=== PATIENT | female | born 1950 | race Caucasian/White ===

== ENCOUNTER 2019-06-15 09:00 | Outpatient (RCR) | payer MEDICARE, SELFPAY ==
--- NOTE | 2019-04-24 11:54 | HP.PTEVAL_ITS ---
Patient's Visit Information SHANE ZAMUDIO is a 69 year old F referred to Physical Therapy by Ricardo Smith MD with a diagnosis of LOW BACK PAIN WITH SCIATICA RIGHT SIDE. Date of Evaluation: 04/21/19 Physical Therapist: Indigo Zepeda PT, Cert MDT - Visit Plan Frequency: 2-3x /Week Duration: 4-6 Weeks Plan: POSTURE CORRECTION/STRENGTHENING, INSTRUCTION IN APPROPRIATE BODY MECHANICS AND ACTIVITY MODIFICATIONS. DLS STARTING WITH A NEUTRAL SPINE PROGRESSING ROM TOLERATED. DELTA LE ROM, STRETCHING AND STRENGTHENING. HEP INSTRUCTION. - Subjective Findings: Work/Leisure: RETIRED. Disability: NO. Present symptoms: RIGHT LOW BACK, HIP, THIGH AND LEG PAIN. RIGHT LE NUMBNESS TOO. Present since: ABOUT A MONTH AGO. Pain Scale: WORST 8/10, LEAST 5/10. Currently: /10. Commenced as a result of: NO APPARENT REASON. Symptoms at onset: RIGHT HIP. Worse: WALKING, PROLONGED WEIGHT BEARING, EVENING. Better: SITTING. Disturbed sleep: NO. Previous history/TREATMENT: UNREMARKABLE. OTHER: THIS EPISODE HAS GONE TO THE [facility] ABOUT 4 TIMES WITH TEMPORARY RELIEF ONLY. Coughing/sneezing/straining: POSITIVE. Gait: LIMPING ON RIGHT LE. Difficulty initiating urinatin: NO. Accidents: NO. Unexplained weight loss: NO. Imaging: JUST AT [facility] - HE SAID IT WAS INFLAMMATION IN MY MUSCLE. PMH: PARKINSON'S - STATES SHE DID HAVE SOME FALLS BUT NOT FOR A YEAR OR MORE. Recent major surgery: NO. PLOF (Prior Level of Function): WALKING, DANCING AND EVERYDAY WORK WAS MUCH EASIER AND WITHOUT PAIN. - Objective Sitting/Standing Posture: WHOLE BODY TREMOR TYPE MVMTS. Lordosis: REDUCED. Lateral shift: NO. Relevant shift: N/A. Active Correction of posture: NE. Other Observations: INDEP GAIT INTO PT X > 300 FEET WITHOUT ANY ASSISTIVE DEVICES OR LOSS OF BALANCE. INCREASED TRUNK FLEXION. SHORT DELTA STRIDE LENGTH WITH QUICK STEPS. MILD LIMP ON RIGHT LE. Motor deficit: DELTA LE'S GROSSLY 5/5 WITH MMT'ING EXCEPT HIPS 4/5 AND RIGHT KNEE 4/5. Sensory deficit: DELTA LE LIGHT TOUCH SENSATION INTACT AND SYMMETRICAL. ROM deficit: DELTA LE'S WFL. Reflexes: Dural Signs: POSITIVE RIGHT LE. Lumbar mvmt loss: flex - MIN TO MOD - INCREASES RIGHT THIGH PAIN. ext - REBECCA - INCREASES RIGHT HIP PAIN. R SG - REBECCA - INCREASES RIGHT HIP PAIN. L SG - REBECCA - INCREASES RIGHT HIP PAIN. Core strength: POOR. Palpation: TENDERNESS WITH PALPATION OF RIGHT LUMBAR PARASPINALS AND RIGHT GREATER TROC REGION INTO IT BAND REGION. - Goals Goal 1:: DECREASE C/O RIGHT LOW BACK AND LE SX'S. Goal Time Frame: 4-6 Weeks Goal 2:: IMPROVE LIFTING, WALKING, STANDING AND SOCIAL LIFE FUNCTION Goal Time Frame: 4-6 Weeks Goal 3:: INSTRUCT IN PROPHYLAXIS Goal Time Frame: 4-6 Weeks - Rehabilitation Potential Rehabilitation Potential: Fair - Anticipated Interventions Patient/Client Instruction: Educate patient on: Condition, Plan of Care, Risk Factors, Benefits of Fitness Program For the Purpose of:: To improve self management Therapeutic Exercise to Include: Strength training, Body mechanics, Postural training, In an aquatic setting, Active ROM, Dynamic Lumbar Stabilization Comment: START ON LAND. PATIENT IS RELUCTANT TO DO AQUATIC THERAPY. For the Purpose of:: To decrease pain, To improve muscle performance and motor function, To increase tolerance to activity/condition/position, To improve ability of physical actions for home/community/work/leisure Thank you for the opportunity to evaluate your patient. For Medicare and Medicare HMO plans, please review the plan of care and approve it. It will need to be FAXED BACK to us at [phone] for Medicare purposes. For Medicare only, by signing this I certify the plan of care. Please let me know if there are questions or concerns regarding this plan of care. Physician Signature: Date:
--- NOTE | 2019-05-15 11:18 | HP.PTREVAL ---
Ricardo Smith MD, It has been my pleasure to treat SHANE ZAUMDIO over the last 6 visits for LOW BACK PAIN WITH SCIATICA RIGHT SIDE. Please see the progress note below for an update on the physical therapy plan of care! Subjective: PATIENT REPORTS HER HIP ISN'T GETTING ANY BETTER BUT SHE ISN'T WORSE EITHER. PATEINT REPORTS SHE SAW THE NURSE PRACTIONER AND SHE TOLD HER SHE HASN'T HAD ENOUGH PHYSICAL THERAPY YET. ALSO HAD X-RAYS. STATES THE NURSE PRACTIONER TOLD HER THAT IF THE X-RAY DOESN'T SHOW ANYTHING SHE WILL NEED AN MRI. Objective/Function: UPON EXAM, THERE ARE NO SIGNIFICANT CHANGES SINCE INITIAL EVALUATION. HER LUMBAR OSWESTRY SCORE IS WORSE TODAY BUT SHE REFERS MORE TO HER HIP THAN BACK PAIN WHEN ANSWERING THIS TIME. Plan Plan: TRIAL OF CHANGE TO AQUATIC THERAPY FOR THER EX PER ORIGINAL POC IN A REDUCED WEIGHT BEARING ENVIRONMENT. PATIENT IS AGREEABLE TO THIS POC AND WILL LET US KNOW HER X-RAY RESULTS WHEN SHE GETS THEM. Goals Goal 1:: DECREASE C/O RIGHT LOW BACK AND LE SX'S. Goal Time Frame: 4-6 Weeks Goal Progress: Not Progressing Goal 2:: IMPROVE LIFTING, WALKING, STANDING AND SOCIAL LIFE FUNCTION Goal Time Frame: 4-6 Weeks Goal Progress: Not Progressing Goal 3:: INSTRUCT IN PROPHYLAXIS Goal Time Frame: 4-6 Weeks Goal Progress: Not Progressing Anticipated Interventions Patient/Client Instruction: Educate patient on: Condition, Plan of Care, Risk Factors, Benefits of Fitness Program For the Purpose of:: To improve self management Therapeutic Exercise to Include: Strength training, Body mechanics, Postural training, In an aquatic setting, Active ROM, Dynamic Lumbar Stabilization Comment: START ON LAND. PATIENT IS RELUCTANT TO DO AQUATIC THERAPY. For the Purpose of:: To decrease pain, To improve muscle performance and motor function, To increase tolerance to activity/condition/position, To improve ability of physical actions for home/community/work/leisure Please do not hesitate to contact me at [phone] by phone or if you have questions or concerns regarding this new plan of care! Sincerely, Indigo Zepeda, PT, Cert MDT
--- NOTE | 2019-06-15 09:28 | HP.PTDCSUM ---
HP - PT D/C Summary It has been my pleasure to treat SHANE ZAMUDIO under orders from Ricardo Kaur MD, for the diagnosis of LOW BACK PAIN WITH SCIATICA RIGHT SIDE for a total of 12 visit(s). Discharge Date: 06/15/19 Please see the following information for a summary of their discharge status. - Subjective Subjective: PATIENT REPORTS THEY STILL HAVEN'T FIGURED OUT WHAT IS WRONG. SHE REPORTS THEY HAVE DONE X-RAYS BUT SHE CAN'T HAVE THE MRI'S BECAUSE OF THE HARD TABLE. REPORTS SHE TRIED IT TWICE BUT IT MADE IT HURT SO BAD HER LEGS SHOOK. PATIENT REPORTS HER BACK HASN'T BEEN BOTHERING HER - JUST HER HIP AND LEG DOWN TO HER ANKLE. SHE REPORTS THERE IS A SORE SPOT IN HER HIP AND THEN IT GOES DOWN HER LEG AND IT GETS NUMB. THE SIDE OF HER LEG IS SORE AND NUMB. PATIENT REPORTS THE WATER THERAPY FEELS GOOD WHILE SHE IS DOING IT AND FOR AN HOUR OR SO AFTER. PATIENT REPORTS SHE IS NOT BETTER BUT SHE IS NOT WORSE EITHER. GOING TO SEE DR. RODRIGUEZ IN ABOUT A WEEK TO SEE WHAT HE CAN DO BECAUSE DR. KAUR TOLD HER HER BACK AND HIP X-RAYS LOOK GOOD. - Pain Lumbar Spine Pain Intensity (Out of 10): 0 R hip Pain Intensity (Out of 10): 7 - Objective Objective/Function: PATIENT REPORTS HER BACK IS REALLY NOT THE PROBLEM IT IS HER HIP/LEG RIGHT. SHE IS NOT GETTING BETTER. UPON EXAM TODAY THERE IS NOT MUCH CHANGE COMPARED TO INITIAL EVAL 2 MONTHS AGO. ANSWERED OSWESTRY QUESTIONS FOR BACK TODAY. Dural Signs: POSITIVE RIGHT LE. Lumbar mvmt loss: flex - MIN - INCREASES RIGHT THIGH PAIN AND RIGHT LBP. ext - REBECCA - INCREASES RIGHT HIP PAIN. R SG - REBECCA - INCREASES RIGHT HIP PAIN. L SG - MOD - NE. Core strength: POOR. Palpation: TENDERNESS WITH PALPATION OF RIGHT LUMBAR PARASPINALS AND RIGHT GREATER TROC REGION INTO IT BAND REGION. - Goals Goal 1:: DECREASE C/O RIGHT LOW BACK AND LE SX'S. Goal Progress: Not Progressing Goal 2:: IMPROVE LIFTING, WALKING, STANDING AND SOCIAL LIFE FUNCTION Goal Progress: Not Progressing Goal 3:: INSTRUCT IN PROPHYLAXIS Goal Progress: Not Progressing - Plan Plan: D/C. PHYSICIAN FOLLOW UP RECOMMENDED. PATIENT AGREEABLE. - D/C Information If there are questions or concerns regarding this patient's physical therapy, please feel free to call me at [phone]. Thank you for the referral of this patient. Sincerely, Indigo Zepeda PT, Cert MDT
== END 2019-06-15 19:00 | disposition home or self-care (01) ==
LOC: PT 09:00
PROVIDERS: Family Provider Family Medicine; PCP Family Medicine; Referring Provider Orthopaedic Surgery; Visit Provider Orthopaedic Surgery
DX: M54.41 Lumbago with sciatica, right side (principal)
CPT/HCPCS: 97110; 97113; 97140; 97162; 97530

== ENCOUNTER → 2019-06-26 | Outpatient (CLI) | payer MEDICARE, SELFPAY ==
[2019-06-26 09:23] VITALS: BMI 24.2
--- NOTE | 2019-06-26 09:39 | RAD_ITS ---
STUDY: X-RAY - LUMBAR SPINE REASON FOR EXAM: Female, 69 years old. Back pain TECHNIQUE: 5 view(s) of the lumbar spine were obtained. COMPARISON: None FINDINGS: Normal lumbar lordosis. There is no substantial scoliosis. There is a normal alignment of the vertebrae. Expected age-related degenerative changes are present. Normal vertebral bodies and endplates. Normal disc space heights. The soft tissue structures are unremarkable. RAD/L/S Spine Min 4 Views IMPRESSION: Unremarkable age appropriate degenerative x-ray examination of the lumbar spine. Electronically Signed: Jett Otero, at 19:42 EDT Tel , Service support ,
--- NOTE | 2019-06-26 09:39 | RAD_ITS ---
STUDY: X-RAY - PELVIS AND RIGHT HIP REASON FOR EXAM: Female, 69 years old. Hip pain for 3 months TECHNIQUE: 3 views of the pelvis and hip. COMPARISON: None. FINDINGS: There is a non-specific bowel gas pattern. Normal visualized soft tissue structures. Normal bilateral iliac wings, sacroiliac joints and visualized sacrum. Normal bilateral superior and inferior pubic rami. Normal pubic symphysis. Normal bilateral ischial tuberosities. Normal visualized femoral head. Normal acetabulum. Normal hip joint. RAD/HIP, UNI W/ Pelvis 2-3 Views IMPRESSION: Normal x-ray examination of the pelvis and hip. Electronically Signed: Jett Otero, at 20:04 EDT Tel , Service support ,
== END | disposition home or self-care (01) ==
PROVIDERS: Family Provider Family Medicine; PCP Family Medicine; Referring Provider Orthopaedic Surgery; Visit Provider Orthopaedic Surgery
DX: M25.551 Pain in right hip (principal)
CPT/HCPCS: 72110; 73502

== ENCOUNTER 2024-12-19 11:00 | Outpatient (RCR) | payer MEDICARE, SELFPAY ==
--- NOTE | 2024-08-29 12:56 | HP.PTEVAL_ITS ---
Patient's Visit Information Visit Information Visit Information: SHANE ZAMUDIO is a 74 year old F referred to Physical Therapy by JUANA Michaels with a diagnosis of Parkinsons disease, gait disturbance. Date of Evaluation: 08/29/24 Physical Therapist: John Veronica DPT Visit Plan Frequency: 2x /Week Duration: 6 Weeks Plan: 1) BLE strengthening, focus on hip/core strengthening, quad strength 2) BIG like movements working precision and stability, 3) progress to HEP both at home and in gym Subjective Subjective: Pt. is here today for her initial evaluation with diagnosis of Parkinson's Disease, and gait instability. Pt. reports having some LLE weakness. She has also fallen a few times. Pt. reports having some issues with directional changes. Pt. has stopped coming to the gym, no define reason but does plan on coming back. Pt. feels like her balance and LEs have become weaker. She has also started on an increased dosage of her medication Objective Objective: POSTURE: Pt. has lateral lean to L side in stance, slightly wide JACKSON in stance. Writhing motions noted at rest. PALPATION: normal throughout. NEURO: normal sensation and normal DTR in BLEs. ROM: Pt. has good ROM throughout. SLight tightness in B HS. MMT: RLE: ankle: DF31.2#, DF 43.5#knee ext 31.1#, flex 26.9#; hip flexion 36.8#, abd 39.0# LLE: ankle: DF 30.0#, PF 40.2#; knee ext 35.5#, flex 23.4#; hip flexion 42.5#, abd 32.3# TU.2sec without AD FGA: 15/30 SL balance: RLE 30sec, LLE 8sec Balance/Special Test Scores Functional Gait Assessment Score: 15 % Disability: 50.0000 CATSIB Score (Max score 120 seconds): 74 Lower Extremity Functional Score: 33 TUG Test Time Seconds: 13.2 Goals Goal 1:: LTG: Pt. to be I with HEP for balance and LE strengthening. Goal Time Frame: 4-6 Weeks Goal 2:: LTG: Pt. to have symmetrical BLE strength. Goal Time Frame: 4-6 Weeks Goal 3:: LTG: Pt. to have improved FGA to 23/30 indicating improved overall stability. Goal Time Frame: 4-6 Weeks Goal 4:: LTG: Pt. to complete TUG without AD with time less than 10sec indicating good stability with all functional mobility. Goal Time Frame: 4-6 Weeks Goal 5:: LTG: Pt. to be able to stand on her RLE for 30second without LOB. Goal Time Frame: 4-6 Weeks Rehabilitation Potential Physical Therapy Diagnosis: Pt. has signs and symptoms consistent with PD with subsequent gait disturbance. Pt. has some leg weakness, but more so gait disturbance due to her writhing like motions due to her PD. Pt. would benefit from PT to address the above limitions progressing back to all previous levels of function. Anticipated Interventions Patient/Client Instruction: Educate patient on: Condition, Plan of Care, Risk Factors and Benefits of Fitness Program For the Purpose of:: To foster healthy habits, To improve decision making, To facilitate caregiver knowledge, To improve self management, To prevent re-injury and To improve ability to perform tasks related to life management Therapeutic Exercise to Include: Strength training, Power training, Balance training, Coordination, Agility training, Postural training, Gait and locomotor training and Neuromotor development For the Purpose of:: To improve nutrient delivery to tissue, To increase oxygenation perfusion, To improve muscle performance and motor function, To improve gait and locomotor functions, To improve health of tissue, To increase flexibility/ROM, To improve endurance and To improve balance Text: Thank you for the opportunity to evaluate your patient. For Medicare and Medicare HMO plans, please review the plan of care and approve it. It will need to be FAXED BACK to us at [phone] for Medicare purposes. For Medicare only, by signing this I certify the plan of care. Please let me know if there are questions or concerns regarding this plan of care. Physician Signature: Date:
--- NOTE | 2024-10-17 13:21 | HP.PTREVAL ---
Re-Evaluation Intro: JUANA Michaels, It has been my pleasure to treat SHANE ZAMUDIO over the last 12 visits for Parkinsons disease, gait disturbance. Please see the progress note below for an update on the physical therapy plan of care! Subjective Subjective: Pt. is here today for her recheck. Pt. reports overall doing a little bit better. She reports being frustrated with her constant writhing movements she has been experiencing. Pt. reports no recent falls. Objective Objective/Function: Pt. is able to ambulate without AD. She does have a L lateral lean in stance. He biggest issues seems to be she has almost constant writhing movement both in static and with walking. This causes her to have to frequently correct her balance MMT: Pt. has good 5/5 and symmetrical strength throughout BLEs. STAIRS: Pt. is able to complete with use of BHR, but has marked difficulty completing without use HR. Completed with reciprocal pattern. 30 sec sit to stand- 10 attempts without use of UEs. TUG 12.5sec without AD. FGA: SLS: RLE 17sec, LLE 7sec without use of UEs. Pt. did do much better with use of weighted vest with walking. She also have much reduced writhing movements with the weighted vest with sitting. I suggested a possible weighted blanket for use at home while resting. She has been c/o increased overall fatigue, possibly due to her constant writhing movements. Pt. to look into this as well. Plan Plan Plan: I am asking for more visits to work on dynamic motor control and stability. She continues to struggle with writhing like movements that causes her balance to be effected. I would like to work on large dynamic/cory movements in order to increase her motor control. I also suggested she talk to her physician about her medications to see if this might be causing some of her symptoms. Pt. consents. Balance/Gait/Functional tests Balance/Special Test Scores Functional Gait Assessment Score: 20 % Disability: 33.3400 CATSIB Score (Max score 120 seconds): 74 Lower Extremity Functional Score: 37 TUG Test Time Seconds: 12.5 Tug Test: <20 sec.=mostly independent 30 Second Chair Rise Test Seconds: 10 6 Minute Walk Test: 910feet without AD Goals Goals Goal 1:: LTG: Pt. to be I with HEP for balance and LE strengthening. Goal Time Frame: 4-6 Weeks Goal Progress: Progressing Goal 2:: LTG: Pt. to have symmetrical BLE strength. Goal Time Frame: 4-6 Weeks Goal Progress: Goal Met Goal 3:: LTG: Pt. to have improved FGA to 23/30 indicating improved overall stability. Goal Time Frame: 4-6 Weeks Goal Progress: Progressing Goal 4:: LTG: Pt. to complete TUG without AD with time less than 10sec indicating good stability with all functional mobility. Goal Time Frame: 4-6 Weeks Goal Progress: Progressing Goal 5:: LTG: Pt. to be able to stand on her RLE for 30second without LOB. Goal Time Frame: 4-6 Weeks Goal Progress: Progressing Anticipated Interventions Anticipated Interventions Patient/Client Instruction: Educate patient on: Condition, Plan of Care, Risk Factors and Benefits of Fitness Program For the Purpose of:: To foster healthy habits, To improve decision making, To facilitate caregiver knowledge, To improve self management, To prevent re-injury and To improve ability to perform tasks related to life management Therapeutic Exercise to Include: Strength training, Power training, Balance training, Coordination, Agility training, Postural training, Gait and locomotor training and Neuromotor development For the Purpose of:: To improve nutrient delivery to tissue, To increase oxygenation perfusion, To improve muscle performance and motor function, To improve gait and locomotor functions, To improve health of tissue, To increase flexibility/ROM, To improve endurance and To improve balance Re-Evaluation Ending Re-evaluation ending: Please do not hesitate to contact me at [phone] by phone or if you have questions or concerns regarding this new plan of care! Sincerely, John Veronica DPT
--- NOTE | 2024-12-19 11:53 | HP.PTDCSUM ---
Discharge Summary D/C summary: It has been my pleasure to treat SHANE ZAMUDIO referred by JUANA Michaels, with the diagnosis of Parkinsons disease, gait disturbance for a total of 22 visit(s). Discharge Date: 12/19/24 Please see the following information for a summary of their discharge status. Subjective Subjective: Pt. reports having days that are better than others. She did fallen last week. She reports falling after standing up from the floor. Pt. reports having no falls otherwise. She reports no pain with falling. Pt. to see PD physician in ~1 month. Overall Improvement % Improvement: 15 Objective Objective/Function: Pt. reports no soreness since her fall. She described getting up from the floor and falling backwards. No previous falls that she can remember. FGA was again good slightly less than 2 weeks previous, but not bad. TUG was decent again strength is good in BLEs It appears her fall was more of a fluke type thing. Overall her balance is decent. Pt. reports feeling the same way. She was able to go dancing this past weekend as well. I am again recommending her to DC today to work on strengthening in gym and start the PD class to work on coordination and movements. Pt. will be DC from PT at this point in time Goals Goal 1:: LTG: Pt. to be I with HEP for balance and LE strengthening. Goal Progress: Progressing Goal 2:: LTG: Pt. to have symmetrical BLE strength. Goal Progress: Goal Met Goal 3:: LTG: Pt. to have improved FGA to 23/30 indicating improved overall stability. Goal Progress: Progressing Goal 4:: LTG: Pt. to complete TUG without AD with time less than 10sec indicating good stability with all functional mobility. Goal Progress: Progressing Goal 5:: LTG: Pt. to be able to stand on her RLE for 30second without LOB. Goal Progress: Progressing Plan Plan: Pt. is to trial her exercises on her own doig both gym exercises and looking to get into PD class. Pt. to follow back up with PT in 2 weeks if needed. D/C Information d/c sentence: If there are questions or concerns regarding this patient's physical therapy, please feel free to call me at [phone]. Thank you for the referral of this patient. Sincerely, John L Sipos, DPT Balance/Gait/Functional tests Balance/Special Test Scores Functional Gait Assessment Score: 23 % Disability: 23.3400 CATSIB Score (Max score 120 seconds): 74 Lower Extremity Functional Score: 37 TUG Test Time Seconds: 11.9 Tug Test: <20 sec.=mostly independent 30 Second Chair Rise Test Seconds: 15 6 Minute Walk Test: 910feet without AD Improvement % Improvement: 15
== END 2024-12-19 14:03 | disposition home or self-care (01) ==
LOC: PT 11:00
PROVIDERS: PCP Family Medicine; Referring Provider Physician Assistant; Visit Provider Physician Assistant
DX: G20.A1 Parkinson's disease without dyskinesia, without mention of fluctuations (principal); R26.89 Other abnormalities of gait and mobility
CPT/HCPCS: 97110; 97161; 97530

== ENCOUNTER 2025-07-07 11:44 | Emergency (ER) | payer MEDICARE, SELFPAY ==
[2025-07-07 11:45] VITALS: BP 153/80; PULSE 91; RESP 16; TEMP 36.9; O2SAT 100
[2025-07-07 11:46] VITALS: BMI 24.0
--- NOTE | 2025-07-07 11:56 | CT_ITS ---
PROCEDURE: BRAIN/HEAD WITHOUT CONTRAST 07/07/2025 REASON FOR EXAM: TRAUMA TECHNIQUE: BRAIN/HEAD WITHOUT CONTRAST Coronal and Sagittal reconstruction series were provided. One or more dose reduction techniques were used (e.g., Automated exposure control, adjustment of the mA and/or kV according to patient size, use of iterative reconstruction technique. RADIATION DOSE SUMMARY: CTDlvol: 12.39 mGy DLP: 1001.55 mGycm COMPARISON: None. FINDINGS: Brain: Extensive low density in the deep cerebral white matter most likely represents advanced chronic small vessel ischemic disease. No acute territorial infarction. No intracranial hemorrhage. No mass-effect or midline shift. No ventriculomegaly. Atherosclerotic calcifications of the carotid bulbs. CSF Spaces: Advanced generalized cerebral atrophy Sinuses/Mastoids: Clear. Bones: No acute bony abnormalities. CT/Brain/Head without Contrast IMPRESSION: No acute intracranial abnormalities. Reading Location: [id number]
--- NOTE | 2025-07-07 11:56 | CT_ITS ---
PROCEDURE: SPINE CERVICAL WITHOUT CONTRAS 07/07/2025 REASON FOR EXAM: TRAUMA TECHNIQUE: SPINE CERVICAL WITHOUT CONTRAS Coronal and Sagittal reconstruction series were provided. One or more dose reduction techniques were used (e.g., Automated exposure control, adjustment of the mA and/or kV according to patient size, use of iterative reconstruction technique. RADIATION DOSE SUMMARY: CTDlvol: 12.39 mGy DLP: 256.06 mGycm COMPARISON: None. FINDINGS: Alignment: Retrolisthesis C4 on C5 by 2 mm. Vertebrae: No acute bony abnormalities. Soft Tissues: No soft tissue abnormalities. The lung apices are clear. Disc levels: Multilevel degenerate changes of the cervical spine predominantly at C5-C6 where there is disc space narrowing, uncovertebral hypertrophy, facet joint arthropathy with severe bilateral foramina stenosis and moderate canal stenosis. CT/Spine Cervical without Contras IMPRESSION: No acute cervical spine abnormalities. Reading Location: [id number]
--- NOTE | 2025-07-07 11:57 | EDS_ITS ---
HPI History of Present Illness Chief Complaint: Head Injury Narrative Narrative: 75-year-old female past medical history of Parkinson disease presents status post fall. She states that she was at home, and lost her balance. She hit the left side of her posterior skull against a heavy metal and table. She now has left-sided neck pain and mild headache. She denies loss of consciousness or other injury. She does not take any blood thinners. She does state that she has had had frequent falls secondary to her Parkinson's but does not use a walker or cane. She and her and her cousin state that she has a goose egg on the backside of her skull on the left. No nausea or vomiting, no other injuries. [facility] Medical History HTN (hypertension) Parkinson disease Home Medications ?Medication ?Instructions ?Recorded ?Last Taken ?Type carbidopa 25 mg-levodopa 100 mg PO #270 tabs 06/26/19 Unknown History tablet duloxetine 60 mg capsule,delayed PO #30 caps 06/26/19 Unknown History release lisinopril 5 mg tablet 5 mg PO DAILY 06/26/19 Unkno wn History simvastatin 40 mg tablet 40 mg PO QHS 06/26/19 Unknow n History amantadine HCl 100 mg capsule 100 mg PO BID 07/07/25 U nknown History carbidopa ER 50 mg-levodopa 200 mg 1 tab PO QHS Unknown History tablet,extended release escitalopram oxalate 20 mg tablet 20 mg PO DAILY 07/07 Unknown History pramipexole 1.5 mg tablet PO 07/07/25 Unknown History vitamins A,C,C-gymq-mqdfmm 4,296 1 cap PO BID 07/07/25 Unknown History mcg-226 mg-90 mg capsule (PreserVision AREDS) Allergy/AdvReac Type Severity Reaction Status Date / Time amlodipine (From Norvasc) AdvReac rash Verified 07/07/25 11:46 diltiazem AdvReac rash Verified 07/07/25 11:46 Penicillins AdvReac rash Verified 07/07/25 11:46 sulfamethoxazole (From AdvReac rash Verified 07/07/25 11:46 Bactrim) trimethoprim (From Bactrim) AdvReac rash Verified 07/07/25 11:46 verapamil AdvReac rash Verified 07/07/25 11:46 Social History Smoking Status: Never smoker ROS ROS ED ROS Narrative Review of systems positive for hematoma on left occiput and left-sided neck pain. No loss of consciousness. No nausea or vomiting. Denies other injuries. EXAM Physical Exam Narrative Exam Narrative: GCS 15. ABCs intact. Head is normocephalic. Positive hematoma without crepitance on left occiput. Neck soft and supple without meningismus. No vertebral point tenderness or bony step-off. Mild tenderness palpation left cervical paraspinal musculature. Cardiovascular examination regular rate and rhythm. Lungs clear to auscultation bilaterally. Abdomen is soft nontender with normoactive bowel sounds. Patient is neurologically intact to the bilateral upper and lower extremities. Able to raise arms above head without difficulty. Awake, alert, oriented to person, place, and current events. Const Vital Signs: 07/07/25 11:45 07/07/25 11:53 Temperature 98.4 F Temperature Source Oral Pulse Rate 91 Respiratory Rate 16 Respiratory Effort Normal Non-Labored Respiratory Depth Normal Respiratory Pattern Normal Blood Pressure 153/80 H Blood Pressure Mean 104 Pulse Ox 100 Oxygen Delivery Method Room Air Room Air MDM MDM MDM Narrative Medical decision making narrative: The differential diagnosis includes but not limited to occipital scalp hematoma with closed head injury versus skull fracture versus intracranial hemorrhage versus cervical strain of the paraspinal neck muscles versus cervical neck fracture. CT imaging obtained of the brain and cervical spine without contrast. They do not feel she requires laboratory work currently for other imaging as she denies other injuries. I reviewed the radiology reports of the CT of the brain and the CT of the cervical spine. There is no acute intracranial abnormality, no intracranial hemorrhage or skull fracture noted. CT of the cervical spine radiology report shows no evidence of an acute fracture. At this point in time, I feel she can be discharged to follow-up with her primary care provider. Return instructions to the emergency department were reviewed. Disposition is discharged home in stable condition. History & Record Review Discussion w/independent historian: Patient and Family ( and cousin) Radiography Diagnostic Testing: Clinical Impression(s) from Imaging Studies Brain CT 07/07/25 11:56 IMPRESSION: No acute intracranial abnormalities. Reading Location: [facility] Cervical Spine CT 07/07/25 11:56 IMPRESSION: No acute cervical spine abnormalities. Reading Location: [facility] Discharge Plan Triage Chief Complaint: Head Injury ED Provider: Isrrael Hampton Dx/Rx/DC Orders Clinical Impression: Fall, Closed head injury, Scalp hematoma, Cervical strain Instructions: ED Head Injury (Adult), ED Hematoma, ED Neck Sprain or Strain Prescriptions: No Action duloxetine 60 mg capsule,delayed release(DR/EC) PO Qty: 30 Patient Comments: TAKE ONE CAPSULE BY MOUTH EVERY MORNING carbidopa-levodopa 25-100 mg tablet PO Qty: 270 Patient Comments: TAKE 1 TABLET BY MOUTH THREE TIMES A DAY lisinopril 5 mg tablet 5 mg PO DAILY simvastatin 40 mg tablet 40 mg PO QHS carbidopa-levodopa 50-200 mg tablet extended release 1 tab PO QHS amantadine HCl 100 mg capsule 100 mg PO BID pramipexole 1.5 mg tablet PO escitalopram oxalate 20 mg tablet 20 mg PO DAILY PreserVision AREDS 4,296 mcg-226 mg-90 mg capsule 1 cap PO BID Primary Care Provider: Deangelo Salinas Referrals: Deangelo Salinas MD [Primary Care Provider] - 3-5 Days if not improving Activity Restrictions/Additional Instructions: Tylenol or ibuprofen as needed for pain. Ice on affected area. Return with new or worsening symptoms. Print Language: Mongolian Disposition Disposition: Home, Self Care
--- OUTSIDE RECORDS SUMMARY | 2025-07-07 12:18 | XMS RPT_ITS | CCD ---
Author Organization [facility] Care Team Providers Care Fabric Lay Out Worker Name Role Phone Deangelo Hawkins MD Primary Care Provider [phone] Deangelo Hawkins MD Primary Care Provider Jeffrey VARGHESE.Rodriguez MARMOLEJO Unavailable Shey Quiroz PA-C Unavailable Deangelo Hawkins Primary Care Unavailable Shey Solorzano Referring Unavailable Shey Solorzano Attending Unavailable Jeffrey VARGHESE.Rodriguez MARMOLEJO Unavailable Shey Quiroz PA-C Unavailable [phone] DEANGELO HAWKINS A Primary Care Unavailable SHRUTHIDEANGELO REDD Attending Unavailable CAROLINA MENDOZA Attending Unavailable SHRUTHI, DEANGELO A Primary Care Unavailable SHEY QUIROZ Attending Unavailable FELIBERTO HAWKINSREY A Primary Care Unavailable MONSE CLAROS Referring Unavailable MONSE CLAROS Attending Unavailable DEANGELO HAWKINS Primary Care Unavailable SHEY QUIROZ Referring Unavailable DEANGELO HAWKINS Primary Care Unavailable SHEY QUIROZ Referring Unavailable SHRUTHI, DEANGELO A Primary Care Unavailable SELF Referring Unavailable SHEY QUIROZ Attending Unavailable SHRUTHI, DEANGELO A Primary Care Unavailable RODRIGUEZ GRIJALVA Attending Unavailable SHRUTHI, DEANGELO A Primary Care Unavailable SHRUTHI, DEANGELO A Primary Care Unavailable SAMUEL ARIAS Referring Unavailable SAMUEL ARIAS Attending Unavailable SHRUTHI, DEANGELO A Primary Care Unavailable SHRUTHI, DEANGELO A Primary Care Unavailable SAMUEL ARIAS Referring Unavailable SAMUEL ARIAS Attending Unavailable SHEY QUIROZ Referring Unavailable SHRUTHI, DEANGELO A Primary Care Unavailable SHEY QUIROZ Attending Unavailable SHRUTHI, DEANGELO A Primary Care Unavailable MONSE CLAROS Attending Unavailable DEAGNELO HAWKINS Primary Care Unavailable DEANGELO HAWKINS Primary Care Unavailable SAMUEL ARIAS Referring Unavailable SAMUEL ARIAS Attending Unavailable SHEY QUIROZ Referring Unavailable DEANGELO HAWKINS Primary Care Unavailable SHEY QUIROZ Attending Unavailable DEANGELO HAWKINS Primary Care Unavailable Allergies Allergy Classification Reported Allergen(s) Allergy Type Date of Onset Reaction(s) Facility (20 sources) amLODIPine; Translations: [AMLODIPINE BESYLATE] Drug Allergy 12-29-19 11 Rash, Itching [facility] Work Phone: (20 sources) dilTIAZem; Translations: [DILTIAZEM] Drug Allergy 12-29-19 11 Rash, Itching [facility] Work Phone: (6 sources) Penicillins; Translations: [PENICILLINS] Drug Allergy 03-08-20 08 [facility] Work Phone: (20 sources) Sulfamethoxazole / Trimethoprim; Translations: [SULFAMETHOXAZOLE-T RIMETHOPRIM] Drug Allergy 02-13-20 12 [facility] Work Phone: (16 sources) Thiazides; Translations: [THIAZIDES] Drug Intolerance 08-22-20 Other: See Comments [facility] Work Phone: (20 sources) Verapamil; Translations: [VERAPAMIL] Drug Allergy 01-17-20 11 [facility] Work Phone: (20 sources) Penicillins Drug Allergy 03-08-20 08 [facility] Work Phone: (20 sources) Thiazides Drug Intolerance 08-22-20 Other: See Comments [facility] Work Phone: (20 sources) Sulfamethoxazole; Translations: [SULFAMETHOXAZOLE] Drug Allergy 06-26-20 19 [facility] (20 sources) Trimethoprim; Translations: [TRIMETHOPRIM] Drug Allergy 06-26-20 19 [facility] (1 source) amLODIPine Drug Allergy 06-26-20 [facility] (1 source) dilTIAZem Drug Allergy 06-26-20 [facility] (1 source) Penicillins Drug allergy (disorder) 06-26-20 [facility] (1 source) Sulfamethoxazole Drug Allergy 06-26-20 19 [facility] (1 source) Trimethoprim Drug Allergy 06-26-20 [facility] (1 source) Verapamil Drug Allergy 06-26-20 19 [facility] (18 sources) Penicillins Drug Allergy 03-08-20 08 Hives [facility] (8 sources) Thiazides Drug Intolerance 08-22-20 21 Other: See Comments [facility] Medications Current Medications Medication Drug Class(es) Dates Sig (Normalized) Sig (Original) amantadine hydrochloride 100 mg oral capsule (20 sources) Influenza A M2 Protein Inhibitor Start: 01-15-2025 End: 01-15-2026 take 1 capsule by mouth twice daily amantadine HCl (SYMMETREL) 100 mg capsule Take 1 capsule by mouth two times a day. 14 capsule 04/26/2025 Active carbidopa 50 mg / levodopa 200 mg extended release oral tablet (20 sources) Aromatic Amino Acid Decarboxylation Inhibitor, Aromatic Amino Acid Start: 04-26-2025 End: 04-26-2026 take 1 tablet by mouth once daily carbidopa-levodo pa CR (SINEMET CR) 50-200 mg per tablet Take 1 tablet by mouth once daily. Take at 10p. 30 tablet 11 04/26/2025 04/26/2026 Active Start: 03-09-2023 carbidopa-levo dopa (SINEMET) 25-100 mg per tablet Take 1 tablet by mouth three times daily. Per neuro 03/09/2023 Active Start: 03-10-2021 End: 03-09-2023 carbidopa-levodopa CR (GABY ET CR) 50-200 mg per tablet Take 1 tablet by mouth three times daily. Per NeuroDr. Curry 0 03/10/2021 03/09/2023 Discontinued (Changing Therapy/Dosage Form) Comment on above: Take 1 tablet by salty th three times daily. Per NeuroDr. Curry Take 1 tablet by salty th three times daily. Per neuro clindamycin 150 mg oral capsule (1 source) Lincosamide Antibacterial Start: 08-16-20 End: 08-23-20 take 3 capsules by mouth three times daily clindamycin (CLEOCIN) 150 mg capsule Take 3 capsules by mouth three times daily for 7 days. 63 capsule 0 08/16/2022 08/23/2022 Active Comment on above: Take 3 capsules by m out three times daily for 7 days. doxycycline hyclate 100 mg oral tablet (1 source) Tetracycline-class Drug Start: 09-11-20 End: 09-21-20 take 1 tablet by mouth twice daily doxycycline (VIBRA-TABS) 100 mg tablet Indications: Bacterial sinusitis Take 1 tablet by mouth twice daily for 10 days. 20 tablet 0 09/11/2022 09/21/2022 Active Comment on above: Take 1 tablet by salty twice daily for 10 days. escitalopram 20 mg oral tablet (20 sources) Serotonin Reuptake Inhibitor Start: 03-19-20 End: 08-27-20 take 1 tablet by mouth once daily at bedtime escitalopram oxalate (LEXAPRO) 20 mg tablet Take 1 tablet by mouth daily at bedtime. 180 tablet 05/29/2025 08/27/2025 Active Start: 05-02-2024 End: 04-16-2025 take 2 tablets by mouth once daily at bedtime escitalopram oxalate (LEXAPRO) 20 mg tablet Take 2 tablets by mouth daily at bedtime. 180 tablet 01/16/2025 03/19/2025 Discontinued (Adjust Sig - Block E-Cancel) Start: 11-26-2023 End: 05-08-2024 take 1.5 tablets by mouth once daily at bedtime escitalopram oxalate (LEXAPRO) 20 mg tablet Take 1.5 tablets by mouth daily at bedtime. 135 tablet 0 02/08/2024 05/02/2024 Discontinued Start: 10-19-2023 End: 11-24-2023 take 0.5 tablet by mouth once daily at bedtime, then take 1 tablet by mouth once daily at bedtime escitalopram oxalate (LEXAPRO) 20 mg tablet Take 0.5 tablets by mouth daily at bedtime for 6 days, THEN 1 tablet daily at bedtime. 33 tablet 0 10/19/2023 11/24/2023 Active Comment on above: Take 0.5 tablets by mouth daily at bedtime for 6 days, THEN 1 tablet daily at bedtime. Take 1.5 tablets by mouth daily at bedtime. Take 1.5 tablets by mouth daily at bedtime for 7 days. metoprolol tartrate 100 mg oral tablet (20 sources) beta-Adrenergic Eric Start: 06-04-2023 End: 09-19-2024 take 1 tablet by mouth twice daily metoprolol tartrate, short acting, (LOPRESSOR) 100 mg tablet Indications: Essential hypertension Take 1 tablet by mouth two times a day. 180 tablet 1 09/19/2024 Active Start: 02-20-2022 take 1 tablet by salty twice daily metoprolol tartrate, short acting, (LOPRESSOR) 100 mg tablet Indications: Essential hypertension Take 1 tablet by mouth twice daily. 180 tablet 1 02/20/2022 Active Comment on above: Take 1 tablet by salty twice daily. nitrofurantoin, macrocrystals 25 mg / nitrofurantoin, monohydrate 75 mg oral capsule (3 sources) Nitrofuran Antibacterial Start: 05-27-20 End: 06-01-20 take 1 capsule by mouth twice daily nitrofurantoin monohydrate and macrocrystal (MACROBID) 100 mg capsule Indications: Recurrent UTI (urinary tract infection) Take 1 capsule by mouth twice daily for 5 days. 10 capsule 0 05/27/2023 06/01/2023 Active Start: 02-18-2023 End: 02-25-2023 take 1 capsule by mouth twice daily at mealtime nitrofurantoin monohydrate and macrocrystal (MACROBID) 100 mg capsule Indications: Urinary frequency Take 1 capsule by mouth twice daily with meals for 7 days. 14 capsule 0 02/18/2023 02/25/2023 Active Comment on above: Take 1 capsule by [facility] twice daily with meals for 7 days. Take 1 capsule by [facility] twice daily for 5 days. pramipexole dihydrochloride 1.5 mg oral tablet (20 sources) Nonergot Dopamine Agonist Start: End: take 1 tablet by mouth three times daily pramipexole (MIRAPEX) 1.5 mg tablet Take 1 tablet by mouth three times a day. 03/19/2025 Active Start: 10-26-2023 End: 03-19-2025 take 1 tablet by mouth every three hours pramipexole (MIRAPEX) 1.5 mg tablet Take 1 tablet by mouth every 3 hours. Per Neuro: Dr. Curry 10/26/2023 03/19/2025 Discontinued (Adjust Sig - Block E-Cancel) Start: 02-23-2023 End: 10-26-2023 take 1 tablet by mouth every three hours pramipexole (MIRAPEX) 1 mg tablet Take 1 mg by mouth every 3 hours. 0 02/23/2023 10/26/2023 Discontinued (Adjust Sig - Block E-Cancel) Comment on above: Take 1 mg by mouth e very 3 hours. Take 1 tablet by salty th every 3 hours. Per Neuro: Dr. Curry Take 1 tablet by salty th every 3 hours. Per Neuro: simvastatin 10 mg oral tablet (20 sources) HMG-CoA Reductase Inhibitor Start: End: take 1 tablet by mouth once daily at bedtime simvastatin (ZOCOR) 10 mg tablet Take 1 tablet by mouth daily at bedtime. 90 tablet 1 03/22/2025 Active Comment on above: Take 1 tablet by salty th daily at bedtime. sodium fluoride 0.011 mg/mg toothpaste (20 sources) sodium fluoride 1.1 % dental cream sodium fluoride 1.1 % dental paste USE TO BRUSH TEETH ONCE A DAY IN THE EVENING Active Comment on above: sodium fluoride 1.1 % dental paste USE TO BRUSH TEETH ONCE A DAY IN THE EVENING spironolactone 25 mg oral tablet (20 sources) Aldosterone Antagonist Start: End: take 1 tablet by mouth once daily spironolactone (ALDACTONE) 25 mg tablet Take 1 tablet by mouth once daily. 90 tablet 1 09/19/2024 Active Comment on above: Take 1 tablet by salty th once daily. triamcinolone acetonide 1 mg/ml topical cream (11 sources) Corticosteroid Start: triamcinolone acetonide (KENALOG) 0.1 % cream Indications: Stasis dermatitis Apply 1 application to affected area three times a day. Apply sparingly to area for rash/itching. 454 g 04/17/2025 Active vit A/vit C/vit E/zinc/copper (PRESERVISION AREDS ORAL) (20 sources) vit A/vit C/vit E/zinc/copper (PRESERVISION AREDS ORAL) Take by mouth. Active vit A/vit C/vit E/zinc/copper (PRESERVISION AREDS ORAL) Take by mouth. 0 Active Comment on above: Take by mouth. Completed/Discontinued Medications Medication Drug Class(es) Dates Sig (Normalized) Sig (Original) DULoxetine 30 mg delayed release oral capsule (20 sources) Serotonin and Norepinephrine Reuptake Inhibitor Start: 09-21-2023 End: 10-19-2023 take 1 capsule by mouth once daily DULoxetine (CYMBALTA) 30 mg capsule Take 1 capsule by mouth once daily for 14 days. 14 capsule 0 09/21/2023 10/19/2023 Discontinued (Side Effects) Start: 08-22-2021 take 1 capsule by mouth once D ULoxetine 40 mg cpDR Take 1 capsule by mouth once daily. Per NeuroDr. Curry 90 capsule 1 08/22/2021 Active Comment on above: Take 1 capsule by [facility] once daily. Per NeuroDr. Curry Take 1 capsule by [facility] once daily for 14 days. FLUoxetine 20 mg oral capsule (1 source) Serotonin Reuptake Inhibitor Start: 023 End: take 1 capsule by mouth once daily FLUoxetine (PROZAC) 20 mg capsule Take 1 capsule by mouth once daily. 30 capsule 0 09/21/2023 10/19/2023 Discontinued (Lack of Efficacy) Comment on above: Take 1 capsule by [facility] once daily. fluticasone propionate 0.05 mg/actuat metered dose nasal spray (17 sources) Corticosteroid Start: 023 End: 024 take 2 spray(s) by mouth once daily fluticasone (FLONASE) 50 mcg/actuation nasal spray Use 2 Sprays in each nostril once daily. Rinse mouth after use. 9.9 mL 0 12/15/2022 12/14/2023 Discontinued (Course of therapy completed) Comment on above: Use 2 Sprays in each nostril once daily. Rinse mouth after use. iv contrast (will be provided with radiology test) (1 source) Start: 025 End: 025 inject 1 dose intravenously once iv contrast (will be provided with radiology test) Indications: Peripheral vascular disease , Cold feet CTA ABD/PEL LE - No IV access, insert saline lock prior to the sedation, infusion, injection for imaging exam. Discontinue saline lock post exam. If Pt. has a central line or IVAD, may access for administration according to line specific nursing protocol. Once exam is complete flush line and de-access according to line specific nursing protocol in the CT contrast administration guidelines link. 1 each 05/08/2025 05/09/2025 loratadine 10 mg oral tablet (17 sources) Start: End: take 1 tablet by mouth once daily loratadine (CLARITIN) 10 mg tablet Take 1 tablet by mouth once daily. 30 tablet 11 12/15/2022 12/14/2023 Discontinued (Course of therapy completed) Comment on above: Take 1 tablet by salty th once daily. meloxicam 15 mg oral tablet (20 sources) Nonsteroidal Anti-inflammatory Drug Start: End: take 1 tablet by mouth once daily at mealtime meloxicam (MOBIC) 15 mg tablet Take 1 tablet by mouth once daily. With food. 0 06/26/2019 09/09/2023 Discontinued Comment on above: Take 1 tablet by salty th once daily. With food. montelukast 10 mg oral tablet (20 sources) Leukotriene Receptor Antagonist Start: End: take 1 tablet by mouth once daily at bedtime montelukast (SINGULAIR) 10 mg tablet Take 1 tablet by mouth daily at bedtime. 90 tablet 1 03/16/2024 09/19/2024 Discontinued Comment on above: Take 1 tablet by salty th daily at bedtime. 24 hr rotigotine 0.0833 mg/hr transdermal system (13 sources) Start: End: NEUPRO 2 mg/24 hour patch Apply 2 Patches as directed once daily. 60 Patch 0 09/21/2023 10/26/2023 Discontinued (Discontinued by another Health Care Provider) Start: 03-01-2023 apply 1 dose transde rmal route once daily NEUPRO 2 mg/24 hour patch APPLY 1 PATCH DAILY TO SKIN 0 03/01/2023 Active Comment on above: APPLY 1 PATCH DAILY TO SKIN Apply 2 Patches as d irected once daily. selegiline hydrochloride 5 m g oral tablet (18 sources) Monoamine Oxidase Inhibitor, Monoamine Oxidase Type B Inhibitor selegiline (ELD EPRYL) 5 mg tablet selegiline 5 mg tablet TAKE 1 TABLET TWICE A DAY WITH BREAKFAST AND LUNCH. 0 Active Comment on above: selegiline 5 mg tabl et TAKE 1 TABLET TWICE A DAY WITH BREAKFAST AND LUNCH. Problems Active Problems Problem Classification Problem Date Documented Da te Episodic/Chronic Anxiety disorders (20 sources) Anxiety; Translations: [Anxiety disorder, unspecified] Onset: 09-23-2010 08-06-2015 Chronic Disorders of lipid metabolism (20 sources) Mixed hyperlipidemia; Translations: [Mixed hyperlipidemia] Onset: 08-16-2015 08-16-2015 Chronic Disorders of teeth and jaw (1 source) Infection of tooth; Translations: [Periapical abscess without sinus] Episodic E Codes: Fall (1 source) Fall; Translations: [Unspecified fall, initial encounter] 07-02-2024 Episodic Essential hypertension (20 sources) Essential hypertension; Translations: [Essential (primary) hypertension] Onset: 03-19-2011 Resolved: 05-16-2012 08-16-2015 Chronic Fluid and electrolyte disorders (1 source) Hyperkalemia; Translations: [Hyperkalemia] Episodic Immunizations and screening for infectious disease (2 sources) Vaccination needed; Translations: [Encounter for immunization] Episodic Mood disorders (20 sources) Recurrent major depressive episodes, moderate ; Translations: [Major depressive disorder, recurrent, moderate] Onset: 09-24-2023 10-23-2023 Chronic Osteoporosis (20 sources) Senile osteoporosis; Translations: [Age-related osteoporosis without current pathological fracture] Onset: 03-20-2024 08-14-2020 Chronic Other aftercare (2 sources) Long-term current use of drug therapy; Translations: [Other termite helper (current) drug therapy] 01-29-2025 Episodic Other aftercare (1 source) Other termite helper (current) drug therapy; Translations: [Encounter for long-term (current) use of medications] Onset: 05-29-2025 Episodic Other diseases of veins and lymphatics (1 source) Disorder of vein of lower extremity; Translations: [Venous insufficiency (chronic) (peripheral)] 04-23-2025 Episodic Other diseases of veins and lymphatics (1 source) Stasis dermatitis; Translations: [Venous insufficiency (chronic) (peripheral)] 04-17-2025 Episodic Other diseases of veins and lymphatics (2 sources) Venous insufficiency (chronic) (peripheral); Translations: [Stasis dermatitis of both legs] Onset: 04-17-2025 Episodic Other injuries and conditions due to external causes (1 source) History of fall; Translations: [History of falling] 03-20-2025 Episodic Other nervous system disorders (1 source) Impairment of balance; Translations: [Other abnormalities of gait and mobility] 07-14-2024 Episodic Other nervous system disorders (5 sources) Cold feet; Translations: [Unspecified disturbances of skin sensation] 04-23-2025 Episodic Other nervous system disorders (1 source) Abnormal gait; Translations: [Unspecified abnormalities of gait and mobility] 05-29-2025 Episodic Other nervous system disorders (1 source) Unspecified abnormalities of gait and mobility; Translations: [Unspecified abnormalities of gait and mobility] Onset: 05-29-2025 Episodic Other nervous system disorders (1 source) Unspecified disturbances of skin sensation; Translations: [Cold feet] Onset: 04-23-2025 Episodic Other nutritional; endocrine; and metabolic disorders (1 source) Weight loss; Translations: [Abnormal weight loss] Episodic Other upper respiratory disease (20 sources) Chronic rhinitis; Translations: [Chronic rhinitis] Onset: 03-09-2023 Chronic Other upper respiratory infections (20 sources) Chronic sinusitis; Translations: [Chronic sinusitis, unspecified] Onset: 10-12-2008 08-06-2015 Chronic Other upper respiratory infections (2 sources) Acute upper respiratory infection; Translations: [Acute upper respiratory infection, unspecified] Episodic Parkinson`s disease (20 sources) Parkinson's disease; Translations: [Parkinson's disease] 02-11-2021 Chronic Parkinson`s disease (3 sources) Parkinson`s disease; Translations: [Parkinson's disease without dyskinesia, without mention of fluctuations] Onset: 12-19-2024 Peripheral and visceral atherosclerosis (7 sources) Intermittent claudication; Translations: [Peripheral vascular disease, unspecified] Onset: 04-23-2025 04-23-2025 Chronic Retinal detachments; defects; vascular occlusion; and retinopathy (19 sources) Age related macular degeneration; Translations: [Unspecified macular degeneration] Onset: 03-19-2025 03-19-2025 Chronic Spondylosis; intervertebral disc disorders; other back problems (1 source) Acute low back pain; Translations: [Acute midline low back pain without sciatica] 07-06-2023 Episodic Unclassified (2 sources) Long-term current use of drug therapy 01-29-2025 Viral infection (1 source) Viral disease; Translations: [Viral infection, unspecified] 10-11-2024 Episodic Past or Other Problems Problem Classification Problem Date Documented Date Episodic/Chronic Administrative/social admission (20 sources) Advance directive discussed with patient; Translations: [Other specified counseling] Onset: 02-20-2022 02-20-2022 Episodic Deficiency and other anemia (20 sources) Anemia; Translations: [Anemia, unspecified] Onset: 08-06-2015 08-06-2015 Episodic Genitourinary symptoms and ill-defined conditions (20 sources) Increased frequency of urination; Translations: [Frequency of micturition] Onset: 07-17-2009 08-06-2015 Episodic Heart valve disorders (20 sources) Rheumatic mitral valve disease, unspecified; Translations: [Mitral valve disorders] Onset: 06-06-2009 Resolved: 02-17-2010 02-17-2010 Chronic Hypertension with complications and secondary hypertension (20 sources) Hypertensive heart disease; Translations: [Hypertensive heart disease without heart failure] Onset: 04-13-2008 Resolved: 06-06-2009 06-06-2009 Chronic Mycoses (20 sources) Onychomycosis; Translations: [Tinea unguium] Onset: 12-29-2010 11-04-2018 Episodic Other connective tissue disease (20 sources) Neuropathic pain; Translations: [Neuralgia and neuritis, unspecified] Onset: 08-27-2021 08-27-2021 Episodic Other diseases of kidney and ureters (20 sources) Renal impairment; Translations: [Disorder of kidney and ureter, unspecified] Onset: 10-27-2017 11-04-2018 Episodic Other diseases of kidney and ureters (1 source) Disorder of kidney and ureter, unspecified; Translations: [Renal insufficiency] Onset: 11-04-2018 Episodic Other injuries and conditions due to external causes (1 source) History of falling; Translations: [History of recent fall] Onset: 03-20-2025 Episodic Other nervous system disorders (2 sources) Other abnormalities of gait and mobility; Translations: [Other abnormalities of gait and mobility] Onset: 07-14-2024 Episodic Other screening for suspected conditions (not mental disorders or infectious disease) (20 sources) Patient encounter status; Translations: [Encounter for screening for malignant neoplasm of colon] Onset: 09-25-2016 09-25-2016 Episodic Residual codes; unclassified (20 sources) Edema of foot; Translations: [Localized edema] Onset: 11-17-2010 08-06-2015 Episodic Residual codes; unclassified (20 sources) Active living will ; Translations: [Other specified health status] Onset: 02-20-2022 02-20-2022 Episodic Urinary tract infections (3 sources) Recurrent urinary tract infection; Translations: [Urinary tract infection, site not specified] Onset: 03-20-2025 05-27-2023 Episodic Results Test Name Value Interpretation Reference Range Facil ity Harshal 07-03-2025 CNPN Telephone (NREUS2) LEONILA ZAMUDIO ([id number]) 1950 F Date Time Provider Department 07/03/25 MONSE CLAROS NREUS2 During your visit today, we recorded the following information about you: Johnathan Gonzalez 07/03/2025 3:13 PM Signed Patient and called stating they were speaking with [employer] and thought perhaps Amantadine might be causing her to fall asleep more, losing balance backwards, bruises easily. At night it's like she's having nightmares and he can hardly wake her up. At first he thought it was Lexapro but she went from 40 mg to 20 mg and now 10 mg for the last 4 days and still having the issues. So they were told to check about Amantadine. / [phone] Libia Jones RN 07/04/2025 1:21 PM Signed Call to patient, no answer. Message left for return call. Gosia Virk 07/04/2025 4:09 PM Signed Pt's returned the call. [phone] Libia Jones RN 07/05/2025 11:32 AM Signed Arms and legs jerks during daytime naps. Swings arms, yells, and screams. Spouse wakes her up, she is unaware that she is having nightmare He caught her last week to prevent a fall, her arm was bruised the following day. No new medications Lexapro dose was reduced to 10mg at bedtime recently Patient and spouse would like to know if these symptoms could be side effect of amantadine Monse Clraos MD 07/05/2025 1:18 PM Signed Acting out dreams is a common Parkinson's symptom. Less likely an amantadine symptom since she has taken this for awhile. Recommend trial of melatonin to reduce the dreams. Try melatonin for sleep and to help suppress the dreams. Start with 3 mg at bedtime and increase as needed and tolerated every few days. No more than 9-12 mg per day. Libia Jones RN 07/06/2025 2:04 PM Signed Message from provider given Allergies As of Date: 07/03/2025 Noted Allergy Reaction BACTRIM (SULFAMETHOXAZOLE-TRIM ETH*02/13/2012 2 - Rash DILTIAZEM 12/29/2010 2 - Rash 9 - Itching NORVASC (AMLODIPINE BESYLATE) 12/29/2010 2 - Rash 9 - Itching PENICILLINS 03/08/2008 4 - Hives SULFAMETHOXAZOLE 06/26/2019 2 - Rash TRIMETHOPRIM 06/26/2019 2 - Rash VERAPAMIL 01/16/2011 2 - Rash Comments: rash HCTZ (THIAZIDES) 08/22/2021 14 - Other: See Comments Comments: Low potassium Date Reviewed: 05/29/2025 Reviewed by: Maranda Stinson LPN - Fully Assessed Reason for Visit: Medication Problem [65] Prescriptions as of 07/06/2025 - escitalopram oxalate (LEXAPRO) 20 mg tablet Take 1 tablet by mouth daily at bedtime. - carbidopa-levodopa CR (SINEMET CR) 50-200 mg per tablet Take 1 tablet by mouth once daily. Take at 10p. - amantadine HCl (SYMMETREL) 100 mg capsule Take 1 capsule by mouth two times a day. - triamcinolone acetonide (KENALOG) 0.1 % cream Apply 1 application to affected area three times a day. Apply sparingly to area for rash/itching. - simvastatin (ZOCOR) 10 mg tablet Take 1 tablet by mouth daily at bedtime. - pramipexole (MIRAPEX) 1.5 mg tablet Take 1 tablet by mouth three times a day. - amantadine HCl (SYMMETREL) 100 mg capsule Take 1 capsule by mouth two times a day. - metoprolol tartrate, short acting, (LOPRESSOR) 100 mg tablet Take 1 tablet by mouth two times a day. - spironolactone (ALDACTONE) 25 mg tablet Take 1 tablet by mouth once daily. - carbidopa-levodopa (SINEMET) 25-100 mg per tablet Take 1 tablet by mouth three times daily. Per neuro - sodium fluoride 1.1 % dental cream sodium fluoride 1.1 % dental paste USE TO BRUSH TEETH ONCE A DAY IN THE EVENING - vit A/vit C/vit E/zinc/copper (PRESERVISION AREDS ORAL) Take by mouth. Problem List As Of Date 07/03/2025 Noted Resolved HYPERTEN HEART DIS W/O HRT FAIL [I11.9] 04/13/2008 06/06/2009 CHRONIC SINUSITIS NOS [J32.9] 10/12/2008 Mitral Valve Disorders [I05.9] 06/06/2009 02/17/2010 Urinary frequency [R35.0] 07/17/2009 Pedal edema [R60.0] 11/17/2010 Onychomycosis [B35.1] 12/29/2010 Hypertension, poor control [I10] 03/19/2011 05/16/2012 Osteoporosis, senile [M81.0] Parkinson's disease [G20.A1] Absolute anemia [D64.9] 08/06/2015 Essential hypertension [I10] 08/16/2015 Hyperlipidemia, mixed [E78.2] 08/16/2015 Hematuria [R31.9] 08/16/2015 Colon cancer screening [Z12.11] 09/25/2016 Medicare annual wellness visit, subsequent [Z00*10/27/2017 Renal insufficiency [N28.9] 10/27/2017 Neuropathic pain [M79.2] 08/27/[address] [Z78.9] 02/20/2022 Advance directive discussed with patient [Z71.8*02/20/2022 Medication management [Z79.899] 03/09/2023 Chronic rhinitis [J31.0] 03/09/2023 Major depressive disorder, recurrent episode, m*09/24/2023 RANDY (generalized anxiety disorder) [F41.1] 09/24/2023 Age-related macular degeneration [H35.30] 03/19/2025 Encounter Status:Closed by LIBIA JONES on 07/04/25 [facility] 06-29-2025 [facility] Telephone ([facility]) LEONILA ZAMUDIO ([id number]) 1950 Date Time Provider Department 06/29/25 [facility] During your visit today, we recorded the following information about you: Carrington Carrillo, REYNA 06/29/2025 1:50 PM Signed Pt reports for the past couple of months or longer she's been having side effects from Lexapro: mostly restless at night, tells her she slashes around in her sleep, kicks her legs, talks in her sleep, she is having muscle weakness, trouble sleeping, french. Reports she didn't use to have this trouble and she thinks it's from Lexapro. Pt is still taking it - didn't want to stop it until Samuel tells her to. Please advise and phone patient with reply: [phone] Pt's next appt with Samuel is 08/28/25 Samuel Arias, [employer].[facility] 06/29/2025 4:57 PM Signed Please notify the patient that she has been on this dose of Lexapro for a while and no adjustments were made recently that could explain the side effects she is reporting. If she still thinks that it is from Lexapro and not her Parkinson's disease, then she can reduce the Lexapro to 1/2 tablet (10 mg) for 2 weeks and see if the symptoms improve. Maranda Stinson LPN 07/03/2025 3:03 PM Signed Patient notified Providers recommendations. Also started a new drug by another provider 2 month ago, this nurse advised patient to call their office to report side effects to them as well. Maranda Stinson LPN Allergies As of Date: 06/29/2025 Noted Allergy Reaction BACTRIM (SULFAMETHOXAZOLE-TRIM ETH*02/13/2012 2 - Rash DILTIAZEM 12/29/2010 2 - Rash 9 - Itching NORVASC (AMLODIPINE BESYLATE) 12/29/2010 2 - Rash 9 - Itching PENICILLINS 03/08/2008 4 - Hives SULFAMETHOXAZOLE 06/26/2019 2 - Rash TRIMETHOPRIM 06/26/2019 2 - Rash VERAPAMIL 01/16/2011 2 - Rash Comments: rash HCTZ (THIAZIDES) 08/22/2021 14 - Other: See Comments Comments: Low potassium Date Reviewed: 05/29/2025 Reviewed by: Maranda Stinson LPN - Fully Assessed Reason for Visit: Medication Problem [65] Prescriptions as of 07/03/2025 - escitalopram oxalate (LEXAPRO) 20 mg tablet Take 1 tablet by mouth daily at bedtime. - carbidopa-levodopa CR (SINEMET CR) 50-200 mg per tablet Take 1 tablet by mouth once daily. Take at 10p. - amantadine HCl (SYMMETREL) 100 mg capsule Take 1 capsule by mouth two times a day. - triamcinolone acetonide (KENALOG) 0.1 % cream Apply 1 application to affected area three times a day. Apply sparingly to area for rash/itching. - simvastatin (ZOCOR) 10 mg tablet Take 1 tablet by mouth daily at bedtime. - pramipexole (MIRAPEX) 1.5 mg tablet Take 1 tablet by mouth three times a day. - amantadine HCl (SYMMETREL) 100 mg capsule Take 1 capsule by mouth two times a day. - metoprolol tartrate, short acting, (LOPRESSOR) 100 mg tablet Take 1 tablet by mouth two times a day. - spironolactone (ALDACTONE) 25 mg tablet Take 1 tablet by mouth once daily. - carbidopa-levodopa (SINEMET) 25-100 mg per tablet Take 1 tablet by mouth three times daily. Per neuro - sodium fluoride 1.1 % dental cream sodium fluoride 1.1 % dental paste USE TO BRUSH TEETH ONCE A DAY IN THE EVENING - vit A/vit C/vit E/zinc/copper (PRESERVISION AREDS ORAL) Take by mouth. Problem List As Of Date 06/29/2025 Noted Resolved HYPERTEN HEART DIS W/O HRT FAIL [I11.9] 04/13/2008 06/06/2009 CHRONIC SINUSITIS NOS [J32.9] 10/12/2008 Mitral Valve Disorders [I05.9] 06/06/2009 02/17/2010 Urinary frequency [R35.0] 07/17/2009 Pedal edema [R60.0] 11/17/2010 Onychomycosis [B35.1] 12/29/2010 Hypertension, poor control [I10] 03/19/2011 05/16/2012 Osteoporosis, senile [M81.0] Parkinson's disease [G20.A1] Absolute anemia [D64.9] 08/06/2015 Essential hypertension [I10] 08/16/2015 Hyperlipidemia, mixed [E78.2] 08/16/2015 Hematuria [R31.9] 08/16/2015 Colon cancer screening [Z12.11] 09/25/2016 Medicare annual wellness visit, subsequent [Z00*10/27/2017 Renal insufficiency [N28.9] 10/27/2017 Neuropathic pain [M79.2] 08/27/[address] [Z78.9] 02/20/2022 Advance directive discussed with patient [Z71.8*02/20/2022 Medication management [Z79.899] 03/09/2023 Chronic rhinitis [J31.0] 03/09/2023 Major depressive disorder, recurrent episode, m*09/24/2023 RANDY (generalized anxiety disorder) [F41.1] 09/24/2023 Age-related macular degeneration [H35.30] 03/19/2025 Encounter Status:Closed by MARANDA STINSON on 07/03/25 [facility] CNOVon 05-29-2025 CNOV Office Visit (PSWSTR ) LEONILA ZAMUDIO ([id number]) 1950 F Date Time Provider Department 05/29/25 11:00 AM SAMUEL ARIAS PSWSTR During your visit today, we recorded the following information about you: Pulse Blood pressure Weight 91/minute 174/78 59.4 kg Samuel Arias, [employer] 05/29/2025 12:50 PM Signed FOLLOW UP - PSYCHIATRIC PROGRESS NOTE Visit Type:In person Recording using [employer] software for draft documentation of the visit was discussed with the patient/authorized merchandiser retail representative; all questions welcomed and answered. Patient/authorized merchandiser retail representative agreed to proceed CC: Outpatient follow-up and safety monitoring of previously prescribed psychiatric medication, psychotherapy or other treatment HPI: Patient is a 75-year-old female with a history of Parkinson's disease and anxiety, presenting for follow-up. The patient reports worsening symptoms related to Parkinson's disease, including increased leg weakness and tremors. She notes that her legs feel weak and don't want to move, which has significantly impacted her ability to dance--a previously enjoyed activity. She last danced about 2-3 months ago but now feels unable to continue due to the fear of falling. She describes episodes of whole-body shaking and expresses concern about falling, stating, I have to grab a hold of something to get started. She has been taking her prescribed medications, including Sinemet (carbidopa-levodopa) and amantadine, but reports no improvement in symptoms. She continues to experience freezing episodes in the morning and evening, despite following her neurologist's recommendation to add an extended-release Sinemet tablet at bedtime. She has been attending an exercise class at [email or web address] on Wednesdays but has not found it helpful in addressing her current symptoms. The patient also reports increased anxiety and depression, stating, I get depressed about every day anymore because I can't do nothing. She attributes her worsening anxiety to her inability to dance and perform daily activities, such as preparing supper, due to her leg issues. She questions whether her shaking could be contributing to her increased anxiety. She is currently taking Lexapro for anxiety. She expresses frustration with her current physical limitations, stating, I can't do what I did before, like dancing and stuff, and that bothers me. She also reports irritability, which she sometimes directs toward herself, her , and her children. She notes that her helps her if she asks, but she often feels reluctant to do so. In the bathroom, she uses a bar to hold onto when getting out of the tub but still feels unsafe and fears falling. She has a seat in the tub, which helps, but she describes the bathtub as so high that she has to step over to get out, increasing her risk of falling. Risks and benefits of the medication, including any black box warnings, were discussed with the patient. Interval Progress: Worse PATIENT DATA: Generalized Anxiety Disorder Scale (RANDY-7) 08/22/2024 01/15/2025 04/26/2025 RANDY - 7 SCORES Score 15 12 5 (0-4) minimal anxiety, (5-9) mild anxiety, (10-14) moderate anxiety, (15-21) severe anxiety Patient Health Questionnaire (PHQ-9) 08/22/2024 01/15/2025 04/26/2025 PHQ-9 Score 14 9 3 (0-4) minimal depression, (5-9) mild depression, (10-14) moderate depression, (15-19) moderately severe depression, (20-27) severe depression PROMIS Global Health 01/15/2025 04/26/2025 PROMIS Global Health - (T-Scores - the mean of general population = 50. Five points is a clinically meaningful difference.) Physical T-Score 47.7 47.7 50.8 Mental T-Score 41.1 41.1 45.8 PAST MEDICAL HISTORY Diagnosis Date Absolute anemia 08/06/2015 Advance directive discussed with patient 02/20/2022 Discussed 02/20/2022 Anxiety Chronic rhinitis 03/09/2023 CHRONIC SINUSITIS NOS Essential hypertension 08/16/2015 RANDY (generalized anxiety disorder) 09/24/2023 Hyperlipidemia, mixed 08/16/[address] 02/20/2022 DPA: Braden () Major depressive disorder, recurrent episode, moderate (HCC) 09/24/2023 Neuropathic pain 08/27/2021 On cymbalta Onychomycosis 12/29/2010 Osteoporosis, senile alendronate 09/2011-09/2014 Parkinson's disease (HCC) 2012 Bavis Pedal edema 11/17/2010 Renal insufficiency 10/27/2017 Urinary frequency 07/17/2009 White coat hypertension Office hypertension PAST SURGICAL HISTORY Procedure Laterality Date COLONOSCOPY does not want. IMMUNOCHEMICAL FECAL OCCULT BLOOD TEST 11/16/2017 neg NONE Current Outpatient Medications Medication Sig Dispense Refill carbidopa-levodopa CR (SINEMET CR) 50-200 mg per tablet Take 1 tablet by mouth once daily. Take at 10p. 30 tablet 11 amantadine HCl (SYMMETREL) 100 mg capsule Take 1 capsule by mouth two times a d (more content not included)... Normal [facility] LEONILA ZAMUDIO ([id number]) 1950 F Date Time Provider Department 05/22/25 [facility] During your visit today, we recorded the following information about you: Hernandez Souza LPN 05/22/2025 9:24 AM Signed Received fax from [employer] requesting a Peer to Peer call at [phone] Angiography (CTA) Abdomen and Pelvis. Form on Shey's desk for review. MARCEL Preciado Rayanne, PA-C 05/22/2025 9:45 AM Signed Let patient know that her insurance is questioning the CT scan order. I have placed a consult to vascular to determine if they think CTA needs done based on your US results. Recommend cancelling the CT scan for now. Thanks. JONNIE Michaels Sherill A, LPN 05/22/2025 11:40 AM Signed Pt notified of Shey's message and instructions. Pt verbalizes understanding. Pt was assisted in transfer to set up vascular appointment and cancel CT scan. Hernandez Souza LPN Allergies As of Date: 05/22/2025 Noted Allergy Reaction BACTRIM (SULFAMETHOXAZOLE-TRIM ETH*02/13/2012 2 - Rash DILTIAZEM 12/29/2010 2 - Rash 9 - Itching NORVASC (AMLODIPINE BESYLATE) 12/29/2010 2 - Rash 9 - Itching PENICILLINS 03/08/2008 4 - Hives SULFAMETHOXAZOLE 06/26/2019 2 - Rash TRIMETHOPRIM 06/26/2019 2 - Rash VERAPAMIL 01/16/2011 2 - Rash Comments: rash HCTZ (THIAZIDES) 08/22/2021 14 - Other: See Comments Comments: Low potassium Date Reviewed: 05/21/2025 Reviewed by: Cristin Zamora MA - Fully Assessed Reason for Visit: Peer To Peer Consultation [1349] Primary Visit Diagnosis:Cold feet [R20.9] Other Visit Diagnosis:Peripheral vascular disease [I73.9] Order(s):CONSULT TO VASCULAR MEDICINE [[id number]] Order #: [id number]: 1 FUTURE Prescriptions as of 05/22/2025 - carbidopa-levodopa CR (SINEMET CR) 50-200 mg per tablet Take 1 tablet by mouth once daily. Take at 10p. - amantadine HCl (SYMMETREL) 100 mg capsule Take 1 capsule by mouth two times a day. - triamcinolone acetonide (KENALOG) 0.1 % cream Apply 1 application to affected area three times a day. Apply sparingly to area for rash/itching. - simvastatin (ZOCOR) 10 mg tablet Take 1 tablet by mouth daily at bedtime. - pramipexole (MIRAPEX) 1.5 mg tablet Take 1 tablet by mouth three times a day. - escitalopram oxalate (LEXAPRO) 20 mg tablet Take 1 tablet by mouth daily at bedtime. - amantadine HCl (SYMMETREL) 100 mg capsule Take 1 capsule by mouth two times a day. - metoprolol tartrate, short acting, (LOPRESSOR) 100 mg tablet Take 1 tablet by mouth two times a day. - spironolactone (ALDACTONE) 25 mg tablet Take 1 tablet by mouth once daily. - carbidopa-levodopa (SINEMET) 25-100 mg per tablet Take 1 tablet by mouth three times daily. Per neuro - sodium fluoride 1.1 % dental cream sodium fluoride 1.1 % dental paste USE TO BRUSH TEETH ONCE A DAY IN THE EVENING - vit A/vit C/vit E/zinc/copper (PRESERVISION AREDS ORAL) Take by mouth. Problem List As Of Date 05/22/2025 Noted Resolved HYPERTEN HEART DIS W/O HRT FAIL [I11.9] 04/13/2008 06/06/2009 CHRONIC SINUSITIS NOS [J32.9] 10/12/2008 Mitral Valve Disorders [I05.9] 06/06/2009 02/17/2010 Urinary frequency [R35.0] 07/17/2009 Pedal edema [R60.0] 11/17/2010 Onychomycosis [B35.1] 12/29/2010 Hypertension, poor control [I10] 03/19/2011 05/16/2012 Osteoporosis, senile [M81.0] Parkinson's disease [G20.A1] Absolute anemia [D64.9] 08/06/2015 Essential hypertension [I10] 08/16/2015 Hyperlipidemia, mixed [E78.2] 08/16/2015 Hematuria [R31.9] 08/16/2015 Colon cancer screening [Z12.11] 09/25/2016 Medicare annual wellness visit, subsequent [Z00*10/27/2017 Renal insufficiency [N28.9] 10/27/2017 Neuropathic pain [M79.2] 08/27/[address] [Z78.9] 02/20/2022 Advance directive discussed with patient [Z71.8*02/20/2022 Medication management [Z79.899] 03/09/2023 Chronic rhinitis [J31.0] 03/09/2023 Major depressive disorder, recurrent episode, m*09/24/2023 RANDY (generalized anxiety disorder) [F41.1] 09/24/2023 Age-related macular degeneration [H35.30] 03/19/2025 Encounter Status:Closed by HERNANDEZ SOUZA on 05/22/25 [facility] CNOVon 05-21-2025 CNOV Office Visit (FAMPWS ) LEONILA ZAMUDIO ([id number]) 1950 F Date Time Provider Department 05/21/25 9:20 AM RODRIGUEZ GRIJALVA During your visit today, we recorded the following information about you: Pulse Blood pressure Weight 87/minute 120/70 58 kg Rodriguez Grijalva APRN.[facility] 05/21/2025 9:47 AM Signed Chief Complaint Patient presents with: Follow Up: Blood pressure HPI Leonila Zamudio is a 75 year old female who presents here today for Above Complaints.. Patient presents for BP follow up. She is taking metoprolol and spironolactone as prescribed and her BP is well controlled. She checks her BP at home and it has been running 120s/70s. She denies episodes of lightheadedness, blurry vision, headaches, swelling. BP is well-controlled in office today. Past medical history, appointments, medications, allergies reviewed. Previous Medical History PAST MEDICAL HISTORY Diagnosis Date Absolute anemia 08/06/2015 Advance directive discussed with patient 02/20/2022 Discussed 02/20/2022 Anxiety Chronic rhinitis 03/09/2023 CHRONIC SINUSITIS NOS Essential hypertension 08/16/2015 RANDY (generalized anxiety disorder) 09/24/2023 Hyperlipidemia, mixed 08/16/[address] 02/20/2022 DPA: Braden () Major depressive disorder, recurrent episode, moderate (HCC) 09/24/2023 Neuropathic pain 08/27/2021 On cymbalta Onychomycosis 12/29/2010 Osteoporosis, senile alendronate 09/2011-09/2014 Parkinson's disease (HCC) 2013 Bavis Pedal edema 11/17/2010 Renal insufficiency 10/27/2017 Urinary frequency 07/17/2009 White coat hypertension Office hypertension Previous Surgical History PAST SURGICAL HISTORY Procedure Laterality Date COLONOSCOPY does not want. IMMUNOCHEMICAL FECAL OCCULT BLOOD TEST 11/16/2017 neg NONE Family History FAMILY HISTORY Problem Relation Age of Onset Heart Mother [place] Hypertension Mother Osteoporosis Mother Asthma Father Hypertension Father Lipids Father Diabetes Father Alzheimer's Disease Father Prostate Cancer Father Stroke Maternal Grandmother Stroke Maternal Grandfather Patient Allergies ALLERGIES Allergen Reactions Bactrim [Sulfametho* Rash Diltiazem Rash, Itching Norvasc [Amlodipine* Rash, Itching Penicillins Hives Sulfamethoxazole Rash Trimethoprim Rash Verapamil Rash rash Hctz [Thiazides] Other: See Comments Low potassium Current Medications Current Outpatient Medications on File Prior to Visit Medication Sig carbidopa-levodopa CR (SINEMET CR) 50-200 mg per tablet Take 1 tablet by mouth once daily. Take at 10p. amantadine HCl (SYMMETREL) 100 mg capsule Take 1 capsule by mouth two times a day. triamcinolone acetonide (KENALOG) 0.1 % cream Apply 1 application to affected area three times a day. Apply sparingly to area for rash/itching. simvastatin (ZOCOR) 10 mg tablet Take 1 tablet by mouth daily at bedtime. pramipexole (MIRAPEX) 1.5 mg tablet Take 1 tablet by mouth three times a day. (Patient taking differently: Take 1.5 mg by mouth four times daily.) escitalopram oxalate (LEXAPRO) 20 mg tablet Take 1 tablet by mouth daily at bedtime. amantadine HCl (SYMMETREL) 100 mg capsule Take 1 capsule by mouth two times a day. metoprolol tartrate, short acting, (LOPRESSOR) 100 mg tablet Take 1 tablet by mouth two times a day. spironolactone (ALDACTONE) 25 mg tablet Take 1 tablet by mouth once daily. carbidopa-levodopa (SINEMET) 25-100 mg per tablet Take 1 tablet by mouth three times daily. Per neuro sodium fluoride 1.1 % dental cream sodium fluoride 1.1 % dental paste USE TO BRUSH TEETH ONCE A DAY IN THE EVENING vit A/vit C/vit E/zinc/copper (PRESERVISION AREDS ORAL) Take by mouth. No current facility-administered medications on file prior to visit. Social History Social History Tobacco Use Smoking status: Never Smokeless tobacco: Never Vaping Use Vaping status: Never Used Substance Use Topics Alcohol use: No Drug use: No Review of Symptoms REVIEW OF SYSTEMS SEE HPI EXAM: BP 120/70 Pulse 87 Wt 58 kg (127 lb 13.9 oz) BMI 25.10 kg/m? General Appearance: Well appearing, alert, in no acute distress, well-hydrated, well nourished. Lungs: Lungs clear to auscultation. No wheezing, rhonchi, rales.. Heart: RRR without murmur, gallop, or rubs. No ectopy. Health Maintenance List Shingrix Vaccine(1 of 2) Never done DTaP,Tdap,Td Vaccine(2 - Td or Tdap) due on 06/12/2021 RSV Vaccine(1 - 1-dose 75+ series) Never done Covid-19 Vaccine(3 - season) due on 09/19/2025 Influenza Vaccine(1) due on 07/16/2025 Bone Density Screening due on 03/16/2026 Annual PCP Team Chronic Disease Visit due on 04/23/2026 Diabetes Screening due on 05/16/2028 Lipid Screening due on 05/16/2030 Advance Directive Discussion Completed Medicare Advantage Annual Wellness Visit Completed Hepatitis C Screening (more content not included)... Normal [facility] Comprehensive metabolic 2000 panelon 05-16-2025 Albumin [Mass/Vol] 4.1 g/dL Normal 3.9-4.9 [facility] Comment on above: Order Comment: Speci men Type: BLOOD SPECIMENOrdering Facility: [facility] Address: [address] [place] [address] Performed By: #### 2 4323-8, LIPNF ####[facility] LABCLIA [id number] [place] [address] [place] ALP [Catalytic activity/Vol] 114 U/L Normal 34-123 [facility] Comment on above: Order Comment: Speci men Type: BLOOD SPECIMENOrdering Facility: [facility] Address: [address] [place] [address] Performed By: #### 2 4323-8, LIPNF ####[facility] LABCLIA [id number] [place] [address] [place] ALT [Catalytic activity/Vol] 7 U/L Normal 7-38 [facility] Comment on above: Order Comment: Speci men Type: BLOOD SPECIMENOrdering Facility: [facility] Address: [address] [id number] Performed By: #### 2 4323-8, LIPNF ####[facility] LABCLIA [id number] [place] [address] [place] Anion gap [Moles/Vol] 10 mmol/L Normal 8-15 [facility] Comment on above: Order Comment: Speci men Type: BLOOD SPECIMENOrdering Facility: [facility] Address: [address] [place] [address] Performed By: #### 2 4323-8, LIPNF ####[facility] LABCLIA [id number] [place] [address] [place] AST [Catalytic activity/Vol] 19 U/L Normal 13-35 [facility] Comment on above: Order Comment: Speci men Type: BLOOD SPECIMENOrdering Facility: [facility] Address: [address] [place] [address] Performed By: #### 2 4323-8, LIPNF ####[facility] LABCLIA [id number] [place] [address] [place] Bilirubin [Mass/Vol] 0.4 mg/dL Normal 0.2-1.3 [facility] Comment on above: Order Comment: Speci men Type: BLOOD SPECIMENOrdering Facility: [facility] Address: [address] [place], [place] [id number] Performed By: #### 2 4323-8, LIPNF ####[facility] LABCLIA [id number] [place] [id number] [place] Calcium [Mass/Vol] 9.5 mg/dL Normal 8.5-10.2 [facility] Comment on above: Order Comment: Speci men Type: BLOOD SPECIMENOrdering Facility: [facility] Address: [address] [place], [place] [id number] Performed By: #### 2 4323-8, LIPNF ####[facility] LABCLIA [id number] [place] [address] [place] Chloride [Moles/Vol] 102 mmol/L Normal 98-107 [facility] Comment on above: Order Comment: Speci men Type: BLOOD SPECIMENOrdering Facility: [facility] Address: [address] [place] [address] Performed By: #### 2 4323-8, LIPNF ####[facility] LABCLIA [id number] [place] [address] [place] CO2 [Moles/Vol] 28 mmol/L Normal 22-30 [facility] Comment on above: Order Comment: Speci men Type: BLOOD SPECIMENOrdering Facility: [facility] Address: [address] [place] [address] Performed By: #### 2 4323-8, LIPNF ####[facility] LABCLIA [id number] [address] [place] Creatinine [Mass/Vol] 0.82 mg/dL Normal 0.58-0.96 [facility] Comment on above: Order Comment: Speci men Type: BLOOD SPECIMENOrdering Facility: [facility] Address: [address] [place] [address] Performed By: #### 2 4323-8, LIPNF ####[facility] LABCLIA [id number] [address] OF [facility] Creatinine and Glomerular filtration rate.predicted panel (S/P/Bld) 75 mL/min/1.73m??? Normal >=60 [facility] Comment on above: Order Comment: Speci men Type: BLOOD SPECIMENOrdering Facility: [facility] Address: [address] [place] [address] Result Comment: Louisa mated Glomerular Filtration Rate (eGFR) is calculated using the 2020 CKD-EPI creatinine equation. This equation utilizes serum creatinine, sex, and age as parameters. The creatinine assay has traceable calibration to isotope dilution-mass spectrometry. Refer to KDIGO guidelines for clinical interpretation. In patients with unstable renal function, e.g. those with acute kidney injury, the eGFR may not accurately reflect actual GFR. Performed By: #### 2 4323-8, LIPNF ####[facility] LABIA [id number] [address] [address] [place] Glucose [Mass/Vol] 78 mg/dL Normal 74-99 [facility] Comment on above: Order Comment: Speci men Type: BLOOD SPECIMENOrdering Facility: [facility] Address: [address] [place] [address] Result Comment: The [place] Diabetes Association (ADA) provides guidance for cutoff values for fasting glucose and random glucose. The ADA defines fasting as no caloric intake for at least 8 hours. Fasting plasma glucose results between 100 to 125 mg/dL indicate increased risk for diabetes (prediabetes). Fasting plasma glucose results greater than or equal to 126 mg/dL meet the criteria for diagnosis of diabetes. In the absence of unequivocal hyperglycemia, results should be confirmed by repeat testing. In a patient with classic symptoms of hyperglycemia or hyperglycemic crisis, random plasma glucose results greater than or equal to 200 mg/dL meet the criteria for diagnosis of diabetes. Reference: Standards of Medical Care in Diabetes 2016, [place] Diabetes Association. Diabetes Care. 2016.39(Suppl 1). Performed By: #### 2 4323-8, LIPNF ####[facility] LABIA [id number] [address] [address] [place] Potassium [Moles/Vol] 4.2 mmol/L Normal 3.7-5.1 [facility] Comment on above: Order Comment: Speci men Type: BLOOD SPECIMENOrdering Facility: [facility] Address: [address] [id number] Performed By: #### 2 4323-8, LIPNF ####[facility] LABIA [id number] [address] [address] [place] Protein [Mass/Vol] 7.2 g/dL Normal 6.3-8.0 [facility] Comment on above: Order Comment: Speci men Type: BLOOD SPECIMENOrdering Facility: [facility] Address: [address] [place] [address] Performed By: #### 2 4323-8, LIPNF ####[facility] LABCLIA [id number] [address] [address] [place] Sodium [Moles/Vol] 140 mmol/L Normal 136-144 [facility] Comment on above: Order Comment: Speci men Type: BLOOD SPECIMENOrdering Facility: [facility] Address: [address] [place] [address] Performed By: #### 2 4323-8, LIPNF ####[facility] LABCLIA [id number] [place] [address] [place] Urea nitrogen [Mass/Vol] 30 mg/dL High 7- [facility] Comment on above: Order Comment: Speci men Type: BLOOD SPECIMENOrdering Facility: [facility] Address: [address] [place] [address] Performed By: #### 2 4323-8, LIPNF ####[facility] LABCLIA [id number] [place] [id number] [place] LIPID PANEL, NONFASTINGon Cholesterol [Mass/Vol] 147 mg/dL Normal <200 [facility] Comment on above: Order Comment: Speci men Type: BLOOD SPECIMENOrdering Facility: [facility] Address: [address] [place] [address] Result Comment: <200 mg/dL, Desirable 200-239 mg/dL, Borderline high >239 mg/dL, High Performed By: #### 2 4323-8, LIPNF ####[facility] LABCLIA [id number] [place] [id number] [place] HDL CHOLESTEROL, NF 53 mg/dL Normal >39 [facility] Comment on above: Order Comment: Speci men Type: BLOOD SPECIMENOrdering Facility: [facility] Address: [address] [place], [place] [id number] Result Comment: 40-5 9 mg/dL, Acceptable >59 mg/dL, High: Negative risk factor for coronary heart disease <40 mg/dL, Low: Positive risk factor for coronary heart disease Performed By: #### 2 4323-8, LIPNF ####[facility] LABCLIA [id number] [address] [place] LDL CHOLESTEROL CALCULATED, NF 74 mg/dL Normal <100 [facility] Comment on above: Order Comment: Estefanii men Type: BLOOD SPECIMENOrdering Facility: [facility] Address: [address] [place] [address] Result Comment: <100 mg/dL, Optimal 100-129 mg/dL, Near optimal/above optimal 130-159 mg/dL, Borderline high 160-189 mg/dL, High >189 mg/dL, Very high Secondary prevention optimal LDL Cholesterol levels are recommended to be <70 mg/dL LDL cholesterol is calculated using the Portillo-NIH equation. Performed By: #### 2 4323-8, LIPNF ####[facility] LABIA [id number] [address] [place] LDL/HDL RATIO, NF 1.40 mg/dL Normal <2.54 [facility] Comment on above: Order Comment: Liliam de la torre Type: BLOOD SPECIMENOrdering Facility: [facility] Address: [address] [place] [address] Result Comment: Refe rence: 1. National Cholesterol Education Program ATP III Guideline At-A-Glance Quick Desk Reference: National Heart, Lung, and Blood [place]. National Institutes of Health. 2001: NIH Publication No. 01-3305. 2. An International Atherosclerosis Society position paper: global recommendations for the management of dyslipidemia: executive summary, Atherosclerosis. 2014: 232(2):410-413. Performed By: #### 2 4323-8, LIPNF ####[facility] LABCLIA [id number] [place] [address] [place] NON HDL CHOL, NF 94 mg/dL Normal <130 [facility] Comment on above: Order Comment: Liliam men Type: BLOOD SPECIMENOrdering Facility: [facility] Address: [address] [place] [address] Result Comment: <130 mg/dL, Optimal 130-159 mg/dL, Near optimal/above optimal 160-189 mg/dL, Borderline high 190-219 mg/dL, High >219 mg/dL, Very high Secondary prevention optimal non HDL Cholesterol levels are recommended to be <100 mg/dL Performed By: #### 2 4323-8, LIPNF ####[facility] LABCLIA [id number] [address] OF [facility] T CHOL/HDL RATIO NF 2.77 mg/dL Normal <5.10 [facility] Comment on above: Order Comment: Speci men Type: BLOOD SPECIMENOrdering Facility: [facility] Address: [address] [place] [address] Performed By: #### 2 4323-8, LIPNF ####[facility] LABCLIA [id number] [place] [address] [place] TRIGLYCERIDES, NF 109 mg/dL Normal <150 [facility] Comment on above: Order Comment: Speci men Type: BLOOD SPECIMENOrdering Facility: [facility] Address: [address] [place] [address] Result Comment: <150 mg/dL, Normal 150-199 mg/dL, Borderline high 200-499 mg/dL, High >499 mg/dL, Very high Performed By: #### 2 4323-8, LIPNF ####[facility] LABCLIA [id number] [address] [place] VLDL CHOLESTEROL, NF 17 mg/dL Normal <30 [facility] Comment on above: Order Comment: Speci men Type: BLOOD SPECIMENOrdering Facility: [facility] Address: [address] [place] [address] Performed By: #### 2 4323-8, LIPNF ####[facility] LABCLIA [id number] [place] [address] [place] [facility] LABon 2024 [facility] Non-Invasive Vascula r Laboratory [facility] Lower Extremity Arterial Physiology Study Bilateral/Complete Date of service/time: 05/07/2025 2:32:24 PM Name: MRS. LEONILA ZAMUDIO Date of : 1950 Age: 75 years Gender: F Clinical Indication Claudication. TECHNIQUE -------- An arterial physiological examination was performed, including measurement of blood pressures using continuous wave Doppler and recording of plethysmographic with or without Doppler waveforms at the below-mentioned limb segments. FINDINGS -------- RIGHT SIDE AT REST Right Doppler Waveforms Dorsalis pedis: Multiphasic. Post tibial: Multiphasic. Right Pressures Brachial: 119 mmHg Ankle dorsalis pedis: 138 mmHg JUAN: 1.16 Ankle posterior tibial: 133 mmHg JUAN: 1.12 Digit: 139 mmHg Right PVR Waveforms High thigh: Normal. Low thigh: Mildly dampened. Calf: Mildly dampened. Ankle: Mildly dampened. Transmetatarsal: Mildly dampened. Digit: Mildly dampened. LEFT SIDE AT REST Left Doppler Waveforms Dorsalis pedis: Multiphasic. Post tibial: Multiphasic. Left Pressures Brachial: 115 mmHg Ankle dorsalis pedis: 112 mmHg JUAN: 0.94 Ankle posterior tibial: 128 mmHg JUAN: 1.08 Digit: 112 mmHg Left PVR Waveforms High thigh: Mildly dampened. Low thigh: Mildly dampened. Calf: Mildly dampened. Ankle: Mildly dampened. Transmetatarsal: Mildly dampened. Digit: Mildly dampened. IMPRESSION RIGHT SIDE Resting right ankle brachial index: 1.16 Right toe brachial index: 1.17 Normal ankle brachial index at rest in the right leg. Normal toe brachial index at rest in the right leg. Aortic or bilateral iliofemoral disease. LEFT SIDE Resting left ankle brachial index: 1.08 Left toe brachial index: 0.94 Normal ankle brachial index at rest in the left leg. Normal toe brachial index at rest in the left leg. Aortic or bilateral iliofemoral disease. Technologist: Julita Kay [facility] Ordering physician: SHEY QUIROZ Interpreting physician: Darrick Pierce MD, RPVI Final CC [facility] Image : [id number] See Link below for Image Normal [facility] CNOVon 04-26-2025 CNOV Office Visit (NRMDN) LEONILA ZAMUDIO ([id number]) 1950 F Date Time Provider Department 04/26/25 12:30 PM MONSE CLAROS NRPRAVIN During your visit today, we recorded the following information about you: Weight 59.7 kg Monse Claros MD 04/26/2025 6:54 PM Signed [facility] - FOLLOW UP EVALUATION Recording using [employer] software for draft documentation of the visit was discussed with the patient/authorized merchandiser retail representative; all questions welcomed and answered. Patient/authorized merchandiser retail representative agreed to proceed Deangelo Hawkins MD [address] [facility] [address] Dear Deangelo Hawkins MD: I had the pleasure of seeing Ms. Zamudio for follow-up today. As you know she is a 75 year old right-handed female with a history of PD since 2012. Subjective Previous Plan- 01/15/2025 Visit: For Parkinson's - - week 1: add amantadine 100 mg daily, in the morning at 8A. The rest of your Parkinson's medications will stay the same - week 2-3: increase amantadine to to 100 mg twice daily at 8A and 2P - week 4: reduce the 8AM pramipexole dose to 1/2 tab. Everything else stays the same - Week 5: reduce the 2PM pramipexole dose to 1/2 tab. Everything else stays the same - Week 6: stop the 8AM pramipexole dose. Everything else stays the same. - week 7 and on: stop the 2PM pramipexole dose. Everything else stays the same Interval History: Leonila Zamudio is a 75-year-old female with a history of Parkinson's disease, presenting for follow-up. She is accompanied by her daughter and , who provide additional history. Leonila reports ongoing issues with freezing episodes and occasional tremors. She notes that amantadine has helped reduce dyskinesia but has not significantly improved freezing episodes, which occur sporadically without a discernible pattern. She experiences these episodes more frequently in the mornings and evenings and describes a particularly bad day yesterday with frequent freezing. She has not identified any specific triggers for these episodes. Leonila reports multiple falls, including a recent incident where she tripped over a curb and fell on cement, resulting in a knee scrape. Her daughter notes that sudden movements, such as turning quickly or bending over, often lead to loss of balance. Leonila is working on balance through exercises at [email or web address] and participates in Parkinson's classes. She completed formal PT and is now in the exercise classes. She unfortunately had a fall at the center, apparently not during a class and was moved to the session with more symptomatic people. She doesn't feel this class is challenging enough. It seems she was recently re-evaluated but doesn't know that outcome. She is currently taking pramipexole four times daily, with doses at 5 AM, 8 AM, 11 AM, and 5 PM. She previously took it five times daily but reduced the frequency at last visit to TID which brought out more symptoms. She also takes carbidopa-levodopa, with doses of 1.25 tablets at 8 AM and 2 PM, and 1.5 tablets at other times. She does not report significant fluctuations in symptom control related to medication timing. Leonila has a purplish blotchy rash on her legs, which appeared after starting amantadine. She recently visited urgent care for this issue, where they considered circulation problems and planned an ankle-brachial index test. The rash is not present on her arms. She reports better control of anxiety since her Lexapro dosage was reduced from 40 mg to 20 mg daily by psychiatry. She does not endorse hallucinations but has been experiencing more frequent episodes of yelling and jumping in her sleep over the past year. These episodes do not involve thrashing or safety concerns, and her notes that she is difficult to wake during these episodes. Leonila does not report ICD. She maintains a good appetite and is not overweight. She does not get up in the middle of the night to use the bathroom and sleeps from 10 PM to 5 AM. She takes her first dose of carbidopa-levodopa upon waking and reports that it takes about 30 minutes to take effect. She finds it very difficult to move prior to her fist Sinemet dose. Her family has suggested taking her first AM dose in bed and waiting for it to take effect but she cannot wait that long to urinate. Once she is up she will not go back to bed. Movement Disorders Medications Schedule - as of the start of the visit: Medications 5 8 11 2 5 Sinemet 25/100 1.5 1.25 1.5 1.25 1.5 pramipexole 1.5 mg 1 1 1 1 amantadine 100 mg 1 1 Parkinson's Motor Complications Medication duration: 3 hours Wearing off: no Dyskinesia: yes Prior Anti-Parkinson Therapies Carbidopa/Levodopa Carbidopa/Levodopa ER (Rytary) Carbidopa/Levodopa/Ent acapone Pramipexole Ropinirole Rotigitine Selegiline Questionnaires: In addition, the fo (more content not included)... Normal [facility] CNOVon 04-23-2025 CNOV Office Visit (FAMPWS ) LEONILA ZAMUDIO Eve ([id number]) 1950 F Date Time Provider Department 04/23/25 11:40 AM SHEY QUIROZ FAMPWS During your visit today, we recorded the following information about you: Temperature Pulse Respiration Blood pressure 98.2 degrees 94/minute 16/minute 150/83 Weight 59.9 kg Shey Quiroz PA-C 04/23/2025 11:54 AM Signed Chief Complaint Patient presents with: Follow Up: Rash bilateral lower legs HPI Leonila Zamudio is a 75 year old female who presents here today for Above Complaints.. Stasis Dermatitis: - Rash on lower extremities, started approximately one week ago. - Applying cream with noted improvement. - Denies pruritus or pain. - Presence of varicose veins. Intermittent Leg Cramps: - Occasional cramping in the posterior legs during ambulation and exercise. - No specific distance or duration triggers the cramps; described as random. - Denies cramping when walking around the house. - Feet occasionally feel cold; hands also get real cold. - Denies hyperlipidemia. Past medical history, appointments, medications, allergies reviewed. Previous Medical History PAST MEDICAL HISTORY Diagnosis Date Absolute anemia 08/06/2015 Advance directive discussed with patient 02/20/2022 Discussed 02/20/2022 Anxiety Chronic rhinitis 03/09/2023 CHRONIC SINUSITIS NOS Essential hypertension 08/16/2015 RANDY (generalized anxiety disorder) 09/24/2023 Hyperlipidemia, mixed 08/16/[address] 02/20/2022 DPA: Braden () Major depressive disorder, recurrent episode, moderate (HCC) 09/24/2023 Neuropathic pain 08/27/2021 On cymbalta Onychomycosis 12/29/2010 Osteoporosis, senile alendronate 09/2011-09/2014 Parkinson's disease (HCC) 2012 Bavis Pedal edema 11/17/2010 Renal insufficiency 10/27/2017 Urinary frequency 07/17/2009 White coat hypertension Office hypertension Previous Surgical History PAST SURGICAL HISTORY Procedure Laterality Date COLONOSCOPY does not want. IMMUNOCHEMICAL FECAL OCCULT BLOOD TEST 11/16/2017 neg NONE Family History FAMILY HISTORY Problem Relation Age of Onset Heart Mother [place] Hypertension Mother Osteoporosis Mother Asthma Father Hypertension Father Lipids Father Diabetes Father Alzheimer's Disease Father Prostate Cancer Father Stroke Maternal Grandmother Stroke Maternal Grandfather Patient Allergies ALLERGIES Allergen Reactions Bactrim [Sulfametho* Rash Diltiazem Rash, Itching Norvasc [Amlodipine* Rash, Itching Penicillins Hives Sulfamethoxazole Rash Trimethoprim Rash Verapamil Rash rash Hctz [Thiazides] Other: See Comments Low potassium Current Medications Current Outpatient Medications on File Prior to Visit Medication Sig triamcinolone acetonide (KENALOG) 0.1 % cream Apply 1 application to affected area three times a day. Apply sparingly to area for rash/itching. simvastatin (ZOCOR) 10 mg tablet Take 1 tablet by mouth daily at bedtime. pramipexole (MIRAPEX) 1.5 mg tablet Take 1 tablet by mouth three times a day. escitalopram oxalate (LEXAPRO) 20 mg tablet Take 1 tablet by mouth daily at bedtime. amantadine HCl (SYMMETREL) 100 mg capsule Take 1 capsule by mouth two times a day. metoprolol tartrate, short acting, (LOPRESSOR) 100 mg tablet Take 1 tablet by mouth two times a day. spironolactone (ALDACTONE) 25 mg tablet Take 1 tablet by mouth once daily. carbidopa-levodopa (SINEMET) 25-100 mg per tablet Take 1 tablet by mouth three times daily. Per neuro sodium fluoride 1.1 % dental cream sodium fluoride 1.1 % dental paste USE TO BRUSH TEETH ONCE A DAY IN THE EVENING vit A/vit C/vit E/zinc/copper (PRESERVISION AREDS ORAL) Take by mouth. No current facility-administered medications on file prior to visit. Social History Social History Tobacco Use Smoking status: Never Smokeless tobacco: Never Vaping Use Vaping status: Never Used Substance Use Topics Alcohol use: No Drug use: No Review of Symptoms REVIEW OF SYSTEMS SEE HPI EXAM: BP 150/83 (BP Site: Left Arm, BP Position: Sitting, BP Cuff Size: Regular Adult) Pulse 94 Temp 36.8 ?C (98.2 ?F) Resp 16 Wt 59.9 kg (132 lb) SpO2 98% BMI 25.91 kg/m? General Appearance: Well appearing, alert, in no acute distress, well-hydrated, well nourished.. SKIN: Stasis dermatitis noted on lower extremities. Varicose veins present. Extremities: stasis dermatitis noted. Neg homans. Posterior tibial and dorsalis pedis pulses palpable bilaterally. No edema. . Health Maintenance List Shingrix Vaccine(1 of 2) Never done DTaP,Tdap,Td Vaccine(2 - Td or Tdap) due on 06/12/2021 BP Controlled (<130/80) due on 03/09/2024 RSV Vaccine(1 - 1-dose 75+ series) Never done Covid-19 Vaccine( - 2023- season) due on 09/19/2025 Bone Density Screening due on 03/16/2026 Annual PCP Team Chronic Disease Visit d (more content not included)... [facility] CNOVon 04-17-2025 CNOV Office Visit (UCWSTR ) LEONILA ZAMUDIO ([id number]) 1950 F Date Time Provider Department 04/17/25 11:30 AM CAROLINA MENDOZA [facility] During your visit today, we recorded the following information about you: Temperature Pulse Respiration Blood pressure 97 degrees 85/minute 22/minute 130/86 Weight 60 kg Carolina Mendoza APRN.STRIPPER COLOR 04/17/2025 12:04 PM Signed [facility] Subjective Leonila Zamudio is a 75 year old female. Patient presents with: Rash: BLE's redness, warmth x 2 weeks Rash Pertinent negatives include no fatigue, fever or shortness of breath. Rash: - Rash on lower legs x2 weeks. - Denies pruritus or pain. - Applying skin cream/m; denies using other treatments. - Reports occasional chills; denies fever. - Denies history of diabetes. - Primary care physician is Dr. Andersen. Review of Systems Constitutional: Positive for chills. Negative for fatigue and fever. Respiratory: Negative for shortness of breath. Cardiovascular: Negative for leg swelling. Musculoskeletal: Negative for arthralgias, joint swelling and myalgias. Skin: Positive for color change and rash. Negative for wound. Constitutional: (+) chills Skin: (+) rash on legs, (-) pruritus, (-) pain Objective BP 130/86 Pulse 85 Temp 36.1 ?C (97 ?F) Resp 22 Wt 60 kg (132 lb 4.4 oz) SpO2 98% BMI 25.97 kg/m? PAST MEDICAL HISTORY Diagnosis Date - Absolute anemia 08/06/2015 - Advance directive discussed with patient 02/20/2022 Discussed 02/20/2022 - Anxiety - Chronic rhinitis 03/09/2023 - CHRONIC SINUSITIS NOS - Essential hypertension 08/16/2015 - RANDY (generalized anxiety disorder) 09/24/2023 - Hyperlipidemia, mixed 08/16/2015 - Living will in place 02/20/2022 DPA: Braden () - Major depressive disorder, recurrent episode, moderate (HCC) 09/24/2023 - Neuropathic pain 08/27/2021 On cymbalta - Onychomycosis 12/29/2010 - Osteoporosis, senile alendronate 09/2011-09/2014 - Parkinson's disease (HCC) 2012 Bavis - Pedal edema 11/17/2010 - Renal insufficiency 10/27/2017 - Urinary frequency 07/17/2009 - White coat hypertension Office hypertension PAST SURGICAL HISTORY Procedure Laterality Date - COLONOSCOPY does not want. - IMMUNOCHEMICAL FECAL OCCULT BLOOD TEST 11/16/2017 neg - NONE ALLERGIES Bactrim [Sulfamethoxazole-Trim ethoprim], Diltiazem, Norvasc [Amlodipine Besylate], Penicillins, Sulfamethoxazole, Trimethoprim, Verapamil, and Hctz [Thiazides] MEDICATIONS - simvastatin (ZOCOR) 10 mg tablet Take 1 tablet by mouth daily at bedtime. - pramipexole (MIRAPEX) 1.5 mg tablet Take 1 tablet by mouth three times a day. - escitalopram oxalate (LEXAPRO) 20 mg tablet Take 1 tablet by mouth daily at bedtime. - amantadine HCl (SYMMETREL) 100 mg capsule Take 1 capsule by mouth two times a day. - metoprolol tartrate, short acting, (LOPRESSOR) 100 mg tablet Take 1 tablet by mouth two times a day. - spironolactone (ALDACTONE) 25 mg tablet Take 1 tablet by mouth once daily. - carbidopa-levodopa (SINEMET) 25-100 mg per tablet Take 1 tablet by mouth three times daily. Per neuro - sodium fluoride 1.1 % dental cream sodium fluoride 1.1 % dental paste USE TO BRUSH TEETH ONCE A DAY IN THE EVENING - vit A/vit C/vit E/zinc/copper (PRESERVISION AREDS ORAL) Take by mouth. - triamcinolone acetonide (KENALOG) 0.1 % cream Apply 1 application to affected area three times a day. Apply sparingly to area for rash/itching. FAMILY HISTORY Problem Relation Age of Onset - Heart Mother [place] - Hypertension Mother - Osteoporosis Mother - Asthma Father - Hypertension Father - Lipids Father - Diabetes Father - Alzheimer's Disease Father - Prostate Cancer Father - Stroke Maternal Grandmother - Stroke Maternal Grandfather Social History Tobacco Use - Smoking status: Never - Smokeless tobacco: Never Vaping Use - Vaping status: Never Used Substance Use Topics - Alcohol use: No - Drug use: No Physical Exam Vitals and nursing note reviewed. Constitutional: Appearance: Normal appearance. Cardiovascular: Rate and Rhythm: Normal rate. Pulmonary: Effort: Pulmonary effort is normal. Musculoskeletal: General: No swelling, tenderness or signs of injury. Right lower leg: No swelling or tenderness. No edema. Left lower leg: No swelling or tenderness. No edema. Legs: Skin: General: Skin is warm and dry. Capillary Refill: Capillary refill takes less than 2 seconds. Findings: Erythema and rash present. No bruising or lesion. Neurological: Mental Status: She is alert. General: No acute distress. Skin: Rash on lower legs, non-pruritic, non-tender, no warmth, slight erythema and areas of hyperpigmentation; some scal scaling, and eczematous patches {1. Stasis dermatitis (I87.2) - Erythematous rash on lower extremities, non-pruritic and non-tender, consistent with stasis (more content not included)... Normal [facility] 04-02-2025 CNPN Telephone (NREUS2) LEONILA ZAMUDIO ([id number]) 1950 F Date Time Provider Department 04/02/25 MOSNE CLAROS NREUS2 During your visit today, we recorded the following information about you: Mark ValentinemartinGosia 04/02/2025 1:37 PM Signed Pt phoned to report that she's fallen twice in 2 weeks. Reports that she just loses her balance and falls on her side. She is scheduled to see SANDEEP in April but is worried that she will get hurt. [phone] Libia Jones RN 04/02/2025 2:37 PM Signed Wednesday03/23/25 fell walking in front door, 1 step coming into house, she missed the step, foot caught and fell In bedroom putting clothes away, lost balance. Fell while turning around. Wednesday legs got weak, resulted in fall on concrete Active with PT, has 3rd session this Patient feels that she has been falling more frequently since stopping pramipexole. Unable to recall when last dose was taken. See [facility] encounter 03/16/25 for triage for increased falls. She did see PCP and UTI was ruled out. Monse Claros MD 04/03/2025 5:38 AM Signed At visit her main problems were dyskinesia and freezing. How are those? Sounds like now falls are different and just balance loss. Any lightheadedness? Libia Jones RN 04/04/2025 11:48 AM Signed Call to patient, no answer. Message left for return call. Gosia Virk 04/05/2025 9:05 AM Signed Leonila returned the call. [phone] Libia Jones RN 04/05/2025 10:03 AM Signed Patient reports dyskinesias have resolved completely She does feel that freezing episodes still occurring and have contributed to falls. One fall she got her toe caught in a sidewalk crack Denies feeling dizzy or lightheaded Monse Claros MD 04/05/2025 12:37 PM Signed She can resume pramipexole the way she was taking it- 1 tab 5 times per day. This is more than the usual max dose but she was tolerating it. Keep taking amantadine. Libia Jones RN 04/05/2025 12:58 PM Signed Message from provider given Allergies As of Date: 04/02/2025 Noted Allergy Reaction BACTRIM (SULFAMETHOXAZOLE-TRIM ETH*02/13/2012 2 - Rash DILTIAZEM 12/29/2010 2 - Rash 9 - Itching NORVASC (AMLODIPINE BESYLATE) 12/29/2010 2 - Rash 9 - Itching PENICILLINS 03/08/2008 4 - Hives SULFAMETHOXAZOLE 06/26/2019 2 - Rash TRIMETHOPRIM 06/26/2019 2 - Rash VERAPAMIL 01/16/2011 2 - Rash Comments: rash HCTZ (THIAZIDES) 08/22/2021 14 - Other: See Comments Comments: Low potassium Date Reviewed: 03/20/2025 Reviewed by: Deangelo Hawkins MD - Fully Assessed Reason for Visit: Fall [218] Prescriptions as of 04/05/2025 - simvastatin (ZOCOR) 10 mg tablet Take 1 tablet by mouth daily at bedtime. - pramipexole (MIRAPEX) 1.5 mg tablet Take 1 tablet by mouth three times a day. - escitalopram oxalate (LEXAPRO) 20 mg tablet Take 1 tablet by mouth daily at bedtime. - amantadine HCl (SYMMETREL) 100 mg capsule Take 1 capsule by mouth two times a day. - metoprolol tartrate, short acting, (LOPRESSOR) 100 mg tablet Take 1 tablet by mouth two times a day. - spironolactone (ALDACTONE) 25 mg tablet Take 1 tablet by mouth once daily. - carbidopa-levodopa (SINEMET) 25-100 mg per tablet Take 1 tablet by mouth three times daily. Per neuro - sodium fluoride 1.1 % dental cream sodium fluoride 1.1 % dental paste USE TO BRUSH TEETH ONCE A DAY IN THE EVENING - vit A/vit C/vit E/zinc/copper (PRESERVISION AREDS ORAL) Take by mouth. Problem List As Of Date 04/02/2025 Noted Resolved HYPERTEN HEART DIS W/O HRT FAIL [I11.9] 04/13/2008 06/06/2009 CHRONIC SINUSITIS NOS [J32.9] 10/12/2008 Mitral Valve Disorders [I05.9] 06/06/2009 02/17/2010 Urinary frequency [R35.0] 07/17/2009 Pedal edema [R60.0] 11/17/2010 Onychomycosis [B35.1] 12/29/2010 Hypertension, poor control [I10] 03/19/2011 05/16/2012 Osteoporosis, senile [M81.0] Parkinson's disease [G20.A1] Absolute anemia [D64.9] 08/06/2015 Essential hypertension [I10] 08/16/2015 Hyperlipidemia, mixed [E78.2] 08/16/2015 Hematuria [R31.9] 08/16/2015 Colon cancer screening [Z12.11] 09/25/2016 Medicare annual wellness visit, subsequent [Z00*10/27/2017 Renal insufficiency [N28.9] 10/27/2017 Neuropathic pain [M79.2] 08/27/[address] [Z78.9] 02/20/2022 Advance directive discussed with patient [Z71.8*02/20/2022 Medication management [Z79.899] 03/09/2023 Chronic rhinitis [J31.0] 03/09/2023 Major depressive disorder, recurrent episode, m*09/24/2023 RANDY (generalized anxiety disorder) [F41.1] 09/24/2023 Age-related macular degeneration [H35.30] 03/19/2025 Encounter Status:Closed by LIBIA JONES on 04/04/25 Normal [facility] Bacteria Ur Culton Bacteria identified Cx Nom (U) ORGANISM ID: 1 10,000 -<50,000 CFU/ml Normal urogenital darryn Normal [facility] Comment on above: Performed By: #### 6 30-4 ####[facility] LABCLIA [id number] [address] OF [facility] CNOVon 03-20-2025 CNOV Office Visit (FAMPWS ) LIZZLEONILA ([id number]) 1950 F Date Time Provider Department 03/20/25 11:40 AM DEANGELO HAWKINS FAMPWS During your visit today, we recorded the following information about you: Temperature Pulse Respiration Blood pressure 97.2 degrees 74/minute 16/minute 118/70 Weight 58.1 kg Deangelo Hawkins MD 03/20/2025 12:34 PM Signed Chief Complaint Patient presents with: UTI HPI Leonilaej Zamudio is a 74 year old female who presents here today for UTI. Complaints of increased urgency and frequency really bad urgency I have to go really bad onset of 2 weeks ago. Urine 03/14/25 + for WBC and leuk. Patient has also been having some increased falls. Noted by Neurology and advised seeing PCP to eval for UTI.. Patient has not had any dysuria, hematuria, fevers, chills, low back pain, or flank pain. Past medical history, appointments, medications, allergies reviewed. Previous Medical History PAST MEDICAL HISTORY Diagnosis Date Absolute anemia 08/06/2015 Advance directive discussed with patient 02/20/2022 Discussed 02/20/2022 Anxiety Chronic rhinitis 03/09/2023 CHRONIC SINUSITIS NOS Essential hypertension 08/16/2015 RANDY (generalized anxiety disorder) 09/24/2023 Hyperlipidemia, mixed 08/16/[address] 02/20/2022 DPA: Braden () Major depressive disorder, recurrent episode, moderate ([facility]) 09/24/2023 Neuropathic pain 08/27/2021 On cymbalta Onychomycosis 12/29/2010 Osteoporosis, senile alendronate 09/2011-09/2014 Parkinson's disease ([facility]) 2012 Bavis Pedal edema 11/17/2010 Renal insufficiency 10/27/2017 Urinary frequency 07/17/2009 White coat hypertension Office hypertension Previous Surgical History PAST SURGICAL HISTORY Procedure Laterality Date COLONOSCOPY does not want. IMMUNOCHEMICAL FECAL OCCULT BLOOD TEST 11/16/2017 neg NONE Family History FAMILY HISTORY Problem Relation Age of Onset Heart Mother [place] Hypertension Mother Osteoporosis Mother Asthma Father Hypertension Father Lipids Father Diabetes Father Alzheimer's Disease Father Prostate Cancer Father Stroke Maternal Grandmother Stroke Maternal Grandfather Patient Allergies ALLERGIES Allergen Reactions Bactrim [Sulfametho* Rash Diltiazem Rash, Itching Norvasc [Amlodipine* Rash, Itching Penicillins Hives Sulfamethoxazole Rash Trimethoprim Rash Verapamil Rash rash Hctz [Thiazides] Other: See Comments Low potassium Current Medications Current Outpatient Medications on File Prior to Visit Medication Sig pramipexole (MIRAPEX) 1.5 mg tablet Take 1 tablet by mouth three times a day. escitalopram oxalate (LEXAPRO) 20 mg tablet Take 1 tablet by mouth daily at bedtime. amantadine HCl (SYMMETREL) 100 mg capsule Take 1 capsule by mouth two times a day. simvastatin (ZOCOR) 10 mg tablet Take 1 tablet by mouth daily at bedtime. metoprolol tartrate, short acting, (LOPRESSOR) 100 mg tablet Take 1 tablet by mouth two times a day. spironolactone (ALDACTONE) 25 mg tablet Take 1 tablet by mouth once daily. carbidopa-levodopa (SINEMET) 25-100 mg per tablet Take 1 tablet by mouth three times daily. Per neuro sodium fluoride 1.1 % dental cream sodium fluoride 1.1 % dental paste USE TO BRUSH TEETH ONCE A DAY IN THE EVENING vit A/vit C/vit E/zinc/copper (PRESERVISION AREDS ORAL) Take by mouth. No current facility-administered medications on file prior to visit. Social History Social History Tobacco Use Smoking status: Never Smokeless tobacco: Never Vaping Use Vaping status: Never Used Substance Use Topics Alcohol use: No Drug use: No Review of Symptoms REVIEW OF SYSTEMS See HPI EXAM: BP 118/70 Pulse 74 Temp 36.2 ?C (97.2 ?F) Resp 16 Wt 58.1 kg (128 lb) SpO2 98% BMI 25.13 kg/m? General Appearance: Well appearing, alert, in no acute distress, well-hydrated, well nourished.. Back:no CVA tenderness. Lungs: Lungs clear to auscultation. No wheezing, rhonchi, rales.. Abdomen: Normal abdominal exam, Abdomen soft, non-tender. Bowel sounds normal. No masses, organomegaly. Health Maintenance List Shingrix Vaccine(1 of 2) Never done DTaP,Tdap,Td Vaccine(2 - Td or Tdap) due on 06/12/2021 RSV Vaccine(1 - 1-dose 75+ series) due on 2025 Covid-19 Vaccine( - season) due on 09/19/2025 Bone Density Screening due on 03/16/2026 Annual PCP Team Chronic Disease Visit due on 03/19/2026 BP Controlled (<130/80) due on 03/19/2026 Diabetes Screening due on 03/14/2028 Lipid Screening due on 03/14/2030 Influenza Vaccine Completed Advance Directive Discussion Completed Hepatitis C Screening Completed Pneumococcal Vaccine: 50+ Completed Mammogram Screening Discontinued Colorectal Cancer Screening Discontinued Data reviewed Latest Ref Rng 03/20/2025 GLUCOSE UA (POCT) Negative mg/dL Negative BILIRUBIN UA (POCT) Nega (more content not included)... Normal [facility] CNOVon 03-19-2025 CNOV Office Visit (FAMPWS ) LEONILA ZAMUDIO ([id number]) 1950 F Date Time Provider Department 03/19/25 9:40 AM SHEY QUIROZ FAMPWS During your visit today, we recorded the following information about you: Temperature Pulse Respiration Blood pressure 97.3 degrees 79/minute 18/minute 128/78 Weight Height 58.1 kg 1.52 m Shey Quiroz PA-C 03/19/2025 11:01 AM Signed Leonilaej Zamudio is a 74 year old female here for a Medicare wellness visit. Medicare Health Risk Assessment General Health Very good Exercise: Minutes/Day Some- has parkinsons Exercise: Days/Week Most days Alcohol: Daily Use no Alcohol: Drinks/Day 0 Alcohol: 6 or more drinks never Feel off balance Yes- Parkinson's Concerns: Teeth/Dentures no Concerns: Sexual function no Troubled by feelings no Frequency: Eating healthy diet yes ADLs requiring help some Safety precautions in home/vehicle yes Smoke, vape, chews tobacco no Difficulty hearing no Difficulty seeing no Current Providers Specialists: I have reviewed specialist-related care of the patient in the medical record. Medical/Family history review Reviewed and updated problem list, medical/surgical/famil y/social history, medications, and allergies. Opioid use review Opioid Medications (last 90 days) No data to display Anxiety/Depression screening Recommendation: no further intervention at this time Cognitive screening Seeing neurology Cognitive screening reviewed and No further action needed (score 3-5). Functional Observation Was the patient's Timed Up AND Go test unsteady or >= 12 seconds? No Advance Care Planning Surrogate decision maker and/or advance care plan documented Measurements BP 128/78 (BP Site: Right Arm, BP Position: Sitting, BP Cuff Size: Large Adult) Pulse 79 Temp 36.3 ?C (97.3 ?F) Resp 18 Ht 152 cm (4' 11.84) Wt 58.1 kg (128 lb) SpO2 99% BMI 25.13 kg/m? Vision Screening: Follows with optometry/ophthalmolog y Assessment/Plan Medicare annual wellness visit, subsequent (Z00.00) - Counseled on healthy diet and regular exercise - Fall avoidance information provided - Personalized prevention plan provided Chief Complaint Patient presents with: Medicare Wellness Exam HPI Leonila Zamudio is a 74 year old female who presents here today for extensive exam. Patient with hx of parkinson's dz, HTN, hyperlipidemia, osteoporosis, RANDY major depressive disorder, and those as below. Parkinson's Disease: - Recent medication adjustments by neurologist Dr. Claros. - Pramipexole reduced from 5 times/day to 3 times/day. - Amantadine added to regimen. - Reports 3 falls in the past 2 weeks. - Experiences dream-like sensations occasionally. Anxiety: - Managed with Lexapro 40 mg daily x1 year. - Neurologist noted high dosage of Lexapro. 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 - Typically goes to bed around 2300, wakes up around 0500. - Occasionally sleeps until 0600. - Falls back asleep during the day when sitting down. - Wakes up at night to use the restroom; drinks water after dinner due to thirst. Heartburn: - Recent onset, occurring randomly, not daily. - Suspects medication as a potential cause. - Takes Tums or Rolaids with relief. Hypertension: - Managed with metoprolol BID and spironolactone daily. - Reports non-adherence to medication regimen, sometimes missing doses for 2-3 days. - No episodes of lightheadedness when taking medication. - Recent blood pressure readin/78 mmHg. Past medical history, appointments, medications, allergies reviewed. Previous Medical History PAST MEDICAL HISTORY Diagnosis Date Absolute anemia 08/06/2015 Advance directive discussed with patient 02/20/2022 Discussed 02/20/2022 Anxiety Chronic rhinitis 03/09/2023 CHRONIC SINUSITIS NOS Essential hypertension 08/16/2015 RANDY (generalized anxiety disorder) 09/24/2023 Hyperlipidemia, mixed 08/16/[address] 02/20/2022 DPA: Braden () Major depressive disorder, recurrent episode, moderate ([facility]) 09/24/2023 Neuropathic pain 08/27/2021 On cymbalta Onychomycosis 12/29/2010 Osteoporosis, senile alendronate 09/2011-09/2014 Parkinson's disease (HCC) 2012 Bavis Pedal edema 11/17/2010 Renal insufficiency 10/27/2017 Urinary frequency 07/17/2009 White coat hypertension Office hypertension Previous Surgical History PAST SURGICAL HISTORY Procedure Laterality Date COLONOSCOPY does not want. IMMUNOCHEMICAL FECAL OCCULT BLOOD TEST 11/16/2017 neg NONE Family History FAMILY HISTORY Problem Relation Age of Onset Heart Mother [place] Hypertension Mother Osteoporosis Mother Asthma Father Hypertension Father Lipids Father Diabetes Father Alzheimer's Disease Father Prostate Cancer Father Stroke Maternal Grandmother Stroke Maternal Grandfather Patient Aller (more content not included)... [facility] JALEELN Tele[facility] (ISAIASWS) LEONILA ZAMUDIO ([id number]) 1950 F Date Time Provider Department 03/19/25 SHEY QUIROZ During your visit today, we recorded the following information about you: Shey Quiroz PA-C 03/19/2025 11:03 AM Signed ----- Message from Samuel Arias APRN.CNP sent at 03/19/2025 11:00 AM EDT ----- Regarding: RE: lexapro dose adjustment Chris Kat, Thank you for reaching out. Please, go ahead and decrease the Lexapro dose now and I can assess how she is tolerating the lower dose at our appointment at the end of the month. Samuel ----- Message ----- From: Shey Quiroz PA-C Sent: 03/19/2025 10:55 AM EDT To: Samuel Arias APRN.CNP Subject: lexapro dose adjustment Chris Garcia, I saw Leonila today and they asked me to reach out to you. They are seeing a new neurologist who adjusted the amount of pramipexole she is taking down to TID. Now they are wondering if maybe the lexapro dosing is too high. She reports that she is having more falls and would like to see if tapering down the lexapro helps. They have follow up scheduled end of this month. Wasn't sure if you would want to make the adjustment now and then reassess at the visit. Thanks! Shey Michaels PA-C 03/19/2025 11:04 AM Signed Let Leonila know that Samuel is okay with them decreasing. Go down to 1 tablet a day and she will discuss at follow up. Contact her with any concerns. JONNIE Michaels HEATHER 03/19/2025 11:42 AM Signed Left message for patient to return call. MARCEL Nuñez Sherrie, RN 03/19/2025 12:25 PM Signed Patient's spouse Braden returned call and given provider's message below with verbalized understanding. Amarjit Melchor RN Allergies As of Date: 03/19/2025 Noted Allergy Reaction BACTRIM (SULFAMETHOXAZOLE-TRIM ETH*02/13/2012 2 - Rash DILTIAZEM 12/29/2010 2 - Rash 9 - Itching NORVASC (AMLODIPINE BESYLATE) 12/29/2010 2 - Rash 9 - Itching PENICILLINS 03/08/2008 4 - Hives SULFAMETHOXAZOLE 06/26/2019 2 - Rash TRIMETHOPRIM 06/26/2019 2 - Rash VERAPAMIL 01/16/2011 2 - Rash Comments: rash HCTZ (THIAZIDES) 08/22/2021 14 - Other: See Comments Comments: Low potassium Date Reviewed: 03/19/2025 Reviewed by: Hernandez Souza LPN - Fully Assessed Reason for Visit: Medication Question [1478] Order(s):escitalopram oxalate (LEXAPRO) 20 mg tabletTake 1 tablet by mouth daily at bedtime.Disp: 180 tabletRfl: 0 Prescriptions as of 03/19/2025 - pramipexole (MIRAPEX) 1.5 mg tablet Take 1 tablet by mouth three times a day. - escitalopram oxalate (LEXAPRO) 20 mg tablet Take 1 tablet by mouth daily at bedtime. - amantadine HCl (SYMMETREL) 100 mg capsule Take 1 capsule by mouth two times a day. - simvastatin (ZOCOR) 10 mg tablet Take 1 tablet by mouth daily at bedtime. - metoprolol tartrate, short acting, (LOPRESSOR) 100 mg tablet Take 1 tablet by mouth two times a day. - spironolactone (ALDACTONE) 25 mg tablet Take 1 tablet by mouth once daily. - carbidopa-levodopa (SINEMET) 25-100 mg per tablet Take 1 tablet by mouth three times daily. Per neuro - sodium fluoride 1.1 % dental cream sodium fluoride 1.1 % dental paste USE TO BRUSH TEETH ONCE A DAY IN THE EVENING - vit A/vit C/vit E/zinc/copper (PRESERVISION AREDS ORAL) Take by mouth. Problem List As Of Date 03/19/2025 Noted Resolved HYPERTEN HEART DIS W/O HRT FAIL [I11.9] 04/13/2008 06/06/2009 CHRONIC SINUSITIS NOS [J32.9] 10/12/2008 Mitral Valve Disorders [I05.9] 06/06/2009 02/17/2010 Urinary frequency [R35.0] 07/17/2009 Pedal edema [R60.0] 11/17/2010 Onychomycosis [B35.1] 12/29/2010 Hypertension, poor control [I10] 03/19/2011 05/16/2012 Osteoporosis, senile [M81.0] Parkinson's disease [G20.A1] Absolute anemia [D64.9] 08/06/2015 Essential hypertension [I10] 08/16/2015 Hyperlipidemia, mixed [E78.2] 08/16/2015 Hematuria [R31.9] 08/16/2015 Colon cancer screening [Z12.11] 09/25/2016 Medicare annual wellness visit, subsequent [Z00*10/27/2017 Renal insufficiency [N28.9] 10/27/2017 Neuropathic pain [M79.2] 08/27/[address] [Z78.9] 02/20/2022 Advance directive discussed with patient [Z71.8*02/20/2022 Medication management [Z79.899] 03/09/2023 Chronic rhinitis [J31.0] 03/09/2023 Major depressive disorder, recurrent episode, m*09/24/2023 RANDY (generalized anxiety disorder) [F41.1] 09/24/2023 Age-related macular degeneration [H35.30] 03/19/2025 Prescriptions ordered this encounter Disp Refills Start End ESCITALOPRAM 20 MG TABLET 180 * 0 03/19/2025 06/17/2025 Class: Med Update Route: ORAL Sig: Take 1 tablet by mouth daily at bedtime. Medications Discontinued During This Encounter Prescriptions - escitalopram oxalate (LEXAPRO) 20 mg tablet (Discontinued) Take 2 tablets by mouth daily at bedtime. Encounter Status:Closed by HELLEN MELCHOR on (more content not included)... Normal [facility] 25(OH)D3 SerPl-mCncon 2024 25-hydroxyvitamin D3 [Mass/Vol] 68.1 ng/mL Normal 31.0-80.0 [facility] Comment on above: Order Comment: Speci men Type: BLOOD SPECIMENOrdering Facility: [facility] Address: [address] [place] [address] Performed By: #### 1 989-3 ####[facility] LABIA [id number] [place] [address] [place] CBC W Auto Differential pane l (Bld)on 03-14-2025 Basophils (Bld) [#/Vol] 0.04 10*3/uL Normal <0.11 [facility] Comment on above: Order Comment: Speci men Type: BLOOD SPECIMENOrdering Facility: [facility] Address: [address] [place] [address] Performed By: #### 5 7021-8 ####[facility] LABIA [id number] [place] [address] [place] Basophils/100 WBC (Bld) 0.7 % Normal [facility] Comment on above: Order Comment: Speci men Type: BLOOD SPECIMENOrdering Facility: [facility] Address: [address] [place] [address] Performed By: #### 5 7021-8 ####[facility] LABIA [id number] [place] [address] [place] Differential cell count method Nom (Bld) Auto Normal [facility] Comment on above: Order Comment: Speci men Type: BLOOD SPECIMENOrdering Facility: [facility] Address: [address] [place] [address] Performed By: #### 5 7021-8 ####[facility] LABCLIA [id number] [address], [place] [address] [place] Eosinophils (Bld) [#/Vol] 0.19 10*3/uL Normal <0.46 [facility] Comment on above: Order Comment: Speci men Type: BLOOD SPECIMENOrdering Facility: [facility] Address: [address] [place] [address] Performed By: #### 5 7021-8 ####[facility] LABCLIA [id number] [address], [place] [address] [place] Eosinophils/100 WBC (Bld) 3.1 % Normal [facility] Comment on above: Order Comment: Speci men Type: BLOOD SPECIMENOrdering Facility: [facility] Address: [address] [place] [address] Performed By: #### 5 7021-8 ####[facility] LABCLIA [id number] [address] [place] Erythrocyte distribution width (RBC) [Ratio] 13.7 % Normal 11.5-15.0 [facility] Comment on above: Order Comment: Speci men Type: BLOOD SPECIMENOrdering Facility: [facility] Address: [address] [place] [address] Performed By: #### 5 7021-8 ####[facility] LABCLIA [id number] [address] [place] Hematocrit (Bld) [Volume fraction] 39.0 % Normal 36.0-46.0 [facility] Comment on above: Order Comment: Speci men Type: BLOOD SPECIMENOrdering Facility: [facility] Address: [address] [place] [address] Performed By: #### 5 7021-8 ####[facility] LABCLIA [id number] [address], [place] [address] [place] Hemoglobin (Bld) [Mass/Vol] 12.3 g/dL Normal 11.5-15.5 [facility] Comment on above: Order Comment: Speci men Type: BLOOD SPECIMENOrdering Facility: [facility] Address: [address] [place] [address] Performed By: #### 5 7021-8 ####[facility] LABCLIA [id number] [address], [place] [address] [place] Immature granulocytes (Bld) [#/Vol] 10*3/uL Normal <0.10 [facility] Comment on above: Order Comment: Speci men Type: BLOOD SPECIMENOrdering Facility: [facility] Address: [address] [place] [address] Performed By: #### 5 7021-8 ####[facility] LABCLIA [id number] [address], [place] [address] [place] Immature granulocytes/100 WBC (Bld) 0.3 % Normal [facility] Comment on above: Order Comment: Speci men Type: BLOOD SPECIMENOrdering Facility: [facility] Address: [address] [place] [address] Performed By: #### 5 7021-8 ####[facility] LABCLIA [id number] [place] [id number] [place] Lymphocytes (Bld) [#/Vol] 1.49 10*3/uL Normal 1.00-4.00 [facility] Comment on above: Order Comment: Speci men Type: BLOOD SPECIMENOrdering Facility: [facility] Address: [address] [place] [address] Performed By: #### 5 7021-8 ####[facility] LABCLIA [id number] [place] [id number] [place] Lymphocytes/100 WBC (Bld) 24.6 % Normal [facility] Comment on above: Order Comment: Speci men Type: BLOOD SPECIMENOrdering Facility: [facility] Address: [address] [place] [address] Performed By: #### 5 7021-8 ####[facility] [facility]IA [id number] [place] [address] [place] MCH (RBC) [Entitic mass] 27.3 pg Normal 26.0-34.0 [facility] Comment on above: Order Comment: Speci men Type: BLOOD SPECIMENOrdering Facility: [facility] Address: [address] [place] [address] Performed By: #### 5 7021-8 ####[facility] LAB[facility] [id number] [address] [place] MCHC (RBC) [Mass/Vol] 31.5 g/dL Normal 30.5-36.0 [facility] Comment on above: Order Comment: Speci men Type: BLOOD SPECIMENOrdering Facility: [facility] Address: [address] [place] [address] Performed By: #### 5 7021-8 ####[facility] LAB[facility] [id number] [address] [place] MCV (RBC) [Entitic vol] 86.5 fL Normal 80.0-100.0 [facility] Comment on above: Order Comment: Speci men Type: BLOOD SPECIMENOrdering Facility: [facility] Address: [address] [place] [address] Performed By: #### 5 7021-8 ####[facility] [id number] [address] [place] Monocytes (Bld) [#/Vol] 0.84 10*3/uL Normal <0.87 [facility] Comment on above: Order Comment: Speci men Type: BLOOD SPECIMENOrdering Facility: [facility] Address: [address] [place] [address] Performed By: #### 5 7021-8 ####[facility] LABCLIA [id number] [place] [address] [place] Monocytes/100 WBC (Bld) 13.9 % Normal [facility] Comment on above: Order Comment: Speci men Type: BLOOD SPECIMENOrdering Facility: [facility] Address: [address] [place] [address] Performed By: #### 5 7021-8 ####[facility] LABCLIA [id number] [place] [address] [place] Neutrophils (Bld) [#/Vol] 3.47 10*3/uL Normal 1.45-7.50 [facility] Comment on above: Order Comment: Speci men Type: BLOOD SPECIMENOrdering Facility: [facility] Address: [address] [place] [address] Performed By: #### 5 7021-8 ####[facility] LABCLIA [id number] [place] [address] [place] Neutrophils/100 WBC (Bld) 57.4 % Normal [facility] Comment on above: Order Comment: Speci men Type: BLOOD SPECIMENOrdering Facility: [facility] Address: [address] [place] [address] Performed By: #### 5 7021-8 ####[facility] LABCLIA [id number] [place] [id number] [place] Nucleated RBC (Bld) [#/Vol] 10*3/uL Normal <0.01 [facility] Comment on above: Order Comment: Speci men Type: BLOOD SPECIMENOrdering Facility: [facility] Address: [address] [place] [address] Performed By: #### 5 7021-8 ####[facility] LABCLIA [id number] [place] [id number] [place] Nucleated RBC/100 WBC (Bld) [Ratio] 0.0 /100 WBC Normal [facility] Comment on above: Order Comment: Speci men Type: BLOOD SPECIMENOrdering Facility: [facility] Address: [address] [place] [address] Performed By: #### 5 7021-8 ####[facility] LABCLIA [id number] [place] [address] [place] Platelet mean volume (Bld) [Entitic vol] 10.7 fL Normal 9.0-12.7 [facility] Comment on above: Order Comment: Speci men Type: BLOOD SPECIMENOrdering Facility: [facility] Address: [address] [place] [address] Performed By: #### 5 7021-8 ####[facility] LABCLIA [id number] [place] [address] [place] Platelets (Bld) [#/Vol] 217 10*3/uL Normal 150-400 [facility] Comment on above: Order Comment: Speci men Type: BLOOD SPECIMENOrdering Facility: [facility] Address: [address] [place] [address] Performed By: #### 5 7021-8 ####[facility] LABCLIA [id number] [place] [address] [place] RBC (Bld) [#/Vol] 4.51 10*6/uL Normal 3.90-5.20 [facility] Comment on above: Order Comment: Speci men Type: BLOOD SPECIMENOrdering Facility: [facility] Address: [address] [place] [address] Performed By: #### 5 7021-8 ####[facility] LABCLIA [id number] [place] [id number] [place] WBC (Bld) [#/Vol] 6.05 10*3/uL Normal 3.70-11.00 [facility] Comment on above: Order Comment: Speci men Type: BLOOD SPECIMENOrdering Facility: [facility] Address: [address] [place], [place] [address] Performed By: #### 5 7021-8 ####[facility] LABCLIA [id number] [address] [address] [place] Comprehensive metabolic 2000 panelon 03-14-2025 Albumin [Mass/Vol] 4.1 g/dL Normal 3.9-4.9 [facility] Comment on above: Order Comment: Speci men Type: BLOOD SPECIMENOrdering Facility: [facility] Address: [address] [place] [address] Performed By: #### L IPNF, 16384-1 ####[facility] LABCLIA [id number] [place] [id number] [place] ALP [Catalytic activity/Vol] 104 U/L Normal 34-123 [facility] Comment on above: Order Comment: Speci men Type: BLOOD SPECIMENOrdering Facility: [facility] Address: [address] [place] [address] Performed By: #### L IPNF, 73894-4 ####[facility] LABCLIA [id number] [address] [place] ALT [Catalytic activity/Vol] 6 U/L Low 7-38 [facility] Comment on above: Order Comment: Speci men Type: BLOOD SPECIMENOrdering Facility: [facility] Address: [address] [place] [address] Performed By: #### L IPNF, 00685-5 ####[facility] LABCLIA [id number] [place] [id number] [place] Anion gap [Moles/Vol] 11 mmol/L Normal 8-15 [facility] Comment on above: Order Comment: Speci men Type: BLOOD SPECIMENOrdering Facility: [facility] Address: [address] [place] [address] Performed By: #### L IPNF, ####[facility] LABCLIA [id number] [address] [address] [place] AST [Catalytic activity/Vol] 20 U/L Normal 13-35 [facility] Comment on above: Order Comment: Speci men Type: BLOOD SPECIMENOrdering Facility: [facility] Address: [address] [place] [address] Performed By: #### L IPNF, ####[facility] LABCLIA [id number] [place] [id number] [place] Bilirubin [Mass/Vol] 0.2 mg/dL Normal 0.2-1.3 [facility] Comment on above: Order Comment: Speci men Type: BLOOD SPECIMENOrdering Facility: [facility] Address: [address] [place] [address] Performed By: #### L IPNF, ####[facility] LABCLIA [id number] [place] [id number] [place] Calcium [Mass/Vol] 9.1 mg/dL Normal 8.5-10.2 [facility] Comment on above: Order Comment: Speci men Type: BLOOD SPECIMENOrdering Facility: [facility] Address: [address] [place] [address] Performed By: #### L IPNF, ####[facility] LABCLIA [id number] [place] [id number] [place] Chloride [Moles/Vol] 103 mmol/L Normal 98-107 [facility] Comment on above: Order Comment: Speci men Type: BLOOD SPECIMENOrdering Facility: [facility] Address: [address] [place] [address] Performed By: #### L IPNF, 23463-2 ####[facility] LABCLIA [id number] [place] [id number] [place] CO2 [Moles/Vol] 27 mmol/L Normal 22-30 [facility] Comment on above: Order Comment: Speci men Type: BLOOD SPECIMENOrdering Facility: [facility] Address: [address] [place] [address] Performed By: #### L IPNF, 22155-7 ####[facility] LABCLIA [id number] [facility] [address] [address] [place] Creatinine [Mass/Vol] 0.79 mg/dL Normal 0.58-0.96 [facility] Comment on above: Order Comment: Speci men Type: BLOOD SPECIMENOrdering Facility: [facility] Address: [address] [place] [address] Performed By: #### L IPNF, 51226-3 ####[facility] LABCLIA [id number] [facility] [place] [id number] [place] Creatinine and Glomerular filtration rate.predicted panel (S/P/Bld) 79 mL/min/1.73m??? Normal >=60 [facility] Comment on above: Order Comment: Speci men Type: BLOOD SPECIMENOrdering Facility: [facility] Address: [address] [place] [address] Result Comment: Louisa mated Glomerular Filtration Rate (eGFR) is calculated using the 2020 CKD-EPI creatinine equation. This equation utilizes serum creatinine, sex, and age as parameters. The creatinine assay has traceable calibration to isotope dilution-mass spectrometry. Refer to KDIGO guidelines for clinical interpretation. In patients with unstable renal function, e.g. those with acute kidney injury, the eGFR may not accurately reflect actual GFR. Performed By: #### L IPNF, 03390-4 ####[facility] LABCLIA [id number] [address] [address] [place] Glucose [Mass/Vol] 94 mg/dL Normal 74-99 [facility] Comment on above: Order Comment: Speci men Type: BLOOD SPECIMENOrdering Facility: [facility] Address: [address] [place] [address] Result Comment: The [place] Diabetes Association (ADA) provides guidance for cutoff values for fasting glucose and random glucose. The ADA defines fasting as no caloric intake for at least 8 hours. Fasting plasma glucose results between 100 to 125 mg/dL indicate increased risk for diabetes (prediabetes). Fasting plasma glucose results greater than or equal to 126 mg/dL meet the criteria for diagnosis of diabetes. In the absence of unequivocal hyperglycemia, results should be confirmed by repeat testing. In a patient with classic symptoms of hyperglycemia or hyperglycemic crisis, random plasma glucose results greater than or equal to 200 mg/dL meet the criteria for diagnosis of diabetes. Reference: Standards of Medical Care in Diabetes 2016, [place] Diabetes Association. Diabetes Care. 2016.39(Suppl 1). Performed By: #### L IPNF, 22902-0 ####[facility] LABIA [id number] [place] [address] [place] Potassium [Moles/Vol] 3.8 mmol/L Normal 3.7-5.1 [facility] Comment on above: Order Comment: Speci men Type: BLOOD SPECIMENOrdering Facility: [facility] Address: [address] [place] [address] Performed By: #### L IPNF, ####[facility] [id number] [place] [address] [place] Protein [Mass/Vol] 7.4 g/dL Normal 6.3-8.0 [facility] Comment on above: Order Comment: Speci men Type: BLOOD SPECIMENOrdering Facility: [facility] Address: [address] [place] [address] Performed By: #### L IPNF, ####[facility] LABIA [id number] [place] [id number] [place] Sodium [Moles/Vol] 141 mmol/L Normal 136-144 [facility] Comment on above: Order Comment: Speci men Type: BLOOD SPECIMENOrdering Facility: [facility] Address: [address] [place] [address] Performed By: #### L IPNF, 49064-1 ####[facility] LABCLIA [id number] [address] [place] [address] [place] Urea nitrogen [Mass/Vol] 27 mg/dL High 7-21 [facility] Comment on above: Order Comment: Speci men Type: BLOOD SPECIMENOrdering Facility: [facility] Address: [address] [place] [address] Performed By: #### L IPNF, 46531-2 ####[facility] LABCLIA [id number] [address] [place] [address] [place] LIPID PANEL, NONFASTINGon Cholesterol [Mass/Vol] 151 mg/dL Normal <200 [facility] Comment on above: Order Comment: Speci men Type: BLOOD SPECIMENOrdering Facility: [facility] Address: [address] [place] [address] Result Comment: <200 mg/dL, Desirable 200-239 mg/dL, Borderline high >239 mg/dL, High Performed By: #### L IPNF, ####[facility] LABCLIA [id number] [address], [place] [address] [place] HDL CHOLESTEROL, NF 47 mg/dL Normal >39 [facility] Comment on above: Order Comment: Speci men Type: BLOOD SPECIMENOrdering Facility: [facility] Address: [address] [place] [address] Result Comment: 40-5 9 mg/dL, Acceptable >59 mg/dL, High: Negative risk factor for coronary heart disease <40 mg/dL, Low: Positive risk factor for coronary heart disease Performed By: #### L IPNF, ####[facility] LABCLIA [id number] [address], [facility] [place] LDL CHOLESTEROL CALCULATED, NF 79 mg/dL Normal <100 [facility] Comment on above: Order Comment: Speci men Type: BLOOD SPECIMENOrdering Facility: [facility] Address: [address] [place] [address] Result Comment: <100 mg/dL, Optimal 100-129 mg/dL, Near optimal/above optimal 130-159 mg/dL, Borderline high 160-189 mg/dL, High >189 mg/dL, Very high Secondary prevention optimal LDL Cholesterol levels are recommended to be <70 mg/dL LDL cholesterol is calculated using the Portillo-NIH equation. Performed By: #### L TIERRA, 99663-8 ####[facility] LABCLIA [id number] [address] STATES OF [facility] LDL/HDL RATIO, NF 1.68 mg/dL Normal <2.54 [facility] Comment on above: Order Comment: Liliam de la torre Type: BLOOD SPECIMENOrdering Facility: [facility] Address: [address] [place] [address] Result Comment: Refe rence: 1. National Cholesterol Education Program ATP III Guideline At-A-Glance Quick Desk Reference: National Heart, Lung, and Blood [place]. National Institutes of Health. 2001: NIH Publication No. 01-3305. 2. An International Atherosclerosis Society position paper: global recommendations for the management of dyslipidemia: executive summary, Atherosclerosis. 2014: 232(2):410-413. Performed By: #### L TIERRA, ####[facility] [id number] [address] NON HDL CHOL, NF 104 mg/dL Normal <130 [facility] Comment on above: Order Comment: Liliam de la torre Type: BLOOD SPECIMENOrdering Facility: [facility] Address: [address] [place] [address] Result Comment: <130 mg/dL, Optimal 130-159 mg/dL, Near optimal/above optimal 160-189 mg/dL, Borderline high 190-219 mg/dL, High >219 mg/dL, Very high Secondary prevention optimal non HDL Cholesterol levels are recommended to be <100 mg/dL Performed By: #### L TIERRA, 19547-0 ####[facility] LABCLIA [id number] [place] [id number] [place] T CHOL/HDL RATIO NF 3.21 mg/dL Normal <5.10 [facility] Comment on above: Order Comment: Speci men Type: BLOOD SPECIMENOrdering Facility: [facility] Address: [address] [place] [address] Performed By: #### L IPNF, 26436-8 ####[facility] LABCLIA [id number] [place] [address] [place] TRIGLYCERIDES, NF 143 mg/dL Normal <150 [facility] Comment on above: Order Comment: Speci men Type: BLOOD SPECIMENOrdering Facility: [facility] Address: [address] [place] [address] Result Comment: <150 mg/dL, Normal 150-199 mg/dL, Borderline high 200-499 mg/dL, High >499 mg/dL, Very high Performed By: #### L IPNF, 56102-9 ####[facility] LABCLIA [id number] [place] [address] [place] VLDL CHOLESTEROL, NF 22 mg/dL Normal <30 [facility] Comment on above: Order Comment: Speci men Type: BLOOD SPECIMENOrdering Facility: [facility] Address: [address] [place] [address] Performed By: #### L IPNF, 33181-5 ####[facility] LABCLIA [id number] [facility] [place] [address] [place] Urinalysis complete panel (U )on 03-14-2025 Bacteria LM.HPF (Urine sed) [#/Area] Negative Normal Negative [facility] Comment on above: Order Comment: Speci men Type: URINE SPECIMENOrdering Facility: [facility] Address: [address] [place] [address] Performed By: #### 2 4356-8 ####[facility] LABCLIA [id number] [facility] [place] [id number] [place] Bilirubin Ql (U) Negative Normal Negative [facility] Comment on above: Order Comment: Speci men Type: URINE SPECIMENOrdering Facility: [facility] Address: [address] [place] [address] Performed By: #### 2 4356-8 ####[facility] LABCLIA [id number] [address] [place] [address] [place] Clarity (Unsp spec) Clear Normal Clear [facility] Comment on above: Order Comment: Speci men Type: URINE SPECIMENOrdering Facility: [facility] Address: [address] [place] [address] Performed By: #### 2 4356-8 ####[facility] LABCLIA [id number] [place] [address] [place] Color (U) Yellow Normal Yellow [facility] Comment on above: Order Comment: Speci men Type: URINE SPECIMENOrdering Facility: [facility] Address: [address] [place] [address] Performed By: #### 2 4356-8 ####[facility] LABCLIA [id number] [place] [id number] [place] Epithelial cells LM.HPF (Urine sed) [#/Area] Few Normal [facility] Comment on above: Order Comment: Speci men Type: URINE SPECIMENOrdering Facility: [facility] Address: [address] [place] [address] Performed By: #### 2 4356-8 ####[facility] LABCLIA [id number] [address] [address] [place] Glucose Test strip (U) [Mass/Vol] Negative Normal Negative [facility] Comment on above: Order Comment: Speci men Type: URINE SPECIMENOrdering Facility: [facility] Address: [address] [place] [address] Performed By: #### 2 4356-8 ####[facility] LABCLIA [id number] [place] [id number] [place] Hemoglobin Ql (U) Negative Normal Negative [facility] Comment on above: Order Comment: Speci men Type: URINE SPECIMENOrdering Facility: [facility] Address: [address] [place] [address] Performed By: #### 2 4356-8 ####[facility] LABCLIA [id number] [place] [address] [place] Hyaline casts (Urine sed) [#/Area] 0 /[LPF] Normal 0 /LPF [facility] Comment on above: Order Comment: Speci men Type: URINE SPECIMENOrdering Facility: [facility] Address: [address] [place] [address] Performed By: #### 2 4356-8 ####[facility] LABCLIA [id number] [place] [address] [place] Ketones Ql (U) Trace Abnormal Negative [facility] Comment on above: Order Comment: Speci men Type: URINE SPECIMENOrdering Facility: [facility] Address: [address] [place] [address] Performed By: #### 2 4356-8 ####[facility] LABCLIA [id number] [place] [address] [place] Leukocyte esterase Test strip Ql (U) 1+ Abnormal Negative [facility] Comment on above: Order Comment: Speci men Type: URINE SPECIMENOrdering Facility: [facility] Address: [address] [place] [address] Performed By: #### 2 4356-8 ####[facility] LABCLIA [id number] [place] [address] [place] Nitrite Ql (U) Negative Normal Negative [facility] Comment on above: Order Comment: Speci men Type: URINE SPECIMENOrdering Facility: [facility] Address: [address] [place] [address] Performed By: #### 2 4356-8 ####[facility] LABCLIA [id number] [place] [address] [place] pH (U) 6.5 [pH] Normal <8.5 [facility] Comment on above: Order Comment: Speci men Type: URINE SPECIMENOrdering Facility: [facility] Address: [address] [place] [address] Performed By: #### 2 4356-8 ####[facility] LABIA [id number] [place] [address] [place] Protein (U) [Mass/Vol] Trace Abnormal Negative [facility] Comment on above: Order Comment: Speci men Type: URINE SPECIMENOrdering Facility: [facility] Address: [address] [place] [address] Performed By: #### 2 4356-8 ####[facility] LABIA [id number] [place] [address] [place] RBC LM.HPF (Urine sed) [#/Area] 0-2 /HPF Normal 0-2 /HPF [facility] Comment on above: Order Comment: Speci men Type: URINE SPECIMENOrdering Facility: [facility] Address: [address] [place] [address] Performed By: #### 2 4356-8 ####[facility] LABIA [id number] [place] [address] [place] Specific gravity (U) [Rel density] 1.026 Normal 1.005-1.030 [facility] Comment on above: Order Comment: Speci men Type: URINE SPECIMENOrdering Facility: [facility] Address: [address] [place] [address] Performed By: #### 2 4356-8 ####[facility] LABIA [id number] [place] [address] [place] Urobilinogen Ql (U) 1.0 EU/dL Normal 0.2-1.0 EU/dL [facility] Comment on above: Order Comment: Speci men Type: URINE SPECIMENOrdering Facility: [facility] Address: [address] [place] [address] Performed By: #### 2 4356-8 ####[facility] [id number] [place] [address] [place] WBC LM.HPF (Urine sed) [#/Area] 11-20 /HPF Abnormal 0-5 /HPF [facility] Comment on above: Order Comment: Speci men Type: URINE SPECIMENOrdering Facility: [facility] Address: [address] [place] [address] Performed By: #### 2 4356-8 ####[facility] [id number] [address] [place] CNOVon 01-16-2025 CNOV Office Visit (PSWSTR ) ZAMUDIO,LEONILA Prado ([id number]) 1950 F Date Time Provider Department 01/16/25 10:00 AM SAMUEL ARIAS PSWSTR During your visit today, we recorded the following information about you: Pulse Blood pressure Weight 68/minute 130/62 57.9 kg Samuel Arias, [employer] 01/29/2025 5:00 PM Signed FOLLOW UP - PSYCHIATRIC PROGRESS NOTE PATIENT: Leonila Zamudio DATE: January 16, 2025 Visit Type:In person All information is from Patient report except when noted. This evaluation is NOT intended for forensic, disability or child custody purposes. CC: Presenting today for follow up regarding psychiatric medication management. HPI: Treatment Plan from Last Visit on 08/22/2024: TREATMENT PLAN: Continue Lexapro at 40 mg dose to help with mood and anxiety symptoms. Engage in individual psychotherapy with Aimee Aponte weekly. [facility]erral sent to [facility] to assist patient with home modifications and support to help address anxiety she has related to falling from that gait issues complicated by parkinson's diagnosis. Encouraged patient to schedule an appointment for physical therapy. PCP has placed referral. Patient plans on going to [facility] today to set up an appointment. Today Leonila shares that she saw a Neurologist through [facility]. I really like her. Very happy that she got a second opinion. Pramipexole dose that was prescribed for her was too much she was informed. Discussed how it may have been contributing to the anxiety symptoms as well. Shares that she has been struggling with terminal insomnia. Goes to bed around 9 pm and wakes up around 5 am. Completed physical therapy. Joined a class at [facility] every Wednesday at noon. It is only for parkinson's patients. She enjoys it as it helps improve her balance. She has placed a stool in the bathroom and feels safer and doesn't worry as much about falling. Going up the stairs has been better as well. She is not getting dizzy at all. Has not been contacted by the [facility]. Continues to enjoy dancing. Has been going pretty often. Her legs feel stronger when she dances now after the physical therapy. Interval Progress: Slightly improved PATIENT DATA: Generalized Anxiety Disorder Scale (RANDY-7) 06/30/2024 08/22/2024 01/15/2025 RANDY - 7 SCORES Score 18 15 12 (0-4) minimal anxiety, (5-9) mild anxiety, (10-14) moderate anxiety, (15-21) severe anxiety Patient Health Questionnaire (PHQ-9) 06/30/2024 08/22/2024 01/15/2025 PHQ-9 Score 8 14 9 (0-4) minimal depression, (5-9) mild depression, (10-14) moderate depression, (15-19) moderately severe depression, (20-27) severe depression PAST MEDICAL HISTORY Diagnosis Date Absolute anemia 08/06/2015 Advance directive discussed with patient 02/20/2022 Discussed 02/20/2022 Anxiety Chronic rhinitis 03/09/2023 CHRONIC SINUSITIS NOS Essential hypertension 08/16/2015 RANDY (generalized anxiety disorder) 09/24/2023 Hyperlipidemia, mixed 08/16/[address] 02/20/2022 DPA: Braden () Major depressive disorder, recurrent episode, moderate ([facility]) 09/24/2023 Neuropathic pain 08/27/2021 On cymbalta Onychomycosis 12/29/2010 Osteoporosis, senile alendronate 09/2011-09/2014 Parkinson's disease ([facility]) 2012 Bavis Pedal edema 11/17/2010 Renal insufficiency 10/27/2017 Urinary frequency 07/17/2009 White coat hypertension Office hypertension PAST SURGICAL HISTORY Procedure Laterality Date COLONOSCOPY does not want. FECAL OCCULT BLOOD TEST 11/16/2017 neg NONE ALLERGIES Allergen Reactions Bactrim [Sulfametho* Rash Diltiazem Rash, Itching Norvasc [Amlodipine* Rash, Itching Penicillins Hives Sulfamethoxazole Rash Trimethoprim Rash Verapamil Rash rash Hctz [Thiazides] Other: See Comments Low potassium Current Outpatient Medications on File Prior to Visit Medication Sig amantadine HCl (SYMMETREL) 100 mg capsule Take 1 capsule by mouth two times a day. simvastatin (ZOCOR) 10 mg tablet Take 1 tablet by mouth daily at bedtime. metoprolol tartrate, short acting, (LOPRESSOR) 100 mg tablet Take 1 tablet by mouth two times a day. spironolactone (ALDACTONE) 25 mg tablet Take 1 tablet by mouth once daily. escitalopram oxalate (LEXAPRO) 20 mg tablet Take 2 tablets by mouth daily at bedtime. pramipexole (MIRAPEX) 1.5 mg tablet Take 1 tablet by mouth every 3 hours. Per Neuro: Dr. Curry (Patient taking differently: Take 1 tablet by mouth every 3 hours. Per Neuro: Dr. Curry) carbidopa-levodopa (SINEMET) 25-100 mg per tablet Take 1 tablet by mouth three times daily. Per neuro (Patient taking differently: Take 1 tablet by mouth five times a day. Per neuro 1.5 tab 5am, 8am, 11am, 2pm, 5pm) sodium fluoride 1.1 % dental cream sodium fluoride 1.1 % dental paste USE TO BRUSH TEETH ONCE A DAY IN THE EVENING vit A/v (more content not included)... Normal [facility] CNOVon 01-15-2025 CNOV Office Visit (NRMDN) LEONILA ZAMUDIO ([id number]) 1950 F Date Time Provider Department 01/15/25 3:30 PM MONSE CLAROS NRMDN During your visit today, we recorded the following information about you: Weight 57.7 kg Monse Claros MD 01/15/2025 5:54 PM Signed [facility] - NEW PATIENT EVALUATION Primary Movement Disorders Neurologist: Monse Claros MD Primary Movement Disorders CHIDI: Not yet assigned No referring provider defined for this encounter. Deangelo Hawkins MD [id number] [facility] [id number] I had the pleasure of evaluating Ms. Zamudio to our clinic today. As you know she is a 74 year old right-handed female who is self referred for evaluation of PD since 2012. She is seen with her and daughter. Subjective HISTORY OF PRESENT ILLNESS: Initial HPI Parkinson's since 2012. Started with tremor in left leg then arm. Previously seen by Drs. Lennon and Patricio. Fluctuates between dyskinesia and freezing. Never knows when she will freeze. Can shop all day and then have it happen that night. Often in a certain doorway at home. Doesn't happen when she dances. More likely to happen at home which is an older one with smaller spaces. Dyskinesia is all the time. Currently worse than usual. Triggered by nerves. Often nervious and anxious. Sees psychiatry for anxiety. Lexapro doesn't seem to be helping. Gets counseling which isn't helping. Looking for a new counselor. Not tech savvy enough for virtual visits. Only has a flip phone, no tablet. Just finished 24 weeks of Parkinson's PT and now doing the [facility] class. Movement Disorders Medications Schedule - as of the start of the visit: Medications 5 8 11 2 5 Sinemet 25/100 1.5 1.25 1.5 1.25 1.5 pramipexole 1.5 mg 1 1 1 1 1 Parkinson's Motor Complications Medication duration: 3 hours Wearing off: no Dyskinesia: yes Prior Anti-Parkinson Therapies Carbidopa/Levodopa Carbidopa/Levodopa ER (Rytary) Carbidopa/Levodopa/Ent acapone Pramipexole Ropinirole Rotigitine Selegiline Questionnaires: In addition, the following areas that may be affected by abnormal involuntary movements were evaluated: Daily activities Difficulties with eating: Yes (slight) independent Difficulties in dressing: Yes (mild) slow but can do it Difficulties with hygiene activities: Yes (slight) slow but can do it Difficulties with handwritin (none) Difficulties with doing hobbies and other activities: Yes (slight) Difficulties turning in bed: Yes (moderate) yes. turns her Difficulties getting out of bed, car or chair: Yes (mild) ok or slow but can do it Tremors/Gait/Balance Shaking or tremors: Yes (mild) Walking and balance problems: Yes (slight) Number of falls in the Last Month: 2 lost balance, turned too quick. Gait freezing: Yes (moderate) Autonomic/Pain Lightheadeness on standin (none) Urinary problems: Yes (mild) Constipation problems: 0 (none) Pain and other sensations: Yes (slight) Speech/Swallowing Speech problems: 0 (none) Drooling: Yes (mild) Chewing and swallowing problems: 0 (none) Sleep/Fatigue Sleep problems: Yes (moderate) wakes up early, 4A Daytime sleepiness: Yes (mild) Fatigue: 0 (none) Mood/Behavior Depression: PHQ-9 Score: 9 usually representing mild (5-9) depression. Anxiety: RANDY-7 Total Score: 12 usually representing moderate (10-14) anxiety. Finally, the following table shows the patient's overall global physical and mental health using the PROMIS scale: PROMIS-10 Flowsheet Row Office Visit from 01/15/2025 in Neurology Global Physical Health T Score 47.7 Global Mental Health T Score 41.1 0-10 Standard Pain Scale 4 *PROMIS-10 scoring scale: mean = 50, over 50 is above average, under 50 is below average In addition, the following Parkinson Lifestyle-associated features were evaluated: Conditions Prior to Dx: Depression: No Anxiety: No Melanoma: No Constipation: No Yelling: No Head Trauma: No Habits/exposures Prior to Dx Smoking: No Caffeinated coffee (1-cup+): Yes (but quit) Caffeinated soda/tea (2 cups+): Yes (and still do) Alcohol (1 bottle/shot/glass+): No Exercise (3x/wk+): No Ibuprofen use (1x/wk+): No Pesticides: No Welding: No In addition, the following non-motor symptoms and palliative concerns were evaluated: Sleep/Fatigue: 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 Impairment appreciated by me or my caregiver with no concrete interference with my ability to carry out normal activities and social interactions. Hallucinations and Psychosis: 0 - Normal. No hallucinations or psychotic behavior. Depressed Mood: Anxious Mood: Apathy: Impulse Control: 0 - Normal. No problems pres (more content not included)... Normal [facility] PT D/C Summary (1)on 025 PT D/C Summary (1) [facility] [address] [place] [address] [address] [place] [address] / REHABILITATION SERVICES DISCHARGE SUMMARY MR#: [id number] Acct: [id number] Name: LEONILA ZAMUDIO Rep #: [id number] : 1950 74 From: John Veronica DPT Referring Dr.: JUANA Michaels Status: REG RCR Insurance: [employer] PPO SELF PAY INSURANCE Discharge Summary D/C summary: It has been my pleasure to treat LEONILA ZAMUDIO referred by JUANA Michaels, with the diagnosis of Parkinsons disease, gait disturbance for a total of 22 visit(s). Discharge Date: 12/19/24 Please see the following information for a summary of their discharge status. Subjective Subjective: Pt. reports having days that are better than others. She did fallen last week. She reports falling after standing up from the floor. Pt. reports having no falls otherwise. She reports no pain with falling. Pt. to see PD physician in 1 month. Overall Improvement % Improvement: 15 Objective Objective/Function: Pt. reports no soreness since her fall. She described getting up from the floor and falling backwards. No previous falls that she can remember. FGA was again good slightly less than 2 weeks previous, but not bad. TUG was decent again strength is good in BLEs It appears her fall was more of a fluke type thing. Overall her balance is decent. Pt. reports feeling the same way. She was able to go dancing this past weekend as well. I am again recommending her to DC today to work on strengthening in gym and start the PD class to work on coordination and movements. Pt. will be DC from PT at this point in time Goals Goal 1:: LTG: Pt. to be I with HEP for balance and LE strengthening. Goal Progress: Progressing Goal 2:: LTG: Pt. to have symmetrical BLE strength. Goal Progress: Goal Met Goal 3:: LTG: Pt. to have improved FGA to indicating improved overall stability. Goal Progress: Progressing Goal 4:: LTG: Pt. to complete TUG without AD with time less than 10sec indicating good stability with all functional mobility. Goal Progress: Progressing Goal 5:: LTG: Pt. to be able to stand on her RLE for 30second without LOB. Goal Progress: Progressing Plan Plan: Pt. is to trial her exercises on her own doig both gym exercises and looking to get into PD class. Pt. to follow back up with PT in 2 weeks if needed. D/C Information d/c sentence: If there are questions or concerns regarding this patient's physical therapy, please feel free to call me at [phone]. Thank you for the referral of this patient. Sincerely, John Veronica, DPT Balance/Gait/Functiona l tests Balance/Special Test Scores Functional Gait Assessment Score: 23 % Disability: 23.3400 CATSIB Score (Max score 120 seconds): 74 Lower Extremity Functional Score: 37 TUG Test Time Seconds: 11.9 Tug Test: <20 sec.=mostly independent 30 Second Chair Rise Test Seconds: 15 6 Minute Walk Test: 910feet without AD Improvement % Improvement: 15 12/19/24 1153 CC: Dr. Deangelo Hawkins MD; JUANA Michaels CLS Signed Normal [facility] Re-Evaluation - PT (1)on Re-Evaluation - PT (1) [facility] [address] [place] [address] [address] [place] [address] / REEVALUATION / MEDICARE RECERTIFICATION PHYSICAL THERAPY MR#: [id number] Acct: [id number] Name: LEONILA ZAMUDIO Rep #: [id number] : 1950 74 From: John Veronica DPT Referring Dr.: JUANA Michaels Status:REG RCR Insurance: [employer] PPO SELF PAY INSURANCE Re-Evaluation Intro: JUANA Michaels, It has been my pleasure to treat LEONILA ZAMUDIO over the last 12 visits for Parkinsons disease, gait disturbance. Please see the progress note below for an update on the physical therapy plan of care! Subjective Subjective: Pt. is here today for her recheck. Pt. reports overall doing a little bit better. She reports being frustrated with her constant writhing movements she has been experiencing. Pt. reports no recent falls. Objective Objective/Function: Pt. is able to ambulate without AD. She does have a L lateral lean in stance. He biggest issues seems to be she has almost constant writhing movement both in static and with walking. This causes her to have to frequently correct her balance MMT: Pt. has good 5/5 and symmetrical strength throughout BLEs. STAIRS: Pt. is able to complete with use of BHR, but has marked difficulty completing without use HR. Completed with reciprocal pattern. 30 sec sit to stand- 10 attempts without use of UEs. TUG 12.5sec without AD. FGA: SLS: RLE 17sec, LLE 7sec without use of UEs. Pt. did do much better with use of weighted vest with walking. She also have much reduced writhing movements with the weighted vest with sitting. I suggested a possible weighted blanket for use at home while resting. She has been c/o increased overall fatigue, possibly due to her constant writhing movements. Pt. to look into this as well. Plan Plan Plan: I am asking for more visits to work on dynamic motor control and stability. She continues to struggle with writhing like movements that causes her balance to be effected. I would like to work on large dynamic/cory movements in order to increase her motor control. I also suggested she talk to her physician about her medications to see if this might be causing some of her symptoms. Pt. consents. Balance/Gait/Functiona l tests Balance/Special Test Scores Functional Gait Assessment Score: 20 % Disability: 33.3400 CATSIB Score (Max score 120 seconds): 74 Lower Extremity Functional Score: 37 TUG Test Time Seconds: 12.5 Tug Test: <20 sec.=mostly independent 30 Second Chair Rise Test Seconds: 10 6 Minute Walk Test: 910feet without AD Goals Goals Goal 1:: LTG: Pt. to be I with HEP for balance and LE strengthening. Goal Time Frame: 4-6 Weeks Goal Progress: Progressing Goal 2:: LTG: Pt. to have symmetrical BLE strength. Goal Time Frame: 4-6 Weeks Goal Progress: Goal Met Goal 3:: LTG: Pt. to have improved FGA to 23/30 indicating improved overall stability. Goal Time Frame: 4-6 Weeks Goal Progress: Progressing Goal 4:: LTG: Pt. to complete TUG without AD with time less than 10sec indicating good stability with all functional mobility. Goal Time Frame: 4-6 Weeks Goal Progress: Progressing Goal 5:: LTG: Pt. to be able to stand on her RLE for 30second without LOB. Goal Time Frame: 4-6 Weeks Goal Progress: Progressing Anticipated Interventions Anticipated Interventions Patient/Client Instruction: Educate patient on: Condition, Plan of Care, Risk Factors and Benefits of Fitness Program For the Purpose of:: To foster healthy habits, To improve decision making, To facilitate caregiver knowledge, To improve self management, To prevent re-injury and To improve ability to perform tasks related to life management Therapeutic Exercise to Include: Strength training, Power training, Balance training, Coordination, Agility training, Postural training, Gait and locomotor training and Neuromotor development For the Purpose of:: To improve nutrient delivery to tissue, To increase oxygenation perfusion, To improve muscle performance and motor function, To improve gait and locomotor functions, To improve health of tissue, To increase flexibility/ROM, To improve endurance and To improve balance Re-Evaluation Ending Re-evaluation ending: Please do not hesitate to contact me at [phone] by phone or if you have questions or concerns regarding this new plan of care! Sincerely, John Veronica DPT 10/17/24 1321 CC: Dr. Deangelo Hawkins MD; JUANA Michaels CLS Signed For Medicare only, by signing this I certify the plan of care. Physicians Signature Date Normal [facility] CNOVon 10-11-2024 CNOV Office Visit (UCWSTR ) LEONILA ZAMUDIO ([id number]) 1950 F Date Time Provider Department 10/11/24 12:00 PM DEANGELO CAGLE [facility] During your visit today, we recorded the following information about you: Temperature Pulse Respiration Blood pressure 98.6 degrees 82/minute 16/minute 110/68 Weight 59.2 kg Deangelo Cagle, ABIMAEL.STRIPPER COLOR 10/11/2024 12:03 PM Signed Subjective HPI Nontoxic-appearing female presents urgent care chief complaint sore throat. Duration of symptoms 3 days. Associated symptoms sore throat. Does have a slight cough. Feels like symptoms are improving. OTC medications none recently. Sick contacts unknown. No difficulty swallowing handling secretions decreased range of motion of neck. No trismus. No fevers. Past medical history prescription medications allergies reviewed. .Patient presents with: Sore Throat: x 3 days PAST MEDICAL HISTORY Diagnosis Date Absolute anemia 08/06/2015 Advance directive discussed with patient 02/20/2022 Discussed 02/20/2022 Anxiety Chronic rhinitis 03/09/2023 CHRONIC SINUSITIS NOS Essential hypertension 08/16/2015 RANDY (generalized anxiety disorder) 09/24/2023 Hyperlipidemia, mixed 08/16/[address] 02/20/2022 DPA: Braden () Major depressive disorder, recurrent episode, moderate ([facility]) 09/24/2023 Neuropathic pain 08/27/2021 On cymbalta Onychomycosis 12/29/2010 Osteoporosis, senile alendronate 09/2011-09/2014 Parkinson's disease ([facility]CC) 2013 Bavis Pedal edema 11/17/2010 Renal insufficiency 10/27/2017 Urinary frequency 07/17/2009 White coat hypertension Office hypertension PAST SURGICAL HISTORY Procedure Laterality Date COLONOSCOPY does not want. FECAL OCCULT BLOOD TEST 11/16/2017 neg NONE ALLERGIES Bactrim [Sulfamethoxazole-Trim ethoprim], Diltiazem, Norvasc [Amlodipine Besylate], Penicillins, Sulfamethoxazole, Trimethoprim, Verapamil, and Hctz [Thiazides] MEDICATIONS simvastatin (ZOCOR) 10 mg tablet Take 1 tablet by mouth daily at bedtime. metoprolol tartrate, short acting, (LOPRESSOR) 100 mg tablet Take 1 tablet by mouth two times a day. spironolactone (ALDACTONE) 25 mg tablet Take 1 tablet by mouth once daily. escitalopram oxalate (LEXAPRO) 20 mg tablet Take 2 tablets by mouth daily at bedtime. pramipexole (MIRAPEX) 1.5 mg tablet Take 1 tablet by mouth every 3 hours. Per Neuro: Dr. Curry carbidopa-levodopa (SINEMET) 25-100 mg per tablet Take 1 tablet by mouth three times daily. Per neuro sodium fluoride 1.1 % dental cream sodium fluoride 1.1 % dental paste USE TO BRUSH TEETH ONCE A DAY IN THE EVENING vit A/vit C/vit E/zinc/copper (PRESERVISION AREDS ORAL) Take by mouth. FAMILY HISTORY Problem Relation Age of Onset Heart Mother [place] Hypertension Mother Osteoporosis Mother Asthma Father Hypertension Father Lipids Father Diabetes Father Alzheimer's Disease Father Prostate Cancer Father Stroke Maternal Grandmother Stroke Maternal Grandfather Social History Tobacco Use Smoking status: Never Smokeless tobacco: Never Vaping Use Vaping status: Never Used Substance Use Topics Alcohol use: No Drug use: No BP 110/68 Pulse 82 Temp 37 ?C (98.6 ?F) Resp 16 Wt 59.2 kg (130 lb 8.2 oz) SpO2 95% BMI 24.66 kg/m? Review of Systems Constitutional: Negative for chills, fever and malaise/fatigue. HENT: Positive for sore throat. Negative for congestion, ear discharge, ear pain and sinus pain. Eyes: Negative for blurred vision, pain, discharge and redness. Respiratory: Positive for cough. Negative for hemoptysis, sputum production, shortness of breath, wheezing and stridor. Cardiovascular: Negative for chest pain. Gastrointestinal: Negative for abdominal pain, diarrhea, nausea and vomiting. Musculoskeletal: Negative for myalgias. Skin: Negative for itching and rash. Neurological: Negative for dizziness and headaches. Objective Physical Exam Constitutional: General: She is not in acute distress. Appearance: She is not diaphoretic. HENT: Head: Normocephalic. Jaw: No trismus, tenderness, swelling or pain on movement. Mouth/Throat: Mouth: Mucous membranes are moist. Pharynx: Oropharynx is clear. Uvula midline. No pharyngeal swelling, oropharyngeal exudate, posterior oropharyngeal erythema or uvula swelling. Eyes: Conjunctiva/sclera: Conjunctivae normal. Pupils: Pupils are equal, round, and reactive to light. Cardiovascular: Rate and Rhythm: Normal rate and regular rhythm. Heart sounds: Normal heart sounds. Pulmonary: Effort: Pulmonary effort is normal. No tachypnea, accessory muscle usage or respiratory distress. Breath sounds: Normal breath sounds. No stridor. No wheezing, rhonchi or rales. Abdominal: General: There is no distension. Palpations: Abdomen is soft. Tenderness: There is no abdominal tenderness. There is no guarding or r (more content not included)... Normal [facility] STREP A MOLECULAR (POC)on Procedural Control Valid [facility] Strep A (POCT) Negative Negative [facility] CNOVon 09-19-2024 CNOV Office Visit (FAMPWS ) LIZZLEONILA Prado ([id number]) 1950 F Date Time Provider Department 09/19/24 9:40 AM SHEY QUIROZ FAMPWS During your visit today, we recorded the following information about you: Temperature Pulse Respiration Blood pressure 98 degrees 83/minute 18/minute 102/60 Weight 60.8 kg Shey Quiroz PA-C 09/19/2024 11:31 AM Signed Chief Complaint Patient presents with: 6 Month Exam HPI Leonilaej Zamudio is a 74 year old female who presents here today for Chronic Medical Conditions.. Patient with hx of parkinson's dz, HTN, hyperlipidemia, osteoporosis, RANDY major depressive disorder, and those as below. Patient denies concerns Last 3 Encounter Wt Readings: Date: Wt: 09/19/2024 60.8 kg (134 lb) 08/22/2024 63.6 kg (140 lb 3.2 oz) 07/14/2024 63 kg (138 lb 14.2 oz) Past medical history, appointments, medications, allergies reviewed. Previous Medical History PAST MEDICAL HISTORY Diagnosis Date Absolute anemia 08/06/2015 Advance directive discussed with patient 02/20/2022 Discussed 02/20/2022 Anxiety Chronic rhinitis 03/09/2023 CHRONIC SINUSITIS NOS Essential hypertension 08/16/2015 RANDY (generalized anxiety disorder) 09/24/2023 Hyperlipidemia, mixed 08/16/[address] 02/20/2022 DPA: Braden () Major depressive disorder, recurrent episode, moderate (HCC) 09/24/2023 Neuropathic pain 08/27/2021 On cymbalta Onychomycosis 12/29/2010 Osteoporosis, senile alendronate 09/2011-09/2014 Parkinson's disease (HCC) 2012 Bavis Pedal edema 11/17/2010 Renal insufficiency 10/27/2017 Urinary frequency 07/17/2009 White coat hypertension Office hypertension Previous Surgical History PAST SURGICAL HISTORY Procedure Laterality Date COLONOSCOPY does not want. FECAL OCCULT BLOOD TEST 11/16/2017 neg NONE Family History FAMILY HISTORY Problem Relation Age of Onset Heart Mother [place] Hypertension Mother Osteoporosis Mother Asthma Father Hypertension Father Lipids Father Diabetes Father Alzheimer's Disease Father Prostate Cancer Father Stroke Maternal Grandmother Stroke Maternal Grandfather Patient Allergies ALLERGIES Allergen Reactions Bactrim [Sulfametho* Rash Diltiazem Rash, Itching Norvasc [Amlodipine* Rash, Itching Penicillins Hives Sulfamethoxazole Rash Trimethoprim Rash Verapamil Rash rash Hctz [Thiazides] Other: See Comments Low potassium Current Medications Current Outpatient Medications on File Prior to Visit Medication Sig escitalopram oxalate (LEXAPRO) 20 mg tablet Take 2 tablets by mouth daily at bedtime. pramipexole (MIRAPEX) 1.5 mg tablet Take 1 tablet by mouth every 3 hours. Per Neuro: Dr. Curry carbidopa-levodopa (SINEMET) 25-100 mg per tablet Take 1 tablet by mouth three times daily. Per neuro sodium fluoride 1.1 % dental cream sodium fluoride 1.1 % dental paste USE TO BRUSH TEETH ONCE A DAY IN THE EVENING vit A/vit C/vit E/zinc/copper (PRESERVISION AREDS ORAL) Take by mouth. No current facility-administered medications on file prior to visit. Social History Social History Tobacco Use Smoking status: Never Smokeless tobacco: Never Vaping Use Vaping status: Never Used Substance Use Topics Alcohol use: No Drug use: No Review of Symptoms REVIEW OF SYSTEMS GENERAL: No weight loss, malaise or fevers NECK: Negative for lumps, goiter, pain and significant neck swelling RESPIRATORY: Negative for cough, hemoptysis, wheezing, COPD, dyspnea or shortness of breath CARDIOVASCULAR: Negative for chest pain, leg swelling, hypertension, CHF or palpitations NEURO: hx of parkinsons. Denies seizures, headaches. EXAM: BP 102/60 (BP Site: Left Arm, BP Position: Sitting, BP Cuff Size: Regular Adult) Pulse 83 Temp 36.7 ?C (98 ?F) Resp 18 Wt 60.8 kg (134 lb) SpO2 95% BMI 25.32 kg/m? General Appearance: Well appearing, alert, in no acute distress, well-hydrated, well nourished.. Neck: Supple, no adenopathy; thyroid symmetric, normal size, no bruits. Lungs: Lungs clear to auscultation. No wheezing, rhonchi, rales.. Heart: RRR without murmur, gallop, or rubs. No ectopy. Extremities: No deformities, edema, skin discoloration, clubbing or cyanosis. Good capillary refill. . Peripheral Pulses: Normal. Health Maintenance List BP Controlled (<130/80) due on 03/09/2024 Influenza Vaccine(1) due on 07/16/2024 DTaP,Tdap,Td Vaccine(2 - Td or Tdap) due on 03/16/2025 Shingrix Vaccine(1 of 2) due on 03/16/2025 Covid-19 Vaccine(3 - season) due on 09/19/2025 RSV Vaccine(1 - 1-dose 75+ series) due on 2025 Annual PCP Team Chronic Disease Visit due on 07/14/2025 Bone Density Screening due on 03/16/2026 Diabetes Screening due on 09/14/2027 Lipid Screening due on 09/14/2029 Advance Directive Discussion Completed Hepatitis C Screening Completed Pneumococcal Vaccine: 6 (more content not included)... Normal [facility] Comprehensive metabolic 2000 panelon 09-14-2024 Albumin [Mass/Vol] 4.2 g/dL Normal 3.9-4.9 [facility] Comment on above: Order Comment: Speci men Type: BLOOD SPECIMENOrdering Facility: [facility] Address: [address] [place] [address] Performed By: #### 2 4323-8, LIPNF ####[facility] LABCLIA [id number] [place] [address] [place] ALP [Catalytic activity/Vol] 129 U/L High 34-123 [facility] Comment on above: Order Comment: Speci men Type: BLOOD SPECIMENOrdering Facility: [facility] Address: [address] [place] [address] Performed By: #### 2 4323-8, LIPNF ####[facility] LABCLIA [id number] [place] [address] [place] ALT [Catalytic activity/Vol] 12 U/L Normal 7-38 [facility] Comment on above: Order Comment: Speci men Type: BLOOD SPECIMENOrdering Facility: [facility] Address: [address] [place] [address] Performed By: #### 2 4323-8, LIPNF ####[facility] LABCLIA [id number] [place] [address] [place] Anion gap [Moles/Vol] 13 mmol/L Normal 8-15 [facility] Comment on above: Order Comment: Speci men Type: BLOOD SPECIMENOrdering Facility: [facility] Address: [address] [place] [address] Performed By: #### 2 4323-8, LIPNF ####[facility] LABCLIA [id number] [place] [address] [place] AST [Catalytic activity/Vol] 22 U/L Normal 13-35 [facility] Comment on above: Order Comment: Speci men Type: BLOOD SPECIMENOrdering Facility: [facility] Address: [address] [place] [address] Performed By: #### 2 4323-8, LIPNF ####[facility] LABCLIA [id number] [place] [address] [place] Bilirubin [Mass/Vol] 0.4 mg/dL Normal 0.2-1.3 [facility] Comment on above: Order Comment: Speci men Type: BLOOD SPECIMENOrdering Facility: [facility] Address: [address] [place] [address] Performed By: #### 2 4323-8, LIPNF ####[facility] LABCLIA [id number] [place] [address] [place] Calcium [Mass/Vol] 9.8 mg/dL Normal 8.5-10.2 [facility] Comment on above: Order Comment: Speci men Type: BLOOD SPECIMENOrdering Facility: [facility] Address: [address] [place] [address] Performed By: #### 2 4323-8, LIPNF ####[facility] LABCLIA [id number] [place] [address] [place] Chloride [Moles/Vol] 101 mmol/L Normal 98-107 [facility] Comment on above: Order Comment: Speci men Type: BLOOD SPECIMENOrdering Facility: [facility] Address: [address] [place] [address] Performed By: #### 2 4323-8, LIPNF ####[facility] LABCLIA [id number] [place] [address] [place] CO2 [Moles/Vol] 25 mmol/L Normal 22-30 [facility] Comment on above: Order Comment: Speci men Type: BLOOD SPECIMENOrdering Facility: [facility] Address: [address] [place] [address] Performed By: #### 2 4323-8, LIPNF ####[facility] LABIA [id number] [place] [id number] [place] Creatinine [Mass/Vol] 0.92 mg/dL Normal 0.58-0.96 [facility] Comment on above: Order Comment: Speci men Type: BLOOD SPECIMENOrdering Facility: [facility] Address: [address] [place] [address] Performed By: #### 2 4323-8, LIPNF ####[facility] LABIA [id number] [place] [address] [place] Creatinine and Glomerular filtration rate.predicted panel (S/P/Bld) 65 mL/min/1.73m??? Normal >=60 [facility] Comment on above: Order Comment: Liliam de la torre Type: BLOOD SPECIMENOrdering Facility: [facility] Address: [address] [place] [address] Result Comment: Louisa mated Glomerular Filtration Rate (eGFR) is calculated using the 2020 CKD-EPI creatinine equation. This equation utilizes serum creatinine, sex, and age as parameters. The creatinine assay has traceable calibration to isotope dilution-mass spectrometry. Refer to KDIGO guidelines for clinical interpretation. In patients with unstable renal function, e.g. those with acute kidney injury, the eGFR may not accurately reflect actual GFR. Performed By: #### 2 4323-8, LIPNF ####[facility] LABIA [id number] [place] [address] [place] Glucose [Mass/Vol] 97 mg/dL Normal 74-99 [facility] Comment on above: Order Comment: Estefanii men Type: BLOOD SPECIMENOrdering Facility: [facility] Address: [address] [place] [address] Result Comment: The [place] Diabetes Association (ADA) provides guidance for cutoff values for fasting glucose and random glucose. The ADA defines fasting as no caloric intake for at least 8 hours. Fasting plasma glucose results between 100 to 125 mg/dL indicate increased risk for diabetes (prediabetes). Fasting plasma glucose results greater than or equal to 126 mg/dL meet the criteria for diagnosis of diabetes. In the absence of unequivocal hyperglycemia, results should be confirmed by repeat testing. In a patient with classic symptoms of hyperglycemia or hyperglycemic crisis, random plasma glucose results greater than or equal to 200 mg/dL meet the criteria for diagnosis of diabetes. Reference: Standards of Medical Care in Diabetes 2016, [place] Diabetes Association. Diabetes Care. 2016.39(Suppl 1). Performed By: #### 2 4323-8, LIPNF ####[facility] LABCLIA [id number] [place] [address] [place] Potassium [Moles/Vol] 4.4 mmol/L Normal 3.7-5.1 [facility] Comment on above: Order Comment: Speci men Type: BLOOD SPECIMENOrdering Facility: [facility] Address: [address] [place] [address] Performed By: #### 2 4323-8, LIPNF ####[facility] LABCLIA [id number] [place] [address] [place] Protein [Mass/Vol] 7.8 g/dL Normal 6.3-8.0 [facility] Comment on above: Order Comment: Speci men Type: BLOOD SPECIMENOrdering Facility: [facility] Address: [address] [place] [address] Performed By: #### 2 4323-8, LIPNF ####[facility] LABCLIA [id number] [place] [address] [place] Sodium [Moles/Vol] 139 mmol/L Normal 136-144 [facility] Comment on above: Order Comment: Speci men Type: BLOOD SPECIMENOrdering Facility: [facility] Address: [address] [place] [address] Performed By: #### 2 4323-8, LIPNF ####[facility] LABCLIA [id number] [place] [id number] [place] Urea nitrogen [Mass/Vol] 22 mg/dL High 7-21 [facility] Comment on above: Order Comment: Speci men Type: BLOOD SPECIMENOrdering Facility: [facility] Address: [address] [place] [address] Performed By: #### 2 4323-8, LIPNF ####[facility] LABCLIA [id number] [address] OF [place] LIPID PANEL, NONFASTINGon Cholesterol [Mass/Vol] 158 mg/dL Normal <200 [facility] Comment on above: Order Comment: Speci men Type: BLOOD SPECIMENOrdering Facility: [facility] Address: [address] [place] [address] Result Comment: <200 mg/dL, Desirable 200-239 mg/dL, Borderline high >239 mg/dL, High Performed By: #### 2 4323-8, LIPNF ####[facility] LABCLIA [id number] [place] [address] [place] HDL CHOLESTEROL, NF 47 mg/dL Normal >39 [facility] Comment on above: Order Comment: Speci men Type: BLOOD SPECIMENOrdering Facility: [facility] Address: [address] [place] [address] Result Comment: 40-5 9 mg/dL, Acceptable >59 mg/dL, High: Negative risk factor for coronary heart disease <40 mg/dL, Low: Positive risk factor for coronary heart disease Performed By: #### 2 4323-8, LIPNF ####[facility] LABCLIA [id number] [place] [address] [place] LDL CHOLESTEROL, NF 84 mg/dL Normal <100 [facility] Comment on above: Order Comment: Speci men Type: BLOOD SPECIMENOrdering Facility: [facility] Address: [address] [place] [address] Result Comment: <100 mg/dL, Optimal 100-129 mg/dL, Near optimal/above optimal 130-159 mg/dL, Borderline high 160-189 mg/dL, High >189 mg/dL, Very high Secondary prevention optimal LDL Cholesterol levels are recommended to be < 70 mg/dL Performed By: #### 2 4323-8, LIPNF ####[facility] LABCLIA [id number] [address] [place] LDL/HDL RATIO, NF 1.79 mg/dL Normal <2.54 [facility] Comment on above: Order Comment: Speci men Type: BLOOD SPECIMENOrdering Facility: [facility] Address: [address] [place] [address] Result Comment: Refe rence: 1. National Cholesterol Education Program ATP III Guideline At-A-Glance Quick Desk Reference: National Heart, Lung, and Blood [place]. National Institutes of Health. 2001: NIH Publication No. 01-3305. 2. An International Atherosclerosis Society position paper: global recommendations for the management of dyslipidemia: executive summary, Atherosclerosis. 2014: 232(2):410-413. Performed By: #### 2 4323-8, LIPNF ####[facility] LABCLIA [id number] [address] [place] NON HDL CHOL, NF 111 mg/dL Normal <130 [facility] Comment on above: Order Comment: Liliam de la torre Type: BLOOD SPECIMENOrdering Facility: [facility] Address: [address] [place] [address] Result Comment: <130 mg/dL, Optimal 130-159 mg/dL, Near optimal/above optimal 160-189 mg/dL, Borderline high 190-219 mg/dL, High >219 mg/dL, Very high Secondary prevention optimal non HDL Cholesterol levels are recommended to be <100 mg/dL Performed By: #### 2 4323-8, LIPNF ####[facility] LABIA [id number] [address] STATES OF [facility] T CHOL/HDL RATIO NF 3.36 mg/dL Normal <5.10 [facility] Comment on above: Order Comment: Estefanii men Type: BLOOD SPECIMENOrdering Facility: [facility] Address: [address] [place], [place] [address] Performed By: #### 2 4323-8, LIPNF ####[facility] LABCLIA [id number] [place] [address] [place] TRIGLYCERIDES, NF 133 mg/dL Normal <150 [facility] Comment on above: Order Comment: Speci men Type: BLOOD SPECIMENOrdering Facility: [facility] Address: [address] [place] [address] Result Comment: <150 mg/dL, Normal 150-199 mg/dL, Borderline high 200-499 mg/dL, High >499 mg/dL, Very high Performed By: #### 2 4323-8, LIPNF ####[facility] LABCLIA [id number] [place] [address] [place] VLDL CHOLESTEROL, NF 27 mg/dL Normal <30 [facility] Comment on above: Order Comment: Speci men Type: BLOOD SPECIMENOrdering Facility: [facility] Address: [address] [place] [address] Performed By: #### 2 4323-8, LIPNF ####[facility] LABCLIA [id number] [place] [address] [place] Inital Evaluation (1) - PTon 08-29-2024 Inital Evaluation (1) - PT [facility] [place] [address] / REHABILITATION SERVICES INITIAL EVALUATION MR#: [id number] Acct: [id number] Name: LEONILA ZAMUDIO Rep #: [id number] : 1950 74 From: John Veronica DPT Referring Dr.: JUANA Michaels Status: REG RCR Insurance: [employer] PPO SELF PAY INSURANCE Patient's Visit Information Visit Information Visit Information: LEONILA ZAMUDIO is a 74 year old F referred to Physical Therapy by JUANA Michaels with a diagnosis of Parkinsons disease, gait disturbance. Date of Evaluation: 08/29/24 Physical Therapist: John Veronica DPT Visit Plan Frequency: 2x /Week Duration: 6 Weeks Plan: 1) BLE strengthening, focus on hip/core strengthening, quad strength 2) BIG like movements working precision and stability, 3) progress to HEP both at home and in gym Subjective Subjective: Pt. is here today for her initial evaluation with diagnosis of Parkinson's Disease, and gait instability. Pt. reports having some LLE weakness. She has also fallen a few times. Pt. reports having some issues with directional changes. Pt. has stopped coming to the gym, no define reason but does plan on coming back. Pt. feels like her balance and LEs have become weaker. She has also started on an increased dosage of her medication Objective Objective: POSTURE: Pt. has lateral lean to L side in stance, slightly wide JACKSON in stance. Writhing motions noted at rest. PALPATION: normal throughout. NEURO: normal sensation and normal DTR in BLEs. ROM: Pt. has good ROM throughout. SLight tightness in B HS. MMT: RLE: ankle: DF31.2#, DF 43.5#knee ext 31.1#, flex 26.9#; hip flexion 36.8#, abd 39.0# LLE: ankle: DF 30.0#, PF 40.2#; knee ext 35.5#, flex 23.4#; hip flexion 42.5#, abd 32.3# TU.2sec without AD FGA: 15/30 SL balance: RLE 30sec, LLE 8sec Balance/Special Test Scores Functional Gait Assessment Score: 15 % Disability: 50.0000 CATSIB Score (Max score 120 seconds): 74 Lower Extremity Functional Score: 33 TUG Test Time Seconds: 13.2 Goals Goal 1:: LTG: Pt. to be I with HEP for balance and LE strengthening. Goal Time Frame: 4-6 Weeks Goal 2:: LTG: Pt. to have symmetrical BLE strength. Goal Time Frame: 4-6 Weeks Goal 3:: LTG: Pt. to have improved FGA to 23/30 indicating improved overall stability. Goal Time Frame: 4-6 Weeks Goal 4:: LTG: Pt. to complete TUG without AD with time less than 10sec indicating good stability with all functional mobility. Goal Time Frame: 4-6 Weeks Goal 5:: LTG: Pt. to be able to stand on her RLE for 30second without LOB. Goal Time Frame: 4-6 Weeks Rehabilitation Potential Physical Therapy Diagnosis: Pt. has signs and symptoms consistent with PD with subsequent gait disturbance. Pt. has some leg weakness, but more so gait disturbance due to her writhing like motio ns due to her PD. Pt. would benefit from PT to address the above limitions progressing back to all previous levels of function. Anticipated Interventions Patient/Client Instruction: Educate patient on: Condition, Plan of Care, Risk Factors and Benefits of Fitness Program For the Purpose of:: To foster healthy habits, To improve decision making, To facilitate caregiver knowledge, To improve self management, To prevent re-injury and To improve ability to perform tasks related to life management Therapeutic Exercise to Include: Strength training, Power training, Balance training, Coordination, Agility training, Postural training, Gait and locomotor training and Neuromotor development For the Purpose of:: To improve nutrient delivery to tissue, To increase oxygenation perfusion, To improve muscle performance and motor function, To improve gait and locomotor functions, To improve health of tissue, To increase flexibility/ROM, To improve endurance and To improve balance Text: Thank you for the opportunity to evaluate your patient. For Medicare and Medicare HMO plans, please review the plan of care and approve it. It will need to be FAXED BACK to us at [phone] for Medicare purposes. For Medicare only, by signing this I certify the plan of care. Please let me know if there are questions or concerns regarding this plan of care. Physician Signature: Date:__ 08/29/24 1256 CC: Dr. Deangelo Hawkins MD; JUANA Michaels CLS Signed Normal [facility] CNOVon 08-22-2024 CNOV Office Visit (PSWSTR ) LEONILA ZAMUDIO ([id number]) 1950 F Date Time Provider Department 08/22/24 1:00 PM SAMUEL ARIAS PSWSTR During your visit today, we recorded the following information about you: Pulse Respiration Blood pressure Weight 84/minute 20/minute 144/76 63.6 kg Samuel Arias, ABIMAEL.STRIPPER COLOR 08/22/2024 11:24 PM Signed FOLLOW UP - PSYCHIATRIC PROGRESS NOTE PATIENT: Leonila Zamudio DATE: August 22, 2024 Visit Type:In person All information is from Patient report except when noted. This evaluation is NOT intended for forensic, disability or child custody purposes. CC: Presenting today for follow up regarding psychiatric medication management. HPI: Treatment Plan from Last Visit on 06/30/2024: TREATMENT PLAN: Continue Lexapro at the same dose. Discussed with PCP about patient benefiting from possible OT and PT to help in preventing falls and better management of the changes from her parkinson's disease. PCP recommended that the patient schedule an appointment with the primary care team to evaluate the patient's needs further. Consult placed for primary care director social to assess for in home resources to help with fall prevention and safety assessment. Today Leonila shares that she has been able to start working with a therapist Aimee Aponte. Had an intake and looks forward to working with this individual. Her next appointment is this . She has struggled with feeling stable due to her parkinson's disease. Has not reached out to schedule an appointment with physical therapy yet but plans on stopping by after the appointment to schedule [facility], Completed referral form to get services with [facility] so that patient is able to get some supportive services. Has anxiety about falling and shares many things around the house that would benefit from modification. Continues to enjoy dancing with her friends. Able to go on the weekends. Denies any side effects from Lexapro and continues to utilize it for support. Has appointment with neurologist every 4 weeks. Still struggles in accepting the Parkinson's diagnosis and the change in functioning that it has caused for the patient. Shares that she has been worried about her health. There are some concerns with his liver and the medication that he has been prescribed by the doctor is very expensive. Hence, her is refusing to take the medication. Interval Progress: Same PATIENT DATA: Generalized Anxiety Disorder Scale (RANDY-7) 02/08/2024 06/30/2024 08/22/2024 RANDY - 7 SCORES Score 12 18 15 (0-4) minimal anxiety, (5-9) mild anxiety, (10-14) moderate anxiety, (15-21) severe anxiety Patient Health Questionnaire (PHQ-9) 02/08/2024 06/30/2024 08/22/2024 PHQ-9 Score 10 8 14 (0-4) minimal depression, (5-9) mild depression, (10-14) moderate depression, (15-19) moderately severe depression, (20-27) severe depression PAST MEDICAL HISTORY Diagnosis Date Absolute anemia 08/06/2015 Advance directive discussed with patient 02/20/2022 Discussed 02/20/2022 Anxiety Chronic rhinitis 03/09/2023 CHRONIC SINUSITIS NOS Essential hypertension 08/16/2015 RANDY (generalized anxiety disorder) 09/24/2023 Hyperlipidemia, mixed 08/16/[address] 02/20/2022 DPA: Braden () Major depressive disorder, recurrent episode, moderate (HCC) 09/24/2023 Neuropathic pain 08/27/2021 On cymbalta Onychomycosis 12/29/2010 Osteoporosis, senile alendronate 09/2011-09/2014 Parkinson's disease (HCC) 2012 Bavis Pedal edema 11/17/2010 Renal insufficiency 10/27/2017 Urinary frequency 07/17/2009 White coat hypertension Office hypertension PAST SURGICAL HISTORY Procedure Laterality Date COLONOSCOPY does not want. FECAL OCCULT BLOOD TEST 11/16/2017 neg NONE ALLERGIES Allergen Reactions Bactrim [Sulfametho* Rash Diltiazem Rash, Itching Norvasc [Amlodipine* Rash, Itching Penicillins Hives Sulfamethoxazole Rash Trimethoprim Rash Verapamil Rash rash Hctz [Thiazides] Other: See Comments Low potassium Current Outpatient Medications on File Prior to Visit Medication Sig escitalopram oxalate (LEXAPRO) 20 mg tablet Take 2 tablets by mouth daily at bedtime. metoprolol tartrate, short acting, (LOPRESSOR) 100 mg tablet Take 1 tablet by mouth two times a day. montelukast (SINGULAIR) 10 mg tablet Take 1 tablet by mouth daily at bedtime. spironolactone (ALDACTONE) 25 mg tablet Take 1 tablet by mouth once daily. simvastatin (ZOCOR) 10 mg tablet Take 1 tablet by mouth daily at bedtime. pramipexole (MIRAPEX) 1.5 mg tablet Take 1 tablet by mouth every 3 hours. Per Neuro: Dr. Curry carbidopa-levodopa (SINEMET) 25-100 mg per tablet Take 1 tablet by mouth three times daily. Per neuro sodium fluoride 1.1 % dental cream sodium fluoride 1.1 % dental paste USE TO BRUS (more content not included)... Normal [facility] CNOVon 07-14-2024 CNOV Office Visit (FAMPWS ) LEONILA ZAMUDIO ([id number]) 1950 F Date Time Provider Department 07/14/24 11:00 AM SHEY QUIROZ During your visit today, we recorded the following information about you: Pulse Respiration Blood pressure Weight 76/minute 16/minute 126/80 63 kg Shey Quiroz PA-C 07/14/2024 11:14 AM Signed Chief Complaint Patient presents with: Follow Up: Recent Falls HPI Leonila Prado Lizz is a 74 year old female who presents here today for follow up on recent falls.. Patient is losing her balance. Doesn't use a cane. Tried to use a cane but just couldn't use it. Seeing neuro for Parkinson. Has not gone through Physical Therapy yet. Past medical history, appointments, medications, allergies reviewed. Previous Medical History PAST MEDICAL HISTORY 08/06/2015: Absolute anemia 02/20/2022: Advance directive discussed with patient Comment: Discussed 02/20/2022 No date: Anxiety 03/09/2023: Chronic rhinitis No date: CHRONIC SINUSITIS NOS 08/16/2015: Essential hypertension 09/24/2023: RANDY (generalized anxiety disorder) 08/16/2015: Hyperlipidemia, mixed 02/20/2022: Living will in place Comment: DPA: Braden () 09/24/2023: Major depressive disorder, recurrent episode, moderate (HCC) 08/27/2021: Neuropathic pain Comment: On cymbalta 12/29/2010: Onychomycosis No date: Osteoporosis, senile Comment: alendronate 09/2011-09/2014: Parkinson's disease (HCC) Comment: Bavis 11/17/2010: Pedal edema 10/27/2017: Renal insufficiency 07/17/2009: Urinary frequency No date: White coat hypertension Comment: Office hypertension Previous Surgical History PAST SURGICAL HISTORY No date: COLONOSCOPY Comment: does not want. 11/16/2017: FECAL OCCULT BLOOD TEST Comment: neg No date: NONE Family History FAMILY HISTORY Problem Relation Age of Onset Heart Mother [place] Hypertension Mother Osteoporosis Mother Asthma Father Hypertension Father Lipids Father Diabetes Father Alzheimer's Disease Father Prostate Cancer Father Stroke Maternal Grandmother Stroke Maternal Grandfather Patient Allergies ALLERGIES Allergen Reactions Bactrim [Sulfametho* Rash Diltiazem Rash, Itching Norvasc [Amlodipine* Rash, Itching Penicillins Hives Sulfamethoxazole Rash Trimethoprim Rash Verapamil Rash rash Hctz [Thiazides] Other: See Comments Low potassium Current Medications Current Outpatient Medications on File Prior to Visit Medication Sig escitalopram oxalate (LEXAPRO) 20 mg tablet Take 2 tablets by mouth daily at bedtime. metoprolol tartrate, short acting, (LOPRESSOR) 100 mg tablet Take 1 tablet by mouth two times a day. montelukast (SINGULAIR) 10 mg tablet Take 1 tablet by mouth daily at bedtime. spironolactone (ALDACTONE) 25 mg tablet Take 1 tablet by mouth once daily. simvastatin (ZOCOR) 10 mg tablet Take 1 tablet by mouth daily at bedtime. pramipexole (MIRAPEX) 1.5 mg tablet Take 1 tablet by mouth every 3 hours. Per Neuro: Dr. Curry carbidopa-levodopa (SINEMET) 25-100 mg per tablet Take 1 tablet by mouth three times daily. Per neuro sodium fluoride 1.1 % dental cream sodium fluoride 1.1 % dental paste USE TO BRUSH TEETH ONCE A DAY IN THE EVENING vit A/vit C/vit E/zinc/copper (PRESERVISION ARED[employer] ORAL) Take by mouth. No current facility-administered medications on file prior to visit. Social History Social History Tobacco Use Smoking status: Never Smokeless tobacco: Never Vaping Use Vaping status: Never Used Substance Use Topics Alcohol use: No Drug use: No Review of Symptoms REVIEW OF SYSTEMS See hpi EXAM: BP 126/80 (BP Site: Left Arm, BP Position: Sitting, BP Cuff Size: Regular Adult) Pulse 76 Resp 16 Wt 63 kg (138 lb 14.2 oz) SpO2 96% BMI 26.24 kg/m? General Appearance: Well appearing, alert, in no acute distress, well-hydrated, well nourished.. Health Maintenance List BP Controlled (<130/80) due on 03/09/2024 Covid-19 Vaccine( season) due on 09/09/2024 DTaP,Tdap,Td Vaccine(2 - Td or Tdap) due on 03/16/2025 RSV Vaccine(1 - 1-dose 60+ series) due on 03/16/2025 Shingrix Vaccine(1 of 2) due on 03/16/2025 Influenza Vaccine(1) due on 07/16/2024 Annual PCP Team Chronic Disease Visit due on 03/16/2025 Bone Density Screening due on 03/16/2026 Diabetes Screening due on 03/16/2027 Lipid Screening due on 03/16/2029 Advance Directive Discussion Completed Hepatitis C Screening Completed Pneumococcal Vaccine: 65+ Completed Mammogram Screening Discontinued Colorectal Cancer Screening Discontinued Data reviewed ASSESSMENT/PLAN: 1. Parkinson's disease, unspecified whether dyskinesia present, unspecified whether manifestations fluctuate (HCC) - ICD9: 332.0, ICD10: G20.A1 (primary diagnosis) Will set up with Physical Therapy to help with gait and assisted walking device training. - CONSULT TO P (more content not included)... Normal [facility] Comprehensive metabolic 2000 panelon 09-09-2023 Albumin [Mass/Vol] 4.0 g/dL 3.9 - 4.9 g/dL [facility] ALP [Catalytic activity/Vol] 102 U/L 34 - 123 U/L [facility] ALT [Catalytic activity/Vol] 8 U/L 7 - 38 U/L [facility] Anion gap [Moles/Vol] 14 mmol/L 9 - 18 mmol/L [facility] AST [Catalytic activity/Vol] 20 U/L 13 - 35 U/L [facility] Bilirubin [Mass/Vol] 0.3 mg/dL 0.2 - 1.3 mg/dL [facility] Calcium [Mass/Vol] 9.5 mg/dL 8.5 - 10. 2 mg/dL [facility] Chloride [Moles/Vol] 104 mmol/L 97 - 105 mmol/L [facility] CO2 [Moles/Vol] 24 mmol/L 22 - 30 mmol/L [facility] Creatinine [Mass/Vol] 0.99 mg/dL High 0.58 - 0.96 mg/dL [facility] Estimated Glomerular Filtration Rate 60 mL/min/1.73m >=60 mL/min/1.73m [facility] Glucose [Mass/Vol] 87 mg/dL 74 - 99 mg/dL [facility] Potassium [Moles/Vol] 4.6 mmol/L 3.7 - 5.1 mmol/L [facility] Protein [Mass/Vol] 7.4 g/dL 6.3 - 8.0 g/dL Cl [facility] Sodium [Moles/Vol] 142 mmol/L 136 - 144 mmol/L [facility] Urea nitrogen [Mass/Vol] 33 mg/dL High 7 - 21 mg/dL [facility] UA DIP, URINE (POC)on 2022 BILIRUBIN UA (POCT) Negative Negative [facility] CLARITY UA (POCT) Clear [facility] COLOR UA (POCT) Yellow [facility] GLUCOSE UA (POCT) Negative Negative mg/dL [facility] Hemoglobin Ql (U) Negative Negative [facility] KETONE UA (POCT) Negative Negative mg/dL [facility] LEUKOCYTES UA (POCT) Trace Abnormal Negative [facility] NITRITE UA (POCT) Negative Negative [facility] PH UA (POCT) 6.5 4.5 - 8.0 [facility] Protein Ql (U) Negative Negative mg/dL [facility] SPECIFIC GRAVITY UA (POCT) 1.020 1.005 - 1.030 [facility] UROBILINOGEN UA (POCT) 0.2 E.U./dL Normal E.U./dL [facility] UA DIP, URINE (POC)on 2022 BILIRUBIN UA (POCT) Negative Negative [facility] CLARITY UA (POCT) Clear [facility] COLOR UA (POCT) Yellow [facility] GLUCOSE UA (POCT) Negative Negative mg/dL [facility] HEMOGLOBIN/BLOOD UA (POCT) Negative Negative [facility] KETONE UA (POCT) Negative Negative [facility] LEUKOCYTES UA (POCT) Trace Abnormal Negative [facility] NITRITE UA (POCT) Negative Negative [facility] PH UA (POCT) 6.0 4.5 - 8.0 [facility] Protein Ql (U) Negative Negative mg/dL [facility] SPECIFIC GRAVITY UA (POCT) 1.025 1.005 - 1.030 [facility] UROBILINOGEN UA (POCT) 0.2 E.U./dL Normal E.U./dL [facility] CBC W Auto Differential pane l (Bld)on 03-09-2023 Basophils (Bld) [#/Vol] 0.07 10*3/uL <0.11 k/uL [facility] Basophils/100 WBC (Bld) 1.0 % [facility] Differential cell count method Nom (Bld) Auto [facility] Eosinophils (Bld) [#/Vol] 0.46 10*3/uL High <0.46 k/uL [facility] Eosinophils/100 WBC (Bld) 6.6 % [facility] Erythrocyte distribution width (RBC) [Ratio] 13.7 % 11.5 - 15.0 % [facility] Hematocrit (Bld) [Volume fraction] 39.8 % 36.0 - 46.0 % [facility] Hemoglobin (Bld) [Mass/Vol] 12.1 g/dL 11.5 - 15.5 g/dL [facility] Immature granulocytes (Bld) [#/Vol] 0.03 10*3/uL <0.10 k/uL [facility] Immature granulocytes/100 WBC (Bld) 0.4 % [facility] Lymphocytes (Bld) [#/Vol] 1.66 10*3/uL 1.00 - 4.00 k/uL [facility] Lymphocytes/100 WBC (Bld) 23.7 % [facility] MCH (RBC) [Entitic mass] 26.5 pg 26.0 - 34.0 pg [facility] MCHC (RBC) [Mass/Vol] 30.4 g/dL Low 30.5 - 36.0 g/dL [facility] MCV (RBC) [Entitic vol] 87.3 fL 80.0 - 100.0 fL [facility] Monocytes (Bld) [#/Vol] 0.79 10*3/uL <0.87 k/uL [facility] Monocytes/100 WBC (Bld) 11.3 % [facility] Neutrophils (Bld) [#/Vol] 3.98 10*3/uL 1.45 - 7.50 k/uL [facility] Neutrophils/100 WBC (Bld) 57.0 % [facility] Nucleated RBC (Bld) [#/Vol] <0.01 k/uL [facility] Nucleated RBC/100 WBC (Bld) [Ratio] 0.0 /100 WBC [facility] Platelet mean volume (Bld) [Entitic vol] 10.0 fL 9.0 - 12.7 fL [facility] Platelets (Bld) [#/Vol] 281 10*3/uL 150 - 400 k/uL [facility] RBC (Bld) [#/Vol] 4.56 10*6/uL 3.90 - 5.2 0 m/uL [facility] WBC (Bld) [#/Vol] 6.99 10*3/uL 3.70 - 11. 00 k/uL [facility] UA DIP, URINE (POC)on 2022 BILIRUBIN UA (POCT) Negative Negative [facility] CLARITY UA (POCT) Clear [facility] COLOR UA (POCT) Yellow [facility] GLUCOSE UA (POCT) Negative Negative mg/dL [facility] HEMOGLOBIN/BLOOD UA (POCT) Trace-intact Abnormal Negative [facility] KETONE UA (POCT) Negative Negative mg/dL [facility] LEUKOCYTES UA (POCT) Trace Abnormal Negative [facility] NITRITE UA (POCT) Negative Negative [facility] PH UA (POCT) 6.5 4.5 - 8.0 [facility] Protein Ql (U) Negative Negative mg/dL [facility] SPECIFIC GRAVITY UA (POCT) 1.020 1.005 - 1.030 [facility] UROBILINOGEN UA (POCT) 0.2 E.U./dL Normal E.U./dL [facility] DXA-AXIAL SKELETONon 022 [facility] Vital Signs Date Time Vital Sign Value Performing Clinician Facility 05-29-2025 11:01-0400 Body mass index (BMI) [Ratio] 25.72 kg/m2 Samuel Arias [employer] Work Phone: [facility] 05-29-2025 11:01-0400 Body weight 59.42 kg Samuel Arias [employer] Work Phone: [facility] 05-29-2025 11:01-0400 Diastolic blood pressure 78 mm[Hg] Samuel Arias [employer] Work Phone: [facility] 05-29-2025 11:01-0400 Heart rate 91 /min Samuel Arias [employer] Work Phone: [facility] 05-29-2025 11:01-0400 SaO2% (BldA) [Mass fraction] 98 % Samuel Arias [employer] Work Phone: [facility] 05-29-2025 11:01-0400 Systolic blood pressure 174 mm[Hg] Samuel Arias [employer] Work Phone: [facility] 05-21-2025 09:24-0400 Body mass index (BMI) [Ratio] 25.1 kg/m2 Rodriguez Grijalva [employer] Work Phone: [facility] 05-21-2025 09:24-0400 Body weight 58 kg Rodriguez Grijalva [employer] Work Phone: [facility] 05-21-2025 09:24-0400 Diastolic blood pressure 70 mm[Hg] Rodriguez Grijalva [employer] Work Phone: [facility] 05-21-2025 09:24-0400 Heart rate 87 /min Rodriguez Grijalva [employer] Work Phone: [facility] 05-21-2025 09:24-0400 Systolic blood pressure 120 mm[Hg] Rodriguez Grijalva [employer] Work Phone: [facility] 04-26-2025 12:19-0400 Body mass index (BMI) [Ratio] 25.84 kg/m2 Monse Claros MD Work Phone: [facility] 04-26-2025 12:19-0400 Body weight 59.7 kg Monse Claros MD Work Phone: [facility] 04-26-2025 12:19-0400 SaO2% (BldA) [Mass fraction] 98 % Monse Claros MD Work Phone: [facility] 04-23-2025 11:51-0400 Diastolic blood pressure 83 mm[Hg] Shey Quiroz PA-C Work Phone: [facility] Comment on above: average with machine 04-23-2025 11:51-0400 Heart rate 94 /min Shey Quiroz PA-C Work Phone: [facility] 04-23-2025 11:51-0400 Systolic blood pressure 150 mm[Hg] Shey Quiroz PA-C Work Phone: [facility] Comment on above: average with machine 04-23-2025 11:26-0400 Body mass index (BMI) [Ratio] 25.91 kg/m2 Shey Quiroz PA-C Work Phone: [facility] 04-23-2025 11:26-0400 Body temperature 98.2 [degF] Shey Quiroz PA-C Work Phone: [facility] 04-23-2025 11:26-0400 Body weight 59.88 kg Hsey Quiroz PA-C Work Phone: [facility] 04-23-2025 11:26-0400 Respiratory rate 16 /min Shey Quiroz PA-C Work Phone: [facility] 04-23-2025 11:26-0400 SaO2% (BldA) [Mass fraction] 98 % Shey Quiroz PA-C Work Phone: [facility] 04-17-2025 11:40-0400 Body mass index (BMI) [Ratio] 25.97 kg/m2 Carolina Mendoza APRN.CNP Work Phone: [facility] 04-17-2025 11:40-0400 Body temperature 97 [degF] Carolina Praisler-Wood [employer] Work Phone: [facility] 04-17-2025 11:40-0400 Body weight 60 kg Carolina Praisler-Wood [employer] Work Phone: [facility] 04-17-2025 11:40-0400 Diastolic blood pressure 86 mm[Hg] Carolina Praisler-Wood [employer] Work Phone: [facility] 04-17-2025 11:40-0400 Heart rate 85 /min Carolina Praisler-Wood [employer] Work Phone: [facility] 04-17-2025 11:40-0400 Respiratory rate 22 /min Carolina Praisler-Wood [employer] Work Phone: [facility] 04-17-2025 11:40-0400 SaO2% (BldA) [Mass fraction] 98 % Carolina Praisler-Wood [employer] Work Phone: [facility] 04-17-2025 11:40-0400 Systolic blood pressure 130 mm[Hg] Carolina Praisler-Wood [employer] Work Phone: [facility] 03-20-2025 11:43-0400 Body mass index (BMI) [Ratio] 25.13 kg/m2 Deangelo Hawkins MD Work Phone: [facility] 03-20-2025 11:43-0400 Body temperature 97.2 [degF] Deangelo Hawkins MD Work Phone: [facility] 03-20-2025 11:43-0400 Body weight 58.06 kg Deangelo Hawkins MD Work Phone: [facility] 03-20-2025 11:43-0400 Diastolic blood pressure 70 mm[Hg] Deangelo Hawkins MD Work Phone: [facility] 03-20-2025 11:43-0400 Heart rate 74 /min Deangelo Hawkins MD Work Phone: [facility] 03-20-2025 11:43-0400 Respiratory rate 16 /min Deangelo Hawkins MD Work Phone: [facility] 03-20-2025 11:43-0400 SaO2% (BldA) [Mass fraction] 98 % Deangelo Hawkins MD Work Phone: [facility] 03-20-2025 11:43-0400 Systolic blood pressure 118 mm[Hg] Deangelo Hawkins MD Work Phone: [facility] 03-19-2025 09:41-0400 Body height 152 cm Shey Quiroz PA-C Work Phone: [facility] 03-19-2025 09:41-0400 Body mass index (BMI) [Ratio] 25.13 kg/m2 Shey Quiroz PA-C Work Phone: [facility] 03-19-2025 09:41-0400 Body temperature 97.3 [degF] Shey Quiroz PA-C Work Phone: [facility] 03-19-2025 09:41-0400 Body weight 58.06 kg Shey Quiroz PA-C Work Phone: [facility] 03-19-2025 09:41-0400 Diastolic blood pressure 78 mm[Hg] Shey Quiroz PA-C Work Phone: [facility] 03-19-2025 09:41-0400 Heart rate 79 /min Shey Quiroz PA-C Work Phone: [facility] 03-19-2025 09:41-0400 Respiratory rate 18 /min Shey Quiroz PA-C Work Phone: [facility] 03-19-2025 09:41-0400 SaO2% (BldA) [Mass fraction] 99 % Shey Quiroz PA-C Work Phone: [facility] 03-19-2025 09:41-0400 Systolic blood pressure 128 mm[Hg] Shey Quiroz PA-C Work Phone: [facility] 01-16-2025 09:57-0500 Body mass index (BMI) [Ratio] 24.11 kg/m2 Samuel Arias [employer] Work Phone: [facility] 01-16-2025 09:57-0500 Body weight 57.88 kg Samuel Arias [employer] Work Phone: [facility] 01-16-2025 09:57-0500 Diastolic blood pressure 62 mm[Hg] Samuel Arias [employer] Work Phone: [facility] 01-16-2025 09:57-0500 Heart rate 68 /min Samuel Arias [employer] Work Phone: [facility] 01-16-2025 09:57-0500 SaO2% (BldA) [Mass fraction] 96 % Samuel Arias [employer] Work Phone: [facility] 01-16-2025 09:57-0500 Systolic blood pressure 130 mm[Hg] Samuel Arias [employer] Work Phone: [facility] 01-15-2025 15:18-0500 Body mass index (BMI) [Ratio] 24.04 kg/m2 Monse Claors MD Work Phone: [facility] 01-15-2025 15:18-0500 Body weight 57.7 kg Monse Claros MD Work Phone: [facility] 01-15-2025 15:18-0500 SaO2% (BldA) [Mass fraction] 96 % Monse Claros MD Work Phone: [facility] 10-11-2024 11:36-0500 Body mass index (BMI) [Ratio] 24.66 kg/m2 Deangelo Cagle [employer] Work Phone: [facility] 10-11-2024 11:36-0500 Body temperature 98.6 [degF] Deangelo Cagle [employer] Work Phone: [facility] 10-11-2024 11:36-0500 Body weight 59.2 kg [facility] [employer] Work Phone: [facility] 10-11-2024 11:36-0500 Diastolic blood pressure 68 mm[Hg] [facility] [employer] Work Phone: [facility] 10-11-2024 11:36-0500 Heart rate 82 /min [facility] [employer] Work Phone: [facility] 10-11-2024 11:36-0500 Respiratory rate 16 /min [facility] [employer] Work Phone: [facility] 10-11-2024 11:36-0500 SaO2% (BldA) [Mass fraction] 95 % [facility] [employer] Work Phone: [facility] 10-11-2024 11:36-0500 Systolic blood pressure 110 mm[Hg] [facility] [employer] Work Phone: [facility] 09-19-2024 09:37-0500 Body mass index (BMI) [Ratio] 25.32 kg/m2 Shey ARIAS-C Work Phone: [facility] 09-19-2024 09:37-0500 Body temperature 98.01 [degF] Shey Quiroz PA-C Work Phone: [facility] 09-19-2024 09:37-0500 Body weight 60.78 kg Shey ARIAS-C Work Phone: [facility] 09-19-2024 09:37-0500 Diastolic blood pressure 60 mm[Hg] Shey Quiroz PA-C Work Phone: [facility] 09-19-2024 09:37-0500 Heart rate 83 /min Shey Quiroz PA-C Work Phone: [facility] 09-19-2024 09:37-0500 Respiratory rate 18 /min Shey Quiroz PA-C Work Phone: [facility] 09-19-2024 09:37-0500 SaO2% (BldA) [Mass fraction] 95 % Shey Quiroz PA-C Work Phone: [facility] 09-19-2024 09:37-0500 Systolic blood pressure 102 mm[Hg] Sehy Quiroz PA-C Work Phone: [facility] 08-22-2024 13:00-0400 Body mass index (BMI) [Ratio] 26.49 kg/m2 Samuel Rajguru [employer] Work Phone: [facility] 08-22-2024 13:00-0400 Body weight 63.59 kg Samuel Rajguru [employer] Work Phone: [facility] 08-22-2024 13:00-0400 Diastolic blood pressure 76 mm[Hg] Samuel Rajguru [employer] Work Phone: [facility] 08-22-2024 13:00-0400 Heart rate 84 /min Samuel Rajguru [employer] Work Phone: [facility] 08-22-2024 13:00-0400 Respiratory rate 20 /min Samuel Rajguru [employer] Work Phone: [facility] 08-22-2024 13:00-0400 Systolic blood pressure 144 mm[Hg] Samuel Rajguru [employer] Work Phone: [facility] 07-14-2024 10:56-0400 Body mass index (BMI) [Ratio] 26.24 kg/m2 Shey Quiroz PA-C Work Phone: [facility] 07-14-2024 10:56-0400 Body weight 63 kg Shey Quiroz PA-C Work Phone: [facility] 07-14-2024 10:56-0400 Diastolic blood pressure 80 mm[Hg] Shey Quiroz PA-C Work Phone: [facility] 07-14-2024 10:56-0400 Heart rate 76 /min Shey Quiroz PA-C Work Phone: [facility] 07-14-2024 10:56-0400 Respiratory rate 16 /min Shey ARIAS-C Work Phone: [facility] 07-14-2024 10:56-0400 SaO2% (BldA) [Mass fraction] 96 % Shey ARIAS-C Work Phone: [facility] 07-14-2024 10:56-0400 Systolic blood pressure 126 mm[Hg] Shey ARIAS-C Work Phone: [facility] 06-30-2024 11:22-0400 Body mass index (BMI) [Ratio] 26.83 kg/m2 Samuel Rajguru [employer] Work Phone: [facility] 06-30-2024 11:22-0400 Body weight 64.41 kg Samuel Rajguru [employer] Work Phone: [facility] 06-30-2024 11:22-0400 Diastolic blood pressure 82 mm[Hg] Samuel Rajguru [employer] Work Phone: [facility] 06-30-2024 11:22-0400 Heart rate 68 /min Samuel Rajguru [employer] Work Phone: [facility] 06-30-2024 11:22-0400 Respiratory rate 14 /min Samuel Rajguru [employer] Work Phone: [facility] 06-30-2024 11:22-0400 Systolic blood pressure 132 mm[Hg] Samuel Rajguru [employer] Work Phone: [facility] 05-02-2024 11:29-0400 Body mass index (BMI) [Ratio] 26.76 kg/m2 Samuel Rajguru [employer] Work Phone: [facility] 05-02-2024 11:29-0400 Body weight 64.23 kg Samuel Rajguru [employer] Work Phone: [facility] 05-02-2024 11:29-0400 Diastolic blood pressure 56 mm[Hg] Samuel Rajguru [employer] Work Phone: [facility] 05-02-2024 11:29-0400 Heart rate 84 /min Samuel Rajguru [employer] Work Phone: [facility] 05-02-2024 11:29-0400 Systolic blood pressure 118 mm[Hg] Samuel Rajguru [employer] Work Phone: [facility] 03-16-2024 10:53-0400 Body height 154.9 cm Deangelo Hawkins MD Work Phone: [facility] 03-16-2024 10:53-0400 Body mass index (BMI) [Ratio] 27.02 kg/m2 Deangelo Hawkins MD Work Phone: [facility] 03-16-2024 10:53-0400 Body weight 64.86 kg Deangelo Hawkins MD Work Phone: [facility] 03-16-2024 10:53-0400 Diastolic blood pressure 80 mm[Hg] Deangelo Hawkins MD Work Phone: [facility] 03-16-2024 10:53-0400 Heart rate 68 /min Deangelo Hawkins MD Work Phone: [facility] 03-16-2024 10:53-0400 Respiratory rate 16 /min Deangelo Hawkins MD Work Phone: [facility] 03-16-2024 10:53-0400 Systolic blood pressure 138 mm[Hg] Deangelo Hawkins MD Work Phone: [facility] 12-14-2023 09:25-0500 Body weight 65.41 kg Samuel Rajguru [employer] Work Phone: [facility] 12-14-2023 09:25-0500 Diastolic blood pressure 78 mm[Hg] Samuel Rajguru [employer] Work Phone: [facility] 12-14-2023 09:25-0500 Heart rate 80 /min Samuel Rajguru [employer] Work Phone: [facility] 12-14-2023 09:25-0500 Systolic blood pressure 130 mm[Hg] Samuel Rajguru [employer] Work Phone: [facility] 10-19-2023 09:51-0500 Diastolic blood pressure 100 mm[Hg] Samuel Rajguru [employer] Work Phone: [facility] 10-19-2023 09:51-0500 Heart rate 84 /min Samuel Rajguru [employer] Work Phone: [facility] 10-19-2023 09:51-0500 Systolic blood pressure 164 mm[Hg] Samuel Rajguru [employer] Work Phone: [facility] 09-09-2023 10:54-0400 Body weight 63.96 kg Deangelo Hawkins MD Work Phone: [facility] 09-09-2023 10:54-0400 Diastolic blood pressure 68 mm[Hg] Deangelo Hawkins MD Work Phone: [facility] 09-09-2023 10:54-0400 Heart rate 82 /min Deangelo Hawkins MD Work Phone: [facility] 09-09-2023 10:54-0400 SaO2% (BldA) [Mass fraction] 96 % Deangelo Hawkins MD Work Phone: [facility] 09-09-2023 10:54-0400 Systolic blood pressure 118 mm[Hg] Deangelo Hawkins MD Work Phone: [facility] 07-06-2023 11:05-0400 Body temperature 98.71 [degF] Soy Lindsey [employer] Work Phone: [facility] 07-06-2023 11:05-0400 Body weight 62.96 kg Soy Lindsey [employer] Work Phone: [facility] 07-06-2023 11:05-0400 Diastolic blood pressure 80 mm[Hg] Soy Lindsey [employer] Work Phone: [facility] 07-06-2023 11:05-0400 Heart rate 94 /min Soy Lindsey APRN.[employer] Work Phone: [facility] 07-06-2023 11:05-0400 Respiratory rate 18 /min Soy Lindsey APRN.[employer] Work Phone: [facility] 07-06-2023 11:05-0400 SaO2% (BldA) [Mass fraction] 97 % Soy Lindsey APRN.[employer] Work Phone: [facility] 07-06-2023 11:05-0400 Systolic blood pressure 130 mm[Hg] Soy Linsdey APRN.[employer] Work Phone: [facility] 05-27-2023 09:33-0400 Body temperature 98.71 [degF] Mary Bess APRN.[employer] Work Phone: [facility] 05-27-2023 09:33-0400 Body weight 61.69 kg Mary Bess APRN.[employer] Work Phone: [facility] 05-27-2023 09:33-0400 Diastolic blood pressure 84 mm[Hg] Mary Bess APRN.[employer] Work Phone: [facility] 05-27-2023 09:33-0400 Heart rate 93 /min Mary Bess APRN.[employer] Work Phone: [facility] 05-27-2023 09:33-0400 Respiratory rate 18 /min Mary Bess APRN.[employer] Work Phone: [facility] 05-27-2023 09:33-0400 SaO2% (BldA) [Mass fraction] 100 % Mary Bess APRN.[employer] Work Phone: [facility] 05-27-2023 09:33-0400 Systolic blood pressure 144 mm[Hg] Mary Bess APRN.[employer] Work Phone: [facility] 03-09-2023 08:56-0400 Body height 157 cm Deangelo Hawkins MD Work Phone: [facility] 03-09-2023 08:56-0400 Body weight 58.97 kg Deangelo Hawkins MD Work Phone: [facility] 03-09-2023 08:56-0400 Diastolic blood pressure 74 mm[Hg] Deangelo Hawkins MD Work Phone: [facility] 03-09-2023 08:56-0400 Heart rate 64 /min Deangelo Hawkins MD Work Phone: [facility] 03-09-2023 08:56-0400 Respiratory rate 14 /min Deangelo Hawkins MD Work Phone: [facility] 03-09-2023 08:56-0400 Systolic blood pressure 136 mm[Hg] Deangelo Hawkins MD Work Phone: [facility] 02-18-2023 13:28-0400 Body temperature 97.2 [degF] Vignesh Weber MD Work Phone: [facility] 02-18-2023 13:28-0400 Body weight 58.24 kg Vignesh Weber MD Work Phone: [facility] 02-18-2023 13:28-0400 Diastolic blood pressure 98 mm[Hg] Vignesh Weber MD Work Phone: [facility] 02-18-2023 13:28-0400 Heart rate 113 /min Vignesh Weber MD Work Phone: [facility] 02-18-2023 13:28-0400 Respiratory rate 16 /min Vignesh Weber MD Work Phone: [facility] 02-18-2023 13:28-0400 SaO2% (BldA) [Mass fraction] 100 % Vignesh Weber MD Work Phone: [facility] 02-18-2023 13:28-0400 Systolic blood pressure 164 mm[Hg] Vignesh Weber MD Work Phone: [facility] 12-15-2022 11:33-0500 Body temperature 97.5 [degF] Jovan Kerr PA Work Phone: [facility] 12-15-2022 11:33-0500 Body weight 56.16 kg Krislyn Aberegg PA Work Phone: [facility] 12-15-2022 11:33-0500 Diastolic blood pressure 90 mm[Hg] Krislyn Aberegg PA Work Phone: [facility] 12-15-2022 11:33-0500 Heart rate 96 /min Krislyn Aberegg PA Work Phone: [facility] 12-15-2022 11:33-0500 Respiratory rate 18 /min Krislyn Aberegg PA Work Phone: [facility] 12-15-2022 11:33-0500 SaO2% (BldA) [Mass fraction] 99 % Krislyn Aberegg PA Work Phone: [facility] 12-15-2022 11:33-0500 Systolic blood pressure 158 mm[Hg] Krislyn Aberegg PA Work Phone: [facility] 09-11-2022 11:13-0400 Body temperature 97.39 [degF] Carolina Praisler-Wood [employer]TURE BUILDER.[employer] Work Phone: [facility] 09-11-2022 11:13-0400 Body weight 51.71 kg Carolina Praisler-Wood [employer] J[employer] BUILDER.[employer] Work Phone: [facility] 09-11-2022 11:13-0400 Diastolic blood pressure 70 mm[Hg] Carolina Praisler-Wood P[employer] J[employer] AND [employer]TURE BUILDER.[employer] Work Phone: [facility] 09-11-2022 11:13-0400 Heart rate 93 /min Carolina Praisler-Wood P[employer] J[employer] AND [employer]TURE BUILDER.[employer] Work Phone: [facility] 09-11-2022 11:13-0400 Respiratory rate 16 /min Carolina Praisler-Wood P[employer] J[employer] AND [employer] BUILDER.[employer] Work Phone: [facility] 09-11-2022 11:13-0400 SaO2% (BldA) [Mass fraction] 96 % Carolina Praisler-Wood P[employer] J[employer] BUILDER.[employer] Work Phone: [facility] 09-11-2022 11:13-0400 Systolic blood pressure 118 mm[Hg] Carolina PalacioAdwoa KHAN Work Phone: [facility] 08-24-2022 09:50-0400 Body temperature 97.7 [degF] Shey Quiroz PA-C Work Phone: [facility] 08-24-2022 09:50-0400 Body weight 53.52 kg Shey Quiroz PA-C Work Phone: [facility] 08-24-2022 09:50-0400 Diastolic blood pressure 82 mm[Hg] Shey Quiroz PA-C Work Phone: [facility] 08-24-2022 09:50-0400 Heart rate 88 /min Shey Quiroz PA-C Work Phone: [facility] 08-24-2022 09:50-0400 Respiratory rate 16 /min Shey Quiroz PA-C Work Phone: [facility] 08-24-2022 09:50-0400 Systolic blood pressure 128 mm[Hg] Shey Quiroz PA-C Work Phone: [facility] 08-16-2022 13:00-0400 Body temperature 97.5 [degF] Nighat Athy PA-C Work Phone: [facility] 08-16-2022 13:00-0400 Body weight 56.16 kg Nighat Athy PA-C Work Phone: [facility] 08-16-2022 13:00-0400 Diastolic blood pressure 84 mm[Hg] Nighat Athy PA-C Work Phone: [facility] 08-16-2022 13:00-0400 Heart rate 89 /min Nighat Athy PA-C Work Phone: [facility] 08-16-2022 13:00-0400 Respiratory rate 18 /min Nighat Athy PA-C Work Phone: [facility] 08-16-2022 13:00-0400 SaO2% (BldA) [Mass fraction] 98 % Nighat Athy PA-C Work Phone: [facility] 08-16-2022 13:00-0400 Systolic blood pressure 128 mm[Hg] Nighat Marquez PA-C Work Phone: [facility] Encounters Encounter Date Encounter Type Care Provider Facility Start: 07-03-2025 End: 07-04-2025 Telephone encounter Monse Claros MD Work Phone: [facility] Comment on above: Medication Problem Start: 06-29-2025 End: 07-03-2025 Telephone encounter Deangelo Hawkins MD Work Phone: [facility] Comment on above: Medication Problem Start: 06-27-2025 End: 06-27-2025 ambulatory Deangelo Hawkins MD Work Phone: [facility] Comment on above: Allied Health Visit (Medication Adherence Outreach ) Start: 05-29-2025 End: 05-29-2025 Office outpatient visit 25 minutes Samuel Arias APRN.[employer] Work Phone: Psychiatry Comment on above: RANDY (generalized anx iety disorder) (Primary Dx); Encounter for long-term (current) use of medications; Parkinson's disease, unspecified whether dyskinesia present, unspecified whether manifestations fluctuate (HCC); Unspecified abnormalities of gait and mobility Start: 05-29-2025 End: 05-29-2025 ambulatory DEANGELO HAWKINS Facility:[facility] [place] Start: 05-22-2025 End: 05-22-2025 Telephone encounter Shey Quiroz PA-C Work Phone: [facility] Comment on above: Peer To Peer Consult ation Start: 05-21-2025 End: 05-21-2025 Follow-up encounter Shey Quiroz PA-C Work Phone: [facility] Start: 05-21-2025 End: 05-21-2025 ambulatory RODRIGUEZ GRIJALVA Facility:[facility] [place] Start: 05-21-2025 End: 05-21-2025 Patient encounter procedure Rodriguez Grijalva APRN.[employer] Work Phone: [facility] Comment on above: Essential hypertensi on (Primary Dx) Start: 05-16-2025 End: 05-16-2025 ambulatory SHEY QUIROZ Facility:[facility] [place] Start: 05-08-2025 End: 05-10-2025 Follow-up encounter Shey Quiroz PA-C Work Phone: [facility] Comment on above: Results Start: 05-07-2025 End: 05-07-2025 ambulatory SHEY MARLBORO Facility:[facility] [place] Start: 04-26-2025 End: 04-26-2025 Office outpatient visit 25 minutes Monse Claros MD Work Phone: Neurology Comment on above: Parkinson's disease with dyskinesia and fluctuating manifestations (HCC) Start: 04-26-2025 End: 04-26-2025 ambulatory MONSE CLAROS Facility:[facility] [place] Start: 04-23-2025 End: 04-23-2025 Patient encounter procedure Shey Quiroz PA-C Work Phone: [facility] Comment on above: Stasis dermatitis of both legs (Primary Dx); Claudication; Cold feet Start: 04-23-2025 End: 04-23-2025 ambulatory SHEY MARLBORO Facility:[facility] [place] Start: 04-17-2025 End: 04-17-2025 Patient encounter procedure Carolina Mendoza APRN.CNP Work Phone: [facility] Comment on above: Stasis dermatitis (P rimary Dx) Start: 04-17-2025 End: 04-17-2025 ambulatory CAROLINA MENDOZA Facility:[facility] [place] Start: 03-22-2025 End: 03-22-2025 ambulatory Deangelo Hawkins MD Work Phone: [facility] Comment on above: Allied Health Visit (Medication Adherence Outreach/) Refill Request Start: 03-22-2025 End: 03-23-2025 Follow-up encounter Shey Quiroz PA-C Work Phone: [facility] Comment on above: Results Start: 03-20-2025 End: 03-20-2025 Patient encounter procedure Deangelo Hawkins MD Work Phone: [facility] Comment on above: Acute cystitis witho ut hematuria (Primary Dx); Urine frequency; History of recent fall Start: 03-20-2025 End: 03-20-2025 ambulatory DEANGELO HAWKINS Facility:[facility] [place] Start: 03-19-2025 End: 03-19-2025 Telephone encounter Shey Quiroz PA-C Work Phone: [facility] Comment on above: Medication Question Start: 03-19-2025 End: 03-19-2025 Patient encounter procedure Shey Quiroz PA-C Work Phone: [facility] Comment on above: Medicare annual well ness visit, subsequent (Primary Dx); Advance directive discussed with patient; Essential hypertension; Hyperlipidemia, mixed; Renal insufficiency; Osteoporosis, senile; Parkinson's disease with dyskinesia and fluctuating manifestations (HCC); RANDY (generalized anxiety disorder); Major depressive disorder, recurrent episode, moderate (HCC); Age-related macular degeneration Start: 03-19-2025 End: 03-19-2025 ambulatory SHEY QUIROZ Facility:[facility] [place] Start: 03-16-2025 End: 03-19-2025 ambulatory Monse Claros MD Work Phone: Neurology Comment on above: Medication Start: 03-14-2025 End: 03-14-2025 ambulatory SHEY QUIROZ Facility:[facility] [place] Start: 01-16-2025 End: 01-16-2025 ambulatory DEANGELO HAWKINS Facility:[facility] [place] Start: 01-16-2025 End: 01-16-2025 Office outpatient visit 25 minutes Samuel Arias APRN.CNP Work Phone: Psychiatry Comment on above: RANDY (generalized anx iety disorder) (Primary Dx); Encounter for long-term (current) use of medications; Parkinson's disease, unspecified whether dyskinesia present, unspecified whether manifestations fluctuate (HCC); Mild episode of recurrent major depressive disorder (HCC) Start: 01-15-2025 End: 01-15-2025 ambulatory MONSE CLAROS Facility:[facility] [place] Start: 01-15-2025 End: 01-15-2025 Office outpatient new 60 minutes Monse Claros MD Work Phone: Neurology Comment on above: Parkinson's disease with dyskinesia and fluctuating manifestations (HCC) (Primary Dx) Start: 12-19-2024 End: 12-19-2024 ambulatory Deangeloparker Hawkins Facility:[facility] Start: 10-25-2024 End: 10-25-2024 Chart abstracting Aaron Bess MA [facility] Comment on above: Consult (Outside Micheline rology /) Start: 10-11-2024 End: 10-11-2024 [facility] Facility:[facility] [place] Start: 10-11-2024 End: 10-11-2024 Office outpatient visit 15 minutes Deangelo Cagle APRN.[employer] Work Phone: [facility] Comment on above: Sore throat (Primary Dx); Viral illness Start: 09-19-2024 End: 09-19-2024 ambulatory SHEY QUIROZ Facility:[facility] [place] Start: 09-19-2024 End: 09-19-2024 Patient encounter procedure Shey Quiroz PA-C Work Phone: [facility] Comment on above: Essential hypertensi on (Primary Dx); Major depressive disorder, recurrent episode, moderate (HCC); RANDY (generalized anxiety disorder); Hyperlipidemia, mixed; Parkinson's disease, unspecified whether dyskinesia present, unspecified whether manifestations fluctuate (HCC); Osteoporosis, senile; Encounter for immunization Start: 09-14-2024 End: 09-14-2024 ambulatory SHEY QUIROZ Facility:[facility] [place] Start: 08-22-2024 End: 08-22-2024 Patient encounter procedure Samuel Arias APRN.[employer] Work Phone: Psychiatry Comment on above: RANDY (generalized anx iety disorder) (Primary Dx); Parkinson's disease, unspecified whether dyskinesia present, unspecified whether manifestations fluctuate (HCC); Mild episode of recurrent major depressive disorder (HCC) Start: 08-22-2024 End: 08-22-2024 ambulatory DEANGELOPARKER PATRICKEY Facility:[facility] [place] Start: 07-14-2024 End: 07-14-2024 Patient encounter procedure Shey Quiroz PA-C Work Phone: [facility] Comment on above: Parkinson's disease, unspecified whether dyskinesia present, unspecified whether manifestations fluctuate (HCC) (Primary Dx); Balance disorder; Renal insufficiency; Hyperlipidemia, mixed Start: 07-14-2024 End: 07-14-2024 ambulatory SELF Facility:[facility] [place] Start: 07-03-2024 End: 07-05-2024 Telephone encounter Isabel Rocha MSW Navigation Start: 06-30-2024 End: 07-10-2024 Telephone encounter Deangelo Hawkins MD Work Phone: [facility] Comment on above: Future Appointment ( 2 falls/decline ADLS) Start: 06-30-2024 End: 06-30-2024 Patient encounter procedure Samuel Arias APRN.[employer] Work Phone: Psychiatry Comment on above: RANDY (generalized anx iety disorder) (Primary Dx); Mild episode of recurrent major depressive disorder (HCC); Parkinson's disease, unspecified whether dyskinesia present, unspecified whether manifestations fluctuate (HCC); Fall, initial encounter Start: 05-09-2024 Telephone encounter Samuel kraft APRN.[employer] Work Phone: Psychiatry Comment on above: Insurance Authorizat ion Start: 05-02-2024 End: 05-02-2024 Patient encounter procedure Samuel Arias APRN.[employer] Work Phone: Psychiatry Comment on above: RANDY (generalized anx iety disorder) (Primary Dx); Major depressive disorder, recurrent episode, moderate (HCC); Parkinson's disease, unspecified whether dyskinesia present, unspecified whether manifestations fluctuate (HCC) Start: 04-25-2024 Chart abstracting Aaron Bess MA [facility] Comment on above: Consult (Neurology / ) Start: 03-20-2024 Telephone encounter Deangelo Hawkins MD Work Phone: [facility] Comment on above: Results Start: 03-17-2024 Telephone encounter Deangelo Hawkins MD Work Phone: [facility] Comment on above: Results Start: 03-16-2024 End: 03-16-2024 Subsequent hospital visit by physician Bone Density [facility] Work Phone: Radiology Comment on above: Osteoporosis, senile [M81.0] Start: 03-16-2024 End: 03-16-2024 Patient encounter procedure Deangelo Hawkins MD Work Phone: [facility] Comment on above: Medicare annual well ness visit, subsequent (Primary Dx); Essential hypertension; Hyperlipidemia, mixed; Anemia, unspecified type; Renal insufficiency; Neuropathic pain; Parkinson's disease, unspecified whether dyskinesia present, unspecified whether manifestations fluctuate (HCC); Major depressive disorder, recurrent episode, moderate (HCC); RANDY (generalized anxiety disorder); Osteoporosis, senile; Advance directive discussed with patient Start: 01-27-2024 Chart abstracting Deangelo adams MD Work Phone: [facility] [place] Comment on above: Outside Neurology Start: 12-14-2023 End: 12-14-2023 Patient encounter procedure Samuel Arias APRN.[employer] Work Phone: Psychiatry Comment on above: RANDY (generalized anx iety disorder) (Primary Dx); Recurrent major depressive disorder, in partial remission (HCC); Parkinson's disease, unspecified whether dyskinesia present, unspecified whether manifestations fluctuate Start: 10-26-2023 Chart abstracting Deangelo adams MD Work Phone: [facility] [place] Comment on above: Outside Neurology Start: 10-19-2023 End: 10-19-2023 Patient encounter procedure Samuel Arias APRN.[employer] Work Phone: Psychiatry Comment on above: Parkinson's disease, unspecified whether dyskinesia present, unspecified whether manifestations fluctuate (Primary Dx); Major depressive disorder, recurrent episode, moderate (HCC); RANDY (generalized anxiety disorder) Start: 09-09-2023 Telephone encounter Deangelo Hawkins MD Work Phone: [facility] [place] Comment on above: Results Start: 09-09-2023 End: 09-09-2023 Patient encounter procedure Deangelo Hawkins MD Work Phone: [facility] Comment on above: Essential hypertensi on (Primary Dx); Hyperlipidemia, mixed; Neuropathic pain; Parkinson's disease, unspecified whether dyskinesia present, unspecified whether manifestations fluctuate; Anxiety; Anemia, unspecified type; Renal insufficiency; Encounter for immunization Start: 08-13-2023 Telephone encounter Enid dale [facility] Work Phone: Psychology Comment on above: consult Start: 08-12-2023 Telephone encounter Enid Vázquez lauragabriela [facility] Work Phone: Psychology Comment on above: consult Start: 08-11-2023 Telephone encounter Deangelo Hawkins MD Work Phone: [facility] Start: 07-09-2023 Telephone encounter Sera loya [employer] BU[employer]DER.[employer] Work Phone: [facility] Comment on above: Results Start: 07-06-2023 End: 07-06-2023 Patient encounter procedure Soy Lindsey [employer] BUILDER.[employer] Work Phone: [facility] Comment on above: Urinary frequency (P rimary Dx); Acute midline low back pain without sciatica Start: 05-27-2023 End: 05-27-2023 Patient encounter procedure Mary Bess P[employer] J[employer] BUILDER.[employer] Work Phone: [facility] Comment on above: Urinary frequency (P rimary Dx); Recurrent UTI (urinary tract infection) Start: 05-12-2023 Chart abstracting Deangelo adams MD Work Phone: [facility] Comment on above: Outside Neurology Start: 03-11-2023 Telephone encounter Deangelo Hawkins MD Work Phone: [facility] [place] Comment on above: Results Start: 03-09-2023 End: 03-09-2023 Patient encounter procedure Deangelo Hawkins MD Work Phone: [facility] Comment on above: Medicare annual [facility] visit, subsequent (Primary Dx); Hyperlipidemia, mixed; Essential hypertension; Parkinson's disease; Anemia, unspecified type; Renal insufficiency; Neuropathic pain; Anxiety; Osteoporosis, senile; Advance directive discussed with patient; Encounter for immunization; Medication management; Chronic rhinitis Start: 02-23-2023 Chart abstracting Deangelo adams MD Work Phone: [facility] Comment on above: Outside Neurology Start: 02-18-2023 End: 02-18-2023 Patient encounter procedure Vignesh Weber MD Work Phone: [facility] Comment on above: Urinary frequency (P rimary Dx) Start: 12-15-2022 End: 12-15-2022 Patient encounter procedure Jovan ARIAS Work Phone: [facility] Comment on above: URI, acute (Primary Dx) Start: 09-11-2022 End: 09-11-2022 Patient encounter procedure Carolina Mendoza APRN.CNP Work Phone: [facility] Comment on above: Suspected COVID-19 v irus infection (Primary Dx); Bacterial sinusitis Start: 08-25-2022 Telephone encounter Shey carlisle PA-C Work Phone: [facility] Comment on above: Results Start: 08-24-2022 End: 08-24-2022 Patient encounter procedure Shey Quiroz PA-C Work Phone: [facility] Comment on above: Essential hypertensi on (Primary Dx); Hyperlipidemia, mixed; Parkinson's disease; Renal insufficiency; Anemia, unspecified type; Weight loss; Need for vaccination; Osteoporosis, senile; Neuropathic pain; Anxiety Start: 08-16-2022 End: 08-16-2022 Patient encounter procedure Nighat Marquez PA-C Work Phone: [facility] Comment on above: Dental infection (Pr imary Dx) Start: 03-15-2022 Telephone encounter Deangelo Hawkins MD Work Phone: [facility] Comment on above: Results Start: 03-10-2022 End: 03-10-2022 Subsequent hospital visit by physician Bone Density [facility] Work Phone: Radiology Comment on above: Osteoporosis, senile [M81.0] Start: 02-22-2022 Telephone encounter Deangelo Hawkins MD Work Phone: [facility] Comment on above: Results Start: 02-20-2022 Patient encounter procedure Deangelo Hawkins MD Work Phone: [facility] Work Phone: Procedures Date Procedure Procedure Detail Performing Clinician Start: 05-16-2025 Lipid 1995 panel - S zee or Plasma Rodriguez Grijalva [employer] BUILDER.[employer] Work Phone: Start: 03-14-2025 Lipid 1996 panel - S zee or Plasma Shey Quiroz PA-C Work Phone: Start: 10-11-2024 STREP A MOLECULAR (POC) Nighat Marquez PA-C Work Phone: Start: 09-14-2024 Lipid 1996 panel - S zee or Plasma Shey Quiroz PA-C Work Phone: Start: 03-16-2024 Lipid 1995 panel - S zee or Plasma Deangelo Hawkins MD Work Phone: Start: 07-06-2023 Urnls dip stick/tabl et rgnt auto w/o microscopy Carolina Mendoza [employer] BUILDER.[employer] Work Phone: Start: 05-27-2023 Urnls dip stick/tabl et rgnt auto w/o microscopy Mary Bess P[employer] J[employer] BUILDER.[employer] Work Phone: Start: 03-09-2023 Lipid 1995 panel - S zee or Plasma Enid Brock [facility] Work Phone: Start: 02-18-2023 Urnls dip stick/tabl et rgnt auto w/o microscopy Deangelo Cagle P[employer] J[employer] AND [employer] BUILDER.[employer] Work Phone: Start: 03-10-2022 Dxa bone density murphy dy 1/> sites axial skel Deangelo Hawkins MD Work Phone: Plan of Treatment Date Care Activity Detail Author Start: 05-16-2030 Lipid panel [facility] Start: 03-14-2030 Lipid panel Lipid Screening [facility] Start: 09-14-2029 Lipid panel Lipid Screening [facility] Start: 03-16-2029 Lipid panel Lipid Screening [facility] Start: 05-16-2028 Diabetes Screening [facility] Screenin [facility] Start: 03-14-2028 Diabetes Screening Diabetes Screenin g [facility] Start: 03-09-2028 Lipid 1996 panel - S zee or Plasma Lipid Screening [facility] Start: 03-09-2028 Lipid panel Lipid Screening [facility] Start: 03-09-2028 LIPID SCREEN LIPID SCREEN [facility] Start: 09-14-2027 Diabetes Screening Diabetes Screenin g [facility] Start: 08-24-2027 LIPID SCREEN LIPID SCREEN [facility] Start: 03-16-2027 Diabetes Screening Diabetes Screenin g [facility] Start: 02-20-2027 LIPID SCREEN LIPID SCREEN [facility] Start: 09-09-2026 Diabetes Screening Diabetes Screenin g [facility] Start: 05-21-2026 Annual PCP Team Computer Repair Technician catina Disease Visit Annual PCP Team Chronic Disease Visit [facility] Start: 04-23-2026 Annual PCP Team Computer Repair Technician catina Disease Visit Annual PCP Team Chronic Disease Visit [facility] Start: 03-20-2026 Annual PCP Team Computer Repair Technician catina Disease Visit Annual PCP Team Chronic Disease Visit [facility] Start: 03-20-2026 BP Controlled (<130/80) BP Controlle d (<130/80) [facility] Start: 03-19-2026 Annual PCP Team Computer Repair Technician catina Disease Visit Annual PCP Team Chronic Disease Visit [facility] Start: 03-19-2026 BP Controlled (<130/80) BP Controlle d (<130/80) [facility] Start: 03-16-2026 Screening for osteoporosis Bone Density Screening [facility] Start: 03-09-2026 DIABETES SCREEN DIABETES SCREEN [facility] Start: 03-09-2026 Diabetes Screening Diabetes Screenin g [facility] Start: 10-11-2025 BP Controlled (<130/80) BP Controlle d (<130/80) [facility] Start: 09-24-2025 End: 09-24-2025 Patient encounter procedure 09/24/2025 1:30 PM EST Office Visit Neurology [facility] [address] [phone] Monse Claros MD [address] [place] [address] [address] [place] [address] Parkinson's disease with dyskinesia and fluctuating manifestations (HCC) [G20.B2] Neurology Comment on above: Parkinson's disease with dyskinesia and fluctuating manifestations (HCC) [G20.B2] Start: 09-20-2025 End: 09-20-2025 Patient encounter procedure 09/20/2025 10:00 AM EST Office Visit Family [facility] [address] [place], [place] [phone] Shey Quiroz PA-C [address] [place], [place] [id number] 6 month f/u Family [facility] Comment on above: 6 month f/u Start: 09-19-2025 Annual PCP Team Computer Repair Technician catina Disease Visit Annual PCP Team Chronic Disease Visit [facility] Start: 09-19-2025 BP Controlled (<130/80) BP Controlle d (<130/80) [facility] Start: 09-19-2025 Covid-19 Vaccine ( season) Covid-19 Vaccine ( season) [facility] Comment on above: Postponed from 07/16 (Declined at this time) Start: 08-28-2025 End: 08-28-2025 Patient encounter procedure 08/28/2025 10:00 AM EDT Office Visit Psychiatry [address] [place] [phone] Samuel Arias, [employer] BUILDER.[employer] [address] [place] [phone] Psychiatry Start: 08-24-2025 DIABETES SCREEN DIABETES SCREEN [facility] Start: 07-16-2025 Influenza vaccination Influenza Vacc ine (#1) [facility] Start: 07-14-2025 Annual PCP Team Computer Repair Technician catina Disease Visit Annual PCP Team Chronic Disease Visit [facility] Start: 05-29-2025 End: 05-29-2025 Patient encounter procedure 05/29/2025 11:00 AM EDT Office Visit Psychiatry [address] [place] [phone] Samuel Arias APRN.[employer] [address] [place] [phone] Psychiatry Start: 05-25-2025 End: 05-25-2025 Patient encounter procedure 05/25/2025 11:00 AM EDT Appointment [facility] Scan [address] [place], [place] [phone] Dx: Peripheral vascular disease [I73.9]; Cold feet [R20.9] [facility] Comment on above: Dx: Peripheral vascu lar disease [I73.9]; Cold feet [R20.9] Start: 05-21-2025 End: 05-21-2025 Patient encounter procedure 05/21/2025 9:20 AM EDT Office Visit [facility] [address] [place], [place] [phone] Rodriguez Grijalva APRN.[employer] [address] [place], [place] [phone] week bp recheck [facility] Comment on above: 4 week bp recheck Start: 05-19-2025 End: 08-18-2025 Comprehensive metabolic 2000 panel - Serum or Plasma COMPREHENSIVE METABOLIC PANEL Lab Routine Renal insufficiency Expected: 05/19/2025, Expires: 08/18/2025 [facility] Comment on above: Expected: 05/19/2025 , Expires: 08/18/2025 Start: 05-19-2025 End: 08-18-2025 LIPID PANEL, NONFASTING LIPID PANEL, NONFASTING Lab Routine Hyperlipidemia, mixed Expected: 05/19/2025, Expires: 08/18/2025 [facility] Work Phone: Comment on above: Expected: 05/19/2025 , Expires: 08/18/2025 Start: 05-07-2025 End: 05-07-2025 Patient encounter procedure 05/07/2025 2:30 PM EDT Office Visit Vasculary Surgery [address] [place], [place] [phone] Claudication [I73.9] [facility] Comment on above: Claudication [I73.9] Start: 05-02-2025 BP Controlled (<130/80) BP Controlle d (<130/80) [facility] Start: 04-26-2025 End: 04-26-2025 Patient encounter procedure Neurology Comment on above: 3 month follow up; s lot ok yash HOPKINS Start: 04-23-2025 End: 04-23-2025 Patient encounter procedure 04/23/2025 11:40 AM EDT Office Visit [facility] [place] [address] [place], [place] [phone] Shey Quiroz PA-C [address] [place], [place] [phone] f/u rash on legs [facility] Comment on above: f/u rash on legs Start: 2025 RSV Vaccine (1 - 1-d ose 75+ series) RSV Vaccine (1 - 1-dose 75+ series) [facility] Start: 04-10-2025 End: 04-10-2025 Patient encounter procedure 04/10/2025 10:30 AM EDT Office Visit Psychiatry [address] [place] [phone] Samuel Arias, PLASTIC JIG AND FIXTURE BUILDER.[employer] [address] [place] [phone] Psychiatry Start: 03-20-2025 End: 06-19-2025 Bacteria identified in Urine by Culture [facility] Comment on above: Expected: 03/20/2025 , Expires: 06/19/2025 Start: 03-20-2025 End: 03-20-2025 Patient encounter procedure 03/20/2025 11:40 AM EDT Office Visit [facility] [place] [address] [place], [place] [phone] Deangelo Hawkins MD [address] [place] [address] UTI [facility] Comment on above: UTI Start: 03-19-2025 End: 06-18-2025 25-hydroxyvitamin D3 [Mass/volume] in Serum or Plasma VITAMIN D 25 HYDROXY Lab Routine Osteoporosis, senile Expected: 03/19/2025, Expires: 06/18/2025 [facility] Comment on above: Expected: 03/19/2025 , Expires: 06/18/2025 Start: 03-19-2025 End: 06-18-2025 CBC W Auto Differential panel - Blood COMPLETE BLOOD COUNT AND DIFFERENTIAL Lab Routine Essential hypertension Expected: 03/19/2025, Expires: 06/18/2025 [facility] Work Phone: Comment on above: Expected: 03/19/2025 , Expires: 06/18/2025 Start: 03-19-2025 End: 06-18-2025 Comprehensive metabolic 2000 panel - Serum or Plasma COMPREHENSIVE METABOLIC PANEL Lab Routine Essential hypertension Osteoporosis, senile Expected: 03/19/2025, Expires: 06/18/2025 [facility] Comment on above: Expected: 03/19/2025 , Expires: 06/18/2025 Start: 03-19-2025 End: 06-18-2025 LIPID PANEL, NONFASTING LIPID PANEL, NONFASTING Lab Routine Hyperlipidemia, mixed Expected: 03/19/2025, Expires: 06/18/2025 [facility] Comment on above: Expected: 03/19/2025 , Expires: 06/18/2025 Start: 03-19-2025 End: 06-18-2025 Urinalysis complete panel - Urine URINALYSIS, WITH MICROSCOPIC Lab Routine Essential hypertension Expected: 03/19/2025, Expires: 06/18/2025 [facility] Comment on above: Expected: 03/19/2025 , Expires: 06/18/2025 Start: 03-19-2025 End: 03-19-2025 Patient encounter procedure 03/19/2025 9:40 AM EDT Office Visit [facility] [place] [address] [place] [phone] Shey Quiroz PA-C [address] [place] [phone] medicare wellness [facility] Comment on above: medicare wellness Start: 03-16-2025 Annual PCP Team Computer Repair Technician catina Disease Visit Annual PCP Team Chronic Disease Visit [facility] Start: 03-16-2025 RSV Vaccine (1 - 1-d ose 60+ series) RSV Vaccine (1 - 1-dose 60+ series) [facility] Comment on above: Postponed from 04/14 (Insurance Coverage) Start: 03-16-2025 Shingrix Vaccine (1 of 2) Shingrix Vaccine (1 of 2) [facility] Comment on above: Postponed from 04/14 (Insurance Coverage) Start: 03-16-2025 Urine microalbumin profile DTaP,Tdap,Td Vaccine (2 - Td or Tdap) [facility] Comment on above: Postponed from 06/12 (Insurance Coverage) Start: 02-20-2025 DIABETES SCREEN DIABETES SCREEN [facility] Start: 01-16-2025 End: 01-16-2025 Patient encounter procedure Psychiatry Comment on above: follow up Start: 01-15-2025 End: 01-15-2025 Patient encounter procedure 01/15/2025 3:30 PM EST Office Visit Neurology [address] [phone] Monse Claros MD [address] [place] [id number] Parkinsons Disease Neurology Comment on above: Parkinsons Disease Start: 11-15-2024 Advance Directive Discussion Advance Directive Discussion [facility] Start: 09-19-2024 End: 09-19-2024 Patient encounter procedure 09/19/2024 9:40 AM EST Office Visit Family [facility] [place] [address] [place], [place] [phone] Shey Quiroz PA-C [address] [place] [id number] 6 month follow up Family [facility] Comment on above: 6 month follow up Start: 09-13-2024 End: 12-13-2024 Comprehensive metabolic 2000 panel - Serum or Plasma COMPREHENSIVE METABOLIC PANEL Lab Routine Renal insufficiency Expected: 09/13/2024, Expires: 12/13/2024 [facility] Work Phone: Comment on above: Expected: 09/13/2024 , Expires: 12/13/2024 Start: 09-13-2024 End: 12-13-2024 LIPID PANEL, NONFASTING LIPID PANEL, NONFASTING Lab Routine Hyperlipidemia, mixed Expected: 09/13/2024, Expires: 12/13/2024 [facility] Comment on above: Expected: 09/13/2024 , Expires: 12/13/2024 Start: 09-09-2024 Annual PCP Team Computer Repair Technician catina Disease Visit Annual PCP Team Chronic Disease Visit [facility] Start: 09-09-2024 BP Controlled (<130/80) BP Controlle d (<130/80) [facility] Start: 09-09-2024 Covid-19 Vaccine () Covid-19 Vaccine () [facility] Comment on above: Postponed from 07/16 (Declined at this time) Start: 09-09-2024 RSV Vaccine (1 - 1-d ose 60+ series) RSV Vaccine (1 - 1-dose 60+ series) [facility] Comment on above: Postponed from 04/14 (Insurance Coverage) Start: 08-22-2024 End: 08-22-2024 Patient encounter procedure 08/22/2024 1:00 PM EDT Office Visit Psychiatry [address] [place] [phone] Samuel Arias, PLASTIC JIG AND FIXTURE BUILDER.[employer] [address] [place] [phone] follow up Psychiatry Comment on above: follow up Start: 08-11-2024 Annual PCP Team Computer Repair Technician catina Disease Visit Annual PCP Team Chronic Disease Visit [facility] Start: 07-16-2024 Covid-19 Vaccine ( season) Covid-19 Vaccine () [facility] Start: 07-16-2024 Influenza vaccination Influenza Vacc ine (#1) [facility] Start: 07-14-2024 End: 07-14-2024 Patient encounter procedure [facility] Comment on above: dicuss recent falls per Samuel dicuss recent falls per Samuel + referral to PT [facility] Start: 06-27-2024 End: 06-27-2024 Patient encounter procedure 06/27/2024 11:30 AM EDT Office Visit Psychiatry [address] [place] [phone] Samuel Arias, PLASTIC JIG AND FIXTURE BUILDER.[employer] [address] [place] [phone] FOLLOW UP Psychiatry Comment on above: FOLLOW UP Start: 05-02-2024 End: 05-02-2024 Patient encounter procedure 05/02/2024 11:30 AM EDT Office Visit Psychiatry [address] [place] [phone] Samuel Arias, PLASTIC JIG AND FIXTURE BUILDER.[employer] [address] [place] [phone] FOLLOW UP Psychiatry Comment on above: FOLLOW UP Start: 03-10-2024 Screening for osteoporosis Bone Density Screening [facility] Start: 03-09-2024 ANNUAL PCP TEAM BAG FILLER CATINA DISEASE VISIT ANNUAL PCP TEAM CHRONIC DISEASE VISIT [facility] Start: 03-09-2024 BP CONTROLLED (<130/80) BP CONTROLLE D (<130/80) [facility] Start: 03-09-2024 COVID-19 VACCINE (3 - Booster for Moderna series) COVID-19 VACCINE (3 - Booster for Moderna series) [facility] Comment on above: Postponed from 05/03 (Declined at this time) Start: 03-09-2024 COVID-19 VACCINE (3 - Moderna series) COVID-19 VACCINE (3 - Moderna series) [facility] Comment on above: Postponed from 05/03 (Declined at this time) Start: 03-09-2024 SHINGRIX VACCINE (1 of 2) SHINGRIX VACCINE (1 of 2) [facility] Comment on above: Postponed from 04/14 (Insurance Coverage) Start: 03-09-2024 Urine microalbumin profile [facility] Comment on above: Postponed from 06/12 (Insurance Coverage) Start: 02-25-2024 End: 05-26-2024 CBC W Auto Differential panel - Blood CBC + DIFF Lab Routine Anemia, unspecified type Renal insufficiency Expected: 02/25/2024, Expires: 05/26/2024 [facility] Work Phone: Comment on above: Expected: 02/25/2024 , Expires: 05/26/2024 Start: 02-25-2024 End: 05-26-2024 Comprehensive metabolic 2000 panel - Serum or Plasma COMP METABOLIC PANEL Lab Routine Essential hypertension Hyperlipidemia, mixed Expected: 02/25/2024, Expires: 05/26/2024 [facility] Work Phone: Comment on above: Expected: 02/25/2024 , Expires: 05/26/2024 Start: 02-25-2024 End: 05-26-2024 LIPID PANEL, NONFASTING LIPID PANEL, NONFASTING Lab Routine Essential hypertension Hyperlipidemia, mixed Expected: 02/25/2024, Expires: 05/26/2024 [facility] Work Phone: Comment on above: Expected: 02/25/2024 , Expires: 05/26/2024 Start: 02-25-2024 End: 05-26-2024 Thyrotropin [Units/volume] in Serum or Plasma TSH BLD Lab Routine Anxiety Expected: 02/25/2024, Expires: 05/26/2024 [facility] Work Phone: Comment on above: Expected: 02/25/2024 , Expires: 05/26/2024 Start: 02-25-2024 End: 05-26-2024 Urinalysis complete panel - Urine URINALYSIS, WITH MICROSCOPIC Lab Routine Essential hypertension Hyperlipidemia, mixed Expected: 02/25/2024, Expires: 05/26/2024 [facility] Work Phone: Comment on above: Expected: 02/25/2024 , Expires: 05/26/2024 Start: 11-15-2023 Advance Directive Discussion Advance Directive Discussion [facility] Start: 09-11-2023 BP CONTROLLED (<130/80) BP CONTROLLE D (<130/80) [facility] Start: 08-24-2023 ANNUAL PCP TEAM BAG FILLER CATINA DISEASE VISIT ANNUAL PCP TEAM CHRONIC DISEASE VISIT [facility] Start: 07-16-2023 Influenza vaccination INFLUENZA (#1) [facility] Start: 03-09-2023 End: 05-09-2023 Comprehensive metabolic 2000 panel - Serum or Plasma [facility] Work Phone: Comment on above: Expected: 03/09/2023 , Expires: 05/09/2023 Start: 03-09-2023 End: 05-09-2023 LIPID PANEL, NONFASTING [facility] Work Phone: Comment on above: Expected: 03/09/2023 , Expires: 05/09/2023 Start: 03-09-2023 End: 05-09-2023 Thyrotropin [Units/volume] in Serum or Plasma [facility] Work Phone: Comment on above: Expected: 03/09/2023 , Expires: 05/09/2023 Start: 03-09-2023 End: 05-09-2023 Urinalysis complete panel - Urine [facility] Work Phone: Comment on above: Expected: 03/09/2023 , Expires: 05/09/2023 Start: 02-20-2023 ANNUAL PCP TEAM BAG FILLER CATINA DISEASE VISIT ANNUAL PCP TEAM CHRONIC DISEASE VISIT [facility] Start: 02-20-2023 BP CONTROLLED (<130/80) BP CONTROLLE D (<130/80) [facility] Start: 12-15-2022 End: 12-29-2022 Influenza virus A and B RNA and SARS-CoV-2 (COVID-19) N gene panel - Respiratory specimen by YESIKA with probe detection [facility] Work Phone: Comment on above: Expected: 12/15/2022 , Expires: 12/29/2022 Start: 11-15-2022 ADVANCE DIRECTIVE DISCUSSION ADVANCE DIRECTIVE DISCUSSION [facility] Start: 11-15-2022 DEPRESSION ASSESSMENT DEPRESSION ASS ESSMENT [facility] Start: 08-25-2022 End: 10-25-2022 POTASSIUM BLD POTASSIUM BLD Lab Routine Hyperkalemia Expected: 08/25/2022, Expires: 10/25/2022 [facility] Work Phone: Comment on above: Expected: 08/25/2022 , Expires: 10/25/2022 Start: 08-24-2022 End: 10-24-2022 Basic metabolic 2000 panel - Serum or Plasma [facility] Work Phone: Comment on above: Expected: 08/24/2022 , Expires: 10/24/2022 Start: 08-24-2022 End: 10-24-2022 CBC W Auto Differential panel - Blood [facility] Work Phone: Comment on above: Expected: 08/24/2022 , Expires: 10/24/2022 Start: 08-24-2022 End: 10-24-2022 LIPID PANEL, NONFASTING [facility] Work Phone: Comment on above: Expected: 08/24/2022 , Expires: 10/24/2022 Start: 08-24-2022 End: 10-24-2022 Thyrotropin [Units/volume] in Serum or Plasma [facility] Work Phone: Comment on above: Expected: 08/24/2022 , Expires: 10/24/2022 Start: 08-24-2022 End: 10-24-2022 Urinalysis complete panel - Urine [facility] Work Phone: Comment on above: Expected: 08/24/2022 , Expires: 10/24/2022 Start: 08-22-2022 SHINGRIX VACCINE (1 of 2) SHINGRIX VACCINE (1 of 2) [facility] Comment on above: Postponed from 04/14 (Insurance Coverage) Start: 08-22-2022 Urine microalbumin profile DTAP,TDAP,TD (2 - Td or Tdap) [facility] Comment on above: Postponed from 06/12 (Insurance Coverage) Start: 07-16-2022 Influenza vaccination INFLUENZA (#1) [facility] Start: 11-15-2021 DEPRESSION ASSESSMENT DEPRESSION ASS ESSMENT [facility] Start: 08-08-2021 COVID-19 VACCINE (3 - Booster for Moderna series) COVID-19 VACCINE (3 - Booster for Moderna series) [facility] Start: 06-12-2021 Urine microalbumin profile [facility] Start: 05-03-2021 COVID-19 VACCINE (3 - Booster for Moderna series) COVID-19 VACCINE (3 - Booster for Moderna series) [facility] Start: 11-16-2018 FECAL OCCULT BLOOD FECAL OCCULT BLOO D [facility] Start: 11-16-2018 Screening for malign ant neoplasm of colon Fecal Occult Blood [facility] Start: 2000 SHINGRIX VACCINE (1 of 2) SHINGRIX VACCINE (1 of 2) [facility] Start: 1995 COLOGUARD (FIT-DNA) COLOGUARD (FIT-D NA) [facility] Start: [address] COLONOGRAPHY [facility] Start: 1995 Screening for malign ant neoplasm of colon [facility] Start: 1995 SIGMOIDOSCOPY SIGMOIDOSCOPY [facility] Bacteria identified in Urine by Culture URINE CULTURE Microbiology Routine Urinary frequency 02/18/2023 2:11 PM EDT [facility] Work Phone: Bacteria identified in Urine by Culture URINE CULTURE Microbiology Routine Urinary frequency 05/27/2023 10:05 AM EDT [facility] Work Phone: Bacteria identified in Urine by Culture URINE CULTURE Microbiology Routine Urinary frequency 07/06/2023 11:47 AM T [facility] Work Phone: End: 04-15-2025 BD DXA TRABECULAR BONE SCORE (TBS) BD DXA TRABECULAR BONE SCORE (TBS) Radiology Routine Osteoporosis, senile 1 Occurrences starting 03/16/2024 until 04/15/2025 [facility] Comment on above: 1 Occurrences starti ng 03/16/2024 until 04/15/2025 BD DXA TRABECULAR SAAD NE SCORE (TBS) BD DXA TRABECULAR BONE SCORE (TBS) Radiology Routine Osteoporosis, senile 03/16/2024 1:22 PM EDT [facility] End: 06-07-2026 CTA Abdominal, Pelvis and Lower extremity vessels W contrast IV CTA ABD/PEL LOWER EXTREM W IVCON Radiology Routine Peripheral vascular disease Cold feet 1 Occurrences starting 05/08/2025 until 06/07/2026 [facility] Work Phone: Comment on above: 1 Occurrences starti ng 05/08/2025 until 06/07/2026 End: 04-15-2025 DXA Skeletal system.axial Views for bone density DXA-AXIAL SKELETON Radiology Routine Osteoporosis, senile 1 Occurrences starting 03/16/2024 until 04/15/2025 [facility] Work Phone: Comment on above: 1 Occurrences starti ng 03/16/2024 until 04/15/2025 DXA Skeletal system.axial Views for bone density DXA-AXIAL SKELETON Radiology Routine Osteoporosis, senile 03/16/2024 1:22 PM EDT [facility] Influenza virus A an d B RNA and SARS-CoV-2 (COVID-19) N gene panel - Respiratory specimen by YESIKA with probe detection COVID WITH FLUA+B, ROUTINE Microbiology Routine Suspected COVID-19 virus infection 09/11/2022 11:57 AM EDT [facility] Work Phone: UA DIP, URINE (POC) UA DIP, URIN E (POC) Lab Routine Urine frequency Ordered: 03/20/2025 [facility] Work Phone: Comment on above: Ordered: 03/20/2025 End: 04-23-2026 US.doppler Extremity arteries - bilateral for physiologic artery study PVR ANK PRESS [facility] Vascular Lab Routine Claudication 1 Occurrences starting 04/23/2025 until 04/23/2026 [facility] Work Phone: Comment on above: 1 Occurrences starti ng 04/23/2025 until 04/23/2026 [facility] Immunizations Immunization Date Immunization Notes Care Provider Ama mcdonald 09-19-2024 influenza, high dose seasonal, preservative-free Shey Quiroz PA-C Work Phone: [facility] 09-19-2024 influenza virus vacc ine, unspecified formulation Rodriguez Grijalva APRN.[employer] Work Phone: [facility] 08-11-2023 influenza (HD-IIV4) vaccine, age 65+ yr, high dose, quadrivalent, PF (FLUZONE HIGH-DOSE) Enid Brock [facility] Work Phone: [facility] 08-11-2023 influenza virus vacc ine, unspecified formulation Samuel Arias APRN.CNP Work Phone: [facility] 08-24-2022 pneumococcal polysaccharide vaccine, 23 valent Shey Quiroz PA-C Work Phone: [facility] 08-22-2021 influenza, high-dose , quadrivalent vaccine (FLUZONE HIGH DOSE QUADRIVALENT) Deangelo Hawkins MD Work Phone: [facility] 03-08-2021 COVID-19 vaccine, fu ll dose (MODERNA) Deangelo Hawkins MD Work Phone: [facility] Work Phone: 02-08-2021 COVID-19 vaccine, fu ll dose (MODERNA) Deangelo Hawkins MD Work Phone: [facility] 07-30-2020 influenza, high dose seasonal, preservative-free Deangelo Hawkins MD Work Phone: [facility] 07-22-2020 influenza, high dose seasonal, preservative-free Deangelo Hawkins MD Work Phone: [facility] Work Phone: 09-12-2019 influenza, high dose seasonal, preservative-free Deangelo Hawkins MD Work Phone: [facility] Work Phone: 09-16-2018 influenza, high dose seasonal, preservative-free Deangelo Hawkins MD Work Phone: [facility] Work Phone: 08-06-2017 influenza, injectabl e, quadrivalent, contains preservative Deangelo Hawkins MD Work Phone: [facility] Work Phone: 09-25-2016 influenza, injectabl e, quadrivalent, contains preservative Deangelo Hawkins MD Work Phone: [facility] Work Phone: 09-25-2016 pneumococcal polysaccharide vaccine, 23 valent Deangelo Hawkins MD Work Phone: [facility] Work Phone: 08-16-2015 influenza, injectabl e, quadrivalent, contains preservative Deangelo Hawkins MD Work Phone: [facility] Work Phone: 08-16-2015 pneumococcal conjuga te vaccine, 13 valent Deangelo Hawkins MD Work Phone: [facility] Work Phone: 06-12-2011 tetanus toxoid, redu greta diphtheria toxoid, and acellular pertussis vaccine, adsorbed Deangelo Hawkins MD Work Phone: [facility] Work Phone: Payers Date Payer Category Payer Self-pay 2021 Medicare [employer] MEDICARE HU[employer] MEDICARE PPO [id number] 2021-Present [phone] [place] [address] PPO [id number] 2021 Medicare HUMANA MEDICARE HU[employer]NA MEDICARE PPO [id number] 2021-Present [phone] [place] [address] PPO [id number] 2021 Medicare (Managed Care) [facility] ED[facility] [id number] 2021 Medicare [id number] Unknown [id number] Social History Date Type Detail Facility Start: 01-12-2012 Tobacco smoking stat RUSTIS Never smoked tobacco [facility] Work Phone: Start: 02-20-2022 End: 05-29-2025 Alcohol intake Current non-drinker of alcohol (finding) [facility] Start: 1950 Sex Assigned At Not on file [facility] Start: 02-10-2022 End: 09-11-2022 Exposure to SARS-CoV-2 (event) Not sure [facility] Start: 01-12-2012 Tobacco use and exposure Smokeless tobacco non-user [facility] Start: 05-27-2023 End: 04-23-2025 History of Social function [facility] Work Phone: Start: 05-27-2023 End: 04-23-2025 Tobacco use panel [facility] Work Phone: Start: 10-16-2012 Adult Depression Screening Assessment 0 [facility] Work Phone: Functional Status Date Assessment Result Facility 04-12-2015 Are you deaf, or do you have serious difficulty hearing No 04/12/2015 9:55 AM Lida Myrick LPN No [facility] 04-12-2015 Are you blind, or do you have serious difficulty seeing, even when wearing glasses No 04/12/2015 9:55 AM Lida Myrick LPN No [facility] 04-12-2015 Do you have serious difficulty walking or climbing stairs No 04/12/2015 9:55 AM Lida Myrick LPN No [facility] 04-12-2015 Do you have difficul ty dressing or bathing No 04/12/2015 9:55 AM Lida Myrick LPN No [facility] 04-12-2015 Because of a physica l, mental, or emotional condition, do you have difficulty doing errands alone such as visiting a physician's office or shopping No 04/12/2015 9:55 AM Lida Myrick LPN No [facility] Mental Status Date Assessment Result Facility 04-12-2015 Because of a physica l, mental, or emotional condition, do you have serious difficulty concentrating, remembering, or making decisions No 04/12/2015 9:55 AM EDT Lida Fish LPN No [facility] Clinical Notes 03-19-2011 to 07-04-2025 Telephone Encounter - Gosia Virk - 07/04/2025 4:08 PM EDTTelephone Encounter - Gosia Virk - 07/04/2025 4:08 PM Kassandra Timmons CPhT - 06/27/2025 11:59 AM EDT Note Date & Type Note Facility 07-04-2025 Telephone encounter Note Pt's returned the call. [phone] [facility] 07-04-2025 Miscellaneous Notes Pt's returned the call. [phone] Call to patient, no answer. Message left for return call. Patient and called stating they were speaking with [employer] and thought perhaps Amantadine might be causing her to fall asleep more, losing balance backwards, bruises easily. At night it's like she's having nightmares and he can hardly wake her up. At first he thought it was Lexapro but she went from 40 mg to 20 mg and now 10 mg for the last 4 days and still having the issues. So they were told to check about Amantadine. / [phone] documented in this encounter [facility] 07-04-2025 Telephone encounter Note Call to patient, no answer. Message left for return call. [facility] 07-03-2025 Telephone encounter Note Patient and called stating they were speaking with [employer] and thought perhaps Amantadine might be causing her to fall asleep more, losing balance backwards, bruises easily. At night it's like she's having nightmares and he can hardly wake her up. At first he thought it was Lexapro but she went from 40 mg to 20 mg and now 10 mg for the last 4 days and still having the issues. So they were told to check about Amantadine. / [phone] [facility] 07-03-2025 Telephone encounter Note Patient notified Providers recommendations. Also started a new drug by another provider 2 month ago, this nurse advised patient to call their office to report side effects to them as well. Maranda Stinson LPN [facility] 07-03-2025 Miscellaneous Notes Patient notified Providers recommendations. Also started a new drug by another provider 2 month ago, this nurse advised patient to call their office to report side effects to them as well. Maranda Stinson LPN Please notify the patient that she has been on this dose of Lexapro for a while and no adjustments were made recently that could explain the side effects she is reporting. If she still thinks that it is from Lexapro and not her Parkinson's disease, then she can reduce the Lexapro to 1/2 tablet (10 mg) for 2 weeks and see if the symptoms improve. Pt reports for the past couple of months or longer she's been having side effects from Lexapro: mostly restless at night, tells her she slashes around in her sleep, kicks her legs, talks in her sleep, she is having muscle weakness, trouble sleeping, french. Reports she didn't use to have this trouble and she thinks it's from Lexapro. Pt is still taking it - didn't want to stop it until Samuel tells her to. Please advise and phone patient with reply: [phone] Pt's next appt with Samuel is 08/28/25 documented in this encounter [facility] 06-29-2025 Telephone encounter Note Please notify the patient that she has been on this dose of Lexapro for a while and no adjustments were made recently that could explain the side effects she is reporting. If she still thinks that it is from Lexapro and not her Parkinson's disease, then she can reduce the Lexapro to 1/2 tablet (10 mg) for 2 weeks and see if the symptoms improve. [facility] 06-29-2025 Telephone encounter Note Pt reports for the past couple of months or longer she's been having side effects from Lexapro: mostly restless at night, tells her she slashes around in her sleep, kicks her legs, talks in her sleep, she is having muscle weakness, trouble sleeping, french. Reports she didn't use to have this trouble and she thinks it's from Lexapro. Pt is still taking it - didn't want to stop it until Samuel tells her to. Please advise and phone patient with reply: [phone] Pt's next appt with Samuel is 08/28/25 [facility] 06-27-2025 Note HNO ID: [id number] Author: KASSANDRA TSAI CPhT Service: ? Author Type: [employer]pa[employer] Apprentice Type: Progress Notes Filed: 06/27/2025 12:02 Note Text: Patient is identified through a medication adherence outreach initiative based on pharmacy claims data from: [employer] Medication Adherence Category: Statins First Review Attribution Status: Correct attribution Medication(s) Simvastatin 10 mg 1 tab daily Last Filled 03/23/25 for 90 DS, Next fill due 06/20/25 Medication Status per portal/Epic Reconcile Dispense: Not filled Medication Status per Profile Review: No issues per profile review Patient/provider appropriate for outreach? Yes Patient identified by name and Outreach to patient: Left Voicemail/message for return call and Sent MyChart message What was primary intervention? Remind patient to leaf size picker or fill and No intervention Kassandra Tsai CPhT [facility] 06-27-2025 History of Presen t illness Narrative Patient is identified through a medication adherence outreach initiative based on pharmacy claims data from: [employer] Medication Adherence Category: Statins First Review Attribution Status: Correct attribution Medication(s) Simvastatin 10 mg 1 tab daily Last Filled 03/23/25 for 90 DS, Next fill due 06/20/25 Medication Status per portal/Epic Reconcile Dispense: Not filled Medication Status per Profile Review: No issues per profile review Patient/provider appropriate for outreach? Yes Patient identified by name and Outreach to patient: Left Voicemail/message for return call and Sent MyChart message What was primary intervention? Remind patient to leaf size picker or fill and No intervention Kassandra Tsai CPhT [facility] documented in this encounter [facility] 06-27-2025 Note Patient Outreach ([facility]) LEONILA ZAMUDIO ([id number]) 1950 F Date Time Provider Department 06/27/25 DEANGELO HAWKINS During your visit today, we recorded the following information about you: Kassandra Tsai CPhT 06/27/2025 12:02 PM Signed Patient is identified through a medication adherence outreach initiative based on pharmacy claims data from: [employer] Medication Adherence Category: Statins First Review Attribution Status: Correct attribution Medication(s) Simvastatin 10 mg 1 tab daily Last Filled 03/23/25 for 90 DS, Next fill due 06/20/25 Medication Status per portal/Epic Reconcile Dispense: Not filled Medication Status per Profile Review: No issues per profile review Patient/provider appropriate for outreach? Yes Patient identified by name and Outreach to patient: Left Voicemail/message for return call and Sent One Touch EMR message What was primary intervention? Remind patient to leaf size picker or fill and No intervention Kassandra Tsai CPhT [facility] Team Allergies As of Date: 06/27/2025 Noted Allergy Reaction BACTRIM (SULFAMETHOXAZOLE-TRIMETH*2011 2 - Rash DILTIAZEM 12/29/2010 2 - Rash 9 - Itching NORVASC (AMLODIPINE BESYLATE) 12/29/2010 2 - Rash 9 - Itching PENICILLINS 03/08/2008 4 - Hives SULFAMETHOXAZOLE 06/26/2019 2 - Rash TRIMETHOPRIM 06/26/2019 2 - Rash VERAPAMIL 01/16/2011 2 - Rash Comments: rash HCTZ (THIAZIDES) 08/22/2021 14 - Other: See Comments Comments: Low potassium Date Reviewed: 05/29/2025 Reviewed by: Maranda Stinson LPN - Fully Assessed Reason for Visit: Allied Health Visit [5] Cmt: Medication Adherence Outreach Prescriptions as of 06/27/2025 - escitalopram oxalate (LEXAPRO) 20 mg tablet Take 1 tablet by mouth daily at bedtime. - carbidopa-levodopa CR (SINEMET CR) 50-200 mg per tablet Take 1 tablet by mouth once daily. Take at 10p. - amantadine HCl (SYMMETREL) 100 mg capsule Take 1 capsule by mouth two times a day. - triamcinolone acetonide (KENALOG) 0.1 % cream Apply 1 application to affected area three times a day. Apply sparingly to area for rash/itching. - simvastatin (ZOCOR) 10 mg tablet Take 1 tablet by mouth daily at bedtime. - pramipexole (MIRAPEX) 1.5 mg tablet Take 1 tablet by mouth three times a day. - amantadine HCl (SYMMETREL) 100 mg capsule Take 1 capsule by mouth two times a day. - metoprolol tartrate, short acting, (LOPRESSOR) 100 mg tablet Take 1 tablet by mouth two times a day. - spironolactone (ALDACTONE) 25 mg tablet Take 1 tablet by mouth once daily. - carbidopa-levodopa (SINEMET) 25-100 mg per tablet Take 1 tablet by mouth three times daily. Per neuro - sodium fluoride 1.1 % dental cream sodium fluoride 1.1 % dental paste USE TO BRUSH TEETH ONCE A DAY IN THE EVENING - vit A/vit C/vit E/zinc/copper (PRESERVISION AREDS ORAL) Take by mouth. Problem List As Of Date 06/27/2025 Noted Resolved HYPERTEN HEART DIS W/O HRT FAIL [I11.9] 04/13/2008 06/06/2009 CHRONIC SINUSITIS NOS [J32.9] 10/12/2008 Mitral Valve Disorders [I05.9] 06/06/2009 02/17/2010 Urinary frequency [R35.0] 07/17/2009 Pedal edema [R60.0] 11/17/2010 Onychomycosis [B35.1] 12/29/2010 Hypertension, poor control [I10] 03/19/2011 05/16/2012 Osteoporosis, senile [M81.0] Parkinson's disease [G20.A1] Absolute anemia [D64.9] 08/06/2015 Essential hypertension [I10] 08/16/2015 Hyperlipidemia, mixed [E78.2] 08/16/2015 Hematuria [R31.9] 08/16/2015 Colon cancer screening [Z12.11] 09/25/2016 Medicare annual wellness visit, subsequent [Z00*10/27/2017 Renal insufficiency [N28.9] 10/27/2017 Neuropathic pain [M79.2] 08/27/[address] [Z78.9] 02/20/2022 Advance directive discussed with patient [Z71.8*02/20/2022 Medication management [Z79.899] 03/09/2023 Chronic rhinitis [J31.0] 03/09/2023 Major depressive disorder, recurrent episode, m*09/24/2023 RANDY (generalized anxiety disorder) [F41.1] 09/24/2023 Age-related macular degeneration [H35.30] 03/19/2025 Encounter Status:Closed by KASSANDRA TSAI on 06/27/25 [facility] 05-29-2025 Instructions Samuel Arias, ABIMAEL.STRIPPER COLOR - 05/29/2025 12:50 PM EDT We discussed your Parkinson s disease and related symptoms: - Continue taking your regular Sinemet (carbidopa-levodopa) doses as prescribed. - You are currently taking one extended-release Sinemet tablet at bedtime. Since this has not improved your morning freezing episodes, please contact your neurologist to discuss your worsening symptoms and the lack of improvement with this medication. - Continue taking Amantadine as prescribed. - Your symptoms, including leg weakness, freezing episodes, and shaking, appear to be worsening. Please call your neurologist s office today to request an earlier appointment. Your current appointment is scheduled for September, but I recommend you be seen sooner. When you call, describe your symptoms in detail, including the increased frequency and severity of your leg weakness, freezing, and shaking. If you cannot reach them by phone, send a One Touch EMR message. - Consider asking your neurologist about additional physical therapy or occupational therapy to address your current symptoms and help reduce your fall risk. We discussed your safety at home: - You mentioned concerns about falling, particularly in the bathroom. - You currently have a grab bar and a seat in your tub. I recommend purchasing a transfer tub bench to make getting in and out of the tub safer. This allows you to sit and transfer without stepping over the tub. These are available at stores like [employer] or [employer], or your daughter can order one online for you. - Ensure you have an anti-slip mat in your tub to reduce the risk of slipping. We discussed your anxiety and depression: - I have sent a refill for your Lexapro (anxiety medication) to your mail-order pharmacy, [facility]. - Your anxiety and depression may be worsening due to your inability to dance and the challenges with your Parkinson s symptoms. Addressing your Parkinson s symptoms with your neurologist may help improve your mood. - Please ask your and family for help with daily tasks when needed to avoid overexerting yourself. Follow-up: - I have scheduled a follow-up appointment with me on August 28 at 10:00 AM. - Please contact your neurologist today to request an earlier appointment and discuss your worsening symptoms. If you have any questions or need further assistance, please reach out to me. For those experiencing a suicidal crisis: --call the National Suicide Prevention Lifeline at 050 (916-812-0387) --text the Crisis Text Line (text HOME to 055200) --call 061 and let them know you are having a mental health crisis or go to your nearest Emergency Room for stabilization. --You can also call Mobile Crisis at [phone]. -- You may call the department appointment line at [phone] to schedule your appointment. -- Please call my nurse at [phone] or send me a message in One Touch EMR with any questions or concerns between appointments. documented in this encounter [facility] 05-29-2025 Note HNO ID: [id number] Author: SAMUEL ARIAS APRN.JALEEL Service: ? Author Type: Nurse Practitioner Type: Progress Notes Filed: 05/29/2025 12:50 Note Text: FOLLOW UP - PSYCHIATRIC PROGRESS NOTE Visit Type:In person Recording using [employer] Inbox software for draft documentation of the visit was discussed with the patient/authorized merchandiser retail representative; all questions welcomed and answered. Patient/authorized merchandiser retail representative agreed to proceed CC: Outpatient follow-up and safety monitoring of previously prescribed psychiatric medication, psychotherapy or other treatment HPI: Patient is a 75-year-old female with a history of Parkinson's disease and anxiety, presenting for follow-up. The patient reports worsening symptoms related to Parkinson's disease, including increased leg weakness and tremors. She notes that her legs feel weak and don't want to move, which has significantly impacted her ability to dance--a previously enjoyed activity. She last danced about 2-3 months ago but now feels unable to continue due to the fear of falling. She describes episodes of whole-body shaking and expresses concern about falling, stating, I have to grab a hold of something to get started. She has been taking her prescribed medications, including Sinemet (carbidopa-levodopa) and amantadine, but reports no improvement in symptoms. She continues to experience freezing episodes in the morning and evening, despite following her neurologist's recommendation to add an extended-release Sinemet tablet at bedtime. She has been attending an exercise class at [facility] on Wednesdays but has not found it helpful in addressing her current symptoms. The patient also reports increased anxiety and depression, stating, I get depressed about every day anymore because I can't do nothing. She attributes her worsening anxiety to her inability to dance and perform daily activities, such as preparing supper, due to her leg issues. She questions whether her shaking could be contributing to her increased anxiety. She is currently taking Lexapro for anxiety. She expresses frustration with her current physical limitations, stating, I can't do what I did before, like dancing and stuff, and that bothers me. She also reports irritability, which she sometimes directs toward herself, her , and her children. She notes that her helps her if she asks, but she often feels reluctant to do so. In the bathroom, she uses a bar to hold onto when getting out of the tub but still feels unsafe and fears falling. She has a seat in the tub, which helps, but she describes the bathtub as so high that she has to step over to get out, increasing her risk of falling. Risks and benefits of the medication, including any black box warnings, were discussed with the patient. Interval Progress: Worse PATIENT DATA: Generalized Anxiety Disorder Scale (RANDY-7) 08/22/2024 01/15/2025 04/26/2025 RANDY - 7 SCORES Score 15 12 5 (0-4) minimal anxiety, (5-9) mild anxiety, (10-14) moderate anxiety, (15-21) severe anxiety Patient Health Questionnaire (PHQ-9) 08/22/2024 01/15/2025 04/26/2025 PHQ-9 Score 14 9 3 (0-4) minimal depression, (5-9) mild depression, (10-14) moderate depression, (15-19) moderately severe depression, (20-27) severe depression PROMIS Global Health 01/15/2025 04/26/2025 PROMIS Global Health - (T-Scores - the mean of general population = 50. Five points is a clinically meaningful difference.) Physical T-Score 47.7 47.7 50.8 Mental T-Score 41.1 41.1 45.8 PAST MEDICAL HISTORY Diagnosis Date Absolute anemia 08/06/2015 Advance directive discussed with patient 02/20/2022 Discussed 02/20/2022 Anxiety Chronic rhinitis 03/09/2023 CHRONIC SINUSITIS NOS Essential hypertension 08/16/2015 RANDY (generalized anxiety disorder) 09/24/2023 Hyperlipidemia, mixed 08/16/[address] 02/20/2022 DPA: Braden () Major depressive disorder, recurrent episode, moderate (HCC) 09/24/2023 Neuropathic pain 08/27/2021 On cymbalta Onychomycosis 12/29/2010 Osteoporosis, senile alendronate 09/2011-09/2014 Parkinson's disease (HCC) 2012 Bavis Pedal edema 11/17/2010 Renal insufficiency 10/27/2017 Urinary frequency 07/17/2009 White coat hypertension Office hypertension PAST SURGICAL HISTORY Procedure Laterality Date COLONOSCOPY does not want. IMMUNOCHEMICAL FECAL OCCULT BLOOD TEST 11/16/2017 neg NONE Current Outpatient Medications Medication Sig Dispense Refill carbidopa-levodopa CR (SINEMET CR) 50-200 mg per tablet Take 1 tablet by mouth once daily. Take at 10p. 30 tablet 11 amantadine HCl (SYMMETREL) 100 mg capsule Take 1 capsule by mouth two times a day. 14 capsule 0 triamcinolone acetonide (KENALOG) 0.1 % cream Apply 1 application to affected area three times a day. Apply sparingly to area for rash/itching. 454 g 0 simvastatin (ZOCOR) 10 mg tablet Take 1 tablet by mouth daily at bedti (more content not included)... [facility] 05-29-2025 History of Presen t illness Narrative Images from the original note were not included. FOLLOW UP - PSYCHIATRIC PROGRESS NOTE Visit Type:In person Recording using [employer]box software for draft documentation of the visit was discussed with the patient/authorized merchandiser retail representative; all questions welcomed and answered. Patient/authorized merchandiser retail representative agreed to proceed CC: Outpatient follow-up and safety monitoring of previously prescribed psychiatric medication, psychotherapy or other treatment HPI: Patient is a 75-year-old female with a history of Parkinson's disease and anxiety, presenting for follow-up. The patient reports worsening symptoms related to Parkinson's disease, including increased leg weakness and tremors. She notes that her legs feel weak and don't want to move, which has significantly impacted her ability to dance--a previously enjoyed activity. She last danced about 2-3 months ago but now feels unable to continue due to the fear of falling. She describes episodes of whole-body shaking and expresses concern about falling, stating, I have to grab a hold of something to get started. She has been taking her prescribed medications, including Sinemet (carbidopa-levodopa) and amantadine, but reports no improvement in symptoms. She continues to experience freezing episodes in the morning and evening, despite following her neurologist's recommendation to add an extended-release Sinemet tablet at bedtime. She has been attending an exercise class at [email or web address] on Wednesdays but has not found it helpful in addressing her current symptoms. The patient also reports increased anxiety and depression, stating, I get depressed about every day anymore because I can't do nothing. She attributes her worsening anxiety to her inability to dance and perform daily activities, such as preparing supper, due to her leg issues. She questions whether her shaking could be contributing to her increased anxiety. She is currently taking Lexapro for anxiety. She expresses frustration with her current physical limitations, stating, I can't do what I did before, like dancing and stuff, and that bothers me. She also reports irritability, which she sometimes directs toward herself, her , and her children. She notes that her helps her if she asks, but she often feels reluctant to do so. In the bathroom, she uses a bar to hold onto when getting out of the tub but still feels unsafe and fears falling. She has a seat in the tub, which helps, but she describes the bathtub as so high that she has to step over to get out, increasing her risk of falling. Risks and benefits of the medication, including any black box warnings, were discussed with the patient. Interval Progress: Worse PATIENT DATA: Generalized Anxiety Disorder Scale (RANDY-7) 08/22/2024 01/15/2025 04/26/2025 RANDY - 7 SCORES Score 15 12 5 (0-4) minimal anxiety, (5-9) mild anxiety, (10-14) moderate anxiety, (15-21) severe anxiety Patient Health Questionnaire (PHQ-9) 08/22/2024 01/15/2025 04/26/2025 PHQ-9 Score 14 9 3 (0-4) minimal depression, (5-9) mild depression, (10-14) moderate depression, (15-19) moderately severe depression, (20-27) severe depression PROMIS Global Health 01/15/2025 04/26/2025 PROMIS Global Health - (T-Scores - the mean of general population = 50. Five points is a clinically meaningful difference.) Physical T-Score 47.7 47.7 50.8 Mental T-Score 41.1 41.1 45.8 PAST MEDICAL HISTORY Diagnosis Date Absolute anemia 08/06/2015 Advance directive discussed with patient 02/20/2022 Discussed 02/20/2022 Anxiety Chronic rhinitis 03/09/2023 CHRONIC SINUSITIS NOS Essential hypertension 08/16/2015 RANDY (generalized anxiety disorder) 09/24/2023 Hyperlipidemia, mixed 08/16/[address] 02/20/2022 DPA: Braden () Major depressive disorder, recurrent episode, moderate (HCC) 09/24/2023 Neuropathic pain 08/27/2021 On cymbalta Onychomycosis 12/29/2010 Osteoporosis, senile alendronate 09/2011-09/2014 Parkinson's disease (HCC) 2012 Bavis Pedal edema 11/17/2010 Renal insufficiency 10/27/2017 Urinary frequency 07/17/2009 White coat hypertension Office hypertension PAST SURGICAL HISTORY Procedure Laterality Date COLONOSCOPY does not want. IMMUNOCHEMICAL FECAL OCCULT BLOOD TEST 11/16/2017 neg NONE Current Outpatient Medications Medication Sig Dispense Refill carbidopa-levodopa CR (SINEMET CR) 50-200 mg per tablet Take 1 tablet by mouth once daily. Take at 10p. 30 tablet 11 amantadine HCl (SYMMETREL) 100 mg capsule Take 1 capsule by mouth two times a day. 14 capsule 0 triamcinolone acetonide (KENALOG) 0.1 % cream Apply 1 application to affected area three times a day. Apply sparingly to area for rash/itching. 454 g 0 simvastatin (ZOCOR) 10 mg tablet Take 1 tablet by mouth daily at bedtime. 90 tablet 1 pramipexole (MIRAPEX) 1.5 mg tablet Take 1 tablet by mouth three times a day. amantadine HCl (SYMMETREL) 100 mg capsule Take 1 capsule by mouth two times a day. 180 capsule 3 metoprolol tartrate, short acting, (LOPRESSOR) 100 mg tablet Take 1 tablet by mouth two times a day. 180 tablet 1 spironolactone (ALDACTONE) 25 mg tablet Take 1 tablet by mouth once daily. 90 tablet 1 carbidopa-levodopa (SINEMET) 25-100 mg per tablet Take 1 tablet by mouth three times daily. Per neuro sodium fluoride 1.1 % dental cream sodium fluoride 1.1 % dental paste USE TO BRUSH TEETH ONCE A DAY IN THE EVENING vit A/vit C/vit E/zinc/copper (PRESERVISION AREDS ORAL) Take by mouth. escitalopram oxalate (LEXAPRO) 20 mg tablet Take 1 tablet by mouth daily at bedtime. 180 tablet 0 No current facility-administered medications for this visit. ROS: See HPI PFSH: See HPI VITAL SIGNS: 05/29/25 1101 BP: 174/78 Pulse: 91 SpO2: 98% Weight: 59.4 kg (131 lb) MENTAL STATUS EXAM: Mental Status Exam General/Sensorium: Alert Orientation: AAOx3 Appearance: Appears well groomed and stated age- well dressed Eye contact: Fair Demeanor: Cooperative and guarded Motor activity: Calm- Parkinsons related movements. More noticable in legs but also present in arms. Speech: Articulate with appropriate rhythm and volume Mood: Sad, distressed and anxious Affect: Congruent with mood Thought process: Coherent and perseveration Associations: Normal Thought content: Discussing stressors, future goals or plans and hopelessness themes Suicidal ideation: none Homicidal ideation: none Abnormal/psychotic thoughts: Absent Perceptions: She does not appear internally stimulated. Attention: - fair - anxiety about her health interferes Memory: Short-term: Intact Long-term: Intact Language: Intact Fund of knowledge: Fair Insight: Fair Judgment: Fair DATA REVIEWED: Psychiatric scales and Electronic medical record ASSESSMENT & PLAN: 1. 1. RANDY (generalized anxiety disorder) (F41.1) Symptoms are exacerbated by the inability to engage in activities such as dancing due to worsening Parkinson's symptoms. - Reordered Lexapro and sent prescription to [facility]. 2. Encounter for long-term (current) use of medications (Z79.899) Currently on Lexapro for anxiety management. Neurologist previously increased Carbidopa-Levodopa to address freezing episodes, but no improvement noted per patient. - Continue current medication regimen. 3. Parkinson's disease, unspecified whether dyskinesia present, unspecified whether manifestations fluctuate (HCC) (G20.A1) Unspecified abnormalities of gait and mobility (R26.9) Experiencing worsening symptoms, including leg weakness, freezing episodes, and tremors. Current medication adjustments have not provided relief. Concerns about increased fall risk and inability to perform daily activities and hobbies such as dancing. - Advised patient to contact neurologist to report worsening symptoms and lack of improvement with current medication regimen; recommended scheduling an earlier appointment. - Discussed the importance of re-evaluation by [facility] for physical therapy to assess current baseline and provide additional support. - Educated patient on safety measures to prevent falls, including the use of a transfer tub bench and anti-slip mat in the bathroom. - Scheduled follow-up appointment in 3 months on August 28 at 10:00 AM. Current medication regimen unchanged. Prescriptions given Medical Decision Making: Problems: Moderate: 1+ chronic illnesses with change Risk: Moderate: Moderate risk from testing/treatment and Drug management Medical Decision Making Level: 4 - Moderate ADD ON PSYCHOTHERAPY CODE : No SIGNATURE: Samuel Arias APRN.JALEEL PATIENT NAME: Leonila Zamudio DATE: May 29, 2025 TIME: 11:22 AM documented in this encounter [facility] 05-22-2025 Telephone encounter Note Pt notified of Shey's message and instructions. Pt verbalizes understanding. Pt was assisted in transfer to set up vascular appointment and cancel CT scan. Hernandez Sozua LPN [facility] 05-22-2025 Miscellaneous Notes Pt notified of Shey's message and instructions. Pt verbalizes understanding. Pt was assisted in transfer to set up vascular appointment and cancel CT scan. Hernandez Souza LPN Let patient know that her insurance is questioning the CT scan order. I have placed a consult to vascular to determine if they think CTA needs done based on your US results. Recommend cancelling the CT scan for now. Thanks. Shey Quiroz PA-C Received fax from [employer] requesting a Peer to Peer call at [phone]iography (CTA) Abdomen and Pelvis. Form on Yast's desk for review. Hernandez Souza LPN documented in this encounter [facility] 05-22-2025 Telephone encounter Note Let patient know that her insurance is questioning the CT scan order. I have placed a consult to vascular to determine if they think CTA needs done based on your US results. Recommend cancelling the CT scan for now. Thanks. Shey Quiroz PA-C [facility] 05-22-2025 Telephone encounter Note Received fax from [facility] [employer] requesting a Peer to Peer call at [phone] Angiography (CTA) Abdomen and Pelvis. Form on Yast's desk for review. Hernandez Souza LPN [facility] 05-21-2025 Telephone encounter Note Patient notified of results and provider's instructions. Patient verbalizes understanding. Rubi Negro RN [facility] 05-21-2025 Miscellaneous Notes Patient notified of results and provider's instructions. Patient verbalizes understanding. Rubi Negro RN Left message to return call Tresa Coronado MA Let patient know that her labs are all okay. Make sure to stay hydrated. Thanks. documented in this encounter [facility] 05-21-2025 Note HNO ID: [id number] Author: RODRIGUEZ GRIJALVA APRN.[employer] Service: ? Author Type: Nurse Practitioner Type: Progress Notes Filed: 05/21/2025 09:47 Note Text: Chief Complaint Patient presents with: Follow Up: Blood pressure HPI Leonila Zamudio is a 75 year old female who presents here today for Above Complaints.. Patient presents for BP follow up. She is taking metoprolol and spironolactone as prescribed and her BP is well controlled. She checks her BP at home and it has been running 120s/70s. She denies episodes of lightheadedness, blurry vision, headaches, swelling. BP is well-controlled in office today. Past medical history, appointments, medications, allergies reviewed. Previous Medical History PAST MEDICAL HISTORY Diagnosis Date Absolute anemia 08/06/2015 Advance directive discussed with patient 02/20/2022 Discussed 02/20/2022 Anxiety Chronic rhinitis 03/09/2023 CHRONIC SINUSITIS NOS Essential hypertension 08/16/2015 RANDY (generalized anxiety disorder) 09/24/2023 Hyperlipidemia, mixed 08/16/[address] 02/20/2022 DPA: Braden () Major depressive disorder, recurrent episode, moderate ([facility]) 09/24/2023 Neuropathic pain 08/27/2021 On cymbalta Onychomycosis 12/29/2010 Osteoporosis, senile alendronate 09/2011-09/2014 Parkinson's disease (HCC) 2012 Bavis Pedal edema 11/17/2010 Renal insufficiency 10/27/2017 Urinary frequency 07/17/2009 White coat hypertension Office hypertension Previous Surgical History PAST SURGICAL HISTORY Procedure Laterality Date COLONOSCOPY does not want. IMMUNOCHEMICAL FECAL OCCULT BLOOD TEST 11/16/2017 neg NONE Family History FAMILY HISTORY Problem Relation Age of Onset Heart Mother [place] Hypertension Mother Osteoporosis Mother Asthma Father Hypertension Father Lipids Father Diabetes Father Alzheimer's Disease Father Prostate Cancer Father Stroke Maternal Grandmother Stroke Maternal Grandfather Patient Allergies ALLERGIES Allergen Reactions Bactrim [Sulfametho* Rash Diltiazem Rash, Itching Norvasc [Amlodipine* Rash, Itching Penicillins Hives Sulfamethoxazole Rash Trimethoprim Rash Verapamil Rash rash Hctz [Thiazides] Other: See Comments Low potassium Current Medications Current Outpatient Medications on File Prior to Visit Medication Sig carbidopa-levodopa CR (SINEMET CR) 50-200 mg per tablet Take 1 tablet by mouth once daily. Take at 10p. amantadine HCl (SYMMETREL) 100 mg capsule Take 1 capsule by mouth two times a day. triamcinolone acetonide (KENALOG) 0.1 % cream Apply 1 application to affected area three times a day. Apply sparingly to area for rash/itching. simvastatin (ZOCOR) 10 mg tablet Take 1 tablet by mouth daily at bedtime. pramipexole (MIRAPEX) 1.5 mg tablet Take 1 tablet by mouth three times a day. (Patient taking differently: Take 1.5 mg by mouth four times daily.) escitalopram oxalate (LEXAPRO) 20 mg tablet Take 1 tablet by mouth daily at bedtime. amantadine HCl (SYMMETREL) 100 mg capsule Take 1 capsule by mouth two times a day. metoprolol tartrate, short acting, (LOPRESSOR) 100 mg tablet Take 1 tablet by mouth two times a day. spironolactone (ALDACTONE) 25 mg tablet Take 1 tablet by mouth once daily. carbidopa-levodopa (SINEMET) 25-100 mg per tablet Take 1 tablet by mouth three times daily. Per neuro sodium fluoride 1.1 % dental cream sodium fluoride 1.1 % dental paste USE TO BRUSH TEETH ONCE A DAY IN THE EVENING vit A/vit C/vit E/zinc/copper (PRESERVISION AREDS ORAL) Take by mouth. No current facility-administered medications on file prior to visit. Social History Social History Tobacco Use Smoking status: Never Smokeless tobacco: Never Vaping Use Vaping status: Never Used Substance Use Topics Alcohol use: No Drug use: No Review of Symptoms REVIEW OF SYSTEMS SEE HPI EXAM: BP 120/70 Pulse 87 Wt 58 kg (127 lb 13.9 oz) BMI 25.10 kg/m? General Appearance: Well appearing, alert, in no acute distress, well-hydrated, well nourished. Lungs: Lungs clear to auscultation. No wheezing, rhonchi, rales.. Heart: RRR without murmur, gallop, or rubs. No ectopy. Health Maintenance List Shingrix Vaccine(1 of 2) Never done DTaP,Tdap,Td Vaccine(2 - Td or Tdap) due on 06/12/2021 RSV Vaccine(1 - 1-dose 75+ series) Never done Covid-19 Vaccine(3 - season) due on 09/19/2025 Influenza Vaccine(1) due on 07/16/2025 Bone Density Screening due on 03/16/2026 Annual PCP Team Chronic Disease Visit due on 04/23/2026 Diabetes Screening due on 05/16/2028 Lipid Screening due on 05/16/2030 Advance Directive Discussion Completed Medicare Advantage Annual Wellness Visit Completed Hepatitis C Screening Completed Pneumococcal Vaccine: 50+ Completed Mammogram Screening Discontinued Colorectal Cancer Screening Discontinued Data reviewed Last 5 Encounter BP Readings: Date: BP: 05/21/2025 120/70 04/23/2025 150/83[average (more content not included)... [facility] 05-21-2025 History of Presen t illness Narrative Chief Complaint Patient presents with: Follow Up: Blood pressure HPI Leonila Zamudio is a 75 year old female who presents here today for Above Complaints.. Patient presents for BP follow up. She is taking metoprolol and spironolactone as prescribed and her BP is well controlled. She checks her BP at home and it has been running 120s/70s. She denies episodes of lightheadedness, blurry vision, headaches, swelling. BP is well-controlled in office today. Past medical history, appointments, medications, allergies reviewed. Previous Medical History PAST MEDICAL HISTORY Diagnosis Date Absolute anemia 08/06/2015 Advance directive discussed with patient 02/20/2022 Discussed 02/20/2022 Anxiety Chronic rhinitis 03/09/2023 CHRONIC SINUSITIS NOS Essential hypertension 08/16/2015 RANDY (generalized anxiety disorder) 09/24/2023 Hyperlipidemia, mixed 08/16/[address] 02/20/2022 DPA: Braden () Major depressive disorder, recurrent episode, moderate (HCC) 09/24/2023 Neuropathic pain 08/27/2021 On cymbalta Onychomycosis 12/29/2010 Osteoporosis, senile alendronate 09/2011-09/2014 Parkinson's disease ([facility]) 2012 Bavis Pedal edema 11/17/2010 Renal insufficiency 10/27/2017 Urinary frequency 07/17/2009 White coat hypertension Office hypertension Previous Surgical History PAST SURGICAL HISTORY Procedure Laterality Date COLONOSCOPY does not want. IMMUNOCHEMICAL FECAL OCCULT BLOOD TEST 11/16/2017 neg NONE Family History FAMILY HISTORY Problem Relation Age of Onset Heart Mother [place] Hypertension Mother Osteoporosis Mother Asthma Father Hypertension Father Lipids Father Diabetes Father Alzheimer's Disease Father Prostate Cancer Father Stroke Maternal Grandmother Stroke Maternal Grandfather Patient Allergies ALLERGIES Allergen Reactions Bactrim [Sulfametho* Rash Diltiazem Rash, Itching Norvasc [Amlodipine* Rash, Itching Penicillins Hives Sulfamethoxazole Rash Trimethoprim Rash Verapamil Rash rash Hctz [Thiazides] Other: See Comments Low potassium Current Medications Current Outpatient Medications on File Prior to Visit Medication Sig carbidopa-levodopa CR (SINEMET CR) 50-200 mg per tablet Take 1 tablet by mouth once daily. Take at 10p. amantadine HCl (SYMMETREL) 100 mg capsule Take 1 capsule by mouth two times a day. triamcinolone acetonide (KENALOG) 0.1 % cream Apply 1 application to affected area three times a day. Apply sparingly to area for rash/itching. simvastatin (ZOCOR) 10 mg tablet Take 1 tablet by mouth daily at bedtime. pramipexole (MIRAPEX) 1.5 mg tablet Take 1 tablet by mouth three times a day. (Patient taking differently: Take 1.5 mg by mouth four times daily.) escitalopram oxalate (LEXAPRO) 20 mg tablet Take 1 tablet by mouth daily at bedtime. amantadine HCl (SYMMETREL) 100 mg capsule Take 1 capsule by mouth two times a day. metoprolol tartrate, short acting, (LOPRESSOR) 100 mg tablet Take 1 tablet by mouth two times a day. spironolactone (ALDACTONE) 25 mg tablet Take 1 tablet by mouth once daily. carbidopa-levodopa (SINEMET) 25-100 mg per tablet Take 1 tablet by mouth three times daily. Per neuro sodium fluoride 1.1 % dental cream sodium fluoride 1.1 % dental paste USE TO BRUSH TEETH ONCE A DAY IN THE EVENING vit A/vit C/vit E/zinc/copper (PRESERVISION AREDS ORAL) Take by mouth. No current facility-administered medications on file prior to visit. Social History Social History Tobacco Use Smoking status: Never Smokeless tobacco: Never Vaping Use Vaping status: Never Used Substance Use Topics Alcohol use: No Drug use: No Review of Symptoms REVIEW OF SYSTEMS SEE HPI EXAM: BP 120/70 Pulse 87 Wt 58 kg (127 lb 13.9 oz) BMI 25.10 kg/m General Appearance: Well appearing, alert, in no acute distress, well-hydrated, well nourished. Lungs: Lungs clear to auscultation. No wheezing, rhonchi, rales.. Heart: RRR without murmur, gallop, or rubs. No ectopy. Health Maintenance List Shingrix Vaccine(1 of 2) Never done DTaP,Tdap,Td Vaccine(2 - Td or Tdap) due on 06/12/2021 RSV Vaccine(1 - 1-dose 75+ series) Never done Covid-19 Vaccine(3 - season) due on 09/19/2025 Influenza Vaccine(1) due on 07/16/2025 Bone Density Screening due on 03/16/2026 Annual PCP Team Chronic Disease Visit due on 04/23/2026 Diabetes Screening due on 05/16/2028 Lipid Screening due on 05/16/2030 Advance Directive Discussion Completed Medicare Advantage Annual Wellness Visit Completed Hepatitis C Screening Completed Pneumococcal Vaccine: 50+ Completed Mammogram Screening Discontinued Colorectal Cancer Screening Discontinued Data reviewed Last 5 Encounter BP Readings: Date: BP: 05/21/2025 120/70 04/23/2025 150/83[average with machine[ 04/17/2025 130/86 03/20/2025 118/70 03/19/2025 128/78 ASSESSMENT/PLAN: 1. Essential hypertension - ICD9: 401.9, ICD10: I10 - Controlled - Continue current medications - Recommend home blood pressure monitoring, to bring results to next visit - Encouraged sodium restriction, DASH or Mediterranean diet - Recommend regular aerobic exercise Rodriguez Grijalva APRN.[employer] documented in this encounter [facility] 05-21-2025 Telephone encounter Note Left message to return call Tresa Coronado MA [facility] 05-21-2025 Telephone encounter Note Let patient know that her labs are all okay. Make sure to stay hydrated. Thanks. [facility] 05-10-2025 Telephone encounter Note Patient calls and notified of results and providers instructions. Patient verbalizes understanding. Patient warm transferred to schedule CT of abdomen. Emmie Parada RN [facility] 05-10-2025 Miscellaneous Notes Patient calls and notified of results and providers instructions. Patient verbalizes understanding. Patient warm transferred to schedule CT of abdomen. Emmie Parada RN Called and left message on patients voicemail to return call to the office and ask to speak with a triage nurse. Maryana Crockett MA Left message for pt to contact office. Hernandez Souaz LPN Let patient know that her blood flow in her legs are okay. However there is some evidence that she may have some disease in the arteries of her abdomen. I'm ordering a CTA abdomen to evaluate the vascular flow in this area. Shey Quiroz PA-C documented in this encounter [facility] 05-10-2025 Telephone encounter Note Called and left message on patients voicemail to return call to the office and ask to speak with a triage nurse. Maryana Crockett MA [facility] 05-08-2025 Telephone encounter Note Left message for pt to contact office. Hernandez Souza LPN [facility] 05-08-2025 Telephone encounter Note Let patient know that her blood flow in her legs are okay. However there is some evidence that she may have some disease in the arteries of her abdomen. I'm ordering a CTA abdomen to evaluate the vascular flow in this area. Shey Quiroz PA-C [facility] 04-26-2025 Instructions Monse Claros MD - 04/26/2025 1:03 PM EDT It was a pleasure to see you today. We addressed the following diagnoses: Parkinson's disease with dyskinesia and fluctuating manifestations (hcc) My recommendations are as follows: - Continue your regular Sinemet (carbidopa-levodopa) doses as you have been taking them (1 or 1 tablets at each scheduled time, about every three hours during the day). - Add one extended-release Sinemet tablet (50/200 mg) at bedtime as your last dose. Try this for two weeks; if you do not notice help with your morning freezing or it causes problems, you may stop taking it. - Continue amantadine as prescribed. The purplish, blotchy rash on your legs can occur with this medication. A one-week supply has been sent to your local pharmacy to bridge until your mail-order refill arrives. - Keep taking pramipexole (Mirapex) four times daily at the times you ve been using. - If you miss a levodopa dose, take it as soon as you remember, then maintain three-hour spacing for the rest of the day and resume your usual schedule the next morning. - Continue your walking and balance exercises with [email or web address]. Ask them to re-evaluate you for return to the higher-level Parkinson s exercise class. - When walking, avoid sudden turns or quick head movements to reduce falls. Pause and look ahead before stepping off curbs, navigating stairs, or changing direction. - Follow up in four months to review your symptoms, medication effects, and exercise progress. Movement Disorders Medication Schedule: Medications 5 8 11 2 5 10p Sinemet 25/100 1.5 1.25 1.5 1.25 1.5 pramipexole 1.5 mg 1 1 1 1 amantadine 100 mg 1 1 Sinemet CR 50/200 1 Return at or around: 08/26/25 Your current R Movement Disorders Team includes: Primary Movement Disorders Neurologist: Monse Claros MD You don't have a movement disorders-specialized advanced practice provider (CHIDI) on your team yet. You may ask to have your next follow-up appointment scheduled with an CHIDI and add them to your team to expand your team, access, and appointment options. If there are any concerns before your next visit, please call or you can send a message through [employer]. You can also now schedule and select appointments through [employer]. Monse Claros MD documented in this encounter [facility] 04-26-2025 History of Presen t illness Narrative [facility] - FOLLOW UP EVALUATION Recording using [employer] software for draft documentation of the visit was discussed with the patient/authorized merchandiser retail representative; all questions welcomed and answered. Patient/authorized merchandiser retail representative agreed to proceed Deangelo Hawkins MD [id number] [facility] [id number] Dear Deangelo Hawkins MD: I had the pleasure of seeing Ms. Zamudio for follow-up today. As you know she is a 75 year old right-handed female with a history of PD since 2012. Subjective Previous Plan- 01/15/2025 Visit: For Parkinson's - - week 1: add amantadine 100 mg daily, in the morning at 8A. The rest of your Parkinson's medications will stay the same - week 2-3: increase amantadine to to 100 mg twice daily at 8A and 2P - week 4: reduce the 8AM pramipexole dose to 1/2 tab. Everything else stays the same - Week 5: reduce the 2PM pramipexole dose to 1/2 tab. Everything else stays the same - Week 6: stop the 8AM pramipexole dose. Everything else stays the same. - week 7 and on: stop the 2PM pramipexole dose. Everything else stays the same Interval History: Leonila Zamudio is a 75-year-old female with a history of Parkinson's disease, presenting for follow-up. She is accompanied by her daughter and , who provide additional history. Leonila reports ongoing issues with freezing episodes and occasional tremors. She notes that amantadine has helped reduce dyskinesia but has not significantly improved freezing episodes, which occur sporadically without a discernible pattern. She experiences these episodes more frequently in the mornings and evenings and describes a particularly bad day yesterday with frequent freezing. She has not identified any specific triggers for these episodes. Leonila reports multiple falls, including a recent incident where she tripped over a curb and fell on cement, resulting in a knee scrape. Her daughter notes that sudden movements, such as turning quickly or bending over, often lead to loss of balance. Leonila is working on balance through exercises at [email or web address] and participates in Parkinson's classes. She completed formal PT and is now in the exercise classes. She unfortunately had a fall at the center, apparently not during a class and was moved to the session with more symptomatic people. She doesn't feel this class is challenging enough. It seems she was recently re-evaluated but doesn't know that outcome. She is currently taking pramipexole four times daily, with doses at 5 AM, 8 AM, 11 AM, and 5 PM. She previously took it five times daily but reduced the frequency at last visit to TID which brought out more symptoms. She also takes carbidopa-levodopa, with doses of 1.25 tablets at 8 AM and 2 PM, and 1.5 tablets at other times. She does not report significant fluctuations in symptom control related to medication timing. Leonila has a purplish blotchy rash on her legs, which appeared after starting amantadine. She recently visited urgent care for this issue, where they considered circulation problems and planned an ankle-brachial index test. The rash is not present on her arms. She reports better control of anxiety since her Lexapro dosage was reduced from 40 mg to 20 mg daily by psychiatry. She does not endorse hallucinations but has been experiencing more frequent episodes of yelling and jumping in her sleep over the past year. These episodes do not involve thrashing or safety concerns, and her notes that she is difficult to wake during these episodes. Leonila does not report ICD. She maintains a good appetite and is not overweight. She does not get up in the middle of the night to use the bathroom and sleeps from 10 PM to 5 AM. She takes her first dose of carbidopa-levodopa upon waking and reports that it takes about 30 minutes to take effect. She finds it very difficult to move prior to her fist Sinemet dose. Her family has suggested taking her first AM dose in bed and waiting for it to take effect but she cannot wait that long to urinate. Once she is up she will not go back to bed. Movement Disorders Medications Schedule - as of the start of the visit: Medications 5 8 11 2 5 Sinemet 25/100 1.5 1.25 1.5 1.25 1.5 pramipexole 1.5 mg 1 1 1 1 amantadine 100 mg 1 1 Parkinson's Motor Complications Medication duration: 3 hours Wearing off: no Dyskinesia: yes Prior Anti-Parkinson Therapies Carbidopa/Levodopa Carbidopa/Levodopa ER (Rytary) Carbidopa/Levodopa/Entacapone Pramipexole Ropinirole Rotigitine Selegiline Questionnaires: In addition, the following areas that may be affected by abnormal involuntary movements were evaluated: Daily activities Difficulties with eatin (none) Difficulties in dressin (none) Difficulties with hygiene activities: 0 (none) Difficulties with handwritin (none) Difficulties with doing hobbies and other activities: Yes (slight) Difficulties turning in bed: Yes (mild) Difficulties getting out of bed, car or chair: Yes (slight) Tremors/Gait/Balance Shaking or tremors: Yes (mild) Walking and balance problems: Yes (slight) Number of falls in the Last Month: 4 Gait freezing: Yes (mild) Autonomic/Pain Lightheadeness on standin (none) Urinary problems: Yes (slight) Constipation problems: 0 (none) Pain and other sensations: 0 (none) Speech/Swallowing Speech problems: 0 (none) Droolin (none) Chewing and swallowing problems: Yes (slight) Sleep/Fatigue Sleep problems: Yes (mild) Daytime sleepiness: Yes (slight) Fatigue: 0 (none) Mood/Behavior Depression: PHQ-9 Score: 3 usually representing no significant (0-4) depression. Anxiety: RANDY-7 Total Score: 5 usually representing mild (5-9) anxiety. Finally, the following table shows the patient's overall global physical and mental health using the PROMIS scale: PROMIS-10 Flowsheet Row Office Visit from 04/26/2025 in Neurology Office Visit from 01/16/2025 in Psychiatry Global Physical Health T Score 50.8 47.7 Global Mental Health T Score 45.8 41.1 0-10 Standard Pain Scale 5 4 *PROMIS-10 scoring scale: mean = 50, over 50 is above average, under 50 is below average ALLERGIES Allergen Reactions Bactrim [Sulfametho* Rash Diltiazem Rash, Itching Norvasc [Amlodipine* Rash, Itching Penicillins Hives Sulfamethoxazole Rash Trimethoprim Rash Verapamil Rash rash Hctz [Thiazides] Other: See Comments Low potassium Current Outpatient Medications Medication Sig triamcinolone acetonide (KENALOG) 0.1 % cream Apply 1 application to affected area three times a day. Apply sparingly to area for rash/itching. simvastatin (ZOCOR) 10 mg tablet Take 1 tablet by mouth daily at bedtime. pramipexole (MIRAPEX) 1.5 mg tablet Take 1 tablet by mouth three times a day. (Patient taking differently: Take 1.5 mg by mouth four times daily.) escitalopram oxalate (LEXAPRO) 20 mg tablet Take 1 tablet by mouth daily at bedtime. amantadine HCl (SYMMETREL) 100 mg capsule Take 1 capsule by mouth two times a day. metoprolol tartrate, short acting, (LOPRESSOR) 100 mg tablet Take 1 tablet by mouth two times a day. spironolactone (ALDACTONE) 25 mg tablet Take 1 tablet by mouth once daily. carbidopa-levodopa (SINEMET) 25-100 mg per tablet Take 1 tablet by mouth three times daily. Per neuro sodium fluoride 1.1 % dental cream sodium fluoride 1.1 % dental paste USE TO BRUSH TEETH ONCE A DAY IN THE EVENING vit A/vit C/vit E/zinc/copper (PRESERVISION AREDS ORAL) Take by mouth. carbidopa-levodopa CR (SINEMET CR) 50-200 mg per tablet Take 1 tablet by mouth once daily. Take at 10p. amantadine HCl (SYMMETREL) 100 mg capsule Take 1 capsule by mouth two times a day. No current facility-administered medications for this visit. Objective Vital Signs: Wt 59.7 kg (131 lb 9.8 oz) SpO2 98% BMI 25.84 kg/m Orthostatic Vitals: Sitting: BP 125/78 Pulse 79 Standing: BP 125/73 Pulse 83 Weight: 59.7 kg (131 lb 9.8 oz) No LMP recorded. Patient is postmenopausal. Body mass index is 25.84 kg/m . Neurological Exam Mental Status Awake and alert. Language is fluent with no aphasia. Motor Constant mild to moderate dyskinesia. Movement Disorders Scales Performed: MDS-UPDRS Motor subscale condition of exam Medication Off/On/Naiive ON Time of UPDRS 1258 Time of Last Medication 1100 Last Medication Taken DBS Right DBS Left MDS-UPDRS Motor subscale scores Speech 0-Normal. No speech problems. Facial Expression 0-Normal. Normal facial expression. Rigidity Neck 1-Slight. Rigidity only detected with activation maneuver. Rigidity Right Upper Extremity 0-Normal. No rigidity. Rigidity Left Upper Extremity 0-Normal. No rigidity. Rigidity Right Lower Extremity 0-Normal. No rigidity. Rigidity Left Lower Extremity 0-Normal. No rigidity. Finger Taps Right 2-Mild. a) 3 to 5 interruptions during tapping, b) mild slowing, c) the amplitude decrements midway in the 10-tap sequence. Finger Taps Left 2-Mild. a) 3 to 5 interruptions during tapping, b) mild slowing, c) the amplitude decrements midway in the 10-tap sequence. Hand Movements Right 1-Slight. a) the regular rhythm is broken with one or two interruptions or hesitations of the movement, b) slight slowing, c) the amplitude decrements near the end of the task. Hand Movements Left 3-Moderate. a) more than 5 interruptions during the movement or at least one longer arrest (freeze) in ongoing movement, b) moderate slowing, c) the amplitude decrements starting after the 1st [id number] sequence. Arm Movements Right 1-Slight. a) the regular rhythm is broken with one or two interruptions or hesitations of the movement, b) slight slowing, c) the amplitude decrements near the end of the sequence. Arm Movements Left 1-Slight. a) the regular rhythm is broken with one or two interruptions or hesitations of the movement, b) slight slowing, c) the amplitude decrements near the end of the sequence. Toe Taps Right 0-Normal. No problem. Toe Taps Left 0-Normal. No problem. Leg Agility Right 0-Normal. No problems. Leg Agility Left 0-Normal. No problems. Arise From Chair 0-Normal. No problems. Able to arise quickly without hesitation. Gait 2-Mild. Independent walking but with substantial gait impairment. Gait Freezing 0-Normal. No freezing. Posture Stability 0-Normal. No problems: recovers with one or two steps. Posture 2-Mild. Definite flexion, scoliosis or leaning to one side, but patient can correct posture to normal posture when asked to do so. Body Bradykinesia 0-Normal. No problems. Postural Tremor Hand Right 0-Normal. No tremor. Postural Tremor Hand Left 0-Normal. No tremor. Kinetic Tremor Right 0-Normal. No tremor. Kinetic Tremor Left 0-Normal. No tremor. Rest Tremor Amplitude Right Upper Extremity 0-Normal. No tremor. Rest Tremor Amplitude Left Upper Extremity 0-Normal. No tremor. Rest Tremor Amplitude Right Lower Extremity 0-Normal. No tremor. Rest Tremor Amplitude Left Lower Extremity 0-Normal. No tremor. Rest Tremor Amplitude Lip/Jaw 0-Normal. No tremor. Rest Tremor Constancy 0-Normal. No tremor. MDS-UPDRS Motor subscale totals Left Total 6 Right Total 4 Midline Total 5 Tremor Total / 10 0 PIGD Total / 3 2 Overall Total 15 Change Better/Worse WORSE % Change Compared to Last Filed Total (!) 36.36 Assessment and Plan: Assessment Ms. Zamudio is a right-handed 75 year old year old female with PD. Her main complaints are freezing, then dyskinesia. Her freezing does not seem to related to her medication doses. She is dyskinetic much of the time so likely overmedicated. Her dyskinesia has improved with medication reduction but then she feels off. She is on more than the recommended dose of pramipexole but fortunately no obvious side effects at this time. Addition of amantadine improved dyskinesia but not freezing. Discussed freezing is often not medication responsive. The following are the current problems noted and addressed during this visit: Parkinson's disease with dyskinesia and fluctuating manifestations (hcc) Plan 04/26/2025 Visit: 1. Parkinson's disease with dyskinesia and fluctuating manifestations (HCC) (G20.B2) - Patient experiencing freezing episodes, particularly in the morning and evening, and occasional falls due to not lifting feet adequately. - Amantadine has reduced dyskinetic movements but is likely causing livedo reticularis of her legs. Continue vascular testing to rule out other causes. Varicose veins are visible too - Currently taking pramipexole 4 times daily; previously reduced from 5 times due to being over the recommended daily dose. - Carbidopa/levodopa regimen includes 1.25 tablets at 0800 and 1400, and 1.5 tablets at other doses. - Ordered controlled-release carbidopa/levodopa 25/100 mg to be taken at bedtime to potentially reduce morning akinesia - Sent prescription to [facility] for immediate availability. - Provided a one-week supply of amantadine to local pharmacy to bridge until mail order arrives. - Patient continues Parkinson's exercise at [facility], working on balance and walking; advised to continue exercises and discuss moving to a higher-level class. - No hallucinations reported; discussed potential side effects of pramipexole, including hallucinations and impulsive behaviors. - Follow-up in 4 months to assess medication efficacy and symptom management. Updated Movement Disorders Medication Schedule: Medications 5 8 11 2 5 10p Sinemet 25/100 1.5 1.25 1.5 1.25 1.5 pramipexole 1.5 mg 1 1 1 1 amantadine 100 mg 1 1 Sinemet CR 50/200 1 Return at or around: 08/26/25 Level of service : 46558 ( 30-39 min). Time spent 36 min on the day of service, which included preparing to see the patient, [id number] patient care, completing clinical documentation, performing a medically appropriate examination, counseling and educating the patient/family/caregiver, and ordering medications, tests, or procedures. Thank you for allowing me to be part of the clinical care of this patient! I look forward to continued participation in the patient s care with you. Please do not hesitate to call with any questions. Sincerely, Monse Claros MD documented in this encounter [facility] 04-26-2025 Note HNO ID: [id number] Author: MONSE CLAROS MD Service: ? Author Type: Physician Type: Progress Notes Filed: 04/26/2025 18:54 Note Text: [facility] - FOLLOW UP EVALUATION Recording using Unified Inbox software for draft documentation of the visit was discussed with the patient/authorized merchandiser retail representative; all questions welcomed and answered. Patient/authorized merchandiser retail representative agreed to proceed Deangelo Hawkins MD [id number] [facility] [id number] Dear Deangelo Hawkins MD: I had the pleasure of seeing Ms. Zamudio for follow-up today. As you know she is a 75 year old right-handed female with a history of PD since 2012. Subjective Previous Plan- 01/15/2025 Visit: For Parkinson's - - week 1: add amantadine 100 mg daily, in the morning at 8A. The rest of your Parkinson's medications will stay the same - week 2-3: increase amantadine to to 100 mg twice daily at 8A and 2P - week 4: reduce the 8AM pramipexole dose to 1/2 tab. Everything else stays the same - Week 5: reduce the 2PM pramipexole dose to 1/2 tab. Everything else stays the same - Week 6: stop the 8AM pramipexole dose. Everything else stays the same. - week 7 and on: stop the 2PM pramipexole dose. Everything else stays the same Interval History: Leonila Zamudio is a 75-year-old female with a history of Parkinson's disease, presenting for follow-up. She is accompanied by her daughter and , who provide additional history. Leonila reports ongoing issues with freezing episodes and occasional tremors. She notes that amantadine has helped reduce dyskinesia but has not significantly improved freezing episodes, which occur sporadically without a discernible pattern. She experiences these episodes more frequently in the mornings and evenings and describes a particularly bad day yesterday with frequent freezing. She has not identified any specific triggers for these episodes. Leonila reports multiple falls, including a recent incident where she tripped over a curb and fell on cement, resulting in a knee scrape. Her daughter notes that sudden movements, such as turning quickly or bending over, often lead to loss of balance. Leonila is working on balance through exercises at [email or web address] and participates in Parkinson's classes. She completed formal PT and is now in the exercise classes. She unfortunately had a fall at the center, apparently not during a class and was moved to the session with more symptomatic people. She doesn't feel this class is challenging enough. It seems she was recently re-evaluated but doesn't know that outcome. She is currently taking pramipexole four times daily, with doses at 5 AM, 8 AM, 11 AM, and 5 PM. She previously took it five times daily but reduced the frequency at last visit to TID which brought out more symptoms. She also takes carbidopa-levodopa, with doses of 1.25 tablets at 8 AM and 2 PM, and 1.5 tablets at other times. She does not report significant fluctuations in symptom control related to medication timing. Leonila has a purplish blotchy rash on her legs, which appeared after starting amantadine. She recently visited urgent care for this issue, where they considered circulation problems and planned an ankle-brachial index test. The rash is not present on her arms. She reports better control of anxiety since her Lexapro dosage was reduced from 40 mg to 20 mg daily by psychiatry. She does not endorse hallucinations but has been experiencing more frequent episodes of yelling and jumping in her sleep over the past year. These episodes do not involve thrashing or safety concerns, and her notes that she is difficult to wake during these episodes. Leonila does not report ICD. She maintains a good appetite and is not overweight. She does not get up in the middle of the night to use the bathroom and sleeps from 10 PM to 5 AM. She takes her first dose of carbidopa-levodopa upon waking and reports that it takes about 30 minutes to take effect. She finds it very difficult to move prior to her fist Sinemet dose. Her family has suggested taking her first AM dose in bed and waiting for it to take effect but she cannot wait that long to urinate. Once she is up she will not go back to bed. Movement Disorders Medications Schedule - as of the start of the visit: Medications 5 8 11 2 5 Sinemet 25/100 1.5 1.25 1.5 1.25 1.5 pramipexole 1.5 mg 1 1 1 1 amantadine 100 mg 1 1 Parkinson's Motor Complications Medication duration: 3 hours Wearing off: no Dyskinesia: yes Prior Anti-Parkinson Therapies Carbidopa/Levodopa Carbidopa/Levodopa ER (Rytary) Carbidopa/Levodopa/Entacapone Pramipexole Ropinirole Rotigitine Selegiline Questionnaires: In addition, the following areas that may be affected by abnormal involuntary movements were evaluated: Daily activities Difficulties with eatin (none) Difficulties in dressin (none) Difficulties with hygiene a (more content not included)... [facility] 04-23-2025 Note HNO ID: [id number] Author: SHEY QUIROZ PA-C Service: ? Author Type: Physician Color Expert Type: Progress Notes Filed: 04/23/2025 11:54 Note Text: Chief Complaint Patient presents with: Follow Up: Rash bilateral lower legs HPI Leonila Zamudio is a 75 year old female who presents here today for Above Complaints.. Stasis Dermatitis: - Rash on lower extremities, started approximately one week ago. - Applying cream with noted improvement. - Denies pruritus or pain. - Presence of varicose veins. Intermittent Leg Cramps: - Occasional cramping in the posterior legs during ambulation and exercise. - No specific distance or duration triggers the cramps; described as random. - Denies cramping when walking around the house. - Feet occasionally feel cold; hands also get real cold. - Denies hyperlipidemia. Past medical history, appointments, medications, allergies reviewed. Previous Medical History PAST MEDICAL HISTORY Diagnosis Date Absolute anemia 08/06/2015 Advance directive discussed with patient 02/20/2022 Discussed 02/20/2022 Anxiety Chronic rhinitis 03/09/2023 CHRONIC SINUSITIS NOS Essential hypertension 08/16/2015 RANDY (generalized anxiety disorder) 09/24/2023 Hyperlipidemia, mixed 08/16/[address] 02/20/2022 DPA: Braden () Major depressive disorder, recurrent episode, moderate (HCC) 09/24/2023 Neuropathic pain 08/27/2021 On cymbalta Onychomycosis 12/29/2010 Osteoporosis, senile alendronate 09/2011-09/2014 Parkinson's disease (HCC) 2012 Bavis Pedal edema 11/17/2010 Renal insufficiency 10/27/2017 Urinary frequency 07/17/2009 White coat hypertension Office hypertension Previous Surgical History PAST SURGICAL HISTORY Procedure Laterality Date COLONOSCOPY does not want. IMMUNOCHEMICAL FECAL OCCULT BLOOD TEST 11/16/2017 neg NONE Family History FAMILY HISTORY Problem Relation Age of Onset Heart Mother [place] Hypertension Mother Osteoporosis Mother Asthma Father Hypertension Father Lipids Father Diabetes Father Alzheimer's Disease Father Prostate Cancer Father Stroke Maternal Grandmother Stroke Maternal Grandfather Patient Allergies ALLERGIES Allergen Reactions Bactrim [Sulfametho* Rash Diltiazem Rash, Itching Norvasc [Amlodipine* Rash, Itching Penicillins Hives Sulfamethoxazole Rash Trimethoprim Rash Verapamil Rash rash Hctz [Thiazides] Other: See Comments Low potassium Current Medications Current Outpatient Medications on File Prior to Visit Medication Sig triamcinolone acetonide (KENALOG) 0.1 % cream Apply 1 application to affected area three times a day. Apply sparingly to area for rash/itching. simvastatin (ZOCOR) 10 mg tablet Take 1 tablet by mouth daily at bedtime. pramipexole (MIRAPEX) 1.5 mg tablet Take 1 tablet by mouth three times a day. escitalopram oxalate (LEXAPRO) 20 mg tablet Take 1 tablet by mouth daily at bedtime. amantadine HCl (SYMMETREL) 100 mg capsule Take 1 capsule by mouth two times a day. metoprolol tartrate, short acting, (LOPRESSOR) 100 mg tablet Take 1 tablet by mouth two times a day. spironolactone (ALDACTONE) 25 mg tablet Take 1 tablet by mouth once daily. carbidopa-levodopa (SINEMET) 25-100 mg per tablet Take 1 tablet by mouth three times daily. Per neuro sodium fluoride 1.1 % dental cream sodium fluoride 1.1 % dental paste USE TO BRUSH TEETH ONCE A DAY IN THE EVENING vit A/vit C/vit E/zinc/copper (PRESERVISION AREDS ORAL) Take by mouth. No current facility-administered medications on file prior to visit. Social History Social History Tobacco Use Smoking status: Never Smokeless tobacco: Never Vaping Use Vaping status: Never Used Substance Use Topics Alcohol use: No Drug use: No Review of Symptoms REVIEW OF SYSTEMS SEE HPI EXAM: BP 150/83 (BP Site: Left Arm, BP Position: Sitting, BP Cuff Size: Regular Adult) Pulse 94 Temp 36.8 ?C (98.2 ?F) Resp 16 Wt 59.9 kg (132 lb) SpO2 98% BMI 25.91 kg/m? General Appearance: Well appearing, alert, in no acute distress, well-hydrated, well nourished.. SKIN: Stasis dermatitis noted on lower extremities. Varicose veins present. Extremities: stasis dermatitis noted. Neg homans. Posterior tibial and dorsalis pedis pulses palpable bilaterally. No edema. . Health Maintenance List Shingrix Vaccine(1 of 2) Never done DTaP,Tdap,Td Vaccine(2 - Td or Tdap) due on 06/12/2021 BP Controlled (<130/80) due on 03/09/2024 RSV Vaccine(1 - 1-dose 75+ series) Never done Covid-19 Vaccine( - 2023- season) due on 09/19/2025 Bone Density Screening due on 03/16/2026 Annual PCP Team Chronic Disease Visit due on 03/20/2026 Diabetes Screening due on 03/14/2028 Lipid Screening due on 03/14/2030 Influenza Vaccine Completed Advance Directive Discussion Completed Hepatitis C Screening Completed Pneumococcal Vaccine: 50+ Completed Mammogram Screening Discontinued Colorectal Cancer (more content not included)... [facility] 04-23-2025 History of Presen t illness Narrative Chief Complaint Patient presents with: Follow Up: Rash bilateral lower legs HPI Leonila Zamudio is a 75 year old female who presents here today for Above Complaints.. Stasis Dermatitis: - Rash on lower extremities, started approximately one week ago. - Applying cream with noted improvement. - Denies pruritus or pain. - Presence of varicose veins. Intermittent Leg Cramps: - Occasional cramping in the posterior legs during ambulation and exercise. - No specific distance or duration triggers the cramps; described as random. - Denies cramping when walking around the house. - Feet occasionally feel cold; hands also get real cold. - Denies hyperlipidemia. Past medical history, appointments, medications, allergies reviewed. Previous Medical History PAST MEDICAL HISTORY Diagnosis Date Absolute anemia 08/06/2015 Advance directive discussed with patient 02/20/2022 Discussed 02/20/2022 Anxiety Chronic rhinitis 03/09/2023 CHRONIC SINUSITIS NOS Essential hypertension 08/16/2015 RANDY (generalized anxiety disorder) 09/24/2023 Hyperlipidemia, mixed 08/16/[address] 02/20/2022 DPA: Braden () Major depressive disorder, recurrent episode, moderate (HCC) 09/24/2023 Neuropathic pain 08/27/2021 On cymbalta Onychomycosis 12/29/2010 Osteoporosis, senile alendronate 09/2011-09/2014 Parkinson's disease ([facility]) 2012 Bavis Pedal edema 11/17/2010 Renal insufficiency 10/27/2017 Urinary frequency 07/17/2009 White coat hypertension Office hypertension Previous Surgical History PAST SURGICAL HISTORY Procedure Laterality Date COLONOSCOPY does not want. IMMUNOCHEMICAL FECAL OCCULT BLOOD TEST 11/16/2017 neg NONE Family History FAMILY HISTORY Problem Relation Age of Onset Heart Mother [place] Hypertension Mother Osteoporosis Mother Asthma Father Hypertension Father Lipids Father Diabetes Father Alzheimer's Disease Father Prostate Cancer Father Stroke Maternal Grandmother Stroke Maternal Grandfather Patient Allergies ALLERGIES Allergen Reactions Bactrim [Sulfametho* Rash Diltiazem Rash, Itching Norvasc [Amlodipine* Rash, Itching Penicillins Hives Sulfamethoxazole Rash Trimethoprim Rash Verapamil Rash rash Hctz [Thiazides] Other: See Comments Low potassium Current Medications Current Outpatient Medications on File Prior to Visit Medication Sig triamcinolone acetonide (KENALOG) 0.1 % cream Apply 1 application to affected area three times a day. Apply sparingly to area for rash/itching. simvastatin (ZOCOR) 10 mg tablet Take 1 tablet by mouth daily at bedtime. pramipexole (MIRAPEX) 1.5 mg tablet Take 1 tablet by mouth three times a day. escitalopram oxalate (LEXAPRO) 20 mg tablet Take 1 tablet by mouth daily at bedtime. amantadine HCl (SYMMETREL) 100 mg capsule Take 1 capsule by mouth two times a day. metoprolol tartrate, short acting, (LOPRESSOR) 100 mg tablet Take 1 tablet by mouth two times a day. spironolactone (ALDACTONE) 25 mg tablet Take 1 tablet by mouth once daily. carbidopa-levodopa (SINEMET) 25-100 mg per tablet Take 1 tablet by mouth three times daily. Per neuro sodium fluoride 1.1 % dental cream sodium fluoride 1.1 % dental paste USE TO BRUSH TEETH ONCE A DAY IN THE EVENING vit A/vit C/vit E/zinc/copper (PRESERVISION AREDS ORAL) Take by mouth. No current facility-administered medications on file prior to visit. Social History Social History Tobacco Use Smoking status: Never Smokeless tobacco: Never Vaping Use Vaping status: Never Used Substance Use Topics Alcohol use: No Drug use: No Review of Symptoms REVIEW OF SYSTEMS SEE HPI EXAM: BP 150/83 (BP Site: Left Arm, BP Position: Sitting, BP Cuff Size: Regular Adult) Pulse 94 Temp 36.8 C (98.2 F) Resp 16 Wt 59.9 kg (132 lb) SpO2 98% BMI 25.91 kg/m General Appearance: Well appearing, alert, in no acute distress, well-hydrated, well nourished.. SKIN: Stasis dermatitis noted on lower extremities. Varicose veins present. Extremities: stasis dermatitis noted. Neg homans. Posterior tibial and dorsalis pedis pulses palpable bilaterally. No edema. . Health Maintenance List Shingrix Vaccine(1 of 2) Never done DTaP,Tdap,Td Vaccine(2 - Td or Tdap) due on 06/12/2021 BP Controlled (<130/80) due on 03/09/2024 RSV Vaccine(1 - 1-dose 75+ series) Never done Covid-19 Vaccine( - 2023- season) due on 09/19/2025 Bone Density Screening due on 03/16/2026 Annual PCP Team Chronic Disease Visit due on 03/20/2026 Diabetes Screening due on 03/14/2028 Lipid Screening due on 03/14/2030 Influenza Vaccine Completed Advance Directive Discussion Completed Hepatitis C Screening Completed Pneumococcal Vaccine: 50+ Completed Mammogram Screening Discontinued Colorectal Cancer Screening Discontinued Data reviewed Assessment and Plan 1. Stasis dermatitis of both legs (I87.2) - Exam reveals stasis dermatitis with no associated pain or pruritus. - Advised continued use of prescribed topical cream. - Recommended application of emollients such as Aquaphor or Vaseline to maintain skin hydration and improve appearance. - Educated on the use of compression stockings and leg elevation to manage venous insufficiency. 2. Claudication (I73.9) - Intermittent leg cramps noted during ambulation, not consistently associated with specific distances. - Peripheral pulses (posterior tibial and dorsalis pedis) are strong on examination. - Ordered Ankle-Brachial Index (JUAN) to evaluate for peripheral arterial disease. 3. Cold feet (R20.9) - Occasional cold feet reported, not constant. - No significant findings on examination to suggest severe arterial insufficiency. - Will reassess based on JUAN results. Shey Quiroz PA-C Recording using Unified Inbox software for draft documentation of the visit was discussed with the patient/authorized merchandiser retail representative; all questions welcomed and answered. Patient/authorized merchandiser retail representative agreed to proceed documented in this encounter [facility] 04-17-2025 Instructions Carolina Mendoza APRN.[facility] - 04/17/2025 12:04 PM EDT 1. Stasis dermatitis (I87.2) - Erythematous rash on lower extremities, non-pruritic and non-tender, consistent with stasis dermatitis. - Differential diagnosis includes circulatory insufficiency. - Prescribed topical steroid cream, apply 2-3 times daily to affected areas; may reduce frequency to every other day based on response. - Educated on the benefits of regular exercise, leg elevation, and use of support stockings to improve circulation. - Provided printed educational materials on stasis dermatitis. - Advised follow-up with primary care physician, Dr. Terrell, in one week for further evaluation and potential vascular studies. 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 - Go for regular walks or other gentle exercise to help improve circulation in your legs. - Avoid standing in one place for long periods. - When seated, elevate your legs (for example, propping them up on a footstool or ottoman). - Wear support stockings or support hose to help with leg circulation. - See Dr. Hawkins in about one week to check on your rash and discuss possible circulation testing. documented in this encounter [facility] 04-17-2025 Note HNO ID: [id number] Author: CAROLINA MENDOZA APRN.[employer] Service: ? Author Type: Nurse Practitioner Type: Progress Notes Filed: 04/17/2025 12:04 Note Text: [facility] Subjective Leonila Zamudio is a 75 year old female. Patient presents with: Rash: BLE's redness, warmth x 2 weeks Rash Pertinent negatives include no fatigue, fever or shortness of breath. Rash: - Rash on lower legs x2 weeks. - Denies pruritus or pain. - Applying skin cream/m; denies using other treatments. - Reports occasional chills; denies fever. - Denies history of diabetes. - Primary care physician is Dr. Andersen. Review of Systems Constitutional: Positive for chills. Negative for fatigue and fever. Respiratory: Negative for shortness of breath. Cardiovascular: Negative for leg swelling. Musculoskeletal: Negative for arthralgias, joint swelling and myalgias. Skin: Positive for color change and rash. Negative for wound. Constitutional: (+) chills Skin: (+) rash on legs, (-) pruritus, (-) pain Objective BP 130/86 Pulse 85 Temp 36.1 ?C (97 ?F) Resp 22 Wt 60 kg (132 lb 4.4 oz) SpO2 98% BMI 25.97 kg/m? PAST MEDICAL HISTORY Diagnosis Date - Absolute anemia 08/06/2015 - Advance directive discussed with patient 02/20/2022 Discussed 02/20/2022 - Anxiety - Chronic rhinitis 03/09/2023 - CHRONIC SINUSITIS NOS - Essential hypertension 08/16/2015 - RANDY (generalized anxiety disorder) 09/24/2023 - Hyperlipidemia, mixed 08/16/2015 - Living will in place 02/20/2022 DPA: Braden () - Major depressive disorder, recurrent episode, moderate (HCC) 09/24/2023 - Neuropathic pain 08/27/2021 On cymbalta - Onychomycosis 12/29/2010 - Osteoporosis, senile alendronate 09/2011-09/2014 - Parkinson's disease (HCC) 2012 Bavis - Pedal edema 11/17/2010 - Renal insufficiency 10/27/2017 - Urinary frequency 07/17/2009 - White coat hypertension Office hypertension PAST SURGICAL HISTORY Procedure Laterality Date - COLONOSCOPY does not want. - IMMUNOCHEMICAL FECAL OCCULT BLOOD TEST 11/16/2017 neg - NONE ALLERGIES Bactrim [Sulfamethoxazole-Trimethoprim], Diltiazem, Norvasc [Amlodipine Besylate], Penicillins, Sulfamethoxazole, Trimethoprim, Verapamil, and Hctz [Thiazides] MEDICATIONS - simvastatin (ZOCOR) 10 mg tablet Take 1 tablet by mouth daily at bedtime. - pramipexole (MIRAPEX) 1.5 mg tablet Take 1 tablet by mouth three times a day. - escitalopram oxalate (LEXAPRO) 20 mg tablet Take 1 tablet by mouth daily at bedtime. - amantadine HCl (SYMMETREL) 100 mg capsule Take 1 capsule by mouth two times a day. - metoprolol tartrate, short acting, (LOPRESSOR) 100 mg tablet Take 1 tablet by mouth two times a day. - spironolactone (ALDACTONE) 25 mg tablet Take 1 tablet by mouth once daily. - carbidopa-levodopa (SINEMET) 25-100 mg per tablet Take 1 tablet by mouth three times daily. Per neuro - sodium fluoride 1.1 % dental cream sodium fluoride 1.1 % dental paste USE TO BRUSH TEETH ONCE A DAY IN THE EVENING - vit A/vit C/vit E/zinc/copper (PRESERVISION AREDS ORAL) Take by mouth. - triamcinolone acetonide (KENALOG) 0.1 % cream Apply 1 application to affected area three times a day. Apply sparingly to area for rash/itching. FAMILY HISTORY Problem Relation Age of Onset - Heart Mother [place] - Hypertension Mother - Osteoporosis Mother - Asthma Father - Hypertension Father - Lipids Father - Diabetes Father - Alzheimer's Disease Father - Prostate Cancer Father - Stroke Maternal Grandmother - Stroke Maternal Grandfather Social History Tobacco Use - Smoking status: Never - Smokeless tobacco: Never Vaping Use - Vaping status: Never Used Substance Use Topics - Alcohol use: No - Drug use: No Physical Exam Vitals and nursing note reviewed. Constitutional: Appearance: Normal appearance. Cardiovascular: Rate and Rhythm: Normal rate. Pulmonary: Effort: Pulmonary effort is normal. Musculoskeletal: General: No swelling, tenderness or signs of injury. Right lower leg: No swelling or tenderness. No edema. Left lower leg: No swelling or tenderness. No edema. Legs: Skin: General: Skin is warm and dry. Capillary Refill: Capillary refill takes less than 2 seconds. Findings: Erythema and rash present. No bruising or lesion. Neurological: Mental Status: She is alert. General: No acute distress. Skin: Rash on lower legs, non-pruritic, non-tender, no warmth, slight erythema and areas of hyperpigmentation; some scal scaling, and eczematous patches {1. Stasis dermatitis (I87.2) - Erythematous rash on lower extremities, non-pruritic and non-tender, consistent with stasis dermatitis. - Differential diagnosis includes circulatory insufficiency. - Prescribed topical steroid cream, apply 2-3 times daily to affected areas; may reduce frequency to every other day based on response. - Educated on the benefits of regular exercise, leg elevation, and use o (more content not included)... [facility] 04-17-2025 History of Presen t illness Narrative Images from the original note were not included. [facility] Subjective Leonila Zamudio is a 75 year old female. Patient presents with: Rash: BLE's redness, warmth x 2 weeks Rash Pertinent negatives include no fatigue, fever or shortness of breath. Rash: - Rash on lower legs x2 weeks. - Denies pruritus or pain. - Applying skin cream/m; denies using other treatments. - Reports occasional chills; denies fever. - Denies history of diabetes. - Primary care physician is Dr. Andersen. Review of Systems Constitutional: Positive for chills. Negative for fatigue and fever. Respiratory: Negative for shortness of breath. Cardiovascular: Negative for leg swelling. Musculoskeletal: Negative for arthralgias, joint swelling and myalgias. Skin: Positive for color change and rash. Negative for wound. Constitutional: (+) chills Skin: (+) rash on legs, (-) pruritus, (-) pain Objective BP 130/86 Pulse 85 Temp 36.1 C (97 F) Resp 22 Wt 60 kg (132 lb 4.4 oz) SpO2 98% BMI 25.97 kg/m PAST MEDICAL HISTORY Diagnosis Date Absolute anemia 08/06/2015 Advance directive discussed with patient 02/20/2022 Discussed 02/20/2022 Anxiety Chronic rhinitis 03/09/2023 CHRONIC SINUSITIS NOS Essential hypertension 08/16/2015 RANDY (generalized anxiety disorder) 09/24/2023 Hyperlipidemia, mixed 08/16/[address] 02/20/2022 DPA: Braden () Major depressive disorder, recurrent episode, moderate (HCC) 09/24/2023 Neuropathic pain 08/27/2021 On cymbalta Onychomycosis 12/29/2010 Osteoporosis, senile alendronate 09/2011-09/2014 Parkinson's disease (HCC) 2012 Bavis Pedal edema 11/17/2010 Renal insufficiency 10/27/2017 Urinary frequency 07/17/2009 White coat hypertension Office hypertension PAST SURGICAL HISTORY Procedure Laterality Date COLONOSCOPY does not want. IMMUNOCHEMICAL FECAL OCCULT BLOOD TEST 11/16/2017 neg NONE ALLERGIES Bactrim [Sulfamethoxazole-Trimethoprim], Diltiazem, Norvasc [Amlodipine Besylate], Penicillins, Sulfamethoxazole, Trimethoprim, Verapamil, and Hctz [Thiazides] MEDICATIONS simvastatin (ZOCOR) 10 mg tablet Take 1 tablet by mouth daily at bedtime. pramipexole (MIRAPEX) 1.5 mg tablet Take 1 tablet by mouth three times a day. escitalopram oxalate (LEXAPRO) 20 mg tablet Take 1 tablet by mouth daily at bedtime. amantadine HCl (SYMMETREL) 100 mg capsule Take 1 capsule by mouth two times a day. metoprolol tartrate, short acting, (LOPRESSOR) 100 mg tablet Take 1 tablet by mouth two times a day. spironolactone (ALDACTONE) 25 mg tablet Take 1 tablet by mouth once daily. carbidopa-levodopa (SINEMET) 25-100 mg per tablet Take 1 tablet by mouth three times daily. Per neuro sodium fluoride 1.1 % dental cream sodium fluoride 1.1 % dental paste USE TO BRUSH TEETH ONCE A DAY IN THE EVENING vit A/vit C/vit E/zinc/copper (PRESERVISION AREDS ORAL) Take by mouth. triamcinolone acetonide (KENALOG) 0.1 % cream Apply 1 application to affected area three times a day. Apply sparingly to area for rash/itching. FAMILY HISTORY Problem Relation Age of Onset Heart Mother [place] Hypertension Mother Osteoporosis Mother Asthma Father Hypertension Father Lipids Father Diabetes Father Alzheimer's Disease Father Prostate Cancer Father Stroke Maternal Grandmother Stroke Maternal Grandfather Social History Tobacco Use Smoking status: Never Smokeless tobacco: Never Vaping Use Vaping status: Never Used Substance Use Topics Alcohol use: No Drug use: No Physical Exam Vitals and nursing note reviewed. Constitutional: Appearance: Normal appearance. Cardiovascular: Rate and Rhythm: Normal rate. Pulmonary: Effort: Pulmonary effort is normal. Musculoskeletal: General: No swelling, tenderness or signs of injury. Right lower leg: No swelling or tenderness. No edema. Left lower leg: No swelling or tenderness. No edema. Legs: Skin: General: Skin is warm and dry. Capillary Refill: Capillary refill takes less than 2 seconds. Findings: Erythema and rash present. No bruising or lesion. Neurological: Mental Status: She is alert. General: No acute distress. Skin: Rash on lower legs, non-pruritic, non-tender, no warmth, slight erythema and areas of hyperpigmentation; some scal scaling, and eczematous patches {1. Stasis dermatitis (I87.2) - Erythematous rash on lower extremities, non-pruritic and non-tender, consistent with stasis dermatitis. - Differential diagnosis includes circulatory insufficiency. - Prescribed topical steroid cream, apply 2-3 times daily to affected areas; may reduce frequency to every other day based on response. - Educated on the benefits of regular exercise, leg elevation, and use of support stockings to improve circulation. - Provided printed educational materials on stasis dermatitis. - Advised follow-up with primary care physician, Dr. Terrell, in one week for further evaluation and potential vascular studies. and Recording using [employer] software for draft documentation of the visit was discussed with the patient/authorized merchandiser retail representative; all questions welcomed and answered. Patient/authorized merchandiser retail representative agreed to proceed History and Record Review Clinical information obtained from an independent historian. History obtained from or confirmed by: spouse. Disposition The patient was discharged. Procedures documented in this encounter [facility] 03-23-2025 Telephone encounter Note Patient notified and voiced understanding. Aaron Bess MA [facility] 03-23-2025 Miscellaneous Notes Patient notified and voiced understanding. Aaron Bess MA Culture is negative for infection documented in this encounter [facility] 03-22-2025 Telephone encounter Note Culture is negative for infection [facility] 03-22-2025 Telephone encounter Note The following approved medication requests have been transmitted electronically. Requested Prescriptions Signed Prescriptions Disp Refills simvastatin (ZOCOR) 10 mg tablet 90 tablet 1 Sig: Take 1 tablet by mouth daily at bedtime. Authorizing Provider: DEANGELO HAWKINS MD [facility] 03-22-2025 Miscellaneous Notes The following approved medication requests have been transmitted electronically. Requested Prescriptions Signed Prescriptions Disp Refills simvastatin (ZOCOR) 10 mg tablet 90 tablet 1 Sig: Take 1 tablet by mouth daily at bedtime. Authorizing Provider: DEANGELO HAWKINS MD Patient reviewed for Population Health Medication Adherence Pended the following prescription(s) for review. Requested Prescriptions Pending Prescriptions Disp Refills simvastatin (ZOCOR) 10 mg tablet 90 tablet 1 Sig: Take 1 tablet by mouth daily at bedtime. Future Appointments Date Time Provider Department Center 04/10/2025 10:30 AM Samuel Arias, ABIMAEL.JALEEL VILLASEÑOR [facility] 04/26/2025 1:30 PM Monse Claros MD [facility] C 09/20/2025 10:00 AM Shey Quiroz PA-C [facility] Please review and refill if appropriate. Thank you. Joslyn Valencia CPhT March 22, 2025 12:20 PM documented in this encounter [facility] 03-22-2025 Telephone encounter Note Patient reviewed for Population Health Medication Adherence Pended the following prescription(s) for review. Requested Prescriptions Pending Prescriptions Disp Refills simvastatin (ZOCOR) 10 mg tablet 90 tablet 1 Sig: Take 1 tablet by mouth daily at bedtime. Future Appointments Date Time Provider Department Center 04/10/2025 10:30 AM [facility] 1:30 PM [facility] 09/20/[facility]25 10:00 AM Shey Quiroz PA-C [facility] Please review and refill if appropriate. Thank you. Joslyn Valencia CPhT March 22, 2025 12:20 PM [facility] 03-22-2025 Note HNO ID: [id number] Author: JOSLYN VALENCIA CPhT Service: ? Author Type: [employer]pper [employer]pa[employer] Apprentice Type: Progress Notes Filed: 03/22/2025 12:20 Note Text: Patient is identified through a medication adherence outreach initiative based on pharmacy claims data from: [facility]ener[facility] Medication Adherence Category: Statins First Review Attribution Status: Correct Attribution Medication(s) Simvastatin 10 mg Medication Status per portal/Epic Reconcile Dispense: Not filled - Outreach patient Medication Status per Profile Review: No issues per profile review Patient appropriate for outreach? No Reason patient not appropriate for outreach: No refills remaining, pended request Joslyn Valencia CPhT Value Based Care Pharmacy Team [facility] 03-22-2025 History of Presen t illness Narrative Patient is identified through a medication adherence outreach initiative based on pharmacy claims data from: Regenerate Medication Adherence Category: Statins First Review Attribution Status: Correct Attribution Medication(s) Simvastatin 10 mg Medication Status per portal/Epic Reconcile Dispense: Not filled - Outreach patient Medication Status per Profile Review: No issues per profile review Patient appropriate for outreach? No Reason patient not appropriate for outreach: No refills remaining, pended request Joslyn Valencia CPhT [facility] Care Pharmacy Team documented in this encounter [facility] 03-22-2025 Note Patient Outreach ( POHE) LEONILA ZAMUDIO ([id number]) 1950 F Date Time Provider Department 03/22/25 DEANGELO HAWKINS During your visit today, we recorded the following information about you: Joslyn Valencia CPhT 03/22/2025 12:20 PM Signed Patient is identified through a medication adherence outreach initiative based on pharmacy claims data from: Regenerate Medication Adherence Category: Statins First Review Attribution Status: Correct Attribution Medication(s) Simvastatin 10 mg Medication Status per portal/Epic Reconcile Dispense: Not filled - Outreach patient Medication Status per Profile Review: No issues per profile review Patient appropriate for outreach? No Reason patient not appropriate for outreach: No refills remaining, pended request Joslyn Valencia CPhT [facility] Allergies As of Date: 03/22/2025 Noted Allergy Reaction BACTRIM (SULFAMETHOXAZOLE-TRIMETH*2011 2 - Rash DILTIAZEM 12/29/2010 2 - Rash 9 - Itching NORVASC (AMLODIPINE BESYLATE) 12/29/2010 2 - Rash 9 - Itching PENICILLINS 03/08/2008 4 - Hives SULFAMETHOXAZOLE 06/26/2019 2 - Rash TRIMETHOPRIM 06/26/2019 2 - Rash VERAPAMIL 01/16/2011 2 - Rash Comments: rash HCTZ (THIAZIDES) 08/22/2021 14 - Other: See Comments Comments: Low potassium Date Reviewed: 03/20/2025 Reviewed by: Deangelo Hawkins MD - Fully Assessed Reason for Visit: Allied Health Visit [5] Cmt: Medication Adherence Outreach Prescriptions as of 03/22/2025 - pramipexole (MIRAPEX) 1.5 mg tablet Take 1 tablet by mouth three times a day. - escitalopram oxalate (LEXAPRO) 20 mg tablet Take 1 tablet by mouth daily at bedtime. - amantadine HCl (SYMMETREL) 100 mg capsule Take 1 capsule by mouth two times a day. - simvastatin (ZOCOR) 10 mg tablet Take 1 tablet by mouth daily at bedtime. - metoprolol tartrate, short acting, (LOPRESSOR) 100 mg tablet Take 1 tablet by mouth two times a day. - spironolactone (ALDACTONE) 25 mg tablet Take 1 tablet by mouth once daily. - carbidopa-levodopa (SINEMET) 25-100 mg per tablet Take 1 tablet by mouth three times daily. Per neuro - sodium fluoride 1.1 % dental cream sodium fluoride 1.1 % dental paste USE TO BRUSH TEETH ONCE A DAY IN THE EVENING - vit A/vit C/vit E/zinc/copper (PRESERVISION AREDS ORAL) Take by mouth. 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.9] 04/13/2008 06/06/2009 CHRONIC SINUSITIS NOS [J32.9] 10/12/2008 Mitral Valve Disorders [I05.9] 06/06/2009 02/17/2010 Urinary frequency [R35.0] 07/17/2009 Pedal edema [R60.0] 11/17/2010 Onychomycosis [B35.1] 12/29/2010 Hypertension, poor control [I10] 03/19/2011 05/16/2012 Osteoporosis, senile [M81.0] Parkinson's disease [G20.A1] Absolute anemia [D64.9] 08/06/2015 Essential hypertension [I10] 08/16/2015 Hyperlipidemia, mixed [E78.2] 08/16/2015 Hematuria [R31.9] 08/16/2015 Colon cancer screening [Z12.11] 09/25/2016 Medicare annual wellness visit, subsequent [Z00*10/27/2017 Renal insufficiency [N28.9] 10/27/2017 Neuropathic pain [M79.2] 08/27/[address] [Z78.9] 02/20/2022 Advance directive discussed with patient [Z71.8*02/20/2022 Medication management [Z79.899] 03/09/2023 Chronic rhinitis [J31.0] 03/09/2023 Major depressive disorder, recurrent episode, m*09/24/2023 RANDY (generalized anxiety disorder) [F41.1] 09/24/2023 Age-related macular degeneration [H35.30] 03/19/2025 Encounter Status:Closed by JOSLYN VALENCIA on 03/22/25 [facility] 03-20-2025 History of Presen t illness Narrative Chief Complaint Patient presents with: UTI HPI Leonila Zamudio is a 74 year old female who presents here today for UTI. Complaints of increased urgency and frequency really bad urgency I have to go really bad onset of 2 weeks ago. Urine 03/14/25 + for WBC and leuk. Patient has also been having some increased falls. Noted by Neurology and advised seeing PCP to eval for UTI.. Patient has not had any dysuria, hematuria, fevers, chills, low back pain, or flank pain. Past medical history, appointments, medications, allergies reviewed. Previous Medical History PAST MEDICAL HISTORY Diagnosis Date Absolute anemia 08/06/2015 Advance directive discussed with patient 02/20/2022 Discussed 02/20/2022 Anxiety Chronic rhinitis 03/09/2023 CHRONIC SINUSITIS NOS Essential hypertension 08/16/2015 RANDY (generalized anxiety disorder) 09/24/2023 Hyperlipidemia, mixed 08/16/[address] 02/20/2022 DPA: Braden () Major depressive disorder, recurrent episode, moderate (HCC) 09/24/2023 Neuropathic pain 08/27/2021 On cymbalta Onychomycosis 12/29/2010 Osteoporosis, senile alendronate 09/2011-09/2014 Parkinson's disease (HCC) 2012 Bavis Pedal edema 11/17/2010 Renal insufficiency 10/27/2017 Urinary frequency 07/17/2009 White coat hypertension Office hypertension Previous Surgical History PAST SURGICAL HISTORY Procedure Laterality Date COLONOSCOPY does not want. IMMUNOCHEMICAL FECAL OCCULT BLOOD TEST 11/16/2017 neg NONE Family History FAMILY HISTORY Problem Relation Age of Onset Heart Mother [place] Hypertension Mother Osteoporosis Mother Asthma Father Hypertension Father Lipids Father Diabetes Father Alzheimer's Disease Father Prostate Cancer Father Stroke Maternal Grandmother Stroke Maternal Grandfather Patient Allergies ALLERGIES Allergen Reactions Bactrim [Sulfametho* Rash Diltiazem Rash, Itching Norvasc [Amlodipine* Rash, Itching Penicillins Hives Sulfamethoxazole Rash Trimethoprim Rash Verapamil Rash rash Hctz [Thiazides] Other: See Comments Low potassium Current Medications Current Outpatient Medications on File Prior to Visit Medication Sig pramipexole (MIRAPEX) 1.5 mg tablet Take 1 tablet by mouth three times a day. escitalopram oxalate (LEXAPRO) 20 mg tablet Take 1 tablet by mouth daily at bedtime. amantadine HCl (SYMMETREL) 100 mg capsule Take 1 capsule by mouth two times a day. simvastatin (ZOCOR) 10 mg tablet Take 1 tablet by mouth daily at bedtime. metoprolol tartrate, short acting, (LOPRESSOR) 100 mg tablet Take 1 tablet by mouth two times a day. spironolactone (ALDACTONE) 25 mg tablet Take 1 tablet by mouth once daily. carbidopa-levodopa (SINEMET) 25-100 mg per tablet Take 1 tablet by mouth three times daily. Per neuro sodium fluoride 1.1 % dental cream sodium fluoride 1.1 % dental paste USE TO BRUSH TEETH ONCE A DAY IN THE EVENING vit A/vit C/vit E/zinc/copper (PRESERVISION AREDS ORAL) Take by mouth. No current facility-administered medications on file prior to visit. Social History Social History Tobacco Use Smoking status: Never Smokeless tobacco: Never Vaping Use Vaping status: Never Used Substance Use Topics Alcohol use: No Drug use: No Review of Symptoms REVIEW OF SYSTEMS See HPI EXAM: BP 118/70 Pulse 74 Temp 36.2 C (97.2 F) Resp 16 Wt 58.1 kg (128 lb) SpO2 98% BMI 25.13 kg/m General Appearance: Well appearing, alert, in no acute distress, well-hydrated, well nourished.. Back:no CVA tenderness. Lungs: Lungs clear to auscultation. No wheezing, rhonchi, rales.. Abdomen: Normal abdominal exam, Abdomen soft, non-tender. Bowel sounds normal. No masses, organomegaly. Health Maintenance List Shingrix Vaccine(1 of 2) Never done DTaP,Tdap,Td Vaccine(2 - Td or Tdap) due on 06/12/2021 RSV Vaccine(1 - 1-dose 75+ series) due on 2025 Covid-19 Vaccine( - season) due on 09/19/2025 Bone Density Screening due on 03/16/2026 Annual PCP Team Chronic Disease Visit due on 03/19/2026 BP Controlled (<130/80) due on 03/19/2026 Diabetes Screening due on 03/14/2028 Lipid Screening due on 03/14/2030 Influenza Vaccine Completed Advance Directive Discussion Completed Hepatitis C Screening Completed Pneumococcal Vaccine: 50+ Completed Mammogram Screening Discontinued Colorectal Cancer Screening Discontinued Data reviewed Latest Ref Rng 03/20/2025 GLUCOSE UA (POCT) Negative mg/dL Negative BILIRUBIN UA (POCT) Negative Negative KETONE UA (POCT) Negative mg/dL Trace SPECIFIC GRAVITY UA (POCT) 1.005 - 1.030 >=1.030 HEMOGLOBIN/BLOOD UA (POCT) Negative Negative PH UA (POCT) 4.5 - 8.0 5.5 PROTEIN UA (POCT) Negative mg/dL Negative UROBILINOGEN UA (POCT) Normal E.U./dL 0.2 NITRITE UA (POCT) Negative Negative LEUKOCYTES UA (POCT) Negative Negative COLOR UA (POCT) Yellow CLARITY UA (POCT) Clear A/P ASSESSMENT/PLAN: 1. Acute cystitis without hematuria - ICD9: 595.0, ICD10: N30.00 (primary diagnosis) - possible - patient or to let me know if in the next 24-48 hrs is she develops hematuria, dysuria, flank pain, fevers, chills or confusion. If so will start treatment and await culture. Check - BACTERIAL CULTURE, URINE- is positive will tx with Macrobid to [facility] [place].. 2. Urine frequency - ICD9: 788.41, ICD10: R35.0 - as above. - UA DIP, URINE (POC) 3. History of recent fall - ICD9: V15.88, ICD10: Z91.81 - will await urine culture and treat if needed. - if negative culture then most likely related to her Parkinson's Deangelo Hawkins MD documented in this encounter [facility] 03-20-2025 Note HNO ID: [id number] Author: DEANGELO HAWKINS MD Service: ? Author Type: Physician Type: Progress Notes Filed: 03/20/2025 12:34 Note Text: Chief Complaint Patient presents with: UTI HPI Leonila Zamudio is a 74 year old female who presents here today for UTI. Complaints of increased urgency and frequency really bad urgency I have to go really bad onset of 2 weeks ago. Urine 03/14/25 + for WBC and leuk. Patient has also been having some increased falls. Noted by Neurology and advised seeing PCP to eval for UTI.. Patient has not had any dysuria, hematuria, fevers, chills, low back pain, or flank pain. Past medical history, appointments, medications, allergies reviewed. Previous Medical History PAST MEDICAL HISTORY Diagnosis Date Absolute anemia 08/06/2015 Advance directive discussed with patient 02/20/2022 Discussed 02/20/2022 Anxiety Chronic rhinitis 03/09/2023 CHRONIC SINUSITIS NOS Essential hypertension 08/16/2015 RANDY (generalized anxiety disorder) 09/24/2023 Hyperlipidemia, mixed 08/16/[address] 02/20/2022 DPA: Braden () Major depressive disorder, recurrent episode, moderate (HCC) 09/24/2023 Neuropathic pain 08/27/2021 On cymbalta Onychomycosis 12/29/2010 Osteoporosis, senile alendronate 09/2011-09/2014 Parkinson's disease (HCC) 2012 Bavis Pedal edema 11/17/2010 Renal insufficiency 10/27/2017 Urinary frequency 07/17/2009 White coat hypertension Office hypertension Previous Surgical History PAST SURGICAL HISTORY Procedure Laterality Date COLONOSCOPY does not want. IMMUNOCHEMICAL FECAL OCCULT BLOOD TEST 11/16/2017 neg NONE Family History FAMILY HISTORY Problem Relation Age of Onset Heart Mother [place] Hypertension Mother Osteoporosis Mother Asthma Father Hypertension Father Lipids Father Diabetes Father Alzheimer's Disease Father Prostate Cancer Father Stroke Maternal Grandmother Stroke Maternal Grandfather Patient Allergies ALLERGIES Allergen Reactions Bactrim [Sulfametho* Rash Diltiazem Rash, Itching Norvasc [Amlodipine* Rash, Itching Penicillins Hives Sulfamethoxazole Rash Trimethoprim Rash Verapamil Rash rash Hctz [Thiazides] Other: See Comments Low potassium Current Medications Current Outpatient Medications on File Prior to Visit Medication Sig pramipexole (MIRAPEX) 1.5 mg tablet Take 1 tablet by mouth three times a day. escitalopram oxalate (LEXAPRO) 20 mg tablet Take 1 tablet by mouth daily at bedtime. amantadine HCl (SYMMETREL) 100 mg capsule Take 1 capsule by mouth two times a day. simvastatin (ZOCOR) 10 mg tablet Take 1 tablet by mouth daily at bedtime. metoprolol tartrate, short acting, (LOPRESSOR) 100 mg tablet Take 1 tablet by mouth two times a day. spironolactone (ALDACTONE) 25 mg tablet Take 1 tablet by mouth once daily. carbidopa-levodopa (SINEMET) 25-100 mg per tablet Take 1 tablet by mouth three times daily. Per neuro sodium fluoride 1.1 % dental cream sodium fluoride 1.1 % dental paste USE TO BRUSH TEETH ONCE A DAY IN THE EVENING vit A/vit C/vit E/zinc/copper (PRESERVISION AREDS ORAL) Take by mouth. No current facility-administered medications on file prior to visit. Social History Social History Tobacco Use Smoking status: Never Smokeless tobacco: Never Vaping Use Vaping status: Never Used Substance Use Topics Alcohol use: No Drug use: No Review of Symptoms REVIEW OF SYSTEMS See HPI EXAM: BP 118/70 Pulse 74 Temp 36.2 ?C (97.2 ?F) Resp 16 Wt 58.1 kg (128 lb) SpO2 98% BMI 25.13 kg/m? General Appearance: Well appearing, alert, in no acute distress, well-hydrated, well nourished.. Back:no CVA tenderness. Lungs: Lungs clear to auscultation. No wheezing, rhonchi, rales.. Abdomen: Normal abdominal exam, Abdomen soft, non-tender. Bowel sounds normal. No masses, organomegaly. Health Maintenance List Shingrix Vaccine(1 of 2) Never done DTaP,Tdap,Td Vaccine(2 - Td or Tdap) due on 06/12/2021 RSV Vaccine(1 - 1-dose 75+ series) due on 2025 Covid-19 Vaccine(3 - 2023- season) due on 09/19/2025 Bone Density Screening due on 03/16/2026 Annual PCP Team Chronic Disease Visit due on 03/19/2026 BP Controlled (<130/80) due on 03/19/2026 Diabetes Screening due on 03/14/2028 Lipid Screening due on 03/14/2030 Influenza Vaccine Completed Advance Directive Discussion Completed Hepatitis C Screening Completed Pneumococcal Vaccine: 50+ Completed Mammogram Screening Discontinued Colorectal Cancer Screening Discontinued Data reviewed Latest Ref Rng 03/20/2025 GLUCOSE UA (POCT) Negative mg/dL Negative BILIRUBIN UA (POCT) Negative Negative KETONE UA (POCT) Negative mg/dL Trace SPECIFIC GRAVITY UA (POCT) 1.005 - 1.030 >=1.030 HEMOGLOBIN/BLOOD UA (POCT) Negative Negative PH UA (POCT) 4.5 - 8.0 5.5 PROTEIN UA (POCT) Negative mg/dL Negative UROBILINOGEN UA (POCT) Normal E.U./dL 0.2 NITRITE UA (POCT) Negative Nega (more content not included)... [facility] 03-19-2025 Telephone encounter Note Patient contacted and scheduled. Aaron Bess MA [facility] 03-19-2025 Miscellaneous Notes Patient contacted and scheduled. Aaron Bess MA Karine see if she can see me at 11:40 am Tomorrow. If not look at Shey's, Rodriguez's and Kinsey's schedules. Bending over or turning fast feels like she is losing her balance in the past 2 weeks. Instructions for adding amantadine and reducing Mirapex were followed. The week of 03/05 was when she was taking Mirapex three times daily. 3 falls in 2 weeks Fell opening fridge Exercising, bent over to leaf size picker a weight Another fall when entering front door, semi-turned to shut the door Did have 22 weeks of balance therapy (PT), completed about a month ago. This was done at [facility] in [place]. This was ordered for Balance disorder [R26.89] Today Lexapro was reduced from 40mg to 20mg. This was reduced for a possible interaction with Mirapex. Mirapex three times daily 0500 1100 1700 Amantadine 1 tablet twice daily 0800 1400 Sinemet five time daily 1.5 0500 1.5 1100 1.5 1700 1.25 0800 1.25 1400 Denies recent illnesses Denies changes in urinary habits Complaints of increased urgency and frequency really bad urgency I have to go really bad onset of 2 weeks ago. Urine 03/14/25 + for WBC and leuk esterase. Recommended reaching out to PCP for urinary symptoms and to have urine re-checked. documented in this encounter [facility] 03-19-2025 Telephone encounter Note Karine see if she can see me at 11:40 am Tomorrow. If not look at Shey's, Rodriguez's and Kinsey's schedules. [facility] 03-19-2025 Telephone encounter Note Bending over or turning fast feels like she is losing her balance in the past 2 weeks. Instructions for adding amantadine and reducing Mirapex were followed. The week of 03/05 was when she was taking Mirapex three times daily. 3 falls in 2 weeks Fell opening fridge Exercising, bent over to leaf size picker a weight Another fall when entering front door, semi-turned to shut the door Did have 22 weeks of balance therapy (PT), completed about a month ago. This was done at [facility] in [place]. This was ordered for Balance disorder [R26.89] Today Lexapro was reduced from 40mg to 20mg. This was reduced for a possible interaction with Mirapex. Mirapex three times daily 0500 1100 1700 Amantadine 1 tablet twice daily 0800 1400 Sinemet five time daily 1.5 0500 1.5 1100 1.5 1700 1.25 0800 1.25 1400 Denies recent illnesses Denies changes in urinary habits Complaints of increased urgency and frequency really bad urgency I have to go really bad onset of 2 weeks ago. Urine 03/14/25 + for WBC and leuk esterase. Recommended reaching out to PCP for urinary symptoms and to have urine re-checked. [facility] 03-19-2025 Telephone encounter Note Patient's spouse Braden returned call and given provider's message below with verbalized understanding. Amarjit Melchor RN [facility] 03-19-2025 Miscellaneous Notes Patient's spouse Braden returned call and given provider's message below with verbalized understanding. Amarjit Melchor RN Left message for patient to return call. Sury Sherwood LPN Let Leonila know that Samuel is okay with them decreasing. Go down to 1 tablet a day and she will discuss at follow up. Contact her with any concerns. Shey Quiroz PA-C ----- Message from Samuel Arias APRN.[employer] sent at 03/19/2025 11:00 AM EDT ----- Regarding: RE: lexapro dose adjustment Chris Kat, Thank you for reaching out. Please, go ahead and decrease the Lexapro dose now and I can assess how she is tolerating the lower dose at our appointment at the end of the month. Samuel ----- Message ----- From: Shey Quiroz PA-C Sent: 03/19/2025 10:55 AM EDT To: Samuel Arias APRN.CNP Subject: lexapro dose adjustment Chris Garcia, I saw Leonila today and they asked me to reach out to you. They are seeing a new neurologist who adjusted the amount of pramipexole she is taking down to TID. Now they are wondering if maybe the lexapro dosing is too high. She reports that she is having more falls and would like to see if tapering down the lexapro helps. They have follow up scheduled end of this month. Wasn't sure if you would want to make the adjustment now and then reassess at the visit. Thanks! Shey documented in this encounter [facility] 03-19-2025 Telephone encounter Note Left message for patient to return call. Sury Sherwood LPN [facility] 03-19-2025 Telephone encounter Note Let Leonila know that Samuel is okay with them decreasing. Go down to 1 tablet a day and she will discuss at follow up. Contact her with any concerns. Shey Quiroz PA-C [facility] 03-19-2025 Telephone encounter Note ----- Message from Samuel Arias APRN.[employer] sent at 03/19/2025 11:00 AM EDT ----- Regarding: RE: lexapro dose adjustment Chris Kat, Thank you for reaching out. Please, go ahead and decrease the Lexapro dose now and I can assess how she is tolerating the lower dose at our appointment at the end of the month. Samuel ----- Message ----- From: Shey Quiroz PA-C Sent: 03/19/2025 10:55 AM EDT To: Samuel Arias APRN.[employer] Subject: lexapro dose adjustment Chris Garcia, I saw Leonila today and they asked me to reach out to you. They are seeing a new neurologist who adjusted the amount of pramipexole she is taking down to TID. Now they are wondering if maybe the lexapro dosing is too high. She reports that she is having more falls and would like to see if tapering down the lexapro helps. They have follow up scheduled end of this month. Wasn't sure if you would want to make the adjustment now and then reassess at the visit. Thanks! Shey [facility] 03-19-2025 Instructions Shey Quiroz PA-C - 03/19/2025 10:28 AM EDT Screening schedule The following prevention plan is recommended: Shingrix Vaccine(1 of 2) Never done DTaP,Tdap,Td Vaccine(2 - Td or Tdap) due on 06/12/2021 RSV Vaccine(1 - 1-dose 75+ series) due on 2025 WHAT YOU CAN DO TO PREVENT FALLS Many falls can be prevented. By making some changes, you can lower your chances of falling. Four things YOU can do to prevent falls for you* and your caregiver 1. Begin a regular exercise program Exercise is one of the most important ways to lower your chances of falling. It makes you stronger and helps you feel better. Exercises that improve balance and coordination (like Bam Chi) are the most helpful. Lack of exercise leads to weakness and increases your chances of falling. Ask your doctor or health care provider about the best type of exercise program for you. 2. Have your health care provider review your medicines Have your doctor or pharmacist review all the medicines you take, even [id number] medicines. As you get older, the way medicines work in your body can change. Some medicines, or combinations of medicines, can make you sleepy or dizzy and can cause you to fall. 3. Have your vision checked Have your eyes checked by an eye doctor at least once a year. You may be wearing the wrong glasses or have a condition like glaucoma or cataracts that limits your vision. Poor vision can increase your chances of falling. 4. Make your home safer About half of all falls happen at home. To make your home safer: Remove things you can trip over (like papers, books, clothes, and shoes) from stairs and places where you walk. Remove small throw rugs or use double-sided tape to keep the rugs from slipping. Keep items you use often in cabinets you can reach easily without using a step stool. Have grab bars put in next to your toilet and in the tub or shower. Use non-slip mats in the bathtub and on shower floors. Improve the lighting in your home. As you get older, you need brighter lights to see well. Hang light-weight curtains or shades to reduce glare. Have handrails and lights put in on all staircases. Wear shoes both inside and outside the house. Avoid going barefoot or wearing slippers. For more information, contact: Centers for Disease Control and Prevention www.cdc.gov/injury * This information may not apply if you have certain medical conditions. documented in this encounter [facility] 03-19-2025 Note HNO ID: [id number] Author: SHEY QUIROZ PA-C Service: ? Author Type: Physician Color Expert Type: Progress Notes Filed: 03/19/2025 11:01 Note Text: Leonila Zamudio is a 74 year old female here for a Medicare wellness visit. Medicare Health Risk Assessment General Health Very good Exercise: Minutes/Day Some- has parkinsons Exercise: Days/Week Most days Alcohol: Daily Use no Alcohol: Drinks/Day 0 Alcohol: 6 or more drinks never Feel off balance Yes- Parkinson's Concerns: Teeth/Dentures no Concerns: Sexual function no Troubled by feelings no Frequency: Eating healthy diet yes ADLs requiring help some Safety precautions in home/vehicle yes Smoke, vape, chews tobacco no Difficulty hearing no Difficulty seeing no Current Providers Specialists: I have reviewed specialist-related care of the patient in the medical record. Medical/Family history review Reviewed and updated problem list, medical/surgical/family/social history, medications, and allergies. Opioid use review Opioid Medications (last 90 days) No data to display Anxiety/Depression screening Recommendation: no further intervention at this time Cognitive screening Seeing neurology Cognitive screening reviewed and No further action needed (score 3-5). Functional Observation Was the patient's Timed Up AND Go test unsteady or >= 12 seconds? No Advance Care Planning Surrogate decision maker and/or advance care plan documented Measurements BP 128/78 (BP Site: Right Arm, BP Position: Sitting, BP Cuff Size: Large Adult) Pulse 79 Temp 36.3 ?C (97.3 ?F) Resp 18 Ht 152 cm (4' 11.84) Wt 58.1 kg (128 lb) SpO2 99% BMI 25.13 kg/m? Vision Screening: Follows with optometry/ophthalmology Assessment/Plan Medicare annual wellness visit, subsequent (Z00.00) - Counseled on healthy diet and regular exercise - Fall avoidance information provided - Personalized prevention plan provided Chief Complaint Patient presents with: Medicare Wellness Exam HPI Leonila Zamudio is a 74 year old female who presents here today for extensive exam. Patient with hx of parkinson's dz, HTN, hyperlipidemia, osteoporosis, RANDY major depressive disorder, and those as below. Parkinson's Disease: - Recent medication adjustments by neurologist Dr. Claros. - Pramipexole reduced from 5 times/day to 3 times/day. - Amantadine added to regimen. - Reports 3 falls in the past 2 weeks. - Experiences dream-like sensations occasionally. Anxiety: - Managed with Lexapro 40 mg daily x1 year. - Neurologist noted high dosage of Lexapro. 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 - Typically goes to bed around 2300, wakes up around 0500. - Occasionally sleeps until 0600. - Falls back asleep during the day when sitting down. - Wakes up at night to use the restroom; drinks water after dinner due to thirst. Heartburn: - Recent onset, occurring randomly, not daily. - Suspects medication as a potential cause. - Takes Tums or Rolaids with relief. Hypertension: - Managed with metoprolol BID and spironolactone daily. - Reports non-adherence to medication regimen, sometimes missing doses for 2-3 days. - No episodes of lightheadedness when taking medication. - Recent blood pressure readin/78 mmHg. Past medical history, appointments, medications, allergies reviewed. Previous Medical History PAST MEDICAL HISTORY Diagnosis Date Absolute anemia 08/06/2015 Advance directive discussed with patient 02/20/2022 Discussed 02/20/2022 Anxiety Chronic rhinitis 03/09/2023 CHRONIC SINUSITIS NOS Essential hypertension 08/16/2015 RANDY (generalized anxiety disorder) 09/24/2023 Hyperlipidemia, mixed 08/16/[address] 02/20/2022 DPA: Braden () Major depressive disorder, recurrent episode, moderate (HCC) 09/24/2023 Neuropathic pain 08/27/2021 On cymbalta Onychomycosis 12/29/2010 Osteoporosis, senile alendronate 09/2011-09/2014 Parkinson's disease (HCC) 2012 Bavis Pedal edema 11/17/2010 Renal insufficiency 10/27/2017 Urinary frequency 07/17/2009 White coat hypertension Office hypertension Previous Surgical History PAST SURGICAL HISTORY Procedure Laterality Date COLONOSCOPY does not want. IMMUNOCHEMICAL FECAL OCCULT BLOOD TEST 11/16/2017 neg NONE Family History FAMILY HISTORY Problem Relation Age of Onset Heart Mother [place] Hypertension Mother Osteoporosis Mother Asthma Father Hypertension Father Lipids Father Diabetes Father Alzheimer's Disease Father Prostate Cancer Father Stroke Maternal Grandmother Stroke Maternal Grandfather Patient Allergies ALLERGIES Allergen Reactions Bactrim [Sulfametho* Rash Diltiazem Rash, Itching Norvasc [Amlodipine* Rash, Itching Penicillins Hives Sulfamethoxazole Rash Trimethoprim Rash Verapamil Rash rash Hctz [Thiazides] Other: See Comments Low potassium Current Medications Current O (more content not included)... [facility] 03-19-2025 History of Presen t illness Narrative Images from the original note were not included. Leonila Zamudio is a 74 year old female here for a Medicare wellness visit. Medicare Health Risk Assessment General Health Very good Exercise: Minutes/Day Some- has parkinsons Exercise: Days/Week Most days Alcohol: Daily Use no Alcohol: Drinks/Day 0 Alcohol: 6 or more drinks never Feel off balance Yes- Parkinson's Concerns: Teeth/Dentures no Concerns: Sexual function no Troubled by feelings no Frequency: Eating healthy diet yes ADLs requiring help some Safety precautions in home/vehicle yes Smoke, vape, chews tobacco no Difficulty hearing no Difficulty seeing no Current Providers Specialists: I have reviewed specialist-related care of the patient in the medical record. Medical/Family history review Reviewed and updated problem list, medical/surgical/family/social history, medications, and allergies. Opioid use review Opioid Medications (last 90 days) No data to display Anxiety/Depression screening Recommendation: no further intervention at this time Cognitive screening Seeing neurology Cognitive screening reviewed and No further action needed (score 3-5). Functional Observation Was the patient's Timed Up & Go test unsteady or >= 12 seconds? No Advance Care Planning Surrogate decision maker and/or advance care plan documented Measurements BP 128/78 (BP Site: Right Arm, BP Position: Sitting, BP Cuff Size: Large Adult) Pulse 79 Temp 36.3 C (97.3 F) Resp 18 Ht 152 cm (4' 11.84) Wt 58.1 kg (128 lb) SpO2 99% BMI 25.13 kg/m Vision Screening: Follows with optometry/ophthalmology Assessment/Plan Medicare annual wellness visit, subsequent (Z00.00) - Counseled on healthy diet and regular exercise - Fall avoidance information provided - Personalized prevention plan provided Chief Complaint Patient presents with: Medicare Wellness Exam HPI Leonila Zamudio is a 74 year old female who presents here today for extensive exam. Patient with hx of parkinson's dz, HTN, hyperlipidemia, osteoporosis, RANDY major depressive disorder, and those as below. Parkinson's Disease: - Recent medication adjustments by neurologist Dr. Claros. - Pramipexole reduced from 5 times/day to 3 times/day. - Amantadine added to regimen. - Reports 3 falls in the past 2 weeks. - Experiences dream-like sensations occasionally. Anxiety: - Managed with Lexapro 40 mg daily x1 year. - Neurologist noted high dosage of Lexapro. 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 - Typically goes to bed around 2300, wakes up around 0500. - Occasionally sleeps until 0600. - Falls back asleep during the day when sitting down. - Wakes up at night to use the restroom; drinks water after dinner due to thirst. Heartburn: - Recent onset, occurring randomly, not daily. - Suspects medication as a potential cause. - Takes Tums or Rolaids with relief. Hypertension: - Managed with metoprolol BID and spironolactone daily. - Reports non-adherence to medication regimen, sometimes missing doses for 2-3 days. - No episodes of lightheadedness when taking medication. - Recent blood pressure readin/78 mmHg. Past medical history, appointments, medications, allergies reviewed. Previous Medical History PAST MEDICAL HISTORY Diagnosis Date Absolute anemia 08/06/2015 Advance directive discussed with patient 02/20/2022 Discussed 02/20/2022 Anxiety Chronic rhinitis 03/09/2023 CHRONIC SINUSITIS NOS Essential hypertension 08/16/2015 RANDY (generalized anxiety disorder) 09/24/2023 Hyperlipidemia, mixed 08/16/[address] 02/20/2022 DPA: Braden () Major depressive disorder, recurrent episode, moderate (HCC) 09/24/2023 Neuropathic pain 08/27/2021 On cymbalta Onychomycosis 12/29/2010 Osteoporosis, senile alendronate 09/2011-09/2014 Parkinson's disease ([facility]) 2012 Bavis Pedal edema 11/17/2010 Renal insufficiency 10/27/2017 Urinary frequency 07/17/2009 White coat hypertension Office hypertension Previous Surgical History PAST SURGICAL HISTORY Procedure Laterality Date COLONOSCOPY does not want. IMMUNOCHEMICAL FECAL OCCULT BLOOD TEST 11/16/2017 neg NONE Family History FAMILY HISTORY Problem Relation Age of Onset Heart Mother [place] Hypertension Mother Osteoporosis Mother Asthma Father Hypertension Father Lipids Father Diabetes Father Alzheimer's Disease Father Prostate Cancer Father Stroke Maternal Grandmother Stroke Maternal Grandfather Patient Allergies ALLERGIES Allergen Reactions Bactrim [Sulfametho* Rash Diltiazem Rash, Itching Norvasc [Amlodipine* Rash, Itching Penicillins Hives Sulfamethoxazole Rash Trimethoprim Rash Verapamil Rash rash Hctz [Thiazides] Other: See Comments Low potassium Current Medications Current Outpatient Medications on File Prior to Visit Medication Sig escitalopram oxalate (LEXAPRO) 20 mg tablet Take 2 tablets by mouth daily at bedtime. amantadine HCl (SYMMETREL) 100 mg capsule Take 1 capsule by mouth two times a day. simvastatin (ZOCOR) 10 mg tablet Take 1 tablet by mouth daily at bedtime. metoprolol tartrate, short acting, (LOPRESSOR) 100 mg tablet Take 1 tablet by mouth two times a day. spironolactone (ALDACTONE) 25 mg tablet Take 1 tablet by mouth once daily. pramipexole (MIRAPEX) 1.5 mg tablet Take 1 tablet by mouth every 3 hours. Per Neuro: Dr. Patricio sodium fluoride 1.1 % dental cream sodium fluoride 1.1 % dental paste USE TO BRUSH TEETH ONCE A DAY IN THE EVENING vit A/vit C/vit E/zinc/copper (PRESERVISION AREDS ORAL) Take by mouth. carbidopa-levodopa (SINEMET) 25-100 mg per tablet Take 1 tablet by mouth three times daily. Per neuro No current facility-administered medications on file prior to visit. Social History Social History Tobacco Use Smoking status: Never Smokeless tobacco: Never Vaping Use Vaping status: Never Used Substance Use Topics Alcohol use: No Drug use: No Review of Symptoms REVIEW OF SYSTEMS GENERAL: No weight loss, malaise or fevers HEENT: No changes in hearing or vision, no nose bleeds or other nasal problems NECK: Negative for lumps, goiter, pain and significant neck swelling RESPIRATORY: Negative for cough, hemoptysis, wheezing, COPD, dyspnea or shortness of breath CARDIOVASCULAR: Negative for chest pain, leg swelling, CHF or palpitations GI: Negative for abdominal discomfort, blood in stools or black stools, change in bowel habit, nausea, vomiting : No history of dysuria, frequency or incontinence MEDICAL LIBRARY ASSISTANT: Negative for abnormal vaginal bleeding, abnormal vaginal discharge, and breast symptoms MUSCULOSKELETAL: Negative for joint pain or swelling, back pain or muscle pain SKIN: Negative for lesions, rash, and itching PSYCH: Negative for sleep disturbance, mood disorder and recent psychosocial stressors HEMATOLOGY/LYMPHOLOGY: Negative for prolonged bleeding, bruising easily or swollen nodes ENDOCRINE: Negative for cold or heat intolerance, polyuria, polydipsia and goiter NEURO: No history of headaches, syncope, paralysis, seizures or tremors SEE HPI EXAM: BP 128/78 (BP Site: Right Arm, BP Position: Sitting, BP Cuff Size: Large Adult) Pulse 79 Temp 36.3 C (97.3 F) Resp 18 Ht 152 cm (4' 11.84) Wt 58.1 kg (128 lb) SpO2 99% BMI 25.13 kg/m General Appearance: Well appearing, alert, in no acute distress, well-hydrated, well nourished.. Skin: Not examined. Head: Normocephalic, no masses, lesions, tenderness or abnormalities. Eyes: Anicteric sclera. Pupils are equally round and reactive to light. Extraocular movements are intact. . Ears: External ears normal, canals clear, TMs pearly schmidt. Nose/Sinuses: Nares normal, septum midline, mucosa normal, no drainage or sinus tenderness. Oropharynx: Lips, mucosa, and tongue normal, teeth and gums normal, oropharynx normal. Neck: Supple, no adenopathy; thyroid symmetric, normal size, no bruits. Lungs: Lungs clear to auscultation. No wheezing, rhonchi, rales.. Heart: RRR without murmur, gallop, or rubs. No ectopy. Abdomen: Normal abdominal exam, Abdomen soft, non-tender. Bowel sounds normal. No masses, organomegaly. Extremities: No deformities, edema, skin discoloration, clubbing or cyanosis. Good capillary refill. . Peripheral Pulses: Normal. Neurologic: Gait normal. Reflexes normal and symmetric. Sensation grossly intact.. Health Maintenance List Shingrix Vaccine(1 of 2) Never done DTaP,Tdap,Td Vaccine(2 - Td or Tdap) due on 06/12/2021 RSV Vaccine(1 - 1-dose 75+ series) due on 2025 Covid-19 Vaccine(3 - 2023- season) due on 09/19/2025 Bone Density Screening due on 03/16/2026 Annual PCP Team Chronic Disease Visit due on 03/19/2026 BP Controlled (<130/80) due on 03/19/2026 Diabetes Screening due on 03/14/2028 Lipid Screening due on 03/14/2030 Influenza Vaccine Completed Advance Directive Discussion Completed Hepatitis C Screening Completed Pneumococcal Vaccine: 50+ Completed Mammogram Screening Discontinued Colorectal Cancer Screening Discontinued Data reviewed Latest Ref Rng 03/14/2025 WBC 3.70 - 11.00 k/uL 6.05 RBC 3.90 - 5.20 m/uL 4.51 Hemoglobin 11.5 - 15.5 g/dL 12.3 Hematocrit 36.0 - 46.0 % 39.0 MCV 80.0 - 100.0 fL 86.5 MCH 26.0 - 34.0 pg 27.3 MCHC 30.5 - 36.0 g/dL 31.5 RDW-CV 11.5 - 15.0 % 13.7 Platelet Count 150 - 400 k/uL 217 MPV 9.0 - 12.7 fL 10.7 Neut% % 57.4 Abs Neut (ANC) 1.45 - 7.50 k/uL 3.47 Lymph% % 24.6 Abs Lymph 1.00 - 4.00 k/uL 1.49 Page% % 13.9 Abs Page <0.87 k/uL 0.84 Eosin% % 3.1 Abs Eosin <0.46 k/uL 0.19 Baso% % 0.7 Abs Baso <0.11 k/uL 0.04 Immature Gran % % 0.3 IMMATURE GRANS (ABS) <0.10 k/uL <0.03 NRBC /100 WBC 0.0 Absolute nRBC <0.01 k/uL <0.01 DTYPE Auto Color Yellow Yellow Clarity Clear Clear Glucose, Urine Negative Negative Bilirubin, Urine Negative Negative Ketones, Urine Negative Trace ! Specific Harold, Ur 1.005 - 1.030 1.026 Hemoglobin/Blood,Ur Negative Negative pH, Urine <8.5 6.5 Protein, Urine Negative Trace ! Urobilinogen 0.2-1.0 EU/dL 1.0 EU/dL Nitrites Negative Negative Leukest Negative 1+ ! WBC, Urine 0-5 /HPF 11-20 /HPF ! RBC, Urine 0-2 /HPF 0-2 /HPF Bacteria Negative /HPF Negative Epithelial Cells /HPF Few Hyaline Cast 0 /LPF 0 /LPF Protein, Total 6.3 - 8.0 g/dL 7.4 Albumin 3.9 - 4.9 g/dL 4.1 Calcium 8.5 - 10.2 mg/dL 9.1 Bilirubin, Total 0.2 - 1.3 mg/dL 0.2 Alkaline Phosphatase 34 - 123 U/L 104 AST 13 - 35 U/L 20 ALT 7 - 38 U/L 6 (L) Glucose 74 - 99 mg/dL 94 BUN 7 - 21 mg/dL 27 (H) Creatinine 0.58 - 0.96 mg/dL 0.79 Sodium 136 - 144 mmol/L 141 Potassium 3.7 - 5.1 mmol/L 3.8 Chloride 98 - 107 mmol/L 103 CO2 22 - 30 mmol/L 27 Anion Gap 8 - 15 mmol/L 11 eGFR >=60 mL/min/1.73m 79 Total Cholesterol, Nonfasting <200 mg/dL 151 Triglycerides, Nonfasting <150 mg/dL 143 HDL Cholesterol, Nonfasting >39 mg/dL 47 LDL Cholesterol Calculated, Nonfasting <100 mg/dL 79 Non HDL Cholesterol, Nonfasting <130 mg/dL 104 VLDL Cholesterol, Nonfasting <30 mg/dL 22 Total Chol/HDL Ratio, Nonfasting <5.10 mg/dL 3.21 LDL/HDL Ratio, Nonfasting <2.54 mg/dL 1.68 Vitamin D 25 Hydroxy 31.0 - 80.0 ng/mL 68.1 Legend: ! Abnormal (L) Low (H) High Assessment and Plan 1. Medicare annual wellness visit, subsequent (Z00.00) - Completed Medicare annual wellness visit. 2. Advance directive discussed with patient (Z71.89) - Discussed the importance of advance directives. 3. Essential hypertension (I10) - Managed with metoprolol 50 mg BID and spironolactone 25 mg daily. - Patient occasionally misses doses; blood pressure remains stable at 128/80 mmHg. - Educated on the importance of medication adherence to prevent hypertension exacerbation. 4. Hyperlipidemia, mixed (E78.2) - well controlled - Continue current management. 5. Renal insufficiency (N28.9) - Recent labs reviewed; no significant abnormalities noted. 6. Osteoporosis, senile (M81.0) - Continue current management. 7. Parkinson's disease with dyskinesia and fluctuating manifestations (HCC) (G20.B2) - Currently managed by Dr. Claros. - Recent medication adjustment: pramipexole reduced to TID; amantadine initiated. - Patient experienced three falls in the past two weeks; potential side effect of medication changes. - Will send a message to Dr. Garcia regarding potential adjustment of pramipexole and amantadine dosages. - Follow-up with neurology on the . 8. RANDY (generalized anxiety disorder) (F41.1) 9. Major depressive disorder, recurrent episode, moderate (HCC) (F33.1) - Currently on escitalopram 40 mg daily. - Patient brought up potential reduction in dosage due to recent falls and medication interactions. - Will send a message to Samuel Arias CNP to discuss possible dosage adjustment. 10. Age-related macular degeneration (H35.30) - Under annual ophthalmologic evaluation. - Continue current management. Shey Quiroz PA-C Recording using [employer] Inbox software for draft documentation of the visit was discussed with the patient/authorized merchandiser retail representative; all questions welcomed and answered. Patient/authorized merchandiser retail representative agreed to proceed documented in this encounter [facility] 01-29-2025 Instructions Samuel Arias APRN.CNP - 01/29/2025 4:59 PM EDT TREATMENT PLAN: Continue Lexapro 40 mg to address anxiety symptoms. If patient continues to experience fatigue after tapering off the pramipexole, explore reducing the dose to 20 mg. Monitor anxiety symptoms after she tapers off Pramipexole as that could have contributed to the increase in her anxiety symptoms. Contact [facility] to start individual psychotherapy. Collaborate with Dr. Claros in Neurology as needed in managing patient's anxiety symptoms. Follow up as scheduled on April 10. For those experiencing a suicidal crisis: --call the National Suicide Prevention Lifeline at 988 (892-994-5321) --text the Crisis Text Line (text HOME to 349806) --call 911 and let them know you are having a mental health crisis or go to your nearest Emergency Room for stabilization. --You can also call Mobile Crisis at [phone]. -- You may call the department appointment line at [phone] to schedule your appointment. -- Please call my nurse at [phone] or send me a message in One Touch EMR with any questions or concerns between appointments. documented in this encounter [facility] 01-16-2025 Note HNO ID: [id number] Author: SAMUEL ARIAS APRN.CNP Service: ? Author Type: Nurse Practitioner Type: Progress Notes Filed: 01/29/2025 17:00 Note Text: FOLLOW UP - PSYCHIATRIC PROGRESS NOTE PATIENT: Leonila Zamudio DATE: January 16, 2025 Visit Type:In person All information is from Patient report except when noted. This evaluation is NOT intended for forensic, disability or child custody purposes. CC: Presenting today for follow up regarding psychiatric medication management. HPI: Treatment Plan from Last Visit on 08/22/2024: TREATMENT PLAN: Continue Lexapro at 40 mg dose to help with mood and anxiety symptoms. Engage in individual psychotherapy with Aimee Aponte weekly. Referral sent to [facility] to assist patient with home modifications and support to help address anxiety she has related to falling from that gait issues complicated by parkinson's diagnosis. Encouraged patient to schedule an appointment for physical therapy. PCP has placed referral. Patient plans on going to [facility] today to set up an appointment. Today Leonila shares that she saw a Neurologist through [facility]. I really like her. Very happy that she got a second opinion. Pramipexole dose that was prescribed for her was too much she was informed. Discussed how it may have been contributing to the anxiety symptoms as well. Shares that she has been struggling with terminal insomnia. Goes to bed around 9 pm and wakes up around 5 am. Completed physical therapy. Joined a class at [facility] every Wednesday at noon. It is only for parkinson's patients. She enjoys it as it helps improve her balance. She has placed a stool in the bathroom and feels safer and doesn't worry as much about falling. Going up the stairs has been better as well. She is not getting dizzy at all. Has not been contacted by the [facility]. Continues to enjoy dancing. Has been going pretty often. Her legs feel stronger when she dances now after the physical therapy. Interval Progress: Slightly improved PATIENT DATA: Generalized Anxiety Disorder Scale (RANDY-7) 06/30/2024 08/22/2024 01/15/2025 RANDY - 7 SCORES Score 18 15 12 (0-4) minimal anxiety, (5-9) mild anxiety, (10-14) moderate anxiety, (15-21) severe anxiety Patient Health Questionnaire (PHQ-9) 06/30/2024 08/22/2024 01/15/2025 PHQ-9 Score 8 14 9 (0-4) minimal depression, (5-9) mild depression, (10-14) moderate depression, (15-19) moderately severe depression, (20-27) severe depression PAST MEDICAL HISTORY Diagnosis Date Absolute anemia 08/06/2015 Advance directive discussed with patient 02/20/2022 Discussed 02/20/2022 Anxiety Chronic rhinitis 03/09/2023 CHRONIC SINUSITIS NOS Essential hypertension 08/16/2015 RANDY (generalized anxiety disorder) 09/24/2023 Hyperlipidemia, mixed 08/16/[address] 02/20/2022 DPA: Braden () Major depressive disorder, recurrent episode, moderate ([facility]) 09/24/2023 Neuropathic pain 08/27/2021 On cymbalta Onychomycosis 12/29/2010 Osteoporosis, senile alendronate 09/2011-09/2014 Parkinson's disease ([facility]) 2012 Bavis Pedal edema 11/17/2010 Renal insufficiency 10/27/2017 Urinary frequency 07/17/2009 White coat hypertension Office hypertension PAST SURGICAL HISTORY Procedure Laterality Date COLONOSCOPY does not want. FECAL OCCULT BLOOD TEST 11/16/2017 neg NONE ALLERGIES Allergen Reactions Bactrim [Sulfametho* Rash Diltiazem Rash, Itching Norvasc [Amlodipine* Rash, Itching Penicillins Hives Sulfamethoxazole Rash Trimethoprim Rash Verapamil Rash rash Hctz [Thiazides] Other: See Comments Low potassium Current Outpatient Medications on File Prior to Visit Medication Sig amantadine HCl (SYMMETREL) 100 mg capsule Take 1 capsule by mouth two times a day. simvastatin (ZOCOR) 10 mg tablet Take 1 tablet by mouth daily at bedtime. metoprolol tartrate, short acting, (LOPRESSOR) 100 mg tablet Take 1 tablet by mouth two times a day. spironolactone (ALDACTONE) 25 mg tablet Take 1 tablet by mouth once daily. escitalopram oxalate (LEXAPRO) 20 mg tablet Take 2 tablets by mouth daily at bedtime. pramipexole (MIRAPEX) 1.5 mg tablet Take 1 tablet by mouth every 3 hours. Per Neuro: Dr. Curry (Patient taking differently: Take 1 tablet by mouth every 3 hours. Per Neuro: Dr. Curry) carbidopa-levodopa (SINEMET) 25-100 mg per tablet Take 1 tablet by mouth three times daily. Per neuro (Patient taking differently: Take 1 tablet by mouth five times a day. Per neuro 1.5 tab 5am, 8am, 11am, 2pm, 5pm) sodium fluoride 1.1 % dental cream sodium fluoride 1.1 % dental paste USE TO BRUSH TEETH ONCE A DAY IN THE EVENING vit A/vit C/vit E/zinc/copper (PRESERVISION AREDS ORAL) Take by mouth. No current facility-administered medications on file prior to visit. ROS: See HPI PFSH: See HPI VITAL SIGNS: 01/16/25 0957 BP: 130/62 Pulse: 68 SpO2: 96% W (more content not included)... [facility] 01-16-2025 History of Presen t illness Narrative Images from the original note were not included. FOLLOW UP - PSYCHIATRIC PROGRESS NOTE PATIENT: Leonila Zamudio DATE: January 16, 2025 Visit Type:In person All information is from Patient report except when noted. This evaluation is NOT intended for forensic, disability or child custody purposes. CC: Presenting today for follow up regarding psychiatric medication management. HPI: Treatment Plan from Last Visit on 08/22/2024: TREATMENT PLAN: Continue Lexapro at 40 mg dose to help with mood and anxiety symptoms. Engage in individual psychotherapy with Aimee Aponte weekly. Referral sent to [facility] on aging to assist patient with home modifications and support to help address anxiety she has related to falling from that gait issues complicated by parkinson's diagnosis. Encouraged patient to schedule an appointment for physical therapy. PCP has placed referral. Patient plans on going to [facility] today to set up an appointment. Today Leonila shares that she saw a Neurologist through [facility]. I really like her. Very happy that she got a second opinion. Pramipexole dose that was prescribed for her was too much she was informed. Discussed how it may have been contributing to the anxiety symptoms as well. Shares that she has been struggling with terminal insomnia. Goes to bed around 9 pm and wakes up around 5 am. Completed physical therapy. Joined a class at [facility] every Wednesday at noon. It is only for parkinson's patients. She enjoys it as it helps improve her balance. She has placed a stool in the bathroom and feels safer and doesn't worry as much about falling. Going up the stairs has been better as well. She is not getting dizzy at all. Has not been contacted by the [facility] on aging. Continues to enjoy dancing. Has been going pretty often. Her legs feel stronger when she dances now after the physical therapy. Interval Progress: Slightly improved PATIENT DATA: Generalized Anxiety Disorder Scale (RANDY-7) 06/30/2024 08/22/2024 01/15/2025 RANDY - 7 SCORES Score 18 15 12 (0-4) minimal anxiety, (5-9) mild anxiety, (10-14) moderate anxiety, (15-21) severe anxiety Patient Health Questionnaire (PHQ-9) 06/30/2024 08/22/2024 01/15/2025 PHQ-9 Score 8 14 9 (0-4) minimal depression, (5-9) mild depression, (10-14) moderate depression, (15-19) moderately severe depression, (20-27) severe depression PAST MEDICAL HISTORY Diagnosis Date Absolute anemia 08/06/2015 Advance directive discussed with patient 02/20/2022 Discussed 02/20/2022 Anxiety Chronic rhinitis 03/09/2023 CHRONIC SINUSITIS NOS Essential hypertension 08/16/2015 RANDY (generalized anxiety disorder) 09/24/2023 Hyperlipidemia, mixed 08/16/[address] 02/20/2022 DPA: Braden () Major depressive disorder, recurrent episode, moderate ([facility]) 09/24/2023 Neuropathic pain 08/27/2021 On cymbalta Onychomycosis 12/29/2010 Osteoporosis, senile alendronate 09/2011-09/2014 Parkinson's disease ([facility]) 2012 Bavis Pedal edema 11/17/2010 Renal insufficiency 10/27/2017 Urinary frequency 07/17/2009 White coat hypertension Office hypertension PAST SURGICAL HISTORY Procedure Laterality Date COLONOSCOPY does not want. FECAL OCCULT BLOOD TEST 11/16/2017 neg NONE ALLERGIES Allergen Reactions Bactrim [Sulfametho* Rash Diltiazem Rash, Itching Norvasc [Amlodipine* Rash, Itching Penicillins Hives Sulfamethoxazole Rash Trimethoprim Rash Verapamil Rash rash Hctz [Thiazides] Other: See Comments Low potassium Current Outpatient Medications on File Prior to Visit Medication Sig amantadine HCl (SYMMETREL) 100 mg capsule Take 1 capsule by mouth two times a day. simvastatin (ZOCOR) 10 mg tablet Take 1 tablet by mouth daily at bedtime. metoprolol tartrate, short acting, (LOPRESSOR) 100 mg tablet Take 1 tablet by mouth two times a day. spironolactone (ALDACTONE) 25 mg tablet Take 1 tablet by mouth once daily. escitalopram oxalate (LEXAPRO) 20 mg tablet Take 2 tablets by mouth daily at bedtime. pramipexole (MIRAPEX) 1.5 mg tablet Take 1 tablet by mouth every 3 hours. Per Neuro: Dr. Curry (Patient taking differently: Take 1 tablet by mouth every 3 hours. Per Neuro: Dr. Curry) carbidopa-levodopa (SINEMET) 25-100 mg per tablet Take 1 tablet by mouth three times daily. Per neuro (Patient taking differently: Take 1 tablet by mouth five times a day. Per neuro 1.5 tab 5am, 8am, 11am, 2pm, 5pm) sodium fluoride 1.1 % dental cream sodium fluoride 1.1 % dental paste USE TO BRUSH TEETH ONCE A DAY IN THE EVENING vit A/vit C/vit E/zinc/copper (PRESERVISION AREDS ORAL) Take by mouth. No current facility-administered medications on file prior to visit. ROS: See HPI PFSH: See HPI VITAL SIGNS: 01/16/25 0957 BP: 130/62 Pulse: 68 SpO2: 96% Weight: 57.9 kg (127 lb 9.6 oz) Last 3 Encounter BP Readings: Date: BP: 01/16/2025 130/62 10/11/2024 110/68 09/19/2024 102/60 MENTAL STATUS EXAMINATION: Appearance: Well dressed, well groomed Behavior: Behaves appropriately during the encounter Social relatedness: Euthymic Speech/Language: The patient demonstrates appropriate tone, prosody, sindhu, phonetics, and syntax Mood: euthymic Affect: Full and appropriate to topic Orientation: Person, Place, Time and Situation Associations: Intact and linear Hallucinations: None Delusions: None Suicidal Ideation: No suicidal ideation, intent or plan. Homicidal Ideation: No homicidal ideation, intent or plan. Insight: Appropriate Judgment: Appropriate DATA REVIEWED: Psychiatric scales, Electronic medical record, and labs DIAGNOSIS: Randy (generalized anxiety disorder) (primary encounter diagnosis) Encounter for long-term (current) use of medications Parkinson's disease, unspecified whether dyskinesia present, unspecified whether manifestations fluctuate (hcc) Mild episode of recurrent major depressive disorder (hcc) GAF: -80-71 If symptoms are present, they are transient and expectable reactions to psychosocial stressors TREATMENT PLAN: Continue Lexapro 40 mg to address anxiety symptoms. If patient continues to experience fatigue after tapering off the pramipexole, explore reducing the dose to 20 mg. Monitor anxiety symptoms after she tapers off Pramipexole as that could have contributed to the increase in her anxiety symptoms. Contact [facility] to start individual psychotherapy. Collaborate with Dr. Claros in Neurology as needed in managing patient's anxiety symptoms. Follow up as scheduled on April 10. MEDICATION CHANGES: Current medication regimen unchanged. Prescriptions given See above. Risks and benefits of the medication, including any black box warnings, were discussed with the patient. Patient is aware to reach out with any questions, concerns, or worsening of symptoms prior to the next appointment. Patient educated on risks of substance use in combination with medications and advised that any substance use along with medications may alter their effectiveness. Follow Up: See Treatment Plan Medical Decision Making: Problems: Moderate: 2+ stable chronic illnesses Data: Unique source(s) for external note(s) reviewed: 3+ Independent interpretation of test from other physician/QHCP Risk: Moderate: Moderate risk from testing/treatment and Drug management Medical Decision Making Level: 4 - Moderate ADD ON PSYCHOTHERAPY CODE : No SIGNATURE: Samuel Arias APRN.CNP PATIENT NAME: Leonila Zamudio DATE: January 16, 2025 TIME: 10:16 AM documented in this encounter [facility] 01-15-2025 Instructions Monse Claros MD - 01/15/2025 4:40 PM EST It was a pleasure to see you today. We addressed the following diagnoses: Parkinson's disease with dyskinesia and fluctuating manifestations (hcc) (primary encounter diagnosis) My recommendations are as follows: 01/15/2025 Visit: For Parkinson's - - week 1: add amantadine 100 mg daily, in the morning at 8A. The rest of your Parkinson's medications will stay the same - week 2-3: increase amantadine to to 100 mg twice daily at 8A and 2P - week 4: reduce the 8AM pramipexole dose to 1/2 tab. Everything else stays the same - Week 5: reduce the 2PM pramipexole dose to 1/2 tab. Everything else stays the same - Week 6: stop the 8AM pramipexole dose. Everything else stays the same. - week 7 and on: stop the 2PM pramipexole dose. Everything else stays the same Movement Disorders Medication Schedule: Medications 5 8 11 2 5 Sinemet 25/100 1.5 1.25 1.5 1.25 1.5 pramipexole 1.5 mg 1 1 1 amantadine 100 mg 1 1 Return at or around: 04/17/25 If there are any concerns before your next visit, please call or you can send a message through One Touch EMR. You can also now schedule and select appointments through One Touch EMR. Monse Claros MD documented in this encounter [facility] 01-15-2025 Note HNO ID: [id number] Author: MONSE CLAROS MD Service: ? Author Type: Physician Type: Progress Notes Filed: 01/15/2025 17:54 Note Text: [facility] - NEW PATIENT EVALUATION Primary Movement Disorders Neurologist: Monse Claros MD Primary Movement Disorders CHIDI: Not yet assigned No referring provider defined for this encounter. Deangelo Hawkins MD [id number] [facility] [id number] I had the pleasure of evaluating Ms. Zamudio to our clinic today. As you know she is a 74 year old right-handed female who is self referred for evaluation of PD since 2012. She is seen with her and daughter. Subjective HISTORY OF PRESENT ILLNESS: Initial HPI Parkinson's since 2012. Started with tremor in left leg then arm. Previously seen by Drs. Lennon and Patricio. Fluctuates between dyskinesia and freezing. Never knows when she will freeze. Can shop all day and then have it happen that night. Often in a certain doorway at home. Doesn't happen when she dances. More likely to happen at home which is an older one with smaller spaces. Dyskinesia is all the time. Currently worse than usual. Triggered by nerves. Often nervious and anxious. Sees psychiatry for anxiety. Lexapro doesn't seem to be helping. Gets counseling which isn't helping. Looking for a new counselor. Not tech savvy enough for virtual visits. Only has a flip phone, no tablet. Just finished 24 weeks of Parkinson's PT and now doing the [facility] class. Movement Disorders Medications Schedule - as of the start of the visit: Medications 5 8 11 2 5 Sinemet 25/100 1.5 1.25 1.5 1.25 1.5 pramipexole 1.5 mg 1 1 1 1 1 Parkinson's Motor Complications Medication duration: 3 hours Wearing off: no Dyskinesia: yes Prior Anti-Parkinson Therapies Carbidopa/Levodopa Carbidopa/Levodopa ER (Rytary) Carbidopa/Levodopa/Entacapone Pramipexole Ropinirole Rotigitine Selegiline Questionnaires: In addition, the following areas that may be affected by abnormal involuntary movements were evaluated: Daily activities Difficulties with eating: Yes (slight) independent Difficulties in dressing: Yes (mild) slow but can do it Difficulties with hygiene activities: Yes (slight) slow but can do it Difficulties with handwritin (none) Difficulties with doing hobbies and other activities: Yes (slight) Difficulties turning in bed: Yes (moderate) yes. turns her Difficulties getting out of bed, car or chair: Yes (mild) ok or slow but can do it Tremors/Gait/Balance Shaking or tremors: Yes (mild) Walking and balance problems: Yes (slight) Number of falls in the Last Month: 2 lost balance, turned too quick. Gait freezing: Yes (moderate) Autonomic/Pain Lightheadeness on standin (none) Urinary problems: Yes (mild) Constipation problems: 0 (none) Pain and other sensations: Yes (slight) Speech/Swallowing Speech problems: 0 (none) Drooling: Yes (mild) Chewing and swallowing problems: 0 (none) Sleep/Fatigue Sleep problems: Yes (moderate) wakes up early, 4A Daytime sleepiness: Yes (mild) Fatigue: 0 (none) Mood/Behavior Depression: PHQ-9 Score: 9 usually representing mild (5-9) depression. Anxiety: RANDY-7 Total Score: 12 usually representing moderate (10-14) anxiety. Finally, the following table shows the patient's overall global physical and mental health using the PROMIS scale: PROMIS-10 Flowsheet Row Office Visit from 01/15/2025 in Neurology Global Physical Health T Score 47.7 Global Mental Health T Score 41.1 0-10 Standard Pain Scale 4 *PROMIS-10 scoring scale: mean = 50, over 50 is above average, under 50 is below average In addition, the following Parkinson Lifestyle-associated features were evaluated: Conditions Prior to Dx: Depression: No Anxiety: No Melanoma: No Constipation: No Yelling: No Head Trauma: No Habits/exposures Prior to Dx Smoking: No Caffeinated coffee (1-cup+): Yes (but quit) Caffeinated soda/tea (2 cups+): Yes (and still do) Alcohol (1 bottle/shot/glass+): No Exercise (3x/wk+): No Ibuprofen use (1x/wk+): No Pesticides: No Welding: No In addition, the following non-motor symptoms and palliative concerns were evaluated: Sleep/Fatigue: 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 Impairment appreciated by me or my caregiver with no concrete interference with my ability to carry out normal activities and social interactions. Hallucinations and Psychosis: 0 - Normal. No hallucinations or psychotic behavior. Depressed Mood: Anxious Mood: Apathy: Impulse Control: 0 - Normal. No problems present. MoCA Cognitive assessment: Palliative Concerns: Caregiver burden: Spiritual concerns: Advanced directives on file: Palliative services: Therapy and Exercise: Last PT Date: [facility] 20 (more content not included)... [facility] 01-15-2025 History of Presen t illness Narrative [facility] - NEW PATIENT EVALUATION Primary Movement Disorders Neurologist: Monse Claros MD Primary Movement Disorders CHIDI: Not yet assigned No referring provider defined for this encounter. Deangelo Hawkins MD [id number] [facility] [id number] I had the pleasure of evaluating Ms. Zamudio to our clinic today. As you know she is a 74 year old right-handed female who is self referred for evaluation of PD since 2012. She is seen with her and daughter. Subjective HISTORY OF PRESENT ILLNESS: Initial HPI Parkinson's since 2012. Started with tremor in left leg then arm. Previously seen by Drs. Lennon and Patricio. Fluctuates between dyskinesia and freezing. Never knows when she will freeze. Can shop all day and then have it happen that night. Often in a certain doorway at home. Doesn't happen when she dances. More likely to happen at home which is an older one with smaller spaces. Dyskinesia is all the time. Currently worse than usual. Triggered by nerves. Often nervious and anxious. Sees psychiatry for anxiety. Lexapro doesn't seem to be helping. Gets counseling which isn't helping. Looking for a new counselor. Not tech savvy enough for virtual visits. Only has a flip phone, no tablet. Just finished 24 weeks of Parkinson's PT and now doing the [facility] class. Movement Disorders Medications Schedule - as of the start of the visit: Medications 5 8 11 2 5 Sinemet 25/100 1.5 1.25 1.5 1.25 1.5 pramipexole 1.5 mg 1 1 1 1 1 Parkinson's Motor Complications Medication duration: 3 hours Wearing off: no Dyskinesia: yes Prior Anti-Parkinson Therapies Carbidopa/Levodopa Carbidopa/Levodopa ER (Rytary) Carbidopa/Levodopa/Entacapone Pramipexole Ropinirole Rotigitine Selegiline Questionnaires: In addition, the following areas that may be affected by abnormal involuntary movements were evaluated: Daily activities Difficulties with eating: Yes (slight) independent Difficulties in dressing: Yes (mild) slow but can do it Difficulties with hygiene activities: Yes (slight) slow but can do it Difficulties with handwritin (none) Difficulties with doing hobbies and other activities: Yes (slight) Difficulties turning in bed: Yes (moderate) yes. turns her Difficulties getting out of bed, car or chair: Yes (mild) ok or slow but can do it Tremors/Gait/Balance Shaking or tremors: Yes (mild) Walking and balance problems: Yes (slight) Number of falls in the Last Month: 2 lost balance, turned too quick. Gait freezing: Yes (moderate) Autonomic/Pain Lightheadeness on standin (none) Urinary problems: Yes (mild) Constipation problems: 0 (none) Pain and other sensations: Yes (slight) Speech/Swallowing Speech problems: 0 (none) Drooling: Yes (mild) Chewing and swallowing problems: 0 (none) Sleep/Fatigue Sleep problems: Yes (moderate) wakes up early, 4A Daytime sleepiness: Yes (mild) Fatigue: 0 (none) Mood/Behavior Depression: PHQ-9 Score: 9 usually representing mild (5-9) depression. Anxiety: RANDY-7 Total Score: 12 usually representing moderate (10-14) anxiety. Finally, the following table shows the patient's overall global physical and mental health using the PROMIS scale: PROMIS-10 Flowsheet Row Office Visit from 01/15/2025 in Neurology Global Physical Health T Score 47.7 Global Mental Health T Score 41.1 0-10 Standard Pain Scale 4 *PROMIS-10 scoring scale: mean = 50, over 50 is above average, under 50 is below average In addition, the following Parkinson Lifestyle-associated features were evaluated: Conditions Prior to Dx: Depression: No Anxiety: No Melanoma: No Constipation: No Yelling: No Head Trauma: No Habits/exposures Prior to Dx Smoking: No Caffeinated coffee (1-cup+): Yes (but quit) Caffeinated soda/tea (2 cups+): Yes (and still do) Alcohol (1 bottle/shot/glass+): No Exercise (3x/wk+): No Ibuprofen use (1x/wk+): No Pesticides: No Welding: No In addition, the following non-motor symptoms and palliative concerns were evaluated: Sleep/Fatigue: 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 Impairment appreciated by me or my caregiver with no concrete interference with my ability to carry out normal activities and social interactions. Hallucinations and Psychosis: 0 - Normal. No hallucinations or psychotic behavior. Depressed Mood: Anxious Mood: Apathy: Impulse Control: 0 - Normal. No problems present. MoCA Cognitive assessment: Palliative Concerns: Caregiver burden: Spiritual concerns: Advanced directives on file: Palliative services: Therapy and Exercise: Last PT Date: [facility] Last OT Date: Date: Exercises Regularly: Yes Review of Systems Review of Systems Constitutional Negative for Fevers, Night Sweats, Weight Gain, Weight Loss and Fatigue Eyes Negative for Change in vison not corrected by glasses and Vision loss or change Hent Negative for Hearing Loss, Difficulty Swallowing, Tinnitus and Recent change in speech or voice Cardiovascular Negative for Chest Pain, Lightheadedness and Leg pain with walking Respiratory Negative for SOB at rest, SOB with exertion, Cough, Wheezing and Snoring GI Positive for Heartburn Negative for Blood in Stool, Abdominal Pain, Diarrhea, Constipation and Nausea/Vomiting Negative for Urgency and Incontinence Endocrine Negative for Heat Intolerance and Excessive Thirst Musculoskeletal Negative for Back Pain, Joint Swelling, Stiff Joints and Muscle Pain Integumentary Negative for Rashes, Itching, Other Lesions and Hair Changes Heme/Lymph Negative for Prolonged Bleeding, Easy Bruising and Swelling of Arm or Leg Allergy/Immunologic Negative for Nasal Congestion and Swollen Nodes Neurologic Negative for Memory Problems, Headache, Numbness/Tingling, Weakness, Double Vision, Trouble Swallowing and Slurred Speech Psychiatric Positive for Anxiety Negative for Stress or Conflicts, Depression, Irritability, Hallucinations and Delusions Patient's Review of Systems has been reviewed with the patient and updated as appropriate. ALLERGIES Allergen Reactions Bactrim [Sulfametho* Rash Diltiazem Rash, Itching Norvasc [Amlodipine* Rash, Itching Penicillins Hives Sulfamethoxazole Rash Trimethoprim Rash Verapamil Rash rash Hctz [Thiazides] Other: See Comments Low potassium Current Outpatient Medications Medication Sig simvastatin (ZOCOR) 10 mg tablet Take 1 tablet by mouth daily at bedtime. metoprolol tartrate, short acting, (LOPRESSOR) 100 mg tablet Take 1 tablet by mouth two times a day. spironolactone (ALDACTONE) 25 mg tablet Take 1 tablet by mouth once daily. escitalopram oxalate (LEXAPRO) 20 mg tablet Take 2 tablets by mouth daily at bedtime. pramipexole (MIRAPEX) 1.5 mg tablet Take 1 tablet by mouth every 3 hours. Per Neuro: Dr. Curry (Patient taking differently: Take 1 tablet by mouth every 3 hours. Per Neuro: Dr. Curry) carbidopa-levodopa (SINEMET) 25-100 mg per tablet Take 1 tablet by mouth three times daily. Per neuro (Patient taking differently: Take 1 tablet by mouth five times a day. Per neuro 1.5 tab 5am, 8am, 11am, 2pm, 5pm) sodium fluoride 1.1 % dental cream sodium fluoride 1.1 % dental paste USE TO BRUSH TEETH ONCE A DAY IN THE EVENING vit A/vit C/vit E/zinc/copper (PRESERVISION AREDS ORAL) Take by mouth. amantadine HCl (SYMMETREL) 100 mg capsule Take 1 capsule by mouth two times a day. No current facility-administered medications for this visit. Past Medical and Surgical History: has a past medical history of Absolute anemia (08/06/2015), Advance directive discussed with patient (02/20/2022), Anxiety, Chronic rhinitis (03/09/2023), CHRONIC SINUSITIS NOS, Essential hypertension (08/16/2015), RANDY (generalized anxiety disorder) (09/24/2023), Hyperlipidemia, mixed (08/16/2015), Living will in place (02/20/2022), Major depressive disorder, recurrent episode, moderate (HCC) (09/24/2023), Neuropathic pain (08/27/2021), Onychomycosis (12/29/2010), Osteoporosis, senile, Parkinson's disease (HCC) (2012), Pedal edema (11/17/2010), Renal insufficiency (10/27/2017), Urinary frequency (07/17/2009), and White coat hypertension. has a past surgical history that includes none; colonoscopy; and Immunochemical Fecal Occult Blood Test (11/16/2017). Social History Tobacco Use Smoking status: Never Smokeless tobacco: Never Vaping Use Vaping status: Never Used Substance Use Topics Alcohol use: No Drug use: No Family History: family history includes Alzheimer's Disease in her father; Asthma in her father; Diabetes in her father; Heart in her mother; Hypertension in her father and mother; Lipids in her father; Osteoporosis in her mother; Prostate Cancer in her father; Stroke in her maternal grandfather and maternal grandmother. Objective Vital Signs: Wt 57.7 kg (127 lb 3.3 oz) SpO2 96% BMI 24.04 kg/m Orthostatic Vitals: Sitting: BP 155/83 Pulse 69 Standing: BP 154/81 Pulse 71 Weight: 57.7 kg (127 lb 3.3 oz) No LMP recorded. Patient is postmenopausal. Body mass index is 24.04 kg/m . General Physical Examination: General: Awake, alert, interactive, no acute distress, good nutritional status, normal development, well-kept General Neurological Examination: Neurological Exam Mental Status Awake and alert. Language is fluent with no aphasia. Cranial Nerves CN III, IV, : Extraocular movements intact bilaterally. CN V: Facial sensation is normal. CN VII: Full and symmetric facial movement. CN VIII: Hearing is normal. CN XI: Shoulder shrug strength is normal. CN XII: Tongue midline without atrophy or fasciculations. Motor Strength is 5/5 throughout all four extremities. Constant moderate dyskinesia. Sensory Light touch is normal in upper and lower extremities. Reflexes Right Left Brachioradialis 2+ 2+ Biceps 2+ 2+ Patellar 0 0 Achilles 0 0 Coordination Right: [id number]-ac-[id number] normal. Rapid alternating movement normal.Left: Faswth-sw-nils normal. Rapid alternating movement normal. Gait No freezing. Movement Disorders Scales Performed: MDS-UPDRS Motor subscale condition of exam Medication Off/On/Naiive ON Time of UPDRS 1618 Time of Last Medication 1400 Last Medication Taken DBS Right DBS Left MDS-UPDRS Motor subscale scores Speech 0-Normal. No speech problems. Facial Expression 0-Normal. Normal facial expression. Rigidity Neck 1-Slight. Rigidity only detected with activation maneuver. Rigidity Right Upper Extremity 0-Normal. No rigidity. Rigidity Left Upper Extremity 0-Normal. No rigidity. Rigidity Right Lower Extremity 0-Normal. No rigidity. Rigidity Left Lower Extremity 0-Normal. No rigidity. Finger Taps Right 2-Mild. a) 3 to 5 interruptions during tapping, b) mild slowing, c) the amplitude decrements midway in the 10-tap sequence. Finger Taps Left 1-Slight. a) the regular rhythm is broken with one or two interruptions or hesitations of the tapping movement, b) slight slowing, c) the amplitude decrements near the end of the 10 taps. Hand Movements Right 0-Normal. No problem. Hand Movements Left 2-Mild. a) 3 to 5 interruptions during the movements, b) mild slowing, c) the amplitude decrements midway in the task. Arm Movements Right 0-Normal. No problems. Arm Movements Left 1-Slight. a) the regular rhythm is broken with one or two interruptions or hesitations of the movement, b) slight slowing, c) the amplitude decrements near the end of the sequence. Toe Taps Right 0-Normal. No problem. Toe Taps Left 0-Normal. No problem. Leg Agility Right 0-Normal. No problems. Leg Agility Left 0-Normal. No problems. Arise From Chair 0-Normal. No problems. Able to arise quickly without hesitation. Gait 1-Slight. Independent walking with minor gait impairment. Gait Freezing 0-Normal. No freezing. Posture Stability 0-Normal. No problems: recovers with one or two steps. Posture 2-Mild. Definite flexion, scoliosis or leaning to one side, but patient can correct posture to normal posture when asked to do so. Body Bradykinesia 1-Slight. Slight global slowness and poverty of spontaneous movements. Postural Tremor Hand Right 0-Normal. No tremor. Postural Tremor Hand Left 0-Normal. No tremor. Kinetic Tremor Right 0-Normal. No tremor. Kinetic Tremor Left 0-Normal. No tremor. Rest Tremor Amplitude Right Upper Extremity 0-Normal. No tremor. Rest Tremor Amplitude Left Upper Extremity 0-Normal. No tremor. Rest Tremor Amplitude Right Lower Extremity 0-Normal. No tremor. Rest Tremor Amplitude Left Lower Extremity 0-Normal. No tremor. Rest Tremor Amplitude Lip/Jaw 0-Normal. No tremor. Rest Tremor Constancy 0-Normal. No tremor. MDS-UPDRS Motor subscale totals Left Total 4 Right Total 2 Midline Total 5 Tremor Total / 10 0 PIGD Total / 3 1 Overall Total 11 Change Better/Worse % Change Compared to Last Filed Total Assessment and Plan: Assessment Ms. Zamudio is a right-handed 74 year old year old female with PD. Her main complaints are freezing, then dyskinesia. Her freezing does not seem to related to her medication doses. She is dyskinetic much of the time so likely overmedicated. Her dyskinesia has improved with medication reduction but then she feels off. She is on more than the recommended dose of pramipexole but fortunately no obvious side effects at this time. Recommend starting amantadine to target dyskinesia and possibly freezing, followed by reducing the pramipexole dose. Rytary was not felt to be helpful several years ago. Her symptoms were different then so perhaps this or Crexont would be reasonable. We discussed Vyalev and no interest due to needle sticks. No interest in DBS at this time. She does know someone with it who experienced great tremor control. The following are the current problems noted and addressed during this visit: Parkinson's disease with dyskinesia and fluctuating manifestations (hcc) (primary encounter diagnosis) Plan 01/15/2025 Visit: For Parkinson's - - week 1: add amantadine 100 mg daily, in the morning at 8A. The rest of your Parkinson's medications will stay the same - week 2-3: increase amantadine to to 100 mg twice daily at 8A and 2P - week 4: reduce the 8AM pramipexole dose to 1/2 tab. Everything else stays the same - Week 5: reduce the 2PM pramipexole dose to 1/2 tab. Everything else stays the same - Week 6: stop the 8AM pramipexole dose. Everything else stays the same. - week 7 and on: stop the 2PM pramipexole dose. Everything else stays the same Updated Parkinson's Medication Schedule: Medications 5 8 11 2 5 Sinemet 25/100 1.5 1.25 1.5 1.25 1.5 pramipexole 1.5 mg 1 1 1 amantadine 100 mg 1 1 Level of service : 31244 (60-88) min). Time spent 61 min on the day of service, which included preparing to see the patient, [id number] patient care, completing clinical documentation, obtaining and/or reviewing separately obtained history, performing a medically appropriate examination, counseling and educating the patient/family/caregiver, and ordering medications, tests, or procedures. Thank you for allowing me to be part of the clinical care of this patient! I look forward to continued participation in the patient s care with you. Please do not hesitate to call with any questions. Sincerely, Monse Claros MD documented in this encounter [facility] 10-25-2024 Note HNO ID: [id number] Author: AARON BESS MA Service: ? Author Type: Cut Order Hand Type: Progress Notes Filed: 10/25/2024 13:41 Note Text: Scan on 10/24/2024 10:01 AM by ProviderConcha PA-C: Consultation - Neurology Aaron Bess MA [facility] 10-25-2024 History of Presen t illness Narrative Scan on 10/24/2024 10:01 AM by Concha Holt PA-C: Consultation - Neurology Aaron Bess MA documented in this encounter [facility] 10-11-2024 Note HNO ID: [id number] Author: DEANGELO CAGLE APRN.JALEEL Service: ? Author Type: Nurse Practitioner Type: Progress Notes Filed: 10/11/2024 12:03 Note Text: Subjective HPI Nontoxic-appearing female presents urgent care chief complaint sore throat. Duration of symptoms 3 days. Associated symptoms sore throat. Does have a slight cough. Feels like symptoms are improving. OTC medications none recently. Sick contacts unknown. No difficulty swallowing handling secretions decreased range of motion of neck. No trismus. No fevers. Past medical history prescription medications allergies reviewed. .Patient presents with: Sore Throat: x 3 days PAST MEDICAL HISTORY Diagnosis Date Absolute anemia 08/06/2015 Advance directive discussed with patient 02/20/2022 Discussed 02/20/2022 Anxiety Chronic rhinitis 03/09/2023 CHRONIC SINUSITIS NOS Essential hypertension 08/16/2015 RANDY (generalized anxiety disorder) 09/24/2023 Hyperlipidemia, mixed 08/16/[address] 02/20/2022 DPA: Braden () Major depressive disorder, recurrent episode, moderate (HCC) 09/24/2023 Neuropathic pain 08/27/2021 On cymbalta Onychomycosis 12/29/2010 Osteoporosis, senile alendronate 09/2011-09/2014 Parkinson's disease (HCC) 2012 Bavis Pedal edema 11/17/2010 Renal insufficiency 10/27/2017 Urinary frequency 07/17/2009 White coat hypertension Office hypertension PAST SURGICAL HISTORY Procedure Laterality Date COLONOSCOPY does not want. FECAL OCCULT BLOOD TEST 11/16/2017 neg NONE ALLERGIES Bactrim [Sulfamethoxazole-Trimethoprim], Diltiazem, Norvasc [Amlodipine Besylate], Penicillins, Sulfamethoxazole, Trimethoprim, Verapamil, and Hctz [Thiazides] MEDICATIONS simvastatin (ZOCOR) 10 mg tablet Take 1 tablet by mouth daily at bedtime. metoprolol tartrate, short acting, (LOPRESSOR) 100 mg tablet Take 1 tablet by mouth two times a day. spironolactone (ALDACTONE) 25 mg tablet Take 1 tablet by mouth once daily. escitalopram oxalate (LEXAPRO) 20 mg tablet Take 2 tablets by mouth daily at bedtime. pramipexole (MIRAPEX) 1.5 mg tablet Take 1 tablet by mouth every 3 hours. Per Neuro: Dr. Curry carbidopa-levodopa (SINEMET) 25-100 mg per tablet Take 1 tablet by mouth three times daily. Per neuro sodium fluoride 1.1 % dental cream sodium fluoride 1.1 % dental paste USE TO BRUSH TEETH ONCE A DAY IN THE EVENING vit A/vit C/vit E/zinc/copper (PRESERVISION AREDS ORAL) Take by mouth. FAMILY HISTORY Problem Relation Age of Onset Heart Mother [place] Hypertension Mother Osteoporosis Mother Asthma Father Hypertension Father Lipids Father Diabetes Father Alzheimer's Disease Father Prostate Cancer Father Stroke Maternal Grandmother Stroke Maternal Grandfather Social History Tobacco Use Smoking status: Never Smokeless tobacco: Never Vaping Use Vaping status: Never Used Substance Use Topics Alcohol use: No Drug use: No BP 110/68 Pulse 82 Temp 37 ?C (98.6 ?F) Resp 16 Wt 59.2 kg (130 lb 8.2 oz) SpO2 95% BMI 24.66 kg/m? Review of Systems Constitutional: Negative for chills, fever and malaise/fatigue. HENT: Positive for sore throat. Negative for congestion, ear discharge, ear pain and sinus pain. Eyes: Negative for blurred vision, pain, discharge and redness. Respiratory: Positive for cough. Negative for hemoptysis, sputum production, shortness of breath, wheezing and stridor. Cardiovascular: Negative for chest pain. Gastrointestinal: Negative for abdominal pain, diarrhea, nausea and vomiting. Musculoskeletal: Negative for myalgias. Skin: Negative for itching and rash. Neurological: Negative for dizziness and headaches. Objective Physical Exam Constitutional: General: She is not in acute distress. Appearance: She is not diaphoretic. HENT: Head: Normocephalic. Jaw: No trismus, tenderness, swelling or pain on movement. Mouth/Throat: Mouth: Mucous membranes are moist. Pharynx: Oropharynx is clear. Uvula midline. No pharyngeal swelling, oropharyngeal exudate, posterior oropharyngeal erythema or uvula swelling. Eyes: Conjunctiva/sclera: Conjunctivae normal. Pupils: Pupils are equal, round, and reactive to light. Cardiovascular: Rate and Rhythm: Normal rate and regular rhythm. Heart sounds: Normal heart sounds. Pulmonary: Effort: Pulmonary effort is normal. No tachypnea, accessory muscle usage or respiratory distress. Breath sounds: Normal breath sounds. No stridor. No wheezing, rhonchi or rales. Abdominal: General: There is no distension. Palpations: Abdomen is soft. Tenderness: There is no abdominal tenderness. There is no guarding or rebound. Musculoskeletal: Cervical back: Normal range of motion and neck supple. No edema, erythema, rigidity or tenderness. No pain with movement. Normal range of motion. Lymphadenopathy: Cervical: No cervical adenopathy. Skin: General: Skin is warm and dry. Neurological: Mental (more content not included)... [facility] 10-11-2024 History of Presen t illness Narrative Subjective HPI Nontoxic-appearing female presents urgent care chief complaint sore throat. Duration of symptoms 3 days. Associated symptoms sore throat. Does have a slight cough. Feels like symptoms are improving. OTC medications none recently. Sick contacts unknown. No difficulty swallowing handling secretions decreased range of motion of neck. No trismus. No fevers. Past medical history prescription medications allergies reviewed. .Patient presents with: Sore Throat: x 3 days PAST MEDICAL HISTORY Diagnosis Date Absolute anemia 08/06/2015 Advance directive discussed with patient 02/20/2022 Discussed 02/20/2022 Anxiety Chronic rhinitis 03/09/2023 CHRONIC SINUSITIS NOS Essential hypertension 08/16/2015 RANDY (generalized anxiety disorder) 09/24/2023 Hyperlipidemia, mixed 08/16/[address] 02/20/2022 DPA: Braden () Major depressive disorder, recurrent episode, moderate (HCC) 09/24/2023 Neuropathic pain 08/27/2021 On cymbalta Onychomycosis 12/29/2010 Osteoporosis, senile alendronate 09/2011-09/2014 Parkinson's disease (HCC) 2012 Bavis Pedal edema 11/17/2010 Renal insufficiency 10/27/2017 Urinary frequency 07/17/2009 White coat hypertension Office hypertension PAST SURGICAL HISTORY Procedure Laterality Date COLONOSCOPY does not want. FECAL OCCULT BLOOD TEST 11/16/2017 neg NONE ALLERGIES Bactrim [Sulfamethoxazole-Trimethoprim], Diltiazem, Norvasc [Amlodipine Besylate], Penicillins, Sulfamethoxazole, Trimethoprim, Verapamil, and Hctz [Thiazides] MEDICATIONS simvastatin (ZOCOR) 10 mg tablet Take 1 tablet by mouth daily at bedtime. metoprolol tartrate, short acting, (LOPRESSOR) 100 mg tablet Take 1 tablet by mouth two times a day. spironolactone (ALDACTONE) 25 mg tablet Take 1 tablet by mouth once daily. escitalopram oxalate (LEXAPRO) 20 mg tablet Take 2 tablets by mouth daily at bedtime. pramipexole (MIRAPEX) 1.5 mg tablet Take 1 tablet by mouth every 3 hours. Per Neuro: Dr. Curry carbidopa-levodopa (SINEMET) 25-100 mg per tablet Take 1 tablet by mouth three times daily. Per neuro sodium fluoride 1.1 % dental cream sodium fluoride 1.1 % dental paste USE TO BRUSH TEETH ONCE A DAY IN THE EVENING vit A/vit C/vit E/zinc/copper (PRESERVISION AREDS ORAL) Take by mouth. FAMILY HISTORY Problem Relation Age of Onset Heart Mother [place] Hypertension Mother Osteoporosis Mother Asthma Father Hypertension Father Lipids Father Diabetes Father Alzheimer's Disease Father Prostate Cancer Father Stroke Maternal Grandmother Stroke Maternal Grandfather Social History Tobacco Use Smoking status: Never Smokeless tobacco: Never Vaping Use Vaping status: Never Used Substance Use Topics Alcohol use: No Drug use: No BP 110/68 Pulse 82 Temp 37 C (98.6 F) Resp 16 Wt 59.2 kg (130 lb 8.2 oz) SpO2 95% BMI 24.66 kg/m Review of Systems Constitutional: Negative for chills, fever and malaise/fatigue. HENT: Positive for sore throat. Negative for congestion, ear discharge, ear pain and sinus pain. Eyes: Negative for blurred vision, pain, discharge and redness. Respiratory: Positive for cough. Negative for hemoptysis, sputum production, shortness of breath, wheezing and stridor. Cardiovascular: Negative for chest pain. Gastrointestinal: Negative for abdominal pain, diarrhea, nausea and vomiting. Musculoskeletal: Negative for myalgias. Skin: Negative for itching and rash. Neurological: Negative for dizziness and headaches. Objective Physical Exam Constitutional: General: She is not in acute distress. Appearance: She is not diaphoretic. HENT: Head: Normocephalic. Jaw: No trismus, tenderness, swelling or pain on movement. Mouth/Throat: Mouth: Mucous membranes are moist. Pharynx: Oropharynx is clear. Uvula midline. No pharyngeal swelling, oropharyngeal exudate, posterior oropharyngeal erythema or uvula swelling. Eyes: Conjunctiva/sclera: Conjunctivae normal. Pupils: Pupils are equal, round, and reactive to light. Cardiovascular: Rate and Rhythm: Normal rate and regular rhythm. Heart sounds: Normal heart sounds. Pulmonary: Effort: Pulmonary effort is normal. No tachypnea, accessory muscle usage or respiratory distress. Breath sounds: Normal breath sounds. No stridor. No wheezing, rhonchi or rales. Abdominal: General: There is no distension. Palpations: Abdomen is soft. Tenderness: There is no abdominal tenderness. There is no guarding or rebound. Musculoskeletal: Cervical back: Normal range of motion and neck supple. No edema, erythema, rigidity or tenderness. No pain with movement. Normal range of motion. Lymphadenopathy: Cervical: No cervical adenopathy. Skin: General: Skin is warm and dry. Neurological: Mental Status: She is alert and oriented to person, place, and time. ASSESSMENT/PLAN: 1. Sore throat - ICD9: 462, ICD10: J02.9 (primary diagnosis) - STREP A MOLECULAR (POC) 2. Viral illness - ICD9: 079.99, ICD10: B34.9 - Discussed viral etiology and rationale for treatment. - Rapid strep negative in office today - Symptomatic treatment with prn analgesia - Supportive care with fluids and rest Patient was educated on supportive therapies. Patient will follow up with primary care provider as needed. Patient was instructed to immediately proceed to emergency room for any new, worsening, or symptoms lasting longer than anticipated. The patient's clinical presentation is otherwise unremarkable at this time. Based on exam and clinical finding, the patient is stable for discharge. Plan of care was discussed with patient. Patient verbalizes understanding and agrees to plan of care. This note was generated using [employer] software. It may contain errors in wording, punctuation, or spelling. Deangelo Cagle APRN.[employer]IP[employer]OR documented in this encounter [facility] 09-19-2024 Note HNO ID: [id number] Author: SHEY QUIROZ PA-C Service: ? Author Type: Physician Color Expert Type: Progress Notes Filed: 09/19/2024 11:31 Note Text: Chief Complaint Patient presents with: 6 Month Exam HPI Leonila Zamudio is a 74 year old female who presents here today for Chronic Medical Conditions.. Patient with hx of parkinson's dz, HTN, hyperlipidemia, osteoporosis, RANDY major depressive disorder, and those as below. Patient denies concerns Last 3 Encounter Wt Readings: Date: Wt: 09/19/2024 60.8 kg (134 lb) 08/22/2024 63.6 kg (140 lb 3.2 oz) 07/14/2024 63 kg (138 lb 14.2 oz) Past medical history, appointments, medications, allergies reviewed. Previous Medical History PAST MEDICAL HISTORY Diagnosis Date Absolute anemia 08/06/2015 Advance directive discussed with patient 02/20/2022 Discussed 02/20/2022 Anxiety Chronic rhinitis 03/09/2023 CHRONIC SINUSITIS NOS Essential hypertension 08/16/2015 RANDY (generalized anxiety disorder) 09/24/2023 Hyperlipidemia, mixed 08/16/[address] 02/20/2022 DPA: Braden () Major depressive disorder, recurrent episode, moderate (HCC) 09/24/2023 Neuropathic pain 08/27/2021 On cymbalta Onychomycosis 12/29/2010 Osteoporosis, senile alendronate 09/2011-09/2014 Parkinson's disease (HCC) 2012 Bavis Pedal edema 11/17/2010 Renal insufficiency 10/27/2017 Urinary frequency 07/17/2009 White coat hypertension Office hypertension Previous Surgical History PAST SURGICAL HISTORY Procedure Laterality Date COLONOSCOPY does not want. FECAL OCCULT BLOOD TEST 11/16/2017 neg NONE Family History FAMILY HISTORY Problem Relation Age of Onset Heart Mother [place] Hypertension Mother Osteoporosis Mother Asthma Father Hypertension Father Lipids Father Diabetes Father Alzheimer's Disease Father Prostate Cancer Father Stroke Maternal Grandmother Stroke Maternal Grandfather Patient Allergies ALLERGIES Allergen Reactions Bactrim [Sulfametho* Rash Diltiazem Rash, Itching Norvasc [Amlodipine* Rash, Itching Penicillins Hives Sulfamethoxazole Rash Trimethoprim Rash Verapamil Rash rash Hctz [Thiazides] Other: See Comments Low potassium Current Medications Current Outpatient Medications on File Prior to Visit Medication Sig escitalopram oxalate (LEXAPRO) 20 mg tablet Take 2 tablets by mouth daily at bedtime. pramipexole (MIRAPEX) 1.5 mg tablet Take 1 tablet by mouth every 3 hours. Per Neuro: Dr. Curry carbidopa-levodopa (SINEMET) 25-100 mg per tablet Take 1 tablet by mouth three times daily. Per neuro sodium fluoride 1.1 % dental cream sodium fluoride 1.1 % dental paste USE TO BRUSH TEETH ONCE A DAY IN THE EVENING vit A/vit C/vit E/zinc/copper (PRESERVISION AREDS ORAL) Take by mouth. No current facility-administered medications on file prior to visit. Social History Social History Tobacco Use Smoking status: Never Smokeless tobacco: Never Vaping Use Vaping status: Never Used Substance Use Topics Alcohol use: No Drug use: No Review of Symptoms REVIEW OF SYSTEMS GENERAL: No weight loss, malaise or fevers NECK: Negative for lumps, goiter, pain and significant neck swelling RESPIRATORY: Negative for cough, hemoptysis, wheezing, COPD, dyspnea or shortness of breath CARDIOVASCULAR: Negative for chest pain, leg swelling, hypertension, CHF or palpitations NEURO: hx of parkinsons. Denies seizures, headaches. EXAM: BP 102/60 (BP Site: Left Arm, BP Position: Sitting, BP Cuff Size: Regular Adult) Pulse 83 Temp 36.7 ?C (98 ?F) Resp 18 Wt 60.8 kg (134 lb) SpO2 95% BMI 25.32 kg/m? General Appearance: Well appearing, alert, in no acute distress, well-hydrated, well nourished.. Neck: Supple, no adenopathy; thyroid symmetric, normal size, no bruits. Lungs: Lungs clear to auscultation. No wheezing, rhonchi, rales.. Heart: RRR without murmur, gallop, or rubs. No ectopy. Extremities: No deformities, edema, skin discoloration, clubbing or cyanosis. Good capillary refill. . Peripheral Pulses: Normal. Health Maintenance List BP Controlled (<130/80) due on 03/09/2024 Influenza Vaccine(1) due on 07/16/2024 DTaP,Tdap,Td Vaccine(2 - Td or Tdap) due on 03/16/2025 Shingrix Vaccine(1 of 2) due on 03/16/2025 Covid-19 Vaccine(3 - 2023- season) due on 09/19/2025 RSV Vaccine(1 - 1-dose 75+ series) due on 2025 Annual PCP Team Chronic Disease Visit due on 07/14/2025 Bone Density Screening due on 03/16/2026 Diabetes Screening due on 09/14/2027 Lipid Screening due on 09/14/2029 Advance Directive Discussion Completed Hepatitis C Screening Completed Pneumococcal Vaccine: 65+ Completed Mammogram Screening Discontinued Colorectal Cancer Screening Discontinued Data reviewed Latest Ref Rng 09/14/2024 Protein, Total 6.3 - 8.0 g/dL 7.8 Albumin 3.9 - 4.9 g/dL 4.2 Calcium 8.5 - 10.2 mg/dL 9.8 Bilirubin, Total 0.2 - 1.3 mg/dL 0.4 Alkaline Phosphat (more content not included)... [facility] 09-19-2024 History of Presen t illness Narrative Chief Complaint Patient presents with: 6 Month Exam HPI Leonila Zamudio is a 74 year old female who presents here today for Chronic Medical Conditions.. Patient with hx of parkinson's dz, HTN, hyperlipidemia, osteoporosis, RANDY major depressive disorder, and those as below. Patient denies concerns Last 3 Encounter Wt Readings: Date: Wt: 09/19/2024 60.8 kg (134 lb) 08/22/2024 63.6 kg (140 lb 3.2 oz) 07/14/2024 63 kg (138 lb 14.2 oz) Past medical history, appointments, medications, allergies reviewed. Previous Medical History PAST MEDICAL HISTORY Diagnosis Date Absolute anemia 08/06/2015 Advance directive discussed with patient 02/20/2022 Discussed 02/20/2022 Anxiety Chronic rhinitis 03/09/2023 CHRONIC SINUSITIS NOS Essential hypertension 08/16/2015 RANDY (generalized anxiety disorder) 09/24/2023 Hyperlipidemia, mixed 08/16/[address] 02/20/2022 DPA: Braden () Major depressive disorder, recurrent episode, moderate (HCC) 09/24/2023 Neuropathic pain 08/27/2021 On cymbalta Onychomycosis 12/29/2010 Osteoporosis, senile alendronate 09/2011-09/2014 Parkinson's disease (HCC) 2012 Bavis Pedal edema 11/17/2010 Renal insufficiency 10/27/2017 Urinary frequency 07/17/2009 White coat hypertension Office hypertension Previous Surgical History PAST SURGICAL HISTORY Procedure Laterality Date COLONOSCOPY does not want. FECAL OCCULT BLOOD TEST 11/16/2017 neg NONE Family History FAMILY HISTORY Problem Relation Age of Onset Heart Mother [place] Hypertension Mother Osteoporosis Mother Asthma Father Hypertension Father Lipids Father Diabetes Father Alzheimer's Disease Father Prostate Cancer Father Stroke Maternal Grandmother Stroke Maternal Grandfather Patient Allergies ALLERGIES Allergen Reactions Bactrim [Sulfametho* Rash Diltiazem Rash, Itching Norvasc [Amlodipine* Rash, Itching Penicillins Hives Sulfamethoxazole Rash Trimethoprim Rash Verapamil Rash rash Hctz [Thiazides] Other: See Comments Low potassium Current Medications Current Outpatient Medications on File Prior to Visit Medication Sig escitalopram oxalate (LEXAPRO) 20 mg tablet Take 2 tablets by mouth daily at bedtime. pramipexole (MIRAPEX) 1.5 mg tablet Take 1 tablet by mouth every 3 hours. Per Neuro: Dr. Curry carbidopa-levodopa (SINEMET) 25-100 mg per tablet Take 1 tablet by mouth three times daily. Per neuro sodium fluoride 1.1 % dental cream sodium fluoride 1.1 % dental paste USE TO BRUSH TEETH ONCE A DAY IN THE EVENING vit A/vit C/vit E/zinc/copper (PRESERVISION AREDS ORAL) Take by mouth. No current facility-administered medications on file prior to visit. Social History Social History Tobacco Use Smoking status: Never Smokeless tobacco: Never Vaping Use Vaping status: Never Used Substance Use Topics Alcohol use: No Drug use: No Review of Symptoms REVIEW OF SYSTEMS GENERAL: No weight loss, malaise or fevers NECK: Negative for lumps, goiter, pain and significant neck swelling RESPIRATORY: Negative for cough, hemoptysis, wheezing, COPD, dyspnea or shortness of breath CARDIOVASCULAR: Negative for chest pain, leg swelling, hypertension, CHF or palpitations NEURO: hx of parkinsons. Denies seizures, headaches. EXAM: BP 102/60 (BP Site: Left Arm, BP Position: Sitting, BP Cuff Size: Regular Adult) Pulse 83 Temp 36.7 C (98 F) Resp 18 Wt 60.8 kg (134 lb) SpO2 95% BMI 25.32 kg/m General Appearance: Well appearing, alert, in no acute distress, well-hydrated, well nourished.. Neck: Supple, no adenopathy; thyroid symmetric, normal size, no bruits. Lungs: Lungs clear to auscultation. No wheezing, rhonchi, rales.. Heart: RRR without murmur, gallop, or rubs. No ectopy. Extremities: No deformities, edema, skin discoloration, clubbing or cyanosis. Good capillary refill. . Peripheral Pulses: Normal. Health Maintenance List BP Controlled (<130/80) due on 03/09/2024 Influenza Vaccine(1) due on 07/16/2024 DTaP,Tdap,Td Vaccine(2 - Td or Tdap) due on 03/16/2025 Shingrix Vaccine(1 of 2) due on 03/16/2025 Covid-19 Vaccine(3 - season) due on 09/19/2025 RSV Vaccine(1 - 1-dose 75+ series) due on 2025 Annual PCP Team Chronic Disease Visit due on 07/14/2025 Bone Density Screening due on 03/16/2026 Diabetes Screening due on 09/14/2027 Lipid Screening due on 09/14/2029 Advance Directive Discussion Completed Hepatitis C Screening Completed Pneumococcal Vaccine: 65+ Completed Mammogram Screening Discontinued Colorectal Cancer Screening Discontinued Data reviewed Latest Ref Rng 09/14/2024 Protein, Total 6.3 - 8.0 g/dL 7.8 Albumin 3.9 - 4.9 g/dL 4.2 Calcium 8.5 - 10.2 mg/dL 9.8 Bilirubin, Total 0.2 - 1.3 mg/dL 0.4 Alkaline Phosphatase 34 - 123 U/L 129 (H) AST 13 - 35 U/L 22 ALT 7 - 38 U/L 12 Glucose 74 - 99 mg/dL 97 BUN 7 - 21 mg/dL 22 (H) Creatinine 0.58 - 0.96 mg/dL 0.92 Sodium 136 - 144 mmol/L 139 Potassium 3.7 - 5.1 mmol/L 4.4 Chloride 98 - 107 mmol/L 101 CO2 22 - 30 mmol/L 25 Anion Gap 8 - 15 mmol/L 13 eGFR >=60 mL/min/1.73m 65 Total Cholesterol, Nonfasting <200 mg/dL 158 Triglycerides, Nonfasting <150 mg/dL 133 HDL Cholesterol, Nonfasting >39 mg/dL 47 LDL Cholesterol, Nonfasting <100 mg/dL 84 Non HDL Cholesterol, Nonfasting <130 mg/dL 111 VLDL Cholesterol, Nonfasting <30 mg/dL 27 Total Chol/HDL Ratio, Nonfasting <5.10 mg/dL 3.36 LDL/HDL Ratio, Nonfasting <2.54 mg/dL 1.79 Legend: (H) High ASSESSMENT/PLAN: 1. Essential hypertension - ICD9: 401.9, ICD10: I10 (primary diagnosis) - Controlled - Continue current medications - Recommend home blood pressure monitoring, to bring results to next visit - Encouraged sodium restriction, DASH or Mediterranean diet - Recommend regular aerobic exercise - METOPROLOL TARTRATE 100 MG TABLET - COMPLETE BLOOD COUNT AND DIFFERENTIAL - COMPREHENSIVE METABOLIC PANEL - URINALYSIS, WITH MICROSCOPIC 2. Major depressive disorder, recurrent episode, moderate (HCC) - ICD9: 296.32, ICD10: F33.1 stable 3. RANDY (generalized anxiety disorder) - ICD9: 300.02, ICD10: F41.1 stable 4. Hyperlipidemia, mixed - ICD9: 272.2, ICD10: E78.2 - Controlled - Continue current medications - Counseled on healthy diet and regular exercise - LIPID PANEL, NONFASTING 5. Parkinson's disease, unspecified whether dyskinesia present, unspecified whether manifestations fluctuate (HCC) - ICD9: 332.0, ICD10: G20.A1 Cont with neuro 6. Osteoporosis, senile - ICD9: 733.01, ICD10: M81.0 - COMPREHENSIVE METABOLIC PANEL - VITAMIN D 25 HYDROXY 7. Encounter for immunization - ICD9: V03.89, ICD10: Z23 - INFLUENZA VACCINE, PRSV FREE, AGE 65+ YR, HIGH DOSE, TRIVALENT (FLUZONE HIGH-DOSE) Shey Quiroz PA-C documented in this encounter [facility] 08-22-2024 Instructions Samuel Arias, [employer]DER.[employer] - 08/22/2024 1:59 PM EDT Natty Keen, It was good to talk with you today. Below is a summary of the plan that we discussed during your appointment for reference. Of course, if you have any questions or concerns do not hesitate to reach out to me via a message or call. Samuel Wesley [employer] BUILDER.[employer] PLAN AND FOLLOW UP: TREATMENT PLAN: Continue Lexapro at 40 mg dose to help with mood and anxiety symptoms. Engage in individual psychotherapy with Aimee Aponte weekly. Referral sent to [facility] to assist patient with home modifications and support to help address anxiety she has related to falling from that gait issues complicated by parkinson's diagnosis. Encouraged patient to schedule an appointment for physical therapy. PCP has placed referral. Patient plans on going to [facility] today to set up an appointment. For those experiencing a suicidal crisis: --call the National Suicide Prevention Lifeline at 526 (618-866-4090) --text the Crisis Text Line (text HOME to 911147) --call 441 and let them know you are having a mental health crisis or go to your nearest Emergency Room for stabilization. --You can also call Mobile Crisis at [phone]. Next appointment: --Schedule in 6 months or sooner if needed -- You may call the department appointment line at [phone] to schedule your appointment. -- Please call my nurse at [phone] or send me a message in One Touch EMR with any questions or concerns between appointments. documented in this encounter [facility] 08-22-2024 History of Presen t illness Narrative Images from the original note were not included. FOLLOW UP - PSYCHIATRIC PROGRESS NOTE PATIENT: Leonila Zamudio DATE: August 22, 2024 Visit Type:In person All information is from Patient report except when noted. This evaluation is NOT intended for forensic, disability or child custody purposes. CC: Presenting today for follow up regarding psychiatric medication management. HPI: Treatment Plan from Last Visit on 06/30/2024: TREATMENT PLAN: Continue Lexapro at the same dose. Discussed with PCP about patient benefiting from possible OT and PT to help in preventing falls and better management of the changes from her parkinson's disease. PCP recommended that the patient schedule an appointment with the primary care team to evaluate the patient's needs further. Consult placed for primary care director social to assess for in home resources to help with fall prevention and safety assessment. Today Leonila shares that she has been able to start working with a therapist Aimee Aponte. Had an intake and looks forward to working with this individual. Her next appointment is this . She has struggled with feeling stable due to her parkinson's disease. Has not reached out to schedule an appointment with physical therapy yet but plans on stopping by after the appointment to schedule [facility], Completed referral form to get services with [facility] so that patient is able to get some supportive services. Has anxiety about falling and shares many things around the house that would benefit from modification. Continues to enjoy dancing with her friends. Able to go on the weekends. Denies any side effects from Lexapro and continues to utilize it for support. Has appointment with neurologist every 4 weeks. Still struggles in accepting the Parkinson's diagnosis and the change in functioning that it has caused for the patient. Shares that she has been worried about her health. There are some concerns with his liver and the medication that he has been prescribed by the doctor is very expensive. Hence, her is refusing to take the medication. Interval Progress: Same PATIENT DATA: Generalized Anxiety Disorder Scale (RANDY-7) 02/08/2024 06/30/2024 08/22/2024 RANDY - 7 SCORES Score 12 18 15 (0-4) minimal anxiety, (5-9) mild anxiety, (10-14) moderate anxiety, (15-21) severe anxiety Patient Health Questionnaire (PHQ-9) 02/08/2024 06/30/2024 08/22/2024 PHQ-9 Score 10 8 14 (0-4) minimal depression, (5-9) mild depression, (10-14) moderate depression, (15-19) moderately severe depression, (20-27) severe depression PAST MEDICAL HISTORY Diagnosis Date Absolute anemia 08/06/2015 Advance directive discussed with patient 02/20/2022 Discussed 02/20/2022 Anxiety Chronic rhinitis 03/09/2023 CHRONIC SINUSITIS NOS Essential hypertension 08/16/2015 RANDY (generalized anxiety disorder) 09/24/2023 Hyperlipidemia, mixed 08/16/[address] 02/20/2022 DPA: Braden () Major depressive disorder, recurrent episode, moderate (HCC) 09/24/2023 Neuropathic pain 08/27/2021 On cymbalta Onychomycosis 12/29/2010 Osteoporosis, senile alendronate 09/2011-09/2014 Parkinson's disease (HCC) 2012 Bavis Pedal edema 11/17/2010 Renal insufficiency 10/27/2017 Urinary frequency 07/17/2009 White coat hypertension Office hypertension PAST SURGICAL HISTORY Procedure Laterality Date COLONOSCOPY does not want. FECAL OCCULT BLOOD TEST 11/16/2017 neg NONE ALLERGIES Allergen Reactions Bactrim [Sulfametho* Rash Diltiazem Rash, Itching Norvasc [Amlodipine* Rash, Itching Penicillins Hives Sulfamethoxazole Rash Trimethoprim Rash Verapamil Rash rash Hctz [Thiazides] Other: See Comments Low potassium Current Outpatient Medications on File Prior to Visit Medication Sig escitalopram oxalate (LEXAPRO) 20 mg tablet Take 2 tablets by mouth daily at bedtime. metoprolol tartrate, short acting, (LOPRESSOR) 100 mg tablet Take 1 tablet by mouth two times a day. montelukast (SINGULAIR) 10 mg tablet Take 1 tablet by mouth daily at bedtime. spironolactone (ALDACTONE) 25 mg tablet Take 1 tablet by mouth once daily. simvastatin (ZOCOR) 10 mg tablet Take 1 tablet by mouth daily at bedtime. pramipexole (MIRAPEX) 1.5 mg tablet Take 1 tablet by mouth every 3 hours. Per Neuro: Dr. Curry carbidopa-levodopa (SINEMET) 25-100 mg per tablet Take 1 tablet by mouth three times daily. Per neuro sodium fluoride 1.1 % dental cream sodium fluoride 1.1 % dental paste USE TO BRUSH TEETH ONCE A DAY IN THE EVENING vit A/vit C/vit E/zinc/copper (PRESERVISION AREDS ORAL) Take by mouth. No current facility-administered medications on file prior to visit. ROS: See HPI PFSH: See HPI VITAL SIGNS: 08/22/24 1300 BP: 144/76 Pulse: 84 Resp: 20 Weight: 63.6 kg (140 lb 3.2 oz) Last 3 Encounter BP Readings: Date: BP: 07/14/2024 126/80 06/30/2024 132/82 05/02/2024 118/56 MENTAL STATUS EXAMINATION: Appearance: Well dressed, well groomed Behavior: Behaves appropriately during the encounter Social relatedness: Euthymic Speech/Language: The patient demonstrates appropriate tone, prosody, sindhu, phonetics, and syntax Mood: euthymic Affect: Full and appropriate to topic Orientation: Person, Place, Time and Situation Associations: Intact and linear Hallucinations: None Delusions: None Suicidal Ideation: No suicidal ideation, intent or plan. Homicidal Ideation: No homicidal ideation, intent or plan. Insight: Appropriate Judgment: Appropriate DATA REVIEWED: Psychiatric scales, Electronic medical record, and Labs DIAGNOSIS: Randy (generalized anxiety disorder) (primary encounter diagnosis) Parkinson's disease, unspecified whether dyskinesia present, unspecified whether manifestations fluctuate (hcc) Mild episode of recurrent major depressive disorder (hcc) GAF: -50-41 Serious symptoms or any serious impairment in social, occupational or school functioning. TREATMENT PLAN: Continue Lexapro at 40 mg dose to help with mood and anxiety symptoms. Engage in individual psychotherapy with Aimee Aponte weekly. Referral sent to [facility] to assist patient with home modifications and support to help address anxiety she has related to falling from that gait issues complicated by parkinson's diagnosis. Encouraged patient to schedule an appointment for physical therapy. PCP has placed referral. Patient plans on going to [facility] today to set up an appointment. MEDICATION CHANGES: Current medication regimen unchanged. Risks and benefits of the medication, including any black box warnings, were discussed with the patient. Patient is aware to reach out with any questions, concerns, or worsening of symptoms prior to the next appointment. Patient educated on risks of substance use in combination with medications and advised that any substance use along with medications may alter their effectiveness. Follow Up: 6 months I spent a total of 38 minutes on the date of the service which included preparing to see the patient, [id number] patient care, completing clinical documentation, and counseling and educating the patient/family/caregiver, ordering medications/labs, communication with other health care providers, and coordination of care. ADD ON PSYCHOTHERAPY CODE : No SIGNATURE: Samuel Arias APRN.CNP PATIENT NAME: Leonila Zamudio DATE: August 22, 2024 TIME: 1:14 PM documented in this encounter [facility] 08-22-2024 Note HNO ID: [id number] Author: SAMUEL ARIAS APRN.CNP Service: ? Author Type: Nurse Practitioner Type: Progress Notes Filed: 08/22/2024 23:24 Note Text: FOLLOW UP - PSYCHIATRIC PROGRESS NOTE PATIENT: Leonila Zamudio DATE: August 22, 2024 Visit Type:In person All information is from Patient report except when noted. This evaluation is NOT intended for forensic, disability or child custody purposes. CC: Presenting today for follow up regarding psychiatric medication management. HPI: Treatment Plan from Last Visit on 06/30/2024: TREATMENT PLAN: Continue Lexapro at the same dose. Discussed with PCP about patient benefiting from possible OT and PT to help in preventing falls and better management of the changes from her parkinson's disease. PCP recommended that the patient schedule an appointment with the primary care team to evaluate the patient's needs further. Consult placed for primary care director social to assess for in home resources to help with fall prevention and safety assessment. Today Leonila shares that she has been able to start working with a therapist Aimee Aponte. Had an intake and looks forward to working with this individual. Her next appointment is this . She has struggled with feeling stable due to her parkinson's disease. Has not reached out to schedule an appointment with physical therapy yet but plans on stopping by after the appointment to schedule [facility], Completed referral form to get services with [facility] so that patient is able to get some supportive services. Has anxiety about falling and shares many things around the house that would benefit from modification. Continues to enjoy dancing with her friends. Able to go on the weekends. Denies any side effects from Lexapro and continues to utilize it for support. Has appointment with neurologist every 4 weeks. Still struggles in accepting the Parkinson's diagnosis and the change in functioning that it has caused for the patient. Shares that she has been worried about her health. There are some concerns with his liver and the medication that he has been prescribed by the doctor is very expensive. Hence, her is refusing to take the medication. Interval Progress: Same PATIENT DATA: Generalized Anxiety Disorder Scale (RANDY-7) 02/08/2024 06/30/2024 08/22/2024 RANDY - 7 SCORES Score 12 18 15 (0-4) minimal anxiety, (5-9) mild anxiety, (10-14) moderate anxiety, (15-21) severe anxiety Patient Health Questionnaire (PHQ-9) 02/08/2024 06/30/2024 08/22/2024 PHQ-9 Score 10 8 14 (0-4) minimal depression, (5-9) mild depression, (10-14) moderate depression, (15-19) moderately severe depression, (20-27) severe depression PAST MEDICAL HISTORY Diagnosis Date Absolute anemia 08/06/2015 Advance directive discussed with patient 02/20/2022 Discussed 02/20/2022 Anxiety Chronic rhinitis 03/09/2023 CHRONIC SINUSITIS NOS Essential hypertension 08/16/2015 RANDY (generalized anxiety disorder) 09/24/2023 Hyperlipidemia, mixed 08/16/[address] 02/20/2022 DPA: Braden () Major depressive disorder, recurrent episode, moderate (HCC) 09/24/2023 Neuropathic pain 08/27/2021 On cymbalta Onychomycosis 12/29/2010 Osteoporosis, senile alendronate 09/2011-09/2014 Parkinson's disease (HCC) 2013 Bavis Pedal edema 11/17/2010 Renal insufficiency 10/27/2017 Urinary frequency 07/17/2009 White coat hypertension Office hypertension PAST SURGICAL HISTORY Procedure Laterality Date COLONOSCOPY does not want. FECAL OCCULT BLOOD TEST 11/16/2017 neg NONE ALLERGIES Allergen Reactions Bactrim [Sulfametho* Rash Diltiazem Rash, Itching Norvasc [Amlodipine* Rash, Itching Penicillins Hives Sulfamethoxazole Rash Trimethoprim Rash Verapamil Rash rash Hctz [Thiazides] Other: See Comments Low potassium Current Outpatient Medications on File Prior to Visit Medication Sig escitalopram oxalate (LEXAPRO) 20 mg tablet Take 2 tablets by mouth daily at bedtime. metoprolol tartrate, short acting, (LOPRESSOR) 100 mg tablet Take 1 tablet by mouth two times a day. montelukast (SINGULAIR) 10 mg tablet Take 1 tablet by mouth daily at bedtime. spironolactone (ALDACTONE) 25 mg tablet Take 1 tablet by mouth once daily. simvastatin (ZOCOR) 10 mg tablet Take 1 tablet by mouth daily at bedtime. pramipexole (MIRAPEX) 1.5 mg tablet Take 1 tablet by mouth every 3 hours. Per Neuro: Dr. Curry carbidopa-levodopa (SINEMET) 25-100 mg per tablet Take 1 tablet by mouth three times daily. Per neuro sodium fluoride 1.1 % dental cream sodium fluoride 1.1 % dental paste USE TO BRUSH TEETH ONCE A DAY IN THE EVENING vit A/vit C/vit E/zinc/copper (PRESERVISION AREDS ORAL) Take by mouth. No current facility-administered medications on file prior to visit. ROS: See HPI PFSH: See HPI VITAL SIGNS: 08/22/24 1300 BP: 144/76 Pulse (more content not included)... [facility] 07-14-2024 Note HNO ID: [id number] Author: SHEY QUIROZ PA-C Service: ? Author Type: Physician Color Expert Type: Progress Notes Filed: 07/14/2024 11:14 Note Text: Chief Complaint Patient presents with: Follow Up: Recent Falls HPI Leonila Zamudio is a 74 year old female who presents here today for follow up on recent falls.. Patient is losing her balance. Doesn't use a cane. Tried to use a cane but just couldn't use it. Seeing neuro for Parkinson. Has not gone through Physical Therapy yet. Past medical history, appointments, medications, allergies reviewed. Previous Medical History PAST MEDICAL HISTORY 08/06/2015: Absolute anemia 02/20/2022: Advance directive discussed with patient Comment: Discussed 02/20/2022 No date: Anxiety 03/09/2023: Chronic rhinitis No date: CHRONIC SINUSITIS NOS 08/16/2015: Essential hypertension 09/24/2023: RANDY (generalized anxiety disorder) 08/16/2015: Hyperlipidemia, mixed 02/20/2022: Living will in place Comment: DPA: Braden () 09/24/2023: Major depressive disorder, recurrent episode, moderate (HCC) 08/27/2021: Neuropathic pain Comment: On cymbalta 12/29/2010: Onychomycosis No date: Osteoporosis, senile Comment: alendronate 09/2011-09/2014: Parkinson's disease (HCC) Comment: Bavis 11/17/2010: Pedal edema 10/27/2017: Renal insufficiency 07/17/2009: Urinary frequency No date: White coat hypertension Comment: Office hypertension Previous Surgical History PAST SURGICAL HISTORY No date: COLONOSCOPY Comment: does not want. 11/16/2017: FECAL OCCULT BLOOD TEST Comment: neg No date: NONE Family History FAMILY HISTORY Problem Relation Age of Onset Heart Mother [place] Hypertension Mother Osteoporosis Mother Asthma Father Hypertension Father Lipids Father Diabetes Father Alzheimer's Disease Father Prostate Cancer Father Stroke Maternal Grandmother Stroke Maternal Grandfather Patient Allergies ALLERGIES Allergen Reactions Bactrim [Sulfametho* Rash Diltiazem Rash, Itching Norvasc [Amlodipine* Rash, Itching Penicillins Hives Sulfamethoxazole Rash Trimethoprim Rash Verapamil Rash rash Hctz [Thiazides] Other: See Comments Low potassium Current Medications Current Outpatient Medications on File Prior to Visit Medication Sig escitalopram oxalate (LEXAPRO) 20 mg tablet Take 2 tablets by mouth daily at bedtime. metoprolol tartrate, short acting, (LOPRESSOR) 100 mg tablet Take 1 tablet by mouth two times a day. montelukast (SINGULAIR) 10 mg tablet Take 1 tablet by mouth daily at bedtime. spironolactone (ALDACTONE) 25 mg tablet Take 1 tablet by mouth once daily. simvastatin (ZOCOR) 10 mg tablet Take 1 tablet by mouth daily at bedtime. pramipexole (MIRAPEX) 1.5 mg tablet Take 1 tablet by mouth every 3 hours. Per Neuro: Dr. Curry carbidopa-levodopa (SINEMET) 25-100 mg per tablet Take 1 tablet by mouth three times daily. Per neuro sodium fluoride 1.1 % dental cream sodium fluoride 1.1 % dental paste USE TO BRUSH TEETH ONCE A DAY IN THE EVENING vit A/vit C/vit E/zinc/copper (PRESERVISION AREDS ORAL) Take by mouth. No current facility-administered medications on file prior to visit. Social History Social History Tobacco Use Smoking status: Never Smokeless tobacco: Never Vaping Use Vaping status: Never Used Substance Use Topics Alcohol use: No Drug use: No Review of Symptoms REVIEW OF SYSTEMS See hpi EXAM: BP 126/80 (BP Site: Left Arm, BP Position: Sitting, BP Cuff Size: Regular Adult) Pulse 76 Resp 16 Wt 63 kg (138 lb 14.2 oz) SpO2 96% BMI 26.24 kg/m? General Appearance: Well appearing, alert, in no acute distress, well-hydrated, well nourished.. Health Maintenance List BP Controlled (<130/80) due on 03/09/2024 Covid-19 Vaccine( - 2022- season) due on 09/09/2024 DTaP,Tdap,Td Vaccine(2 - Td or Tdap) due on 03/16/2025 RSV Vaccine(1 - 1-dose 60+ series) due on 03/16/2025 Shingrix Vaccine(1 of 2) due on 03/16/2025 Influenza Vaccine(1) due on 07/16/2024 Annual PCP Team Chronic Disease Visit due on 03/16/2025 Bone Density Screening due on 03/16/2026 Diabetes Screening due on 03/16/2027 Lipid Screening due on 03/16/2029 Advance Directive Discussion Completed Hepatitis C Screening Completed Pneumococcal Vaccine: 65+ Completed Mammogram Screening Discontinued Colorectal Cancer Screening Discontinued Data reviewed ASSESSMENT/PLAN: 1. Parkinson's disease, unspecified whether dyskinesia present, unspecified whether manifestations fluctuate (HCC) - ICD9: 332.0, ICD10: G20.A1 (primary diagnosis) Will set up with Physical Therapy to help with gait and assisted walking device training. - CONSULT TO PHYSICAL THERAPY 2. Balance disorder - ICD9: 781.99, ICD10: R26.89 - CONSULT TO PHYSICAL THERAPY 3. Renal insufficiency - ICD9: 593.9, ICD10: N28.9 - BASIC METABOLIC PANEL - COMPREHENSIVE METABOLIC PANEL 4. Hyperlipidemia, mixed - ICD9: 272.2, ICD10: (more content not included)... [facility] 07-14-2024 History of Presen t illness Narrative Chief Complaint Patient presents with: Follow Up: Recent Falls HPI Leonila Zamudio is a 74 year old female who presents here today for follow up on recent falls.. Patient is losing her balance. Doesn't use a cane. Tried to use a cane but just couldn't use it. Seeing neuro for Parkinson. Has not gone through Physical Therapy yet. Past medical history, appointments, medications, allergies reviewed. Previous Medical History PAST MEDICAL HISTORY 08/06/2015: Absolute anemia 02/20/2022: Advance directive discussed with patient Comment: Discussed 02/20/2022 No date: Anxiety 03/09/2023: Chronic rhinitis No date: CHRONIC SINUSITIS NOS 08/16/2015: Essential hypertension 09/24/2023: RANDY (generalized anxiety disorder) 08/16/2015: Hyperlipidemia, mixed 02/20/2022: Living will in place Comment: DPA: Braden () 09/24/2023: Major depressive disorder, recurrent episode, moderate ([facility]) 08/27/2021: Neuropathic pain Comment: On cymbalta 12/29/2010: Onychomycosis No date: Osteoporosis, senile Comment: alendronate 09/2011-09/2014: Parkinson's disease ([facility]) Comment: Bavis 11/17/2010: Pedal edema 10/27/2017: Renal insufficiency 07/17/2009: Urinary frequency No date: White coat hypertension Comment: Office hypertension Previous Surgical History PAST SURGICAL HISTORY No date: COLONOSCOPY Comment: does not want. 11/16/2017: FECAL OCCULT BLOOD TEST Comment: neg No date: NONE Family History FAMILY HISTORY Problem Relation Age of Onset Heart Mother [place] Hypertension Mother Osteoporosis Mother Asthma Father Hypertension Father Lipids Father Diabetes Father Alzheimer's Disease Father Prostate Cancer Father Stroke Maternal Grandmother Stroke Maternal Grandfather Patient Allergies ALLERGIES Allergen Reactions Bactrim [Sulfametho* Rash Diltiazem Rash, Itching Norvasc [Amlodipine* Rash, Itching Penicillins Hives Sulfamethoxazole Rash Trimethoprim Rash Verapamil Rash rash Hctz [Thiazides] Other: See Comments Low potassium Current Medications Current Outpatient Medications on File Prior to Visit Medication Sig escitalopram oxalate (LEXAPRO) 20 mg tablet Take 2 tablets by mouth daily at bedtime. metoprolol tartrate, short acting, (LOPRESSOR) 100 mg tablet Take 1 tablet by mouth two times a day. montelukast (SINGULAIR) 10 mg tablet Take 1 tablet by mouth daily at bedtime. spironolactone (ALDACTONE) 25 mg tablet Take 1 tablet by mouth once daily. simvastatin (ZOCOR) 10 mg tablet Take 1 tablet by mouth daily at bedtime. pramipexole (MIRAPEX) 1.5 mg tablet Take 1 tablet by mouth every 3 hours. Per Neuro: Dr. Curry carbidopa-levodopa (SINEMET) 25-100 mg per tablet Take 1 tablet by mouth three times daily. Per neuro sodium fluoride 1.1 % dental cream sodium fluoride 1.1 % dental paste USE TO BRUSH TEETH ONCE A DAY IN THE EVENING vit A/vit C/vit E/zinc/copper (PRESERVISION AREDS ORAL) Take by mouth. No current facility-administered medications on file prior to visit. Social History Social History Tobacco Use Smoking status: Never Smokeless tobacco: Never Vaping Use Vaping status: Never Used Substance Use Topics Alcohol use: No Drug use: No Review of Symptoms REVIEW OF SYSTEMS See hpi EXAM: BP 126/80 (BP Site: Left Arm, BP Position: Sitting, BP Cuff Size: Regular Adult) Pulse 76 Resp 16 Wt 63 kg (138 lb 14.2 oz) SpO2 96% BMI 26.24 kg/m General Appearance: Well appearing, alert, in no acute distress, well-hydrated, well nourished.. Health Maintenance List BP Controlled (<130/80) due on 03/09/2024 Covid-19 Vaccine( - season) due on 09/09/2024 DTaP,Tdap,Td Vaccine(2 - Td or Tdap) due on 03/16/2025 RSV Vaccine(1 - 1-dose 60+ series) due on 03/16/2025 Shingrix Vaccine(1 of 2) due on 03/16/2025 Influenza Vaccine(1) due on 07/16/2024 Annual PCP Team Chronic Disease Visit due on 03/16/2025 Bone Density Screening due on 03/16/2026 Diabetes Screening due on 03/16/2027 Lipid Screening due on 03/16/2029 Advance Directive Discussion Completed Hepatitis C Screening Completed Pneumococcal Vaccine: 65+ Completed Mammogram Screening Discontinued Colorectal Cancer Screening Discontinued Data reviewed ASSESSMENT/PLAN: 1. Parkinson's disease, unspecified whether dyskinesia present, unspecified whether manifestations fluctuate (HCC) - ICD9: 332.0, ICD10: G20.A1 (primary diagnosis) Will set up with Physical Therapy to help with gait and assisted walking device training. - CONSULT TO PHYSICAL THERAPY 2. Balance disorder - ICD9: 781.99, ICD10: R26.89 - CONSULT TO PHYSICAL THERAPY 3. Renal insufficiency - ICD9: 593.9, ICD10: N28.9 - BASIC METABOLIC PANEL - COMPREHENSIVE METABOLIC PANEL 4. Hyperlipidemia, mixed - ICD9: 272.2, ICD10: E78.2 - LIPID PANEL, NONFASTING Shey Quiroz PA-C documented in this encounter [facility] 07-10-2024 Telephone encounter Note Patient is currently scheduled in 08/2024. Aaron Bess MA [facility] 07-10-2024 Miscellaneous Notes Patient is currently scheduled in 08/2024. Aaron Bess MA 3rd call attempt, left vm Closing 2nd call attempt, left vm Left message for patient to call office back. Patient needs scheduled for office visit with pcp/pcp team for 2 falls recently and declined ADLS per Samuel. Samuel spoke to pcp who agreed for follow up since having pain and will order pt/ot Joyce Alvarado MA documented in this encounter [facility] 07-05-2024 Telephone encounter Note 3rd call attempt, left vm Closing [facility] 07-03-2024 Telephone encounter Note Patient called Sw back and discussed [place] [employer] [place] passport/caregiver support program and [place]. Patient asks for Sw to mail [employer] resource guide to review programs and see what service options are available with spouse. Sw will also note her direct number for patient to call this Sw back if interested in referral to local social service agencies. [facility] 07-03-2024 Miscellaneous Notes Patient called Sw back and discussed [place] [employer] ie passport/caregiver support program and [place]. Patient asks for Sw to mail [employer] resource guide to review programs and see what service options are available with spouse. Sw will also note her direct number for patient to call this Sw back if interested in referral to local social service agencies. Sw received consult in regards to home care needs and possible social service agencies ie. [facility] [employer] that may support needs. Sw left message for patient requesting call back to discuss needs and services for possible referral. documented in this encounter [facility] 07-03-2024 Telephone encounter Note Sw received consult in regards to home care needs and possible social service agencies ie. [facility] that may support needs. Sw left message for patient requesting call back to discuss needs and services for possible referral. [facility] 07-03-2024 Telephone encounter Note 2nd call attempt, left vm [facility] 06-30-2024 Telephone encounter Note Left message for patient to call office back. Patient needs scheduled for office visit with pcp/pcp team for 2 falls recently and declined ADLS per Samuel. Samuel spoke to pcp who agreed for follow up since having pain and will order pt/ot Joyce Alvarado MA [facility] 06-30-2024 History of Presen t illness Narrative Images from the original note were not included. FOLLOW UP - PSYCHIATRIC PROGRESS NOTE PATIENT: Leonila Zamudio DATE: June 30, 2024 Visit Type:In person All information is from Patient report except when noted. This evaluation is NOT intended for forensic, disability or child custody purposes. CC: Presenting today for follow up regarding psychiatric medication management. HPI: Treatment Plan from Last Visit on 05/02/2024: Increase Lexapro to a total dose of 40 mg to address anxiety symptoms. Provided patient with 2 referrals to engage in individual psychotherapy. Encouraged patient to reach out to schedule an appointment. Today Leonila shares that she has been able to go dancing the last 2 weeks. She is out dancing for 3 hours at a time. She feels happy when she is dancing. Does not notice any parkinson's symptoms when she is dancing. I can't stop thinking about my movements and I worry that it will happen in public. Worries about her movements and shaking. Is especially more conscious about them when in public places. She fell last week due to a throw rug in front of the door at her house. Shares that she did hurt her left hip from it. I have a big bruise from it. She shares that last week, she fell in the bathtub. She lost her balance. Does not have a bench in the bathtub. She is afraid of falling again now. I sit on the edge of the bathtub now. Hurt the same left hip in this fall as well. Describes worsening of pain in the left hip since this fall. Uses tylenol to manage pain. At rest the pain is a 5/10. Pain worsens (more than 5/10) when she sits or walks for long periods of time. Uses tylenol when pain gets to a level higher than 5. Unable to take other medications besides tylenol due to interactions with her parkinson's disease medications. She goes to [facility] to work out. She works out on the machines there two times a week. Has not engaged in occupational therapy or physical therapy. Is open to water therapy as well. Discussed this provider contacting her primary care team to discuss these possible interventions for the patient. She has noticed diarrhea symptoms 2 times a week. Initially patient thought that it was from Lexapro increase but it does not appear to be connected to it. She wonders if it is due to something she ate. Interval Progress: Slightly worse due to the anxiety of recent falls. PATIENT DATA: Generalized Anxiety Disorder Scale (RANDY-7) 12/14/2023 02/08/2024 06/30/2024 RANDY - 7 SCORES Score 8 12 18 (0-4) minimal anxiety, (5-9) mild anxiety, (10-14) moderate anxiety, (15-21) severe anxiety Patient Health Questionnaire (PHQ-9) 12/14/2023 02/08/2024 06/30/2024 PHQ-9 Score 6 10 8 (0-4) minimal depression, (5-9) mild depression, (10-14) moderate depression, (15-19) moderately severe depression, (20-27) severe depression PAST MEDICAL HISTORY 08/06/2015: Absolute anemia 02/20/2022: Advance directive discussed with patient Comment: Discussed 02/20/2022 No date: Anxiety 03/09/2023: Chronic rhinitis No date: CHRONIC SINUSITIS NOS 08/16/2015: Essential hypertension 09/24/2023: RANDY (generalized anxiety disorder) 08/16/2015: Hyperlipidemia, mixed 02/20/2022: Living will in place Comment: DPA: Braden () 09/24/2023: Major depressive disorder, recurrent episode, moderate (HCC) 08/27/2021: Neuropathic pain Comment: On cymbalta 12/29/2010: Onychomycosis No date: Osteoporosis, senile Comment: alendronate 09/2011-09/2014: Parkinson's disease (HCC) Comment: Bavis 11/17/2010: Pedal edema 10/27/2017: Renal insufficiency 07/17/2009: Urinary frequency No date: White coat hypertension Comment: Office hypertension PAST SURGICAL HISTORY No date: COLONOSCOPY Comment: does not want. 11/16/2017: FECAL OCCULT BLOOD TEST Comment: neg No date: NONE ALLERGIES Allergen Reactions Bactrim [Sulfametho* Rash Diltiazem Rash, Itching Norvasc [Amlodipine* Rash, Itching Penicillins Hives Sulfamethoxazole Rash Trimethoprim Rash Verapamil Rash rash Hctz [Thiazides] Other: See Comments Low potassium Current Outpatient Medications on File Prior to Visit Medication Sig escitalopram oxalate (LEXAPRO) 20 mg tablet Take 2 tablets by mouth daily at bedtime. metoprolol tartrate, short acting, (LOPRESSOR) 100 mg tablet Take 1 tablet by mouth two times a day. montelukast (SINGULAIR) 10 mg tablet Take 1 tablet by mouth daily at bedtime. spironolactone (ALDACTONE) 25 mg tablet Take 1 tablet by mouth once daily. simvastatin (ZOCOR) 10 mg tablet Take 1 tablet by mouth daily at bedtime. pramipexole (MIRAPEX) 1.5 mg tablet Take 1 tablet by mouth every 3 hours. Per Neuro: Dr. Curry carbidopa-levodopa (SINEMET) 25-100 mg per tablet Take 1 tablet by mouth three times daily. Per neuro sodium fluoride 1.1 % dental cream sodium fluoride 1.1 % dental paste USE TO BRUSH TEETH ONCE A DAY IN THE EVENING vit A/vit C/vit E/zinc/copper (PRESERVISION AREDS ORAL) Take by mouth. No current facility-administered medications on file prior to visit. ROS: See HPI PFSH: See HPI VITAL SIGNS: 06/30/24 1122 BP: 132/82 Pulse: 68 Resp: 14 Weight: 64.4 kg (142 lb) Last 3 Encounter BP Readings: Date: BP: 06/30/2024 132/82 05/02/2024 118/56 03/16/2024 138/80 MENTAL STATUS EXAMINATION: Appearance: Well dressed, well groomed Behavior: Behaves appropriately during the encounter Social relatedness: Sad and concerned Speech/Language: The patient demonstrates appropriate tone, prosody, sindhu, phonetics, and syntax Mood: Sad and concerned Affect: Full and appropriate to topic Orientation: Person, Place, Time and Situation Associations: Intact and linear Hallucinations: None Delusions: None Suicidal Ideation: No suicidal ideation, intent or plan. Homicidal Ideation: No homicidal ideation, intent or plan. Insight: Appropriate Judgment: Appropriate DATA REVIEWED: Psychiatric scales, Electronic medical record, and consult notes from neurologist DIAGNOSIS: Randy (generalized anxiety disorder) (primary encounter diagnosis) Mild episode of recurrent major depressive disorder (hcc) Parkinson's disease, unspecified whether dyskinesia present, unspecified whether manifestations fluctuate (hcc) Fall, initial encounter GAF: -60-51 Moderate symptoms or moderate difficulty in social, occupational or school functioning. TREATMENT PLAN: Continue Lexapro at the same dose. Discussed with PCP about patient benefiting from possible OT and PT to help in preventing falls and better management of the changes from her parkinson's disease. PCP recommended that the patient schedule an appointment with the primary care team to evaluate the patient's needs further. Consult placed for primary care director social to assess for in home resources to help with fall prevention and safety assessment. MEDICATION CHANGES: Current medication regimen unchanged. Risks and benefits of the medication, including any black box warnings, were discussed with the patient. Patient is aware to reach out with any questions, concerns, or worsening of symptoms prior to the next appointment. Patient educated on risks of substance use in combination with medications and advised that any substance use along with medications may alter their effectiveness. Follow Up: 2 months I spent a total of 50 minutes on the date of the service which included preparing to see the patient, [id number] patient care, completing clinical documentation, and counseling and educating the patient/family/caregiver, ordering medications/labs, communication with other health care providers, and coordination of care. ADD ON PSYCHOTHERAPY CODE : No SIGNATURE: Samuel Arias APRN.[employer] PATIENT NAME: Leonila Zamudio DATE: June 30, 2024 TIME: 11:51 AM documented in this encounter [facility] 05-11-2024 Telephone encounter Note Medication has been approved. [facility] 05-11-2024 Miscellaneous Notes Medication has been approved. Prior authorization started via cover my meds for Lexapro 40 mg. documented in this encounter [facility] 05-09-2024 Telephone encounter Note Prior authorization started via cover my meds for Lexapro 40 mg. [facility] 05-02-2024 History of Presen t illness Narrative Images from the original note were not included. FOLLOW UP - PSYCHIATRIC PROGRESS NOTE PATIENT: Leonila Zamudio DATE: May 02, 2024 Visit Type:In person All information is from Patient report except when noted. This evaluation is NOT intended for forensic, disability or child custody purposes. Some elements were copied from the previous note which have been updated where appropriate and reflect current decision making from today May 02, 2024. CC: Presenting today for follow up regarding psychiatric medication management. HPI: Today Leonila shares that she is feeling more tearful. Has negative thoughts again. Feeling more anxious. Shares that she tends to isolate when she feels down. Gets irritable. Worries about what is going to happen to her or her . Shares that daughter is on medication for anxiety and depression also. Daughter has also verbalized that it seems that patient's medication is not supporting her as well. She has not been able to do the things that she used to do in the past. This brings her down and bothers her. Wonders why she has parkinson's. Tends to dwell on this quiet a bit. This bring her mood down. Shares that no one in her family has it. Sees a neurologist for management. Leonila is consistent in taking Lexapro. Denies any side effects from the current dose of Lexapro. Interval Progress: Slightly worse PATIENT DATA: Generalized Anxiety Disorder Scale (RANDY-7) 12/14/2023 02/08/2024 RANDY - 7 SCORES Score 8 12 (0-4) minimal anxiety, (5-9) mild anxiety, (10-14) moderate anxiety, (15-21) severe anxiety Patient Health Questionnaire (PHQ-9) 12/14/2023 02/08/2024 PHQ-9 Score 6 10 (0-4) minimal depression, (5-9) mild depression, (10-14) moderate depression, (15-19) moderately severe depression, (20-27) severe depression PAST MEDICAL HISTORY Diagnosis Date Absolute anemia 08/06/2015 Advance directive discussed with patient 02/20/2022 Discussed 02/20/2022 Anxiety Chronic rhinitis 03/09/2023 CHRONIC SINUSITIS NOS Essential hypertension 08/16/2015 RANDY (generalized anxiety disorder) 09/24/2023 Hyperlipidemia, mixed 08/16/[address] 02/20/2022 DPA: Braden () Major depressive disorder, recurrent episode, moderate ([facility]) 09/24/2023 Neuropathic pain 08/27/2021 On cymbalta Onychomycosis 12/29/2010 Osteoporosis, senile alendronate 09/2011-09/2014 Parkinson's disease (HCC) 2012 Bavis Pedal edema 11/17/2010 Renal insufficiency 10/27/2017 Urinary frequency 07/17/2009 White coat hypertension Office hypertension PAST SURGICAL HISTORY Procedure Laterality Date COLONOSCOPY does not want. FECAL OCCULT BLOOD TEST 11/16/2017 neg NONE ALLERGIES Allergen Reactions Bactrim [Sulfametho* Rash Diltiazem Rash, Itching Norvasc [Amlodipine* Rash, Itching Penicillins Hives Sulfamethoxazole Rash Trimethoprim Rash Verapamil Rash rash Hctz [Thiazides] Other: See Comments Low potassium Current Outpatient Medications on File Prior to Visit Medication Sig metoprolol tartrate, short acting, (LOPRESSOR) 100 mg tablet Take 1 tablet by mouth two times a day. montelukast (SINGULAIR) 10 mg tablet Take 1 tablet by mouth daily at bedtime. spironolactone (ALDACTONE) 25 mg tablet Take 1 tablet by mouth once daily. simvastatin (ZOCOR) 10 mg tablet Take 1 tablet by mouth daily at bedtime. escitalopram oxalate (LEXAPRO) 20 mg tablet Take 1.5 tablets by mouth daily at bedtime. pramipexole (MIRAPEX) 1.5 mg tablet Take 1 tablet by mouth every 3 hours. Per Neuro: Dr. Curry carbidopa-levodopa (SINEMET) 25-100 mg per tablet Take 1 tablet by mouth three times daily. Per neuro sodium fluoride 1.1 % dental cream sodium fluoride 1.1 % dental paste USE TO BRUSH TEETH ONCE A DAY IN THE EVENING vit A/vit C/vit E/zinc/copper (PRESERVISION AREDS ORAL) Take by mouth. No current facility-administered medications on file prior to visit. ROS: See HPI PFSH: See HPI VITAL SIGNS: 05/02/24 1129 BP: 118/56 Pulse: 84 Weight: 64.2 kg (141 lb 9.6 oz) Last 3 Encounter BP Readings: Date: BP: 05/02/2024 118/56 03/16/2024 138/80 02/08/2024 164/80 MENTAL STATUS EXAMINATION: Mental Status Exam General/Sensorium: Alert Orientation: AAOx3 Appearance: Appears well groomed and stated age- well dressed Eye contact: Fair Demeanor: Cooperative and guarded Motor activity: - Parkinsons related movements. More noticable in legs but also present in arms. Speech: Soft and slowed Mood: Sad, distressed and anxious Affect: Congruent with mood and tearful- tearful briefly when discussing her parkinson's disease Thought process: Perseveration and coherent Associations: Normal Thought content: Discussing stressors, future goals or plans and hopelessness themes Suicidal ideation: none Homicidal ideation: none Abnormal/psychotic thoughts: Absent Perceptions: She does not appear internally stimulated. Intelligence: Average Attention: Intact Memory: Short-term: Intact Long-term: Intact Language: Intact Fund of knowledge: Fair Insight: Fair Judgment: Fair Gait: Other Station: Sitting DATA REVIEWED: Psychiatric scales, Electronic medical record, and consult notes from Neurology DIAGNOSIS: Randy (generalized anxiety disorder) (primary encounter diagnosis) Major depressive disorder, recurrent episode, moderate (hcc) Parkinson's disease, unspecified whether dyskinesia present, unspecified whether manifestations fluctuate (hcc) GAF: -60-51 Moderate symptoms or moderate difficulty in social, occupational or school functioning. TREATMENT PLAN: Increase Lexapro to a total dose of 40 mg to address anxiety symptoms. Provided patient with 2 referrals to engage in individual psychotherapy. Encouraged patient to reach out to schedule an appointment. MEDICATION CHANGES: See above Risks and benefits of the medication, including any black box warnings, were discussed with the patient. Patient is aware to reach out with any questions, concerns, or worsening of symptoms prior to the next appointment. Patient educated on risks of substance use in combination with medications and advised that any substance use along with medications may alter their effectiveness. Follow Up: 2 months I spent a total of 36 minutes on the date of the service which included preparing to see the patient, [id number] patient care, completing clinical documentation, and counseling and educating the patient/family/caregiver, ordering medications/labs, and coordinating care. ADD ON PSYCHOTHERAPY CODE : No SIGNATURE: Samuel Arias APRN.CNP PATIENT NAME: Leonila Zamudio DATE: May 02, 2024 TIME: 11:45 AM documented in this encounter [facility] 04-25-2024 History of Presen t illness Narrative Scan on 04/25/2024 12:10 PM by Provider, JONNIE Kern: Consultation - Neurology Aaron Bess MA documented in this encounter [facility] 03-20-2024 Telephone encounter Note Left detailed message on Joyce Alvarado MA [facility] 03-20-2024 Miscellaneous Notes Left detailed message on Joyce Alvarado MA Let patient know bone strength study still shows osteopenia (early bone weakness). However the strength over all compared to last study 02/2022 is improved. documented in this encounter [facility] 03-20-2024 Telephone encounter Note Let patient know bone strength study still shows osteopenia (early bone weakness). However the strength over all compared to last study 02/2022 is improved. [facility] 03-17-2024 Telephone encounter Note Patient notified and voiced understanding. Aaron Bess MA [facility] 03-17-2024 Miscellaneous Notes Patient notified and voiced understanding. Aaron Bess MA Let patient know recent labs and UA were all ok. documented in this encounter [facility] 03-17-2024 Telephone encounter Note Let patient know recent labs and UA were all ok. [facility] 03-16-2024 History of Presen t illness Narrative Radiology Service Progress Note PATIENT NAME: Leonila Zamudio DATE OF SERVICE: March 16, 2024 TIME: 12:59 PM PATIENT IDENTITY VERIFICATION COMPLETED USING TWO (2) IDENTIFIERS: Name and Date of confirmed by patient verbally. FALL SCREENING: Has the patient had 2 falls in the last year or 1 fall with injury or currently using an Ambulatory Assistive Device (Walker, Cane, Wheelchair, Crutches, etc.)? No PATIENT GENDER DATA: Female. status: : No status: NO. PATIENT RELEVANT IMPLANT DATA REVIEWED: Not Applicable PATIENT PRESENTS WITH AN IMPLANTABLE OR ATTACHED VETERINARY VIRUS SERUM INSPECTOR: No RADIOLOGY DEPARTMENT: Bone Density PERIPHERAL IV DATA: Not applicable SIGNED BY: RT Lori(R) March 16, 2024 12:59 PM documented in this encounter [facility] 03-16-2024 History of Presen t illness Narrative Leonila Zamudio is a 73 year old female here for a Medicare wellness visit. Medicare Health Risk Assessment General Health fair Exercise: Minutes/Day 20, dances twice a week Exercise: Days/Week 5-6 Alcohol: Daily Use none Alcohol: Drinks/Day Alcohol: 6 or more drinks Feel off balance Yes due to her MS Concerns: Teeth/Dentures Concerns: Sexual function Troubled by feelings Seeing psych Frequency: Eating healthy diet daily ADLs requiring help Needs some help dressing at times, can cook if needed Safety precautions in home/vehicle Rarely drives, wears seat belts, has some loose rugs, has grab bars and stair rails, Smoke, vape, chews tobacco never Difficulty hearing no Difficulty seeing no Current Providers Specialists: I have reviewed specialist-related care of the patient in the medical record. Current care team: Patient Care Team: Deangelo Hawkins MD as PCP - General (Family Medicine) Samuel: psych Dr. Kyle (Neuro) optho Medical/Family history review Reviewed and updated problem list, medical/surgical/family/social history, medications, and allergies. Opioid use review Opioid Medications (last 90 days) No data to display Depression screening Depression Screening PHQ-2 Score PHQ-9 Score 02/08/2024 4 10 Depression screening tool completed and reviewed. Based on score and interview, patient is already diagnosed with depression. Screening tool discussed with patient, and I recommended continuing current plan of care. Cognitive screening Mini Cog Score: 3 Cognitive screening reviewed and No further action needed (score 3-5). Functional Observation Was the patient's Timed Up & Go test unsteady or ? 12 seconds? No Advance Care Planning Surrogate decision maker documented and/or advance directives scanned in chart Measurements BP 138/80 Pulse 68 Resp 16 Ht 5' 1 (1.55m) Wt 143 lb (64.9kg) BMI 27.03 kg/(m^2). Vision Screening: Follows with optometry/ophthalmology Assessment/Plan Medicare annual wellness visit, subsequent (Z00.00) - Counseled on healthy diet and regular exercise - Fall avoidance information provided - Personalized prevention plan provided See below Chief Complaint Patient presents with: Medicare Wellness Exam HPI Leonila Zamudio is a 73 year old female who presents here today for Chronic Medical Conditions. and Medicare Annual Visit. Patient is here today with hx of HTN, Hyperlipidemia, Parkinson's seeing neuro, anemia, osteopenia as well as those reviewed and addressed below and in ROS. Any concerns? No new issues. Past medical history, appointments, medications, allergies reviewed. Previous Medical History PAST MEDICAL HISTORY Diagnosis Date Absolute anemia 08/06/2015 Advance directive discussed with patient 02/20/2022 Discussed 02/20/2022 Anxiety CHRONIC SINUSITIS NOS Essential hypertension 08/16/2015 Hyperlipidemia, mixed 08/16/[address] 02/20/2022 DPA: Braden () Neuropathic pain 08/27/2021 On cymbalta Onychomycosis 12/29/2010 Osteoporosis, senile alendronate 09/2011-09/2014 Parkinson's disease (HCC) 2012 Bavis Pedal edema 11/17/2010 Renal insufficiency 10/27/2017 Urinary frequency 07/17/2009 White coat hypertension Office hypertension Previous Surgical History PAST SURGICAL HISTORY Procedure Laterality Date COLONOSCOPY does not want. FECAL OCCULT BLOOD TEST 11/16/2017 neg NONE Family History FAMILY HISTORY Problem Relation Age of Onset Heart Mother [place] Hypertension Mother Osteoporosis Mother Asthma Father Hypertension Father Lipids Father Diabetes Father Alzheimer's Disease Father Prostate Cancer Father Stroke Maternal Grandmother Stroke Maternal Grandfather Patient Allergies ALLERGIES Allergen Reactions Bactrim [Sulfametho* Rash Diltiazem Rash, Itching Norvasc [Amlodipine* Rash, Itching Penicillins Hives Sulfamethoxazole Rash Trimethoprim Rash Verapamil Rash rash Hctz [Thiazides] Other: See Comments Low potassium Current Medications Current Outpatient Medications on File Prior to Visit Medication Sig escitalopram oxalate (LEXAPRO) 20 mg tablet Take 1.5 tablets by mouth daily at bedtime. pramipexole (MIRAPEX) 1.5 mg tablet Take 1 tablet by mouth every 3 hours. Per Neuro: Dr. Curry simvastatin (ZOCOR) 10 mg tablet Take 1 tablet by mouth daily at bedtime. spironolactone (ALDACTONE) 25 mg tablet Take 1 tablet by mouth once daily. montelukast (SINGULAIR) 10 mg tablet Take 1 tablet by mouth daily at bedtime. metoprolol tartrate, short acting, (LOPRESSOR) 100 mg tablet Take 1 tablet by mouth twice daily. metoprolol tartrate, short acting, (LOPRESSOR) 100 mg tablet Take 1 tablet by mouth twice daily. carbidopa-levodopa (SINEMET) 25-100 mg per tablet Take 1 tablet by mouth three times daily. Per neuro sodium fluoride 1.1 % dental cream sodium fluoride 1.1 % dental paste USE TO BRUSH TEETH ONCE A DAY IN THE EVENING vit A/vit C/vit E/zinc/copper (PRESERVISION AREDS ORAL) Take by mouth. No current facility-administered medications on file prior to visit. Social History Social History Tobacco Use Smoking status: Never Smokeless tobacco: Never Vaping Use Vaping Use: Never used Substance Use Topics Alcohol use: No Drug use: No Review of Symptoms REVIEW OF SYSTEMS GENERAL: No weight loss, malaise or fevers HEENT: Negative for frequent or significant headaches, No changes in hearing or vision, no nose bleeds or other nasal problems. Has her chronic runny nose. NECK: Negative for lumps, goiter, pain and significant neck swelling RESPIRATORY: Negative for cough, hemoptysis, wheezing, COPD, dyspnea or shortness of breath CARDIOVASCULAR: Negative for chest pain, leg swelling, hypertension, CHF or palpitations GI: No nausea, vomiting, or diarrhea, No frequent heartburn or reflux symptoms, and no. : No history of dysuria, frequency or blood. Some recent suprapubic tenderness. MUSCULOSKELETAL: Negative for joint pain or swelling, back pain or muscle pain SKIN: Negative for lesions, rash, and itching PSYCH: See medicare section, seeing psych HEMATOLOGY/LYMPHOLOGY: Negative for prolonged bleeding, bruising easily or swollen nodes ENDOCRINE: Negative for cold or heat intolerance, polyuria, polydipsia and goiter NEURO: No history of headaches, syncope, paralysis, seizures. Has her typical tremors EXAM: BP 138/80 Pulse 68 Resp 16 Ht 154.9 cm (5' 1) Wt 64.9 kg (143 lb) BMI 27.02 kg/m Last 5 Encounter Wt Readings: Date: Wt: 03/16/2024 64.9 kg (143 lb) 02/08/2024 65 kg (143 lb 3.2 oz) 12/14/2023 65.4 kg (144 lb 3.2 oz) 11/16/2023 65.6 kg (144 lb 9.6 oz) 09/21/2023 64.5 kg (142 lb 3.2 oz) General Appearance: Well appearing, alert, in no acute distress, well-hydrated, well nourished. and Overweight. Skin: Skin color, texture, turgor normal, no suspicious rashes or lesions. Head: Normocephalic, no masses, lesions, tenderness or abnormalities. Eyes: Anicteric sclera. Pupils are equally round and reactive to light. Extraocular movements are intact. . Ears: External ears normal, canals clear. Nose/Sinuses: Nares normal, septum midline, mucosa normal, no drainage or sinus tenderness. Oropharynx: Lips, mucosa, and tongue normal, teeth and gums normal, oropharynx normal. Neck: Supple, no adenopathy; thyroid symmetric, normal size, no bruits. Lungs: Lungs clear to auscultation. No wheezing, rhonchi, rales.. Heart: RRR without murmur, gallop, or rubs. No ectopy. Abdomen: Normal abdominal exam, Abdomen soft, non-tender. Bowel sounds normal. No masses, organomegaly. Extremities: No deformities, edema, skin discoloration, clubbing or cyanosis. Good capillary refill. . Musculoskeletal: Muscular strength intact, No joint swelling, deformity, or tenderness. Peripheral Pulses: Normal. Neurologic: Gait normal. Reflexes normal and symmetric. Sensation to light touch and crainal nerves 2-12 intact.. Health Maintenance List Shingrix Vaccine(1 of 2) Never done DTaP,Tdap,Td Vaccine(2 - Td or Tdap) due on 06/12/2021 Advance Directive Discussion due on 11/15/2023 BP Controlled (<130/80) due on 03/09/2024 Bone Density Screening due on 03/10/2024 RSV Vaccine(1 - 1-dose 60+ series) due on 09/09/2024 Covid-19 Vaccine( - 2022- season) due on 09/09/2024 Annual PCP Team Chronic Disease Visit due on 09/09/2024 Diabetes Screening due on 09/09/2026 Lipid Screening due on 03/09/2028 Influenza Vaccine Completed Hepatitis C Screening Completed Pneumococcal Vaccine: 65+ Completed Mammogram Screening Discontinued Colorectal Cancer Screening Discontinued Data reviewed A/P ASSESSMENT/PLAN: 1. Medicare annual wellness visit, subsequent - ICD9: V70.0, ICD10: Z00.00 (primary diagnosis) - Counseled on healthy diet and regular exercise - Discussed need and benefit for weight loss. BMI 27.02 kg/(m^2) - Follow up for annual exam in one year 2. Essential hypertension - ICD9: 401.9, ICD10: I10 - Controlled - Continue current medications - Recommend home blood pressure monitoring, to bring results to next visit - Encouraged sodium restriction, DASH or Mediterranean diet - Recommend regular aerobic exercise 3. Hyperlipidemia, mixed - ICD9: 272.2, ICD10: E78.2 - await labs - Counseled on healthy diet and regular exercise - Discussed need for and benefit of weight loss. BMI 27.02 kg/(m^2) 4. Anemia, unspecified type - ICD9: 285.9, ICD10: D64.9 - await labs. Has been chronic stable 5. Renal insufficiency - ICD9: 593.9, ICD10: N28.9 - await labs to see if any changes. 6. Neuropathic pain - ICD9: 729.2, ICD10: M79.2 - no on any meds at this time and managed per neuro 7. Parkinson's disease, unspecified whether dyskinesia present, unspecified whether manifestations fluctuate (HCC) - ICD9: 332.0, ICD10: G20.A1 - med management per neuro 8. Major depressive disorder, recurrent episode, moderate (HCC) - ICD9: 296.32, ICD10: F33.1 - med management per psych 9. RANDY (generalized anxiety disorder) - ICD9: 300.02, ICD10: F41.1 - as per #8 10. Osteoporosis, senile - ICD9: 733.01, ICD10: M81.0 Check - DXA-AXIAL SKELETON - BD DXA TRABECULAR BONE SCORE (TBS) 11. Advance directive discussed with patient - ICD9: V65.49, ICD10: Z71.89 - up to date Requested Prescriptions Signed Prescriptions Disp Refills metoprolol tartrate, short acting, (LOPRESSOR) 100 mg tablet 180 tablet 1 Sig: Take 1 tablet by mouth two times a day. montelukast (SINGULAIR) 10 mg tablet 90 tablet 1 Sig: Take 1 tablet by mouth daily at bedtime. spironolactone (ALDACTONE) 25 mg tablet 90 tablet 1 Sig: Take 1 tablet by mouth once daily. simvastatin (ZOCOR) 10 mg tablet 90 tablet 1 Sig: Take 1 tablet by mouth daily at bedtime. F/u 6 months routine I spent a total of 40 minutes on the date of the service which included preparing to see the patient, [id number] patient care, completing clinical documentation, performing a medically appropriate examination, counseling and educating the patient/family/caregiver and ordering medications, tests, or procedures. Deangelo Hawkins MD documented in this encounter [facility] 03-16-2024 Instructions Deangelo Hawkins MD - 03/16/2024 10:59 AM EDT Consider getting the shingrix vaccine for the prevention of shingles from a local pharmacy and the RSV vaccine. Consider getting a Tdap for tetanus booster at the local health dept. Screening schedule The following prevention plan is recommended: Shingrix Vaccine(1 of 2) Never done DTaP,Tdap,Td Vaccine(2 - Td or Tdap) due on 06/12/2021 Advance Directive Discussion due on 11/15/2023 BP Controlled (<130/80) due on 03/09/2024 Bone Density Screening due on 03/10/2024 WHAT YOU CAN DO TO PREVENT FALLS Many falls can be prevented. By making some changes, you can lower your chances of falling. Four things YOU can do to prevent falls for you* and your caregiver 1. Begin a regular exercise program Exercise is one of the most important ways to lower your chances of falling. It makes you stronger and helps you feel better. Exercises that improve balance and coordination (like Bam Chi) are the most helpful. Lack of exercise leads to weakness and increases your chances of falling. Ask your doctor or health care provider about the best type of exercise program for you. 2. Have your health care provider review your medicines Have your doctor or pharmacist review all the medicines you take, even iywq-qyb-[id number] medicines. As you get older, the way medicines work in your body can change. Some medicines, or combinations of medicines, can make you sleepy or dizzy and can cause you to fall. 3. Have your vision checked Have your eyes checked by an eye doctor at least once a year. You may be wearing the wrong glasses or have a condition like glaucoma or cataracts that limits your vision. Poor vision can increase your chances of falling. 4. Make your home safer About half of all falls happen at home. To make your home safer: Remove things you can trip over (like papers, books, clothes, and shoes) from stairs and places where you walk. Remove small throw rugs or use double-sided tape to keep the rugs from slipping. Keep items you use often in cabinets you can reach easily without using a step stool. Have grab bars put in next to your toilet and in the tub or shower. Use non-slip mats in the bathtub and on shower floors. Improve the lighting in your home. As you get older, you need brighter lights to see well. Hang light-weight curtains or shades to reduce glare. Have handrails and lights put in on all staircases. Wear shoes both inside and outside the house. Avoid going barefoot or wearing slippers. For more information, contact: Centers for Disease Control and Prevention www.cdc.gov/injury * This information may not apply if you have certain medical conditions. documented in this encounter [facility] 01-27-2024 History of Presen t illness Narrative Scan on 10/26/2023 12:08 PM by Provider, Concha, JONNIE: Consultation - Neurology documented in this encounter [facility] 12-14-2023 History of Presen t illness Narrative FOLLOW UP - PSYCHIATRIC PROGRESS NOTE Visit Type:In person Reason for Visit: Outpatient follow-up and safety monitoring of previously prescribed psychiatric medication, psychotherapy or other treatment Samuel Hauser APRN.JALEEL, personally performed the services described in this documentation. All medical record entries made by the ABIMAEL student were at my direction and in my presence. I have reviewed the chart and discharge instructions (if applicable) and agree that the record reflects my personal performance and is accurate and complete. Samuel Arias APRN.JALEEL December 20, 2023 10:49 PM CC: Follow up after increase in Lexapro dose. HPI: Treatment Plan for 11/16/2023 1. Increase Lexparo to 30 mg. 2. Discussed restarting dancing as that is a good coping skill for the patient. 3. Discussed the importance of exercising. This was also encouraged by her neurologist. Leonila reports still shaking a little but notes improvement. She hasn't been able to go dancing because of the weather. She typically tries to go every week with a live band. The Parkinson's doesn't bother her as much when she's dancing because she's not thinking about it. She reports no changes at home. She says we've been there too long. She and her have been there for 53 years. She reports fear of falling, especially backwards down the stairs. She denies feeling dizzy. The bathroom is upstairs and laundry is downstairs. She describes having to go upstairs to go to the bathroom and carrying the laundry basket upstairs. She wants a ranch house or condo with one floor. Her is unwilling to move. Leonila reports not falling lately. Leonila encouraged to talk to her neurologist about getting insurance reimbursement for stair lift. Leonila denies any issues with increase in Lexapro. Leonila appears to be more positive. She reports going to sleep at about 1030 and sleeping till 430-5, sometimes till 6. She denies having trouble falling or staying asleep, except getting up a little earlier than she would like (at 7 AM). Leonila reports using a floor pedal exercise machine that she uses twice per day. She reports that she likes doing it. Risks and benefits of the medication, including any black box warnings, were discussed with the patient. Interval Progress: Slightly improved PATIENT DATA: Generalized Anxiety Disorder Scale (RANDY-7) RANDY - 7 SCORES 12/14/2023 RANDY-7 Score 8 (0-4) minimal anxiety, (5-9) mild anxiety, (10-14) moderate anxiety, (15-21) severe anxiety Patient Health Questionnaire (PHQ-9) PHQ-9 12/14/2023 Score 6 (0-4) minimal depression, (5-9) mild depression, (10-14) moderate depression, (15-19) moderately severe depression, (20-27) severe depression PROMIS [employer] No flowsheet data found. PAST MEDICAL HISTORY Diagnosis Date Absolute anemia 08/06/2015 Advance directive discussed with patient 02/20/2022 Discussed 02/20/2022 Anxiety CHRONIC SINUSITIS NOS Essential hypertension 08/16/2015 Hyperlipidemia, mixed 08/16/[address] 02/20/2022 DPA: Braden () Neuropathic pain 08/27/2021 On cymbalta Onychomycosis 12/29/2010 Osteoporosis, senile alendronate 09/2011-09/2014 Parkinson's disease 2012 Bavis Pedal edema 11/17/2010 Renal insufficiency 10/27/2017 Urinary frequency 07/17/2009 White coat hypertension Office hypertension PAST SURGICAL HISTORY Procedure Laterality Date COLONOSCOPY does not want. FECAL OCCULT BLOOD TEST 11/16/2017 neg NONE Current Outpatient Medications Medication Sig Dispense Refill escitalopram oxalate (LEXAPRO) 20 mg tablet Take 1.5 tablets by mouth daily at bedtime for 7 days. 11 tablet 0 pramipexole (MIRAPEX) 1.5 mg tablet Take 1 tablet by mouth every 3 hours. Per Neuro: Dr. Curry simvastatin (ZOCOR) 10 mg tablet Take 1 tablet by mouth daily at bedtime. 90 tablet 1 spironolactone (ALDACTONE) 25 mg tablet Take 1 tablet by mouth once daily. 90 tablet 1 montelukast (SINGULAIR) 10 mg tablet Take 1 tablet by mouth daily at bedtime. 90 tablet 1 metoprolol tartrate, short acting, (LOPRESSOR) 100 mg tablet Take 1 tablet by mouth twice daily. 28 tablet 0 metoprolol tartrate, short acting, (LOPRESSOR) 100 mg tablet Take 1 tablet by mouth twice daily. 180 tablet 1 carbidopa-levodopa (SINEMET) 25-100 mg per tablet Take 1 tablet by mouth three times daily. Per neuro sodium fluoride 1.1 % dental cream sodium fluoride 1.1 % dental paste USE TO BRUSH TEETH ONCE A DAY IN THE EVENING loratadine (CLARITIN) 10 mg tablet Take 1 tablet by mouth once daily. (Patient not taking: Reported on 09/21/2023) 30 tablet 11 fluticasone (FLONASE) 50 mcg/actuation nasal spray Use 2 Sprays in each nostril once daily. Rinse mouth after use. (Patient not taking: Reported on 09/21/2023) 9.9 mL 0 vit A/vit C/vit E/zinc/copper (PRESERVISION AREDS ORAL) Take by mouth. No current facility-administered medications for this visit. ROS: See HPI PFSH: See HPI VITAL SIGNS: 12/14/23 0925 BP: 130/78 Pulse: 80 Weight: 65.4 kg (144 lb 3.2 oz) MENTAL STATUS EXAM: CONSTITUTIONAL: Well groomed, Appropriately dressed ORIENTATION: Person, Place, Time and Situation MEMORY: Recent intact, Remote intact, Immediate intact CONCENTRATION: Normal MOOD: euthymic AFFECT: Full and appropriate to topic SPEECH : Clear & distinct LANGUAGE : Normal ASSOCIATIONS: Intact THOUGHT PROCESS : Logical, Coherent, and Rational PROGRESSION : There was no evidence of disturbance in thought perception or progression. FUND OF KNOWLEDGE : Appropriate and Adequate SUICIDE: None HOMICIDE: None DATA REVIEWED: Psychiatric scales and Electronic medical record DIAGNOSIS: PRIMARY: Generalized Anxiety Disorder Secondary : MDD, recurrent, in partial remission Other : Parkinson's disease GAF: -70-61 Some mild symptoms or some difficulty in social, occupational, or school functioning, but generally functioning pretty well. TREATMENT PLAN: 1. Talk to neurologist about getting insurance reimbursement for stair lift 2. Continue to use floor machine to exercise twice per day. Increase to 3 times per day as tolerated. 3. Continue Lexapro 30 mg 4. Continue dancing as this is a good coping skill 5. Follow up in person on February 07, 2023 at 1030 AM MEDICATION CHANGES: Current medication regimen unchanged. Follow Up: In person visit on 02/08/2024 at 1030 AM I spent a total of 28 minutes on the date of the service which included preparing to see the patient, [id number] patient care, completing clinical documentation, obtaining and/or reviewing separately obtained history, performing a medically appropriate examination, counseling and educating the patient/family/caregiver, ordering medications, tests, or procedures, independently interpreting results (not separately reported), and communicating results to the patient/family/caregiver. ADD ON PSYCHOTHERAPY CODE : No SIGNATURE: Samuel Arias APRN.CNP PATIENT NAME: Leonila Zamudio DATE: December 14, 2023 TIME: 9:39 AM documented in this encounter [facility] 10-26-2023 History of Presen t illness Narrative Scan on 10/26/2023 12:08 PM by Provider, Concha, JONNIE: Consultation - Neurology documented in this encounter [facility] 10-19-2023 Instructions Samuel Arias APRN.CNP - 10/19/2023 11:05 AM EST Natty Keen, It was good to talk with you today. Below is a summary of the plan that we discussed during your appointment for reference. Of course, if you have any questions or concerns do not hesitate to reach out to me via a message or call. Samuel Wesley APRN.CNP PLAN AND FOLLOW UP: YOU SHOULD SEEK IMMEDIATE MEDICAL ATTENTION AT THE NEAREST EMERGENCY DEPARTMENT OR BY CALLING 911, IF ANY OF THE FOLLOWING OCCURS: - New or worsening thoughts of harming yourself (suicidal thoughts) or others (homicidal thoughts) - Not feeling safe at home or worrying about your ability to remain safe at home If you are having thoughts of harming yourself or others, then you can: - Call the National Suicide Hotline at 988 - Text 4HOPE to 988 MEDICATION CHANGES: - Stop Fluoxetine once you receive Lexapro (escitalopram) from the mail order pharmacy. - Escitalopram (Lexapro) 20 mg - take 1/2 tablet once at bedtime for 6 days, then take 1 tablet at bedtime after that. Next appointment: November 16 at 9:30 am in person -- You may call the department appointment line at [phone] to schedule your appointment. -- Please call my nurse Lilli at [phone] or send me a message in One Touch EMR with any questions or concerns between appointments. documented in this encounter [facility] 10-19-2023 History of Presen t illness Narrative FOLLOW UP - PSYCHIATRIC PROGRESS NOTE Visit Type:In person Reason for Visit: Outpatient follow-up and safety monitoring of previously prescribed psychiatric medication, psychotherapy or other treatment CC: Follow up regarding change in medication to Prozac. HPI: Treatment plan from last visit on 09/21/2023: 1. Taper off of the Cymbalta to 30mg for two weeks with a plan to discontinue after two weeks 2. Begin Prozac 20mg to address symptoms of anxiety 2. Call Daughter- Mary to discuss modifications to home environment regarding her high risk of falls 3. Referral for physical therapy for a fitting for a cane or a walker 4. Coordinate with Primary Care regarding metoprolol re-starting coinciding with dizziness going up the stairs 5. Follow up in 3 weeks Today Leonila shares that she has been feeling worse with the change of the medication to Prozac. She shares that the shaking is worse. It comes and goes. She is feeling more nervous and anxious. She has not been able to go dancing or exercise. She has not been able to do these things for the past 3 weeks. She has been getting up around 3 am to 4 am every morning. She stays up and then takes nap in the afternoon. Discussed her worries related to throw rugs in the house. Discussed this with the . Her daughters have also verbalized this concern to her . Discussed changes in medications. Misses her grandchildren. They are away at college. She did see them for Thanksgiving. Looks forward to [place] at her daughter's house. Risks and benefits of the medication, including any black box warnings, were discussed with the patient. Interval Progress: Slightly worse PATIENT DATA: Generalized Anxiety Disorder Scale (RANDY-7) No flowsheet data found.(0-4) minimal anxiety, (5-9) mild anxiety, (10-14) moderate anxiety, (15-21) severe anxiety Patient Health Questionnaire (PHQ-9) No flowsheet data found.(0-4) minimal depression, (5-9) mild depression, (10-14) moderate depression, (15-19) moderately severe depression, (20-27) severe depression PROMIS [employer] No flowsheet data found. PAST MEDICAL HISTORY Diagnosis Date Absolute anemia 08/06/2015 Advance directive discussed with patient 02/20/2022 Discussed 02/20/2022 Anxiety CHRONIC SINUSITIS NOS Essential hypertension 08/16/2015 Hyperlipidemia, mixed 08/16/[address] 02/20/2022 DPA: Braden () Neuropathic pain 08/27/2021 On cymbalta Onychomycosis 12/29/2010 Osteoporosis, senile alendronate 09/2011-09/2014 Parkinson's disease 2012 Bavis Pedal edema 11/17/2010 Renal insufficiency 10/27/2017 Urinary frequency 07/17/2009 White coat hypertension Office hypertension PAST SURGICAL HISTORY Procedure Laterality Date COLONOSCOPY does not want. FECAL OCCULT BLOOD TEST 11/16/2017 neg NONE Current Outpatient Medications Medication Sig Dispense Refill DULoxetine (CYMBALTA) 30 mg capsule Take 1 capsule by mouth once daily for 14 days. 14 capsule 0 FLUoxetine (PROZAC) 20 mg capsule Take 1 capsule by mouth once daily. 30 capsule 0 NEUPRO 2 mg/24 hour patch Apply 2 Patches as directed once daily. 60 Patch 0 simvastatin (ZOCOR) 10 mg tablet Take 1 tablet by mouth daily at bedtime. 90 tablet 1 spironolactone (ALDACTONE) 25 mg tablet Take 1 tablet by mouth once daily. 90 tablet 1 montelukast (SINGULAIR) 10 mg tablet Take 1 tablet by mouth daily at bedtime. 90 tablet 1 metoprolol tartrate, short acting, (LOPRESSOR) 100 mg tablet Take 1 tablet by mouth twice daily. 28 tablet 0 metoprolol tartrate, short acting, (LOPRESSOR) 100 mg tablet Take 1 tablet by mouth twice daily. 180 tablet 1 pramipexole (MIRAPEX) 1 mg tablet Take 1 mg by mouth every 3 hours. carbidopa-levodopa (SINEMET) 25-100 mg per tablet Take 1 tablet by mouth three times daily. Per neuro sodium fluoride 1.1 % dental cream sodium fluoride 1.1 % dental paste USE TO BRUSH TEETH ONCE A DAY IN THE EVENING loratadine (CLARITIN) 10 mg tablet Take 1 tablet by mouth once daily. (Patient not taking: Reported on 09/21/2023) 30 tablet 11 fluticasone (FLONASE) 50 mcg/actuation nasal spray Use 2 Sprays in each nostril once daily. Rinse mouth after use. (Patient not taking: Reported on 09/21/2023) 9.9 mL 0 vit A/vit C/vit E/zinc/copper (PRESERVISION AREDS ORAL) Take by mouth. No current facility-administered medications for this visit. ROS: See HPI PFSH: See HPI VITAL SIGNS: 10/19/23 0951 BP: 164/100 Pulse: 84 MENTAL STATUS EXAM: CONSTITUTIONAL: Well groomed, Appropriately dressed ORIENTATION: Person, Place, Time and Situation MEMORY: Recent intact, Remote intact, Immediate intact CONCENTRATION: Normal MOOD: sad anxious AFFECT: Full and appropriate to topic SPEECH : Clear & distinct LANGUAGE : Normal ASSOCIATIONS: Intact THOUGHT PROCESS : Logical, Coherent, and Rational PROGRESSION : There was no evidence of disturbance in thought perception or progression. FUND OF KNOWLEDGE : Appropriate and Adequate SUICIDE: None HOMICIDE: None DATA REVIEWED: Psychiatric scales and Electronic medical record DIAGNOSIS: PRIMARY: Generalized Anxiety Disorder Secondary : MDD, recurrent, moderate Other : Parkinson's Disease GAF: -60-51 Moderate symptoms or moderate difficulty in social, occupational or school functioning. TREATMENT PLAN: 1. Discontinue Prozac due to lack of efficacy and possible worsening in her shakiness. 2. Start Lexapro and slowly increase the dose to address her anxiety symptoms. 3. Discussed with about the importance of removing lose rugs in the house to decrease fall risk. MEDICATION CHANGES: - Stop Fluoxetine once you receive Lexapro (escitalopram) from the mail order pharmacy. - Escitalopram (Lexapro) 20 mg - take 1/2 tablet once at bedtime for 6 days, then take 1 tablet at bedtime after that. Follow Up: November 16 I spent a total of 48 minutes on the date of the service which included preparing to see the patient, [id number] patient care, completing clinical documentation, obtaining and/or reviewing separately obtained history, performing a medically appropriate examination, counseling and educating the patient/family/caregiver, ordering medications, tests, or procedures, independently interpreting results (not separately reported), and communicating results to the patient/family/caregiver. ADD ON PSYCHOTHERAPY CODE : No SIGNATURE: Samuel Arias APRN.CNP PATIENT NAME: Leonila Zamudio DATE: October 19, 2023 TIME: 10:04 AM documented in this encounter [facility] 09-10-2023 Miscellaneous Notes Patient notified and verbalized understanding Cristin Zamora Cma Let [patient know complete electrolyte panel ok except showing she needs to try to get 56-64 ounces of water a day. documented in this encounter [facility] 09-09-2023 Instructions Deangelo Hawkins MD - 09/09/2023 11:20 AM EDT Please get labs and urine test done on or after 02/25/2024 prior to your next visit. documented in this encounter [facility] 09-09-2023 History of Presen t illness Narrative Chief Complaint Patient presents with: F/U 6 months HPI Leonila Zamudio is a 73 year old female who presents here today for 6 month follow up. Patient is here today with hx of HTN, Hyperlipidemia, Parkinson's seeing neuro, anemia, osteopenia as well as those reviewed and addressed below and in ROS. Any concerns? No new issues. Seeing psych on 09/21/2023 Patient sees [facility] last visit was 08/10/2023 Past medical history, appointments, medications, allergies reviewed. Previous Medical History PAST MEDICAL HISTORY Diagnosis Date Absolute anemia 08/06/2015 Advance directive discussed with patient 02/20/2022 Discussed 02/20/2022 Anxiety CHRONIC SINUSITIS NOS Essential hypertension 08/16/2015 Hyperlipidemia, mixed 08/16/[address] 02/20/2022 DPA: Braden () Neuropathic pain 08/27/2021 On cymbalta Onychomycosis 12/29/2010 Osteoporosis, senile alendronate 09/2011-09/2014 Parkinson's disease (HCC) 2012 Bavis Pedal edema 11/17/2010 Renal insufficiency 10/27/2017 Urinary frequency 07/17/2009 White coat hypertension Office hypertension Previous Surgical History PAST SURGICAL HISTORY Procedure Laterality Date COLONOSCOPY does not want. FECAL OCCULT BLOOD TEST 11/16/2017 neg NONE Family History FAMILY HISTORY Problem Relation Age of Onset Heart Mother [place] Hypertension Mother Osteoporosis Mother Asthma Father Hypertension Father Lipids Father Diabetes Father Alzheimer's Disease Father Prostate Cancer Father Stroke Maternal Grandmother Stroke Maternal Grandfather Hypertension Daughter Clotting Disorder Daughter Factor V Clotting Disorder Daughter Factor V Stroke Daughter cavernous sinus thrombosis Patient Allergies ALLERGIES Allergen Reactions Bactrim [Sulfametho* Rash Diltiazem Rash, Itching Norvasc [Amlodipine* Rash, Itching Penicillins Hives Sulfamethoxazole Rash Trimethoprim Rash Verapamil Rash rash Hctz [Thiazides] Other: See Comments Low potassium Current Medications Current Outpatient Medications on File Prior to Visit Medication Sig metoprolol tartrate, short acting, (LOPRESSOR) 100 mg tablet Take 1 tablet by mouth twice daily. metoprolol tartrate, short acting, (LOPRESSOR) 100 mg tablet Take 1 tablet by mouth twice daily. pramipexole (MIRAPEX) 1 mg tablet Take 1 mg by mouth every 3 hours. NEUPRO 2 mg/24 hour patch APPLY 1 PATCH DAILY TO SKIN carbidopa-levodopa (SINEMET) 25-100 mg per tablet Take 1 tablet by mouth three times daily. Per neuro montelukast (SINGULAIR) 10 mg tablet Take 1 tablet by mouth daily at bedtime. sodium fluoride 1.1 % dental cream sodium fluoride 1.1 % dental paste USE TO BRUSH TEETH ONCE A DAY IN THE EVENING loratadine (CLARITIN) 10 mg tablet Take 1 tablet by mouth once daily. fluticasone (FLONASE) 50 mcg/actuation nasal spray Use 2 Sprays in each nostril once daily. Rinse mouth after use. selegiline (ELDEPRYL) 5 mg tablet selegiline 5 mg tablet TAKE 1 TABLET TWICE A DAY WITH BREAKFAST AND LUNCH. simvastatin (ZOCOR) 10 mg tablet Take 1 tablet by mouth daily at bedtime. spironolactone (ALDACTONE) 25 mg tablet Take 1 tablet by mouth once daily. DULoxetine 40 mg cpDR Take 1 capsule by mouth once daily. Per Neuro, Dr. Curry vit A/vit C/vit E/zinc/copper (PRESERVISION AREDS ORAL) Take by mouth. meloxicam (MOBIC) 15 mg tablet Take 1 tablet by mouth once daily. With food. (Patient not taking: No sig reported) No current facility-administered medications on file prior to visit. Social History Social History Tobacco Use Smoking status: Never Smokeless tobacco: Never Vaping Use Vaping Use: Never used Substance Use Topics Alcohol use: No Drug use: No Review of Symptoms REVIEW OF SYSTEMS GENERAL: No weight loss, malaise or fevers NECK: Negative for lumps, goiter, pain and significant neck swelling RESPIRATORY: Negative for cough, hemoptysis, wheezing, COPD, dyspnea or shortness of breath CARDIOVASCULAR: Negative for chest pain, leg swelling, hypertension, CHF or palpitations PSYCH: seeing psych 09/21/2023 NEURO: No history of headaches, syncope, paralysis, seizures or tremors EXAM: BP 118/68 Pulse 82 Wt 64 kg (141 lb) SpO2 96% BMI 25.95 kg/m Last 5 Encounter Wt Readings: Date: Wt: 09/09/2023 64 kg (141 lb) 08/11/2023 64 kg (141 lb) 07/06/2023 63 kg (138 lb 12.8 oz) 05/27/2023 61.7 kg (136 lb) 03/09/2023 59 kg (130 lb) General Appearance: Well appearing, alert, in no acute distress, well-hydrated, well nourished.. Neck: Supple, no adenopathy; thyroid symmetric, normal size, no bruits. Lungs: Lungs clear to auscultation. No wheezing, rhonchi, rales.. Heart: RRR without murmur, gallop, or rubs. No ectopy. Abdomen: Normal abdominal exam, Abdomen soft, non-tender. Bowel sounds normal. No masses, organomegaly. Extremities: No deformities, edema, skin discoloration, clubbing or cyanosis. Good capillary refill. . Peripheral Pulses: Normal. Health Maintenance List RSV Vaccine(1 - 1-dose 60+ series) Never done Covid-19 Vaccine(3 - season) due on 07/16/2023 DTaP,Tdap,Td Vaccine(2 - Td or Tdap) due on 03/09/2024 Shingrix Vaccine(1 of 2) due on 03/09/2024 BP Controlled (<130/80) due on 03/09/2024 Annual PCP Team Chronic Disease Visit due on 08/11/2024 Diabetes Screening due on 03/09/2026 Lipid Screening due on 03/09/2028 Bone Density Screening Completed Influenza Vaccine Completed Advance Directive Discussion Completed Depression Assessment Completed Hepatitis C Screening Completed Pneumococcal Vaccine: 65+ Completed Mammogram Screening Discontinued Colorectal Cancer Screening Discontinued Data reviewed Component Latest Ref Rng & Units 03/09/2023 WBC 3.70 - 11.00 k/uL 6.99 RBC 3.90 - 5.20 m/uL 4.56 Hemoglobin 11.5 - 15.5 g/dL 12.1 Hematocrit 36.0 - 46.0 % 39.8 MCV 80.0 - 100.0 fL 87.3 MCH 26.0 - 34.0 pg 26.5 MCHC 30.5 - 36.0 g/dL 30.4 (L) RDW-CV 11.5 - 15.0 % 13.7 Platelet Count 150 - 400 k/uL 281 MPV 9.0 - 12.7 fL 10.0 Neut% % 57.0 Abs Neut (ANC) 1.45 - 7.50 k/uL 3.98 Lymph% % 23.7 Abs Lymph 1.00 - 4.00 k/uL 1.66 Page% % 11.3 Abs Page <0.87 k/uL 0.79 Eosin% % 6.6 Abs Eosin <0.46 k/uL 0.46 (H) Baso% % 1.0 Abs Baso <0.11 k/uL 0.07 Immature Gran % % 0.4 IMMATURE GRANS (ABS) <0.10 k/uL 0.03 NRBC /100 WBC 0.0 Absolute nRBC <0.01 k/uL <0.01 DTYPE Auto Protein, Total 6.3 - 8.0 g/dL 7.5 Albumin 3.9 - 4.9 g/dL 4.1 Calcium 8.5 - 10.2 mg/dL 9.4 Bilirubin, Total 0.2 - 1.3 mg/dL 0.2 Alkaline Phosphatase 34 - 123 U/L 113 AST 13 - 35 U/L 36 (H) ALT 7 - 38 U/L 8 Glucose 74 - 99 mg/dL 90 BUN 7 - 21 mg/dL 30 (H) Creatinine 0.58 - 0.96 mg/dL 0.97 (H) Sodium 136 - 144 mmol/L 140 Potassium 3.7 - 5.1 mmol/L 4.3 Chloride 97 - 105 mmol/L 102 CO2 22 - 30 mmol/L 28 Anion Gap 9 - 18 mmol/L 10 eGFR >=60 mL/min/1.73m 62 Total Cholesterol, Nonfasting <200 mg/dL 164 Triglycerides, Nonfasting <150 mg/dL 142 HDL Cholesterol, Nonfasting >39 mg/dL 53 LDL Cholesterol, Nonfasting <100 mg/dL 83 Non HDL Cholesterol, Nonfasting <130 mg/dL 111 VLDL Cholesterol, Nonfasting <30 mg/dL 28 Total Chol/HDL Ratio, Nonfasting <5.10 mg/dL 3.09 LDL/HDL Ratio, Nonfasting <2.54 mg/dL 1.57 TSH 0.270 - 4.200 mIU/L 2.300 A/P ASSESSMENT/PLAN: 1. Essential hypertension - ICD9: 401.9, ICD10: I10 (primary diagnosis) - Controlled - Continue current medications - Recommend home blood pressure monitoring, to bring results to next visit - Encouraged sodium restriction, DASH or Mediterranean diet - Recommend regular aerobic exercise 2. Hyperlipidemia, mixed - ICD9: 272.2, ICD10: E78.2 - Controlled - Continue current medications - Counseled on healthy diet and regular exercise 3. Neuropathic pain - ICD9: 729.2, ICD10: M79.2 - cont current Tx. 4. Parkinson's disease, unspecified whether dyskinesia present, unspecified whether manifestations fluctuate - ICD9: 332.0, ICD10: G20.A1 - management per Neuro 5. Anxiety - ICD9: 300.00, ICD10: F41.9 - will be seeing Psych 6. Anemia, unspecified type - ICD9: 285.9, ICD10: D64.9 - labs have been ok. Will monitor. 7. Renal insufficiency - ICD9: 593.9, ICD10: N28.9 - check CMP The following approved medication requests have been transmitted electronically. Requested Prescriptions Signed Prescriptions Disp Refills simvastatin (ZOCOR) 10 mg tablet 90 tablet 1 Sig: Take 1 tablet by mouth daily at bedtime. spironolactone (ALDACTONE) 25 mg tablet 90 tablet 1 Sig: Take 1 tablet by mouth once daily. montelukast (SINGULAIR) 10 mg tablet 90 tablet 1 Sig: Take 1 tablet by mouth daily at bedtime. F/u 6 months ext check CMP, Lipid, UA, CBC, TSH prior Patient was asked at end of visit if they had any questions or input regarding the plan of care we had discussed. Deangelo Hawkins MD documented in this encounter [facility] 08-19-2023 Miscellaneous Notes Detailed message left with date and time for new patient appointment in person with samuel. Lm for patient to call office to schedule a [employer] appointment with Samuel. Patient will need a 90 minute visit. Patient has consult to [facility] documented in this encounter [facility] 08-13-2023 Miscellaneous Notes Behavioral Health Social Work Progress Note Patient identified for [facility] from: PCP Reason for referral: Resources Behavioral Health Resources: Psychiatry med management [facility] encounter type: Telephone Encounter Attempts to Outreach: 3 attempts Referral made: Psychiatry - Internal Psychiatry-Internal referral type: Medication Management Final Disposition: Care established with Patient Discharged?: Yes Patient reported that caregiver was able to meet their needs today?: Yes therapist spoke with patient's who states that he is unable to drive to [place] for the [facility] [place] and would prefer to have her seen in [place]. Samuel had agreed to see patient, so will have them coordinate an appointment. Enid Brock [facility] August 13, 2023 documented in this encounter [facility] 08-12-2023 Miscellaneous Notes Behavioral Health Social Work Progress Note Patient identified for [facility] from: PCP Reason for referral: Resources Behavioral Health Resources: Psychiatry med management [facility] encounter type: Telephone Encounter Attempts to Outreach: 1 attempt Referral made: Psychiatry - Internal Psychiatry-Internal referral type: Medication Management Patient Discharged?: No Patient reported that caregiver was able to meet their needs today?: N/A Phone call placed today that went to [employer]. Left my contact information and brief nature of call. Initial outreach also completed via [employer] EMR sending options for psychiatry. OSMANI Swanson-Kike August 12, 2023 documented in this encounter [facility] 07-09-2023 Miscellaneous Notes Pt returned call and given provider's message below with verbalized understanding. Left VM instructing patient to return call to receive results. Latrice Parnell MA Please reach out and discuss following as patient did not read [employer] message. This message is to inform you that the patient has not yet read the following message. (Notification date: July 08, 2023) Results From Sera Mead APRN.[employer] To Leonila Zamudio Sent and Delivered 07/07/2023 5:46 PM Natty, Your urine culture did not reveal bacterial growth. Please follow up with PCP for continued symptoms. [employer] [place] [facility] [place] User Last Read On Leonila Zamudio Not Read documented in this encounter [facility] 07-06-2023 History of Presen t illness Narrative Subjective HPI HPI Leonila Zamudio is a 73 year old female who presents today for CC of urinary frequency, back ache, odor smell. This started 1 day ago. Has tried nothing for relief. Symptoms are worsened by nothing. Went dancing this past weekend. No known injury. Recent uti symptoms, culture showed possible contamination. .Patient presents with: Urinary Frequency: Frequency, low back pain and strong odor with urine x 1 day PAST MEDICAL HISTORY Diagnosis Date Absolute anemia 08/06/2015 Advance directive discussed with patient 02/20/2022 Discussed 02/20/2022 Anxiety CHRONIC SINUSITIS NOS Essential hypertension 08/16/2015 Hyperlipidemia, mixed 08/16/[address] 02/20/2022 DPA: Braden () Neuropathic pain 08/27/2021 On cymbalta Onychomycosis 12/29/2010 Osteoporosis, senile alendronate 09/2011-09/2014 Parkinson's disease (HCC) 2012 Bavis Pedal edema 11/17/2010 Renal insufficiency 10/27/2017 Urinary frequency 07/17/2009 White coat hypertension Office hypertension PAST SURGICAL HISTORY Procedure Laterality Date COLONOSCOPY does not want. FECAL OCCULT BLOOD TEST 11/16/2017 neg NONE ALLERGIES Bactrim [Sulfamethoxazole-Trimethoprim], Diltiazem, Norvasc [Amlodipine Besylate], Penicillins, Sulfamethoxazole, Trimethoprim, Verapamil, and Hctz [Thiazides] MEDICATIONS metoprolol tartrate, short acting, (LOPRESSOR) 100 mg tablet Take 1 tablet by mouth twice daily. metoprolol tartrate, short acting, (LOPRESSOR) 100 mg tablet Take 1 tablet by mouth twice daily. pramipexole (MIRAPEX) 1 mg tablet Take 1 mg by mouth every 3 hours. NEUPRO 2 mg/24 hour patch APPLY 1 PATCH DAILY TO SKIN carbidopa-levodopa (SINEMET) 25-100 mg per tablet Take 1 tablet by mouth three times daily. Per neuro montelukast (SINGULAIR) 10 mg tablet Take 1 tablet by mouth daily at bedtime. sodium fluoride 1.1 % dental cream sodium fluoride 1.1 % dental paste USE TO BRUSH TEETH ONCE A DAY IN THE EVENING loratadine (CLARITIN) 10 mg tablet Take 1 tablet by mouth once daily. fluticasone (FLONASE) 50 mcg/actuation nasal spray Use 2 Sprays in each nostril once daily. Rinse mouth after use. selegiline (ELDEPRYL) 5 mg tablet selegiline 5 mg tablet TAKE 1 TABLET TWICE A DAY WITH BREAKFAST AND LUNCH. simvastatin (ZOCOR) 10 mg tablet Take 1 tablet by mouth daily at bedtime. spironolactone (ALDACTONE) 25 mg tablet Take 1 tablet by mouth once daily. DULoxetine 40 mg cpDR Take 1 capsule by mouth once daily. Per Neuro, Dr. Curry vit A/vit C/vit E/zinc/copper (PRESERVISION AREDS ORAL) Take by mouth. meloxicam (MOBIC) 15 mg tablet Take 1 tablet by mouth once daily. With food. (Patient not taking: No sig reported) FAMILY HISTORY Problem Relation Age of Onset Heart Mother [place] Hypertension Mother Osteoporosis Mother Asthma Father Hypertension Father Lipids Father Diabetes Father Alzheimer's Disease Father Prostate Cancer Father Stroke Maternal Grandmother Stroke Maternal Grandfather Hypertension Daughter Clotting Disorder Daughter Factor V Clotting Disorder Daughter Factor V Stroke Daughter cavernous sinus thrombosis Social History Tobacco Use Smoking status: Never Smokeless tobacco: Never Vaping Use Vaping Use: Never used Substance Use Topics Alcohol use: No Drug use: No Review of Systems Constitutional: Negative for chills, fever and weight loss. Respiratory: Negative for cough, shortness of breath and wheezing. Cardiovascular: Negative for chest pain and palpitations. Gastrointestinal: Negative for abdominal pain, blood in stool, constipation, diarrhea, heartburn, melena, nausea and vomiting. Genitourinary: Positive for dysuria. Negative for flank pain, frequency, hematuria and urgency. Musculoskeletal: Negative for myalgias. Objective Blood pressure 130/80, pulse 94, temperature 37.1 C (98.7 F), temperature source Tympanic, resp. rate 18, weight 63 kg (138 lb 12.8 oz), SpO2 97 %. Component Latest Ref Rng & Units 03/09/2023 Protein, Total 6.3 - 8.0 g/dL 7.5 Albumin 3.9 - 4.9 g/dL 4.1 Calcium 8.5 - 10.2 mg/dL 9.4 Bilirubin, Total 0.2 - 1.3 mg/dL 0.2 Alkaline Phosphatase 34 - 123 U/L 113 AST 13 - 35 U/L 36 (H) ALT 7 - 38 U/L 8 Glucose 74 - 99 mg/dL 90 BUN 7 - 21 mg/dL 30 (H) Creatinine 0.58 - 0.96 mg/dL 0.97 (H) Sodium 136 - 144 mmol/L 140 Potassium 3.7 - 5.1 mmol/L 4.3 Chloride 97 - 105 mmol/L 102 CO2 22 - 30 mmol/L 28 Anion Gap 9 - 18 mmol/L 10 eGFR >=60 mL/min/1.73m 62 Physical Exam Constitutional: General: She is not in acute distress. Appearance: Normal appearance. She is not toxic-appearing. Cardiovascular: Rate and Rhythm: Normal rate and regular rhythm. Heart sounds: Normal heart sounds. Pulmonary: Effort: Pulmonary effort is normal. Breath sounds: Normal breath sounds. Abdominal: General: Bowel sounds are normal. Palpations: Abdomen is soft. Tenderness: There is no abdominal tenderness. Musculoskeletal: Back: Skin: General: Skin is warm and dry. ASSESSMENT/PLAN: 1. Urinary frequency - ICD9: 788.41, ICD10: R35.0 (primary diagnosis) acute - UA positive for josefina esterase - Send urine for culture - no treatment today, tx per result. - UA DIP, URINE (POC) - URINE CULTURE 2. Acute midline low back pain without sciatica - ICD9: 724.2, ICD10: M54.50 Suspect musculoskeletal pain Otc management discussed. Soy Lindsey APRN.JALEEL documented in this encounter [facility] 05-27-2023 History of Presen t illness Narrative CC: Patient presents with: Urinary Frequency: Frequency, odor and itching x 1 week HPI Leonila Zamudio is a 73 year old female who presents with complaint of possible UTI. These symptoms have been present for 7 days. Associated symptoms: frequency, foul smelling urine, and vaginal itching Denies: fever, chills, sweats, abdominal pain, and flank pain Treatments: nothing The ROS was otherwise negative. PMH, Medications, labs, allergies, and recent past visits with PCP were reviewed and updated as able. PHYSICAL EXAM: BP 144/84 Pulse 93 Temp 37.1 C (98.7 F) (Tympanic) Resp 18 Wt 61.7 kg (136 lb) SpO2 100% BMI 25.03 kg/m General: Well appearing and alert CV: Regular rate and rhythm without obvious murmur Lungs: clear to auscultation bilaterally Back: straight and symmetric Abdomen: soft, nontender, nondistended PAST MEDICAL HISTORY Diagnosis Date Absolute anemia 08/06/2015 Advance directive discussed with patient 02/20/2022 Discussed 02/20/2022 Anxiety CHRONIC SINUSITIS NOS Essential hypertension 08/16/2015 Hyperlipidemia, mixed 08/16/[address] 02/20/2022 DPA: Braden () Neuropathic pain 08/27/2021 On cymbalta Onychomycosis 12/29/2010 Osteoporosis, senile alendronate 09/2011-09/2014 Parkinson's disease (HCC) 2012 Bavis Pedal edema 11/17/2010 Renal insufficiency 10/27/2017 Urinary frequency 07/17/2009 White coat hypertension Office hypertension PAST SURGICAL HISTORY Procedure Laterality Date COLONOSCOPY does not want. FECAL OCCULT BLOOD TEST 11/16/2017 neg NONE ALLERGIES Bactrim [Sulfamethoxazole-Trimethoprim], Diltiazem, Norvasc [Amlodipine Besylate], Penicillins, Sulfamethoxazole, Trimethoprim, Verapamil, and Hctz [Thiazides] MEDICATIONS pramipexole (MIRAPEX) 1 mg tablet Take 1 mg by mouth every 3 hours. NEUPRO 2 mg/24 hour patch APPLY 1 PATCH DAILY TO SKIN carbidopa-levodopa (SINEMET) 25-100 mg per tablet Take 1 tablet by mouth three times daily. Per neuro montelukast (SINGULAIR) 10 mg tablet Take 1 tablet by mouth daily at bedtime. sodium fluoride 1.1 % dental cream sodium fluoride 1.1 % dental paste USE TO BRUSH TEETH ONCE A DAY IN THE EVENING loratadine (CLARITIN) 10 mg tablet Take 1 tablet by mouth once daily. fluticasone (FLONASE) 50 mcg/actuation nasal spray Use 2 Sprays in each nostril once daily. Rinse mouth after use. selegiline (ELDEPRYL) 5 mg tablet selegiline 5 mg tablet TAKE 1 TABLET TWICE A DAY WITH BREAKFAST AND LUNCH. metoprolol tartrate, short acting, (LOPRESSOR) 100 mg tablet Take 1 tablet by mouth twice daily. simvastatin (ZOCOR) 10 mg tablet Take 1 tablet by mouth daily at bedtime. spironolactone (ALDACTONE) 25 mg tablet Take 1 tablet by mouth once daily. DULoxetine 40 mg cpDR Take 1 capsule by mouth once daily. Per Neuro, Dr. Curry vit A/vit C/vit E/zinc/copper (PRESERVISION AREDS ORAL) Take by mouth. nitrofurantoin monohydrate and macrocrystal (MACROBID) 100 mg capsule Take 1 capsule by mouth twice daily for 5 days. meloxicam (MOBIC) 15 mg tablet Take 1 tablet by mouth once daily. With food. (Patient not taking: No sig reported) FAMILY HISTORY Problem Relation Age of Onset Heart Mother [place] Hypertension Mother Osteoporosis Mother Asthma Father Hypertension Father Lipids Father Diabetes Father Alzheimer's Disease Father Prostate Cancer Father Stroke Maternal Grandmother Stroke Maternal Grandfather Hypertension Daughter Clotting Disorder Daughter Factor V Clotting Disorder Daughter Factor V Stroke Daughter cavernous sinus thrombosis Social History Tobacco Use Smoking status: Never Smokeless tobacco: Never Vaping Use Vaping Use: Never used Substance Use Topics Alcohol use: No Drug use: No ASSESSMENT/PLAN: 1. Urinary frequency - ICD9: 788.41, ICD10: R35.0 (primary diagnosis) - UA DIP, URINE (POC) - URINE CULTURE 2. Recurrent UTI (urinary tract infection) - ICD9: 599.0, ICD10: N39.0 - NITROFURANTOIN MONOHYDRATE & MACROCRYSTAL 100 MG ORAL CAP Prescription instructions reviewed with patient as applicable. Potential red flag symptoms discussed with the patient. Reviewed appropriate action plan to take if red flag symptoms occur. Patient agreeable to treatment plan. Mary Bess APRN.STRIPPER [employer]OR documented in this encounter [facility] 05-17-2023 History of Presen t illness Narrative Scan on 05/11/2023 1:44 PM by External Provider, JONNIE: Consultation - Neurology documented in this encounter [facility] 03-11-2023 Miscellaneous Notes Patient spouse was notified Joyce Alvarado Ma Let patient know UA, thyroid lab, blood count, liver functions, kidney functions, electrolytes and lipid panel were ok. Labs do show signes of not drinking enough water. documented in this encounter [facility] 03-09-2023 Instructions Deangelo Hawkins MD - 03/09/2023 9:20 AM EDT Consider getting the shingrix vaccine for the prevention of shingles from a local pharmacy You should consider getting a Tdap (for tetanus) booster at the health Dept documented in this encounter [facility] 03-09-2023 History of Presen t illness Narrative Welcome To Medicare Visit Medical B eligibility date not able to find Date of last exam 02/20/2022 PAST MEDICAL HISTORY PAST MEDICAL HISTORY Diagnosis Date Absolute anemia 08/06/2015 Anxiety CHRONIC SINUSITIS NOS Essential hypertension 08/16/2015 Hyperlipidemia, mixed 08/16/2015 Onychomycosis 12/29/2010 Osteoporosis, senile alendronate 09/2011-09/2014 Parkinson's disease (HCC) 2012 Bavis Pedal edema 11/17/2010 Renal insufficiency 10/27/2017 Urinary frequency 07/17/2009 White coat hypertension Office hypertension PAST SURGICAL HISTORY PAST SURGICAL HISTORY Procedure Laterality Date COLONOSCOPY does not want. FECAL OCCULT BLOOD TEST 11/16/2017 neg NONE Bactrim [Sulfamethoxazole-Trimethoprim], Diltiazem, Norvasc [Amlodipine Besylate], Penicillins, and Verapamil Medications reviewed: Yes FAMILY HISTORY FAMILY HISTORY Problem Relation Age of Onset Heart Mother [place] Hypertension Mother Osteoporosis Mother Asthma Father Hypertension Father Lipids Father Diabetes Father Alzheimer's Disease Father Prostate Cancer Father Stroke Maternal Grandmother Stroke Maternal Grandfather Hypertension Daughter Clotting Disorder Daughter Factor V Clotting Disorder Daughter Factor V Stroke Daughter cavernous sinus thrombosis SOCIAL HISTORY: SOCIAL HISTORY Social History Tobacco Use Smoking status: Never Smoker Smokeless tobacco: Never Used Substance Use Topics Alcohol use: No Drug use: No Leonila works out regularlywith walking. She watches her diet for sodium, low fat and low cholesterol most of the time. List of current specialists seen: Neuro End of Live Planning discussed including patients advanced directive wishes: Yes I am willing to follow Leonila's advanced directives. PHQ-2 / Depression screen Depression Screening 05/05/2019 02/20/2022 08/24/2022 03/09/2023 PHQ-2 Score 0 0 6 0 Depression screening tool completed and reviewed. Based on score and interview, patient is not at risk for depression. Screening tool discussed with patient, and I recommended no further intervention at this time. Functional Ability/Safety Screen 1. Was the patient's timed Up and Go test unsteady or longer than 30 seconds? No 2. Does the patient need help with the phone, transportation, shopping,preparing meals, housework, laundry, medications or managing money? No 3. Does your home have rugs in the hallway (Y), lack of grab bars in the bathroom, lack of handrails on the stairs or have poor lighting? No Hearing Evaluation: normal PHYSICAL EXAM BP 136/74 Pulse 64 Resp 14 Ht 157 cm (5' 1.81) Wt 59 kg (130 lb) BMI 23.92 kg/m Alert and oriented X 3: YES Body mass index is 23.92 kg/m . Visual acuity: sees Ophthalmology ASSESSMENT/PLAN: 72 year old female The following prevention plan was discussed during the office visit and provided to the patient: See below Chief Complaint Patient presents with: Medicare Wellness Exam HPI Leonila Zamudio is a 72 year old female who presents here today for chronic health issues and Medicare Annual Visit. Office visit : medicare wellness Patient with hx of HTN, Hyperlipidemia, Parkinson's seeing neuro, anemia, osteopenia as well as those reviewed and addressed below and in ROS. Patient has been doing ok. No new issues or concerns. No ER visits or hospitalizations since last visit. Office visit 6 month follow up 08/2022 Patient with hx of Parkinson's dz, neuropathic pain, HTN, hyperlipidemia, osteoporosis, anemia, anxiety and those as below. Patient has had some weight loss. Patient has good appetite. states she bigger appetite than him. Otherwise doing okay. Reports some depression/anxiety symptoms Last 10 Encounter Wt Readings: Date: Wt: 08/24/2022 53.5 kg (118 lb) 08/16/2022 56.2 kg (123 lb 12.8 oz) 02/20/2022 58.5 kg (129 lb) 12/16/2021 61.2 kg (135 lb) 08/22/2021 62.5 kg (137 lb 12.8 oz) 02/11/2021 64.9 kg (143 lb) 08/14/2020 66.2 kg (146 lb) 11/23/2019 64.4 kg (142 lb) 06/26/2019 64.9 kg (143 lb) 05/12/2019 65.4 kg (144 lb 3.2 oz) Past medical history, appointments, medications, allergies reviewed. Previous Medical History PAST MEDICAL HISTORY Diagnosis Date Absolute anemia 08/06/2015 Advance directive discussed with patient 02/20/2022 Discussed 02/20/2022 Anxiety CHRONIC SINUSITIS NOS Essential hypertension 08/16/2015 Hyperlipidemia, mixed 08/16/[address] 02/20/2022 DPA: Braden () Neuropathic pain 08/27/2021 On cymbalta Onychomycosis 12/29/2010 Osteoporosis, senile alendronate 09/2011-09/2014 Parkinson's disease (HCC) 2012 Bavis Pedal edema 11/17/2010 Renal insufficiency 10/27/2017 Urinary frequency 07/17/2009 White coat hypertension Office hypertension Previous Surgical History PAST SURGICAL HISTORY Procedure Laterality Date COLONOSCOPY does not want. FECAL OCCULT BLOOD TEST 11/16/2017 neg NONE Family History FAMILY HISTORY Problem Relation Age of Onset Heart Mother [place] Hypertension Mother Osteoporosis Mother Asthma Father Hypertension Father Lipids Father Diabetes Father Alzheimer's Disease Father Prostate Cancer Father Stroke Maternal Grandmother Stroke Maternal Grandfather Hypertension Daughter Clotting Disorder Daughter Factor V Clotting Disorder Daughter Factor V Stroke Daughter cavernous sinus thrombosis Patient Allergies ALLERGIES Allergen Reactions Bactrim [Sulfametho* Rash Diltiazem Rash, Itching Norvasc [Amlodipine* Rash, Itching Penicillins Hives Verapamil Rash rash Sulfamethoxazole Rash Trimethoprim Rash Hctz [Thiazides] Other: See Comments Low potassium Current Medications Current Outpatient Medications on File Prior to Visit Medication Sig sodium fluoride 1.1 % dental cream sodium fluoride 1.1 % dental paste USE TO BRUSH TEETH ONCE A DAY IN THE EVENING loratadine (CLARITIN) 10 mg tablet Take 1 tablet by mouth once daily. fluticasone (FLONASE) 50 mcg/actuation nasal spray Use 2 Sprays in each nostril once daily. Rinse mouth after use. selegiline (ELDEPRYL) 5 mg tablet selegiline 5 mg tablet TAKE 1 TABLET TWICE A DAY WITH BREAKFAST AND LUNCH. metoprolol tartrate, short acting, (LOPRESSOR) 100 mg tablet Take 1 tablet by mouth twice daily. simvastatin (ZOCOR) 10 mg tablet Take 1 tablet by mouth daily at bedtime. spironolactone (ALDACTONE) 25 mg tablet Take 1 tablet by mouth once daily. DULoxetine 40 mg cpDR Take 1 capsule by mouth once daily. Per Neuro, Dr. Curry carbidopa-levodopa CR (SINEMET CR) 50-200 mg per tablet Take 1 tablet by mouth three times daily. Per NeuroDr. Curry vit A/vit C/vit E/zinc/copper (PRESERVISION AREDS ORAL) Take by mouth. meloxicam (MOBIC) 15 mg tablet Take 1 tablet by mouth once daily. With food. (Patient not taking: No sig reported) No current facility-administered medications on file prior to visit. Social History Social History Tobacco Use Smoking status: Never Smokeless tobacco: Never Vaping Use Vaping Use: Never used Substance Use Topics Alcohol use: No Drug use: No Review of Symptoms REVIEW OF SYSTEMS GENERAL: No weight loss, malaise or fevers HEENT: Negative for frequent or significant headaches, No changes in hearing or vision, no nose bleeds or other nasal problems. Nose drips clear fluid almost daily. Has tried claritin and nasaonex with no improvement NECK: Negative for lumps, goiter, pain and significant neck swelling RESPIRATORY: Negative for cough, hemoptysis, wheezing, COPD, dyspnea or shortness of breath CARDIOVASCULAR: Negative for chest pain, leg swelling, hypertension, CHF or palpitations GI: No nausea, vomiting, or diarrhea, No heartburn or reflux symptoms, and no blood : No history of dysuria, blood MUSCULOSKELETAL: Negative for new or changes in her typical joint pain or swelling, back pain or muscle pain SKIN: Negative for lesions, rash, and itching. Had a rash last week on the right lower leg that has since resolved. PSYCH: Negative for sleep disturbance, mood disorder and recent psychosocial stressors HEMATOLOGY/LYMPHOLOGY: Negative for prolonged bleeding, bruising easily or swollen nodes ENDOCRINE: Negative for cold or heat intolerance, polyuria, polydipsia and goiter NEURO: No history of headaches, syncope, paralysis, seizures or increased tremors EXAM: BP 136/74 Pulse 64 Resp 14 Ht 157 cm (5' 1.81) Wt 59 kg (130 lb) BMI 23.92 kg/m Last 5 Encounter Wt Readings: Date: Wt: 03/09/2023 59 kg (130 lb) 02/18/2023 58.2 kg (128 lb 6.4 oz) 12/15/2022 56.2 kg (123 lb 12.8 oz) 09/11/2022 51.7 kg (114 lb) 08/24/2022 53.5 kg (118 lb) General Appearance: Well appearing, alert, in no acute distress, well-hydrated, well nourished.. Skin: Skin color, texture, turgor normal, no suspicious rashes or lesions. Head: Normocephalic, no masses, lesions, tenderness or abnormalities. Eyes: Anicteric sclera. Pupils are equally round and reactive to light. Extraocular movements are intact. . Ears: External ears normal, canals clear. Nose/Sinuses: Nares normal, septum midline, mucosa normal, has clear drainage on the right. Oropharynx: Lips, mucosa, and tongue normal, teeth and gums normal, oropharynx normal. Neck: Supple, no adenopathy; thyroid symmetric, normal size, no bruits. Lungs: Lungs clear to auscultation. No wheezing, rhonchi, rales.. Heart: RRR without murmur, gallop, or rubs. No ectopy. Abdomen: Normal abdominal exam, Abdomen soft, non-tender. Bowel sounds normal. No masses, organomegaly. Extremities: No deformities, edema, skin discoloration, Good capillary refill. . Musculoskeletal: Muscular strength intact, No joint swelling, deformity, or tenderness. Peripheral Pulses: Normal. Neurologic: Gait normal. Reflexes normal and symmetric. Sensation to light touch and crainal nerves 2-12 intact.. Health Maintenance List SHINGRIX VACCINE(1 of 2) Never done COVID-19 VACCINE(3 - Booster for Moderna series) due on 05/03/2021 DTAP,TDAP,TD(2 - Td or Tdap) due on 06/12/2021 ADVANCE DIRECTIVE DISCUSSION due on 11/15/2022 DEPRESSION ASSESSMENT due on 11/15/2022 BP CONTROLLED (<130/80) due on 02/20/2023 ANNUAL PCP TEAM CHRONIC DISEASE VISIT due on 08/24/2023 DIABETES SCREEN due on 08/24/2025 LIPID SCREEN due on 08/24/2027 BONE DENSITY Completed INFLUENZA Completed HEPATITIS C SCREENING Completed PNEUMOCOCCAL: 65+ Completed MAMMOGRAM Discontinued COLORECTAL CANCER SCREENING Discontinued Data reviewed A/P ASSESSMENT/PLAN: 1. Medicare annual wellness visit, subsequent - ICD9: V70.0, ICD10: Z00.00 (primary diagnosis) - Counseled on healthy diet and regular exercise - Calcium intake with supplements or by diet of 1000 mg/day for under 50, 5288-6357 mg/day for 50+ - Follow up for annual exam in one year 2. Hyperlipidemia, mixed - ICD9: 272.2, ICD10: E78.2 - to be determined upon return of lab results - Continue current medication. - Encouraged following a low fat, low cholesterol diet. - Discussed the benefits of regular aerobic exercise and weight loss. - Encouraged following a low carbohydrate, healthy oil intake diet. Check - COMP METABOLIC PANEL - URINALYSIS, WITH MICROSCOPIC - LIPID PANEL, NONFASTING 3. Essential hypertension - ICD9: 401.9, ICD10: I10 - good control - Continue current medication(s) - Recommended regular aerobic exercise. - Recommend home blood pressure monitoring, to bring results in on next visit - Goal of BP <130/80 Check - COMP METABOLIC PANEL - URINALYSIS, WITH MICROSCOPIC - LIPID PANEL, NONFASTING 4. Parkinson's disease - ICD9: 332.0, ICD10: G20 - management per Neuro 5. Anemia, unspecified type - ICD9: 285.9, ICD10: D64.9 Check - CBC + DIFF 6. Renal insufficiency - ICD9: 593.9, ICD10: N28.9 Check - COMP METABOLIC PANEL 7. Neuropathic pain - ICD9: 729.2, ICD10: M79.2 - cont cymbalta 8. Anxiety - ICD9: 300.00, ICD10: F41.9 - cont cymbalta - TSH BLD 9. Osteoporosis, senile - ICD9: 733.01, ICD10: M81.0 - Reviewed the need for Calcium and Vitamin D supplements and weight bearing exercise as tolerated 10. Advance directive discussed with patient - ICD9: V65.49, ICD10: Z71.89 - patient to bring in copies 11. Medication management - ICD9: V58.69, ICD10: Z79.899 Check - TSH BLD 13. Chronic rhinitis - ICD9: 472.0, ICD10: J31.0 - will trial Singulair. Requested Prescriptions Signed Prescriptions Disp Refills montelukast (SINGULAIR) 10 mg tablet 90 tablet 1 Sig: Take 1 tablet by mouth daily at bedtime. F/u in 6 months routine I spent a total of 40 minutes on the date of the service which included preparing to see the patient, [id number] patient care, completing clinical documentation, performing a medically appropriate examination, counseling and educating the patient/family/caregiver and ordering medications, tests, or procedures. Deangelo Hawkins MD documented in this encounter [facility] 02-23-2023 History of Presen t illness Narrative Scan on 02/23/2023 11:35 AM by External Provider: Consultation - Neurology documented in this encounter [facility] 02-18-2023 History of Presen t illness Narrative Patient presents with: Urinary Problem: Pt reported urinary frequency, odor x4 days. HPI: Symptoms for 4 days. Dysuria: No Frequency: Yes Hematuria: No Discharge/pruritis: has stronger odor Nausea: No Fever or chills: No Back pain: No Abdominal pain: No Her Parkinson's seems flared like when she misses medication - her legs do not move easily when she wants them to. PAST MEDICAL HISTORY Diagnosis Date Absolute anemia 08/06/2015 Advance directive discussed with patient 02/20/2022 Discussed 02/20/2022 Anxiety CHRONIC SINUSITIS NOS Essential hypertension 08/16/2015 Hyperlipidemia, mixed 08/16/[address] 02/20/2022 DPA: Braden () Neuropathic pain 08/27/2021 On cymbalta Onychomycosis 12/29/2010 Osteoporosis, senile alendronate 09/2011-09/2014 Parkinson's disease (HCC) 2013 Bavis Pedal edema 11/17/2010 Renal insufficiency 10/27/2017 Urinary frequency 07/17/2009 White coat hypertension Office hypertension MEDICATIONS: Current Outpatient Medications Medication Sig sodium fluoride 1.1 % dental cream sodium fluoride 1.1 % dental paste USE TO BRUSH TEETH ONCE A DAY IN THE EVENING loratadine (CLARITIN) 10 mg tablet Take 1 tablet by mouth once daily. fluticasone (FLONASE) 50 mcg/actuation nasal spray Use 2 Sprays in each nostril once daily. Rinse mouth after use. selegiline (ELDEPRYL) 5 mg tablet selegiline 5 mg tablet TAKE 1 TABLET TWICE A DAY WITH BREAKFAST AND LUNCH. metoprolol tartrate, short acting, (LOPRESSOR) 100 mg tablet Take 1 tablet by mouth twice daily. simvastatin (ZOCOR) 10 mg tablet Take 1 tablet by mouth daily at bedtime. spironolactone (ALDACTONE) 25 mg tablet Take 1 tablet by mouth once daily. DULoxetine 40 mg cpDR Take 1 capsule by mouth once daily. Per NeuroDr. Curry carbidopa-levodopa CR (SINEMET CR) 50-200 mg per tablet Take 1 tablet by mouth three times daily. Per NeuroDr. Curry vit A/vit C/vit E/zinc/copper (PRESERVISION AREDS ORAL) Take by mouth. meloxicam (MOBIC) 15 mg tablet Take 1 tablet by mouth once daily. With food. (Patient not taking: No sig reported) No current facility-administered medications for this visit. ALLERGIES: ALLERGIES Allergen Reactions Bactrim [Sulfametho* Rash Diltiazem Rash, Itching Norvasc [Amlodipine* Rash, Itching Penicillins Hives Verapamil Rash rash Sulfamethoxazole Rash Trimethoprim Rash Hctz [Thiazides] Other: See Comments Low potassium VITALS: BP 164/98 Pulse 113 Temp 36.2 C (97.2 F) (Tympanic) Resp 16 Wt 58.2 kg (128 lb 6.4 oz) SpO2 100% BMI 23.48 kg/m PHYSICAL EXAM: GEN: NAD, accompanied by her HEENT: EOMI, conjunctiva clear, HEART: borderline fast rate and regular rhythm, no murmurs LUNGS: clear to auscultation, no wheezes or crackles, no increased WOB ABDOMEN: Soft, nondistended, no masses, no suprapubic tenderness BACK: No CVA tenderness Component Latest Ref Rng & Units 08/24/2022 eGFR >=60 mL/min/1.73m 65 ASSESSMENT/PLAN: 1. Urinary frequency - ICD9: 788.41, ICD10: R35.0 - UA positive for josefina esterase and hematuria - UA DIP, URINE (POC) - URINE CULTURE Treat for UTI with - NITROFURANTOIN MONOHYDRATE & MACROCRYSTAL 100 MG ORAL CAP Vignesh Weber MD documented in this encounter [facility] 12-15-2022 History of Presen t illness Narrative This note was created using [employer]. Subjective Leonila Zamudio is a 72 year old female. HPI 72-year-old female presents for sinus congestion, runny nose and mild cough. Patient states that she started having a runny nose about 4 days ago. She has had a mild cough. She is not coughing anything up. No fevers. No chest pain or shortness of breath. No vomiting or diarrhea. No sick contacts PAST MEDICAL HISTORY Diagnosis Date Absolute anemia 08/06/2015 Advance directive discussed with patient 02/20/2022 Discussed 02/20/2022 Anxiety CHRONIC SINUSITIS NOS Essential hypertension 08/16/2015 Hyperlipidemia, mixed 08/16/[address] 02/20/2022 DPA: Braden () Neuropathic pain 08/27/2021 On cymbalta Onychomycosis 12/29/2010 Osteoporosis, senile alendronate 09/2011-09/2014 Parkinson's disease (HCC) 2012 Bavis Pedal edema 11/17/2010 Renal insufficiency 10/27/2017 Urinary frequency 07/17/2009 White coat hypertension Office hypertension PAST SURGICAL HISTORY Procedure Laterality Date COLONOSCOPY does not want. FECAL OCCULT BLOOD TEST 11/16/2017 neg NONE ALLERGIES Bactrim [Sulfamethoxazole-Trimethoprim], Diltiazem, Norvasc [Amlodipine Besylate], Penicillins, Verapamil, and Hctz [Thiazides] MEDICATIONS selegiline (ELDEPRYL) 5 mg tablet selegiline 5 mg tablet TAKE 1 TABLET TWICE A DAY WITH BREAKFAST AND LUNCH. metoprolol tartrate, short acting, (LOPRESSOR) 100 mg tablet Take 1 tablet by mouth twice daily. simvastatin (ZOCOR) 10 mg tablet Take 1 tablet by mouth daily at bedtime. spironolactone (ALDACTONE) 25 mg tablet Take 1 tablet by mouth once daily. DULoxetine 40 mg cpDR Take 1 capsule by mouth once daily. Per NeuroDr. Curry carbidopa-levodopa CR (SINEMET CR) 50-200 mg per tablet Take 1 tablet by mouth three times daily. Per NeuroDr. Curry vit A/vit C/vit E/zinc/copper (PRESERVISION AREDS ORAL) Take by mouth. loratadine (CLARITIN) 10 mg tablet Take 1 tablet by mouth once daily. fluticasone (FLONASE) 50 mcg/actuation nasal spray Use 2 Sprays in each nostril once daily. Rinse mouth after use. meloxicam (MOBIC) 15 mg tablet Take 1 tablet by mouth once daily. With food. (Patient not taking: No sig reported) FAMILY HISTORY Problem Relation Age of Onset Heart Mother [place] Hypertension Mother Osteoporosis Mother Asthma Father Hypertension Father Lipids Father Diabetes Father Alzheimer's Disease Father Prostate Cancer Father Stroke Maternal Grandmother Stroke Maternal Grandfather Hypertension Daughter Clotting Disorder Daughter Factor V Clotting Disorder Daughter Factor V Stroke Daughter cavernous sinus thrombosis Social History Tobacco Use Smoking status: Never Smokeless tobacco: Never Vaping Use Vaping Use: Never used Substance Use Topics Alcohol use: No Drug use: No Review of Systems Constitutional: Negative for chills and fever. HENT: Positive for congestion, postnasal drip and rhinorrhea. Negative for ear pain and sore throat. Respiratory: Positive for cough. Negative for shortness of breath. Cardiovascular: Negative for chest pain. Gastrointestinal: Negative for diarrhea and vomiting. Objective BP 158/90 Pulse 96 Temp 36.4 C (97.5 F) (Tympanic) Resp 18 Wt 56.2 kg (123 lb 12.8 oz) SpO2 99% BMI 22.64 kg/m Physical Exam Vitals and nursing note reviewed. Constitutional: General: She is not in acute distress. Appearance: Normal appearance. She is not toxic-appearing. HENT: Right Ear: Tympanic membrane and ear canal normal. Left Ear: Tympanic membrane and ear canal normal. Nose: Rhinorrhea present. Mouth/Throat: Mouth: Mucous membranes are moist. Pharynx: No oropharyngeal exudate or posterior oropharyngeal erythema. Eyes: Conjunctiva/sclera: Conjunctivae normal. Cardiovascular: Rate and Rhythm: Normal rate and regular rhythm. Pulmonary: Effort: Pulmonary effort is normal. Breath sounds: Normal breath sounds. Neurological: Mental Status: She is alert. Assessment and Plan ASSESSMENT/PLAN: 1. URI, acute - ICD9: 465.9, ICD10: J06.9 -Symptoms x4 days. Discussed with patient likely viral. - Discussed viral etiology and rationale for treatment. - Symptomatic treatment with prn analgesia - Supportive care with fluids and rest - COVID WITH FLUA+B, ROUTINE -Out of window for Tamiflu and antiviral. Diagnosis and treatment plan were discussed and questions were answered to the patient's satisfaction. Pt acknowledged understanding of concepts and follow up plan. Specific signs and symptoms that would indicate the need for higher level of care were discussed in detail warranting prompt ER evaluation. JUANA Tomlinson documented in this encounter [facility] 09-11-2022 History of Presen t illness Narrative Subjective Cough Pertinent negatives include no chills, no ear pain, no headaches, no sore throat and no shortness of breath. Leonila Zamudio is a 72 year old female who presents with cough, congestion and rhinorrhea x 2 weeks. Patient denies sore throat, fever, diarrhea, or nausea. Mucinex tried at home. Patient states she is having dental work done on Wednesday and is required to have a covid-19 test. Review of Systems Constitutional: Negative for chills and fever. HENT: Positive for congestion and sinus pain. Negative for ear pain and sore throat. Respiratory: Positive for cough and sputum production. Negative for shortness of breath. Gastrointestinal: Negative for abdominal pain, diarrhea, nausea and vomiting. Neurological: Negative for headaches. BP 118/70 Pulse 93 Temp 36.3 C (97.4 F) Resp 16 Wt 51.7 kg (114 lb) SpO2 96% BMI 20.85 kg/m PAST MEDICAL HISTORY Diagnosis Date Absolute anemia 08/06/2015 Advance directive discussed with patient 02/20/2022 Discussed 02/20/2022 Anxiety CHRONIC SINUSITIS NOS Essential hypertension 08/16/2015 Hyperlipidemia, mixed 08/16/[address] 02/20/2022 DPA: Braden () Neuropathic pain 08/27/2021 On cymbalta Onychomycosis 12/29/2010 Osteoporosis, senile alendronate 09/2011-09/2014 Parkinson's disease (HCC) 2013 Bavis Pedal edema 11/17/2010 Renal insufficiency 10/27/2017 Urinary frequency 07/17/2009 White coat hypertension Office hypertension PAST SURGICAL HISTORY Procedure Laterality Date COLONOSCOPY does not want. FECAL OCCULT BLOOD TEST 11/16/2017 neg NONE ALLERGIES Bactrim [Sulfamethoxazole-Trimethoprim], Diltiazem, Norvasc [Amlodipine Besylate], Penicillins, Verapamil, and Hctz [Thiazides] MEDICATIONS selegiline (ELDEPRYL) 5 mg tablet selegiline 5 mg tablet TAKE 1 TABLET TWICE A DAY WITH BREAKFAST AND LUNCH. metoprolol tartrate, short acting, (LOPRESSOR) 100 mg tablet Take 1 tablet by mouth twice daily. simvastatin (ZOCOR) 10 mg tablet Take 1 tablet by mouth daily at bedtime. spironolactone (ALDACTONE) 25 mg tablet Take 1 tablet by mouth once daily. DULoxetine 40 mg cpDR Take 1 capsule by mouth once daily. Per NeuroDr. Curry carbidopa-levodopa CR (SINEMET CR) 50-200 mg per tablet Take 1 tablet by mouth three times daily. Per NeuroDr. Curry vit A/vit C/vit E/zinc/copper (PRESERVISION AREDS ORAL) Take by mouth. doxycycline (VIBRA-TABS) 100 mg tablet Take 1 tablet by mouth twice daily for 10 days. meloxicam (MOBIC) 15 mg tablet Take 1 tablet by mouth once daily. With food. (Patient not taking: No sig reported) FAMILY HISTORY Problem Relation Age of Onset Heart Mother [place] Hypertension Mother Osteoporosis Mother Asthma Father Hypertension Father Lipids Father Diabetes Father Alzheimer's Disease Father Prostate Cancer Father Stroke Maternal Grandmother Stroke Maternal Grandfather Hypertension Daughter Clotting Disorder Daughter Factor V Clotting Disorder Daughter Factor V Stroke Daughter cavernous sinus thrombosis Social History Tobacco Use Smoking status: Never Smokeless tobacco: Never Vaping Use Vaping Use: Never used Substance Use Topics Alcohol use: No Drug use: No Objective Physical Exam Vitals and nursing note reviewed. Constitutional: Appearance: Normal appearance. HENT: Head: Normocephalic. Right Ear: Tympanic membrane and ear canal normal. Left Ear: Tympanic membrane and ear canal normal. Nose: Congestion and rhinorrhea present. Right Turbinates: Swollen. Left Turbinates: Swollen. Mouth/Throat: Pharynx: No oropharyngeal exudate or posterior oropharyngeal erythema. Eyes: Conjunctiva/sclera: Conjunctivae normal. Cardiovascular: Rate and Rhythm: Normal rate and regular rhythm. Pulmonary: Effort: Pulmonary effort is normal. Breath sounds: Normal breath sounds. Skin: General: Skin is warm and dry. Neurological: Mental Status: She is alert. ASSESSMENT/PLAN: 1. Suspected COVID-19 virus infection - ICD9: V01.79, ICD10: Z20.822 (primary diagnosis) - COVID WITH FLUA+B, ROUTINE 2. Bacterial sinusitis - ICD9: 473.9, 041.9, ICD10: J32.9, B96.89 - Will begin treatment with Doxycycline - Supportive care with plenty of fluids, rest, and analgesia prn. - Follow up in 3-5 days if symptoms persist or worsen. - DOXYCYCLINE HYCLATE 100 MG TABLET Rachael Martinez APRN Student TEACHING PROVIDER (Physician/PA/[employer] BUILDER) NOTE OF PERSONAL INVOLVEMENT IN CARE: I have personally seen and examined the patient and performed the medical decision-making components. I have reviewed the Advanced Practice Registered Nurse ([employer]TURE BUILDER) Student's documentation and verified the findings in the note as written. Any additions or changes are noted in bold/italics. Signature: Carolina Mendoza Date: 09/11/2022 Time: 11:57 AM documented in this encounter [facility] 09-11-2022 Instructions Rachael Martinez - 09/11/2022 11:40 AM EDT ASSESSMENT/PLAN: 1. Suspected COVID-19 virus infection - ICD9: V01.79, ICD10: Z20.822 (primary diagnosis) - COVID WITH FLUA+B, ROUTINE 2. Bacterial sinusitis - ICD9: 473.9, 041.9, ICD10: J32.9, B96.89 - Will begin treatment with Doxycycline - Supportive care with plenty of fluids, rest, and analgesia prn. - Follow up in 3-5 days if symptoms persist or worsen. - DOXYCYCLINE HYCLATE 100 MG TABLET Rachael Martinez APRN Student Each of us has four paired cavities (spaces) in our head that are connected to the nose by narrow channels. These cavities, known as sinuses, produce a thin mucus that drains out of the channels of the nose. Normally, sinuses are filled with air. But when sinuses become blocked and filled with fluid, bacteria can grow and cause an infection (sinusitis). Conditions that cause sinus blockage include the common cold, allergic rhinitis (swelling of the lining of the nose due to allergies), nasal polyps (small growths in the lining of the nose), or deviated septum (a shift in the nasal cavity). Allergies such as hay fever can also cause swelling and poor drainage of the sinuses. If you have symptoms that involve the sinuses, it may be difficult to tell if you have sinusitis, a cold, or a nasal allergy. This article will describe the symptoms, diagnosis, and treatment of sinusitis, and how to distinguish sinusitis from a cold or nasal allergy. What is sinusitis? Sinusitis is an inflammation, or swelling, of the tissue lining the sinuses. There are two types of sinusitis: Acute sinusitis: a sudden onset of cold symptoms such as runny nose, stuffy nose, and facial pain that does not go away after 7-10 days. It responds well to antibiotics and decongestants. Chronic sinusitis: characterized by nasal congestion, drainage, facial pain/pressure, and decreased sense of smell for at least 12 weeks. Who gets sinusitis? About 37 million Americans suffer from at least one episode of sinusitis each year. People who have the following conditions have a higher risk of sinusitis: Nasal mucus membrane swelling, as from a common cold Blockage of drainage ducts Structure differences that narrow the drainage ducts Conditions that result in an increased risk of infection In children, common environmental factors that contribute to sinusitis include allergies, illness from other children at day care or school, pacifiers, bottle drinking while lying on the back, and smoke in the environment. In adults, the contributing factors are most frequently infections, allergies, and smoking. What are the signs and symptoms of acute sinusitis? The primary symptoms of acute sinusitis include: Facial pain/pressure Nasal stuffiness Nasal discharge Loss of smell Cough/congestion Additional symptoms may include: Fever Bad breath Fatigue Dental pain Acute sinusitis can last four weeks or more. This condition may be diagnosed when a person has two or more symptoms and/or the presence of thick, green, or yellow nasal discharge. What are the signs and symptoms of chronic sinusitis? People with chronic sinusitis may have the following symptoms for 12 weeks or more: Facial congestion/fullness A nasal obstruction/blockage Pus in the nasal cavity Fever Nasal discharge/discolored postnasal drainage Additional symptoms may include: Headaches Bad breath Fatigue Dental pain Thick nasal discharge How is sinusitis treated? Acute sinusitis. If you have a simple sinusitis infection, your health care provider may recommend treatment with decongestants like Sudafed and steam inhalations alone, as most sinusitis is viral. Antibiotics are generally needed for more seriously ill patients. If antibiotics are administered, they are given for 10 to 14 days. With treatment, the symptoms usually disappear and antibiotics are no longer required. Oral and topical decongestants may be prescribed to alleviate the symptoms. Use of prescription intranasal steroid sprays might be effective in controlling symptoms. However, non-prescription drops or sprays should not be used beyond their recommended period--usually four to five days--or they may actually increase congestion. Chronic sinusitis. Warm moist air may alleviate sinus congestion. Using a vaporizer or inhaling steam from a ndiaye of boiling water (removed from heat) may also help. Warm compresses are useful to relieve pain in the nose and sinuses. Saline nose drops are also safe for home use. Nonprescription drops or sprays might be effective in controlling symptoms; however, they should not be used beyond their recommended period of time. Nasal steroid sprays that shrink swollen membranes of the nose are beneficial. Antibiotics may also be prescribed. Avoidance of triggers is important. Allergies should be controlled and irritants, such as smoke, should be avoided. documented in this encounter [facility] 08-25-2022 Miscellaneous Notes Pt's advised of results and instructions. He verbalizes understanding. He does not think pt is having any s/sx or uti. Pt is not home at present but he will call back if pt is having any sx. He will have pt repeat labs and thinks that pt sometimes forgets to take her cholesterol medication. He will try to monitor this. Hernandez Souza LPN Let patient know that urine shows small amount of RBC. Similar to 6 mos ago. Is she noticing any s/s of UTI? If not, okay to monitor. Potassium level is mildly elevated. Need recheck at her earliest convenience. LDL cholesterol is higher than her typical. We will just continue to monitor this for now. I don't feel we need to make a major change in her medicine yet. Shey Quiroz PA-C documented in this encounter [facility] 08-24-2022 Instructions Shey Quiroz PA-C - 08/24/2022 10:17 AM EDT Please get flu vaccine at pharmacy at your convenience over the next month. Follow up in 6 months. documented in this encounter [facility] 08-24-2022 History of Presen t illness Narrative Chief Complaint Patient presents with: 6 Month Exam HPI Leonila Zamudio is a 72 year old female who presents here today for Chronic Medical Conditions.. Patient with hx of Parkinson's dz, neuropathic pain, HTN, hyperlipidemia, osteoporosis, anemia, anxiety and those as below. Patient has had some weight loss. Patient has good appetite. states she bigger appetite than him. Otherwise doing okay. Reports some depression/anxiety symptoms Last 10 Encounter Wt Readings: Date: Wt: 08/24/2022 53.5 kg (118 lb) 08/16/2022 56.2 kg (123 lb 12.8 oz) 02/20/2022 58.5 kg (129 lb) 12/16/2021 61.2 kg (135 lb) 08/22/2021 62.5 kg (137 lb 12.8 oz) 02/11/2021 64.9 kg (143 lb) 08/14/2020 66.2 kg (146 lb) 11/23/2019 64.4 kg (142 lb) 06/26/2019 64.9 kg (143 lb) 05/12/2019 65.4 kg (144 lb 3.2 oz) Past medical history, appointments, medications, allergies reviewed. Previous Medical History PAST MEDICAL HISTORY Diagnosis Date Absolute anemia 08/06/2015 Advance directive discussed with patient 02/20/2022 Discussed 02/20/2022 Anxiety CHRONIC SINUSITIS NOS Essential hypertension 08/16/2015 Hyperlipidemia, mixed 08/16/[address] 02/20/2022 DPA: Braden () Neuropathic pain 08/27/2021 On cymbalta Onychomycosis 12/29/2010 Osteoporosis, senile alendronate 09/2011-09/2014 Parkinson's disease (HCC) 2012 Bavis Pedal edema 11/17/2010 Renal insufficiency 10/27/2017 Urinary frequency 07/17/2009 White coat hypertension Office hypertension Previous Surgical History PAST SURGICAL HISTORY Procedure Laterality Date COLONOSCOPY does not want. FECAL OCCULT BLOOD TEST 11/16/2017 neg NONE Family History FAMILY HISTORY Problem Relation Age of Onset Heart Mother [place] Hypertension Mother Osteoporosis Mother Asthma Father Hypertension Father Lipids Father Diabetes Father Alzheimer's Disease Father Prostate Cancer Father Stroke Maternal Grandmother Stroke Maternal Grandfather Hypertension Daughter Clotting Disorder Daughter Factor V Clotting Disorder Daughter Factor V Stroke Daughter cavernous sinus thrombosis Patient Allergies ALLERGIES Allergen Reactions Bactrim [Sulfametho* Rash Diltiazem Rash, Itching Norvasc [Amlodipine* Rash, Itching Penicillins Hives Verapamil Rash rash Hctz [Thiazides] Other: See Comments Low potassium Current Medications Current Outpatient Medications on File Prior to Visit Medication Sig selegiline (ELDEPRYL) 5 mg tablet selegiline 5 mg tablet TAKE 1 TABLET TWICE A DAY WITH BREAKFAST AND LUNCH. metoprolol tartrate, short acting, (LOPRESSOR) 100 mg tablet Take 1 tablet by mouth twice daily. simvastatin (ZOCOR) 10 mg tablet Take 1 tablet by mouth daily at bedtime. spironolactone (ALDACTONE) 25 mg tablet Take 1 tablet by mouth once daily. DULoxetine 40 mg cpDR Take 1 capsule by mouth once daily. Per Dr. Patricio Bailey carbidopa-levodopa CR (SINEMET CR) 50-200 mg per tablet Take 1 tablet by mouth three times daily. Per Dr. Patricio Bailey vit A/vit C/vit E/zinc/copper (PRESERVISION AREDS ORAL) Take by mouth. meloxicam (MOBIC) 15 mg tablet Take 1 tablet by mouth once daily. With food. (Patient not taking: Reported on 08/24/2022) No current facility-administered medications on file prior to visit. Social History Social History Tobacco Use Smoking status: Never Smokeless tobacco: Never Vaping Use Vaping Use: Never used Substance Use Topics Alcohol use: No Drug use: No Review of Symptoms REVIEW OF SYSTEMS GENERAL: No weight loss, malaise or fevers NECK: Negative for lumps, goiter, pain and significant neck swelling RESPIRATORY: Negative for cough, hemoptysis, wheezing, COPD, dyspnea or shortness of breath CARDIOVASCULAR: Negative for chest pain, leg swelling, hypertension, CHF or palpitations NEURO: +parkinsons EXAM: BP 128/82 (BP Site: Right Arm, BP Position: Sitting, BP Cuff Size: Regular Adult) Pulse 88 Temp 36.5 C (97.7 F) Resp 16 Wt 53.5 kg (118 lb) BMI 21.58 kg/m General Appearance: Well appearing, alert, in no acute distress, well-hydrated, well nourished.. Neck: Supple, no adenopathy; thyroid symmetric, normal size, no bruits. Lungs: Lungs clear to auscultation. No wheezing, rhonchi, rales.. Heart: RRR without murmur, gallop, or rubs. No ectopy. Extremities: No deformities, edema, skin discoloration, clubbing or cyanosis. Good capillary refill. . Peripheral Pulses: Normal. Health Maintenance List SHINGRIX VACCINE(1 of 2) Never done COVID-19 VACCINE(3 - Booster for Moderna series) due on 05/03/2021 DTAP,TDAP,TD(2 - Td or Tdap) due on 06/12/2021 DEPRESSION ASSESSMENT Never done INFLUENZA(1) due on 07/16/2022 ANNUAL PCP TEAM CHRONIC DISEASE VISIT due on 02/20/2023 BP CONTROLLED (<130/80) due on 02/20/2023 DIABETES SCREEN due on 02/20/2025 LIPID SCREEN due on 02/20/2027 BONE DENSITY Completed ADVANCE DIRECTIVE DISCUSSION Completed HEPATITIS C SCREENING Completed PNEUMOCOCCAL: 65+ Completed MAMMOGRAM Discontinued COLORECTAL CANCER SCREENING Discontinued Data reviewed N/a ASSESSMENT/PLAN: 1. Essential hypertension - ICD9: 401.9, ICD10: I10 (primary diagnosis) - good control - Continue current medication(s) - Recommended regular aerobic exercise. - Recommend home blood pressure monitoring, to bring results in on next visit - Goal of BP <130/80 - BASIC METABOLIC PNL - URINALYSIS, WITH MICROSCOPIC 2. Hyperlipidemia, mixed - ICD9: 272.2, ICD10: E78.2 - to be determined upon return of lab results - Encouraged following a low carbohydrate, healthy oil intake diet. - Continue current therapy. - LIPID PANEL, NONFASTING 3. Parkinson's disease - ICD9: 332.0, ICD10: G20 Continue with neuro 4. Renal insufficiency - ICD9: 593.9, ICD10: N28.9 Await labs - BASIC METABOLIC PNL - CBC + DIFF 5. Anemia, unspecified type - ICD9: 285.9, ICD10: D64.9 Awit labs - CBC + DIFF 6. Weight loss - ICD9: 783.21, ICD10: R63.4 Discussed further eval but patient declines. Will atleast check labs and TSH. Consider US/CXR and then CT scans. is concerned however patient is not and declines additional Scans. 7. Need for vaccination - ICD9: V05.9, ICD10: Z23 - PNEUMOCOCCAL IMMUNIZATION PPSV 23 8. Osteoporosis, senile - ICD9: 733.01, ICD10: M81.0 - Reviewed the need for Calcium and Vitamin D supplements and weight bearing exercise as tolerated 9. Neuropathic pain - ICD9: 729.2, ICD10: M79.2 Stable. 10. Anxiety - ICD9: 300.00, ICD10: F41.9 Discussed increasing cymbalta to help with her depressive/anxiety symptoms. She will discuss with neurology who prescribed medication. Follow up in 6 months or sooner as needed. Shey Quiroz PA-C documented in this encounter [facility] 08-16-2022 History of Presen t illness Narrative Images from the original note were not included. This note was created using [employer]. Subjective Leonila Zamudio is a 72 year old female. HPI Patient presents with right jaw swelling since last night. She was at a wedding and she noticed started to hurt and become swollen. She denies fever or chills. Her tooth has been bothering her for several days. She denies vomiting. Review of Systems Constitutional: Negative for fever. HENT: Positive for facial swelling. Respiratory: Negative. Cardiovascular: Negative. All other systems reviewed and are negative. PAST MEDICAL HISTORY Diagnosis Date Absolute anemia 08/06/2015 Advance directive discussed with patient 02/20/2022 Discussed 02/20/2022 Anxiety CHRONIC SINUSITIS NOS Essential hypertension 08/16/2015 Hyperlipidemia, mixed 08/16/[address] 02/20/2022 DPA: Braden () Neuropathic pain 08/27/2021 On cymbalta Onychomycosis 12/29/2010 Osteoporosis, senile alendronate 09/2011-09/2014 Parkinson's disease (HCC) 2012 Bavis Pedal edema 11/17/2010 Renal insufficiency 10/27/2017 Urinary frequency 07/17/2009 White coat hypertension Office hypertension Current Outpatient Medications Medication Sig Dispense Refill selegiline (ELDEPRYL) 5 mg tablet selegiline 5 mg tablet TAKE 1 TABLET TWICE A DAY WITH BREAKFAST AND LUNCH. clindamycin (CLEOCIN) 150 mg capsule Take 3 capsules by mouth three times daily for 7 days. 63 capsule 0 metoprolol tartrate, short acting, (LOPRESSOR) 100 mg tablet Take 1 tablet by mouth twice daily. 180 tablet 1 simvastatin (ZOCOR) 10 mg tablet Take 1 tablet by mouth daily at bedtime. 90 tablet 1 spironolactone (ALDACTONE) 25 mg tablet Take 1 tablet by mouth once daily. 90 tablet 1 DULoxetine 40 mg cpDR Take 1 capsule by mouth once daily. Per Dr. Patricio Bailey 90 capsule 1 carbidopa-levodopa CR (SINEMET CR) 50-200 mg per tablet Take 1 tablet by mouth three times daily. Per Dr. Patricio Bailey vit A/vit C/vit E/zinc/copper (PRESERVISION AREDS ORAL) Take by mouth. meloxicam (MOBIC) 15 mg tablet Take 1 tablet by mouth once daily. With food. No current facility-administered medications for this visit. PAST SURGICAL HISTORY Procedure Laterality Date COLONOSCOPY does not want. FECAL OCCULT BLOOD TEST 11/16/2017 neg NONE FAMILY HISTORY Problem Relation Age of Onset Heart Mother [place] Hypertension Mother Osteoporosis Mother Asthma Father Hypertension Father Lipids Father Diabetes Father Alzheimer's Disease Father Prostate Cancer Father Stroke Maternal Grandmother Stroke Maternal Grandfather Hypertension Daughter Clotting Disorder Daughter Factor V Clotting Disorder Daughter Factor V Stroke Daughter cavernous sinus thrombosis Social History Tobacco Use Smoking status: Never Smokeless tobacco: Never Substance Use Topics Alcohol use: No Drug use: No Objective BP 128/84 Pulse 89 Temp 36.4 C (97.5 F) Resp 18 Wt 56.2 kg (123 lb 12.8 oz) SpO2 98% BMI 22.64 kg/m Physical Exam Vitals reviewed. Constitutional: Appearance: Normal appearance. HENT: Head: Comments: Moderate swelling to the right jawline. Some mild erythema overlying. No sign of Sinan's angina. She has dental caries and decay on the teeth on the right lower gumline. No trismus. Neurological: Mental Status: She is alert. Assessment and Plan ASSESSMENT/PLAN: 1. Dental infection - ICD9: 522.4, ICD10: K04.[address] her on clindamycin, she is allergic to penicillin. Discussed if this gets any worse she needs to be seen in the ER. Otherwise follow-up with dentist. Patient agreeable. here with her and agreeable with plan as well. Nighat Marquez PA-C documented in this encounter [facility] 03-16-2022 Miscellaneous Notes Spoke with patient and gave results. Patient voiced understanding. Aaron Bess MA Let patient know bone strength study shows better in the low back and left hip. Slightly weaker in the left femoral neck, right hip and right femoral neck. Would advise continued routine exercise as well as taking 600 mg of calcium twice ad ay and 2,000 international unit(s) 's of Vit D a day. documented in this encounter [facility] 03-10-2022 History of Presen t illness Narrative Radiology Service Progress Note PATIENT NAME: Leonila Zamudio DATE OF SERVICE: March 10, 2022 TIME: 2:10 PM PATIENT IDENTITY VERIFICATION COMPLETED USING TWO (2) IDENTIFIERS: Name and Date of confirmed by patient verbally. FALL SCREENING: Has the patient had 2 falls in the last year or 1 fall with injury or currently using an Ambulatory Assistive Device (Walker, Cane, Wheelchair, Crutches, etc.)? No PATIENT GENDER DATA: Female. status: : No status: NO. PATIENT RELEVANT IMPLANT DATA REVIEWED: Not Applicable RADIOLOGY DEPARTMENT: Bone Density PERIPHERAL IV DATA: Not applicable SIGNED BY: RT Lori(R) March 10, 2022 2:10 PM documented in this encounter [facility] 02-23-2022 Miscellaneous Notes Pt notified of results and provider message. Norma Grove LPN Attempted to contact patient; no answer; no voicemail. Aaron Bess MA Let patient know recent labs and urine ok. documented in this encounter [facility] 03-19-2011 History of Past i llness Narrative Problem Noted Date Resolved Date Hypertension, poor control 03/19/201105/16 Mitral valve disorders(424.0) 06/06/2009 Unspecified hypertensive heart disease without h eart failure 04/13/2008 06/06/2009 documented as of this encounter (statuses as of 02/23/2022) [facility] History of Past illness Narrative* Problem Noted Date Resolved Date Hypertension, poor control 03/19/201105/16 Mitral valve disorders(424.0) 06/06/2009 Unspecified hypertensive heart disease without h eart failure 04/13/2008 06/06/2009 documented as of this encounter (statuses as of 03/11/2022) [facility] of Past illness Narrative* Problem Noted Date Resolved Date Hypertension, poor control 03/19/201105/16 Mitral valve disorders(424.0) 06/06/2009 Unspecified hypertensive heart disease without h eart failure 04/13/2008 06/06/2009 documented as of this encounter (statuses as of 03/16/2022) [facility] of Past [facility] Narrative* Problem Noted Date Resolved Date Hypertension, poor control 03/19/201105/16 Mitral valve disorders(424.0) 06/06/2009 Unspecified hypertensive heart disease without h eart failure 04/13/2008 06/06/2009 documented as of this encounter (statuses as of 08/16/2022) [facility] of [facility] Narrative* Problem Noted Date Resolved Date Hypertension, poor control 03/19/201105/16 Mitral valve disorders(424.0) 06/06/2009 Unspecified hypertensive heart disease without h eart failure 04/13/2008 06/06/2009 documented as of this encounter (statuses as of 08/24/2022) [facility] Narrative* Problem Noted Date Resolved Date Hypertension, poor control 03/19/201105/16 Mitral valve disorders(424.0) 06/06/2009 Unspecified hypertensive heart disease without h eart failure 04/13/2008 06/06/2009 documented as of this encounter (statuses as of 08/25/2022) [facility] Narrative* Problem Noted Date Resolved Date Hypertension, poor control 03/19/201105/16 Mitral valve disorders(424.0) 06/06/2009 Unspecified hypertensive heart disease without h eart failure 04/13/2008 06/06/2009 documented as of this encounter (statuses as of 09/11/2022) [facility] Narrative* Problem Noted Date Resolved Date Hypertension, poor control 03/19/201105/16 Mitral valve disorders(424.0) 06/06/2009 Unspecified hypertensive heart disease without h eart failure 04/13/2008 06/06/2009 documented as of this encounter (statuses as of 12/15/2022) [facility] Narrative* Problem Noted Date Resolved Date Hypertension, poor control 03/19/201105/16 Mitral valve disorders(424.0) 06/06/2009 Unspecified hypertensive heart disease without h eart failure 04/13/2008 06/06/2009 documented as of this encounter (statuses as of 02/18/2023) [facility] Narrative* Problem Noted Date Resolved Date Hypertension, poor control 03/19/201105/16 Mitral valve disorders(424.0) 06/06/2009 Unspecified hypertensive heart disease without h eart failure 04/13/2008 06/06/2009 documented as of this encounter (statuses as of 02/24/2023) [facility] Narrative* Problem Noted Date Resolved Date Hypertension, poor control 03/19/201105/16 Mitral valve disorders(424.0) 06/06/2009 Unspecified hypertensive heart disease without h eart failure 04/13/2008 06/06/2009 documented as of this encounter (statuses as of 03/09/2023) [facility] N[facility]ative* Problem Noted Date Resolved Date Hypertension, poor control 03/19/201105/16 Mitral valve disorders(424.0) 06/06/2009 Unspecified hypertensive heart disease without h eart failure 04/13/2008 06/06/2009 documented as of this encounter (statuses as of 03/12/2023) [facility]ative* Problem Noted Date Resolved Date Hypertension, poor control 03/19/201105/16 Mitral valve disorders(424.0) 06/06/2009 Unspecified hypertensive heart disease without h eart failure 04/13/2008 06/06/2009 documented as of this encounter (statuses as of 05/17/2023) [facility] Narrative* Problem Noted Date Diagnosed Date Resolved Date Hypertension, poor control 03/19/2011 0 05/16/2012 Mitral valve disorders(424.0) 06/06/2009 02/17/2010 Unspecified hypertensive hea rt disease without heart failure 04/13/2008 06/06/2009 documented as of this encounter (statuses as of 05/27/2023) [facility]ative* Problem Noted Date Diagnosed Date Resolved Date Hypertension, poor control 03/19/2011 0 05/16/2012 Mitral valve disorders(424.0) 06/06/2009 02/17/2010 Unspecified hypertensive hea rt disease without heart failure 04/13/2008 06/06/2009 documented as of this encounter (statuses as of 07/06/2023) [facility]* Problem Noted Date Diagnosed Date Resolved Date Hypertension, poor control 03/19/2011 0 05/16/2012 Mitral valve disorders(424.0) 06/06/2009 02/17/2010 Unspecified hypertensive hea rt disease without heart failure 04/13/2008 06/06/2009 documented as of this encounter (statuses as of 07/09/2023) [facility]* Problem Noted Date Diagnosed Date Resolved Date Hypertension, poor control 03/19/2011 0 05/16/2012 Mitral valve disorders(424.0) 06/06/2009 02/17/2010 Unspecified hypertensive hea rt disease without heart failure 04/13/2008 06/06/2009 documented as of this encounter (statuses as of 08/13/2023) [facility]* Problem Noted Date Diagnosed Date Resolved Date Hypertension, poor control 03/19/2011 0 05/16/2012 Mitral valve disorders(424.0) 06/06/2009 02/17/2010 Unspecified hypertensive hea rt disease without heart failure 04/13/2008 06/06/2009 documented as of this encounter (statuses as of 08/20/2023) [facility]* Problem Noted Date Diagnosed Date Resolved Date Hypertension, poor control 03/19/2011 0 05/16/2012 Mitral valve disorders(424.0) 06/06/2009 02/17/2010 Unspecified hypertensive hea rt disease without heart failure 04/13/2008 06/06/2009 documented as of this encounter (statuses as of 09/10/2023) [facility]* Problem Noted Date Diagnosed Date Resolved Date Hypertension, poor control 03/19/2011 0 05/16/2012 Mitral valve disorders(424.0) 06/06/2009 02/17/2010 Unspecified hypertensive hea rt disease without heart failure 04/13/2008 06/06/2009 documented as of this encounter (statuses as of 09/10/2023) [facility]* Problem Noted Date Diagnosed Date Resolved Date Hypertension, poor control 03/19/2011 0 05/16/2012 Mitral valve disorders(424.0) 06/06/2009 02/17/2010 Unspecified hypertensive hea rt disease without heart failure 04/13/2008 06/06/2009 documented as of this encounter (statuses as of 10/24/2023) [facility]* Problem Noted Date Diagnosed Date Resolved Date Hypertension, poor control 03/19/2011 0 05/16/2012 Mitral valve disorders(424.0) 06/06/2009 02/17/2010 Unspecified hypertensive hea rt disease without heart failure 04/13/2008 06/06/2009 documented as of this encounter (statuses as of 10/27/2023) [facility]* Problem Noted Date Diagnosed Date Resolved Date Hypertension, poor control 03/19/2011 0 05/16/2012 Mitral valve disorders(424.0) 06/06/2009 02/17/2010 Unspecified hypertensive hea rt disease without heart failure 04/13/2008 06/06/2009 documented as of this encounter (statuses as of 12/21/2023) [facility]* Problem Noted Date Diagnosed Date Resolved Date Hypertension, poor control 03/19/2011 0 05/16/2012 Mitral valve disorders(424.0) 06/06/2009 02/17/2010 Unspecified hypertensive hea rt disease without heart failure 04/13/2008 06/06/2009 documented as of this encounter (statuses as of 01/27/2024) [facility] note* Diagnosis Osteoporosis, senile Senile osteoporosis documented in this encounter [facility] note* Diagnosis Dental infection- Primary Acute apical periodontitis of pulpal origin documented in this encounter [facility] note* Diagnosis Essential hypertension- Primary Unspecified essential hypertension Hyperlipidemia, mixed Mixed hyperlipidemia Parkinson's disease Paralysis agitans Renal insufficiency Unspecified disorder of kidney and ureter Anemia, unspecified type Weight loss Loss of weight Need for vaccination Need for prophylactic vaccination and inoculation against unspecified single disease Osteoporosis, senile Senile osteoporosis Neuropathic pain Neuralgia, neuritis, and radiculitis, unspecified Anxiety Anxiety state, unspecified [facility] Diagnosis Hyperkalemia- Primary Hyperpotassemia [facility] Diagnosis Suspected COVID-19 virus infection- Primary Bacterial sinusitis Unspecified sinusitis (chronic) [facility]* Diagnosis URI, acute- Primary Acute upper respiratory infections of unspecified site documented in this encounter [facility] note* Diagnosis Urinary frequency- Primary [facility] Diagnosis Medicare annual wellness visit, subsequent- Primary Routine general medical examination at a health care facility Hyperlipidemia, mixed Mixed hyperlipidemia Essential hypertension Unspecified essential hypertension Parkinson's disease Paralysis agitans Anemia, unspecified type Renal insufficiency Unspecified disorder of kidney and ureter Neuropathic pain Neuralgia, neuritis, and radiculitis, unspecified Anxiety Anxiety state, unspecified Osteoporosis, senile Senile osteoporosis Advance directive discussed with patient Other specified counseling Encounter for immunization Need for other specified prophylactic vaccination against single bacterial disease Medication management Encounter for long-term (current) use of other medications Chronic rhinitis [facility] Diagnosis Urinary frequency- Primary Recurrent UTI (urinary tract infection) Urinary tract infection, site not specified documented in this encounter [facility]* Diagnosis Urinary frequency- Primary Acute midline low back pain without sciatica [facility] Diagnosis Essential hypertension- Primary Unspecified essential hypertension Hyperlipidemia, mixed Mixed hyperlipidemia Neuropathic pain Neuralgia, neuritis, and radiculitis, unspecified Parkinson's disease, unspecified whether dyskinesia present, unspecified whether manifestations fluctuate Anxiety Anxiety state, unspecified Anemia, unspecified type Renal insufficiency Unspecified disorder of kidney and ureter Encounter for immunization Need for other specified prophylactic vaccination against single bacterial disease documented in this encounter [facility] note* Diagnosis Parkinson's disease, unspecified whether dyskinesia present, unspecified whether manifestations fluctuate- Primary Major depressive disorder, recurrent episode, moderate (HCC) Major depressive disorder, recurrent episode, moderate RANDY (generalized anxiety disorder) Generalized anxiety disorder documented in this encounter [facility] note* Diagnosis RANDY (generalized anxiety disorder)- Primary Generalized anxiety disorder Recurrent major depressive disorder, in partial remission (HCC) Parkinson's disease, unspecified whether dyskinesia present, unspecified whether manifestations fluctuate documented in this encounter [facility] note* Diagnosis Medicare annual wellness visit, subsequent- Primary Routine general medical examination at a health care facility Essential hypertension Unspecified essential hypertension Hyperlipidemia, mixed Mixed hyperlipidemia Anemia, unspecified type Renal insufficiency Unspecified disorder of kidney and ureter Neuropathic pain Neuralgia, neuritis, and radiculitis, unspecified Parkinson's disease, unspecified whether dyskinesia present, unspecified whether manifestations fluctuate (HCC) Major depressive disorder, recurrent episode, moderate (HCC) Major depressive disorder, recurrent episode, moderate RANDY (generalized anxiety disorder) Generalized anxiety disorder Osteoporosis, senile Senile osteoporosis Advance directive discussed with patient Other specified counseling documented in this encounter [facility] note* Diagnosis Osteoporosis, senile Senile osteoporosis documented in this encounter [facility] note* Diagnosis RANDY (generalized anxiety disorder)- Primary Generalized anxiety disorder Major depressive disorder, recurrent episode, moderate (HCC) Major depressive disorder, recurrent episode, moderate Parkinson's disease, unspecified whether dyskinesia present, unspecified whether manifestations fluctuate (HCC) documented in this encounter [facility] note* Diagnosis RANDY (generalized anxiety disorder)- Primary Generalized anxiety disorder Mild episode of recurrent major depressive disorder (HCC) Parkinson's disease, unspecified whether dyskinesia present, unspecified whether manifestations fluctuate (HCC) Fall, initial encounter [facility] Diagnosis Parkinson's disease, unspecified whether dyskinesia present, unspecified whether manifestations fluctuate (HCC)- Primary Balance disorder Other symptoms involving nervous and musculoskeletal systems Renal insufficiency Unspecified disorder of kidney and ureter Hyperlipidemia, mixed Mixed hyperlipidemia documented in this encounter [facility] note* Diagnosis RANDY (generalized anxiety disorder)- Primary Generalized anxiety disorder Parkinson's disease, unspecified whether dyskinesia present, unspecified whether manifestations fluctuate (HCC) Mild episode of recurrent major depressive disorder (HCC) [facility] Diagnosis Essential hypertension- Primary Unspecified essential hypertension Major depressive disorder, recurrent episode, moderate (HCC) Major depressive disorder, recurrent episode, moderate RANDY (generalized anxiety disorder) Generalized anxiety disorder Hyperlipidemia, mixed Mixed hyperlipidemia Parkinson's disease, unspecified whether dyskinesia present, unspecified whether manifestations fluctuate (HCC) Osteoporosis, senile Senile osteoporosis Encounter for immunization Need for other specified prophylactic vaccination against single bacterial disease [facility] Diagnosis Sore throat- Primary Acute pharyngitis Viral illness Unspecified viral infection, in conditions classified elsewhere and of unspecified site [facility] Diagnosis Parkinson's disease with dyskinesia and fluctuating manifestations (HCC)- Primary [facility] Diagnosis RANDY (generalized anxiety disorder)- Primary Generalized anxiety disorder Encounter for long-term (current) use of medications Encounter for long-term (current) use of other medications Parkinson's disease, unspecified whether dyskinesia present, unspecified whether manifestations fluctuate (HCC) Mild episode of recurrent major depressive disorder (HCC) [facility] Diagnosis Medicare annual wellness visit, subsequent- Primary Routine general medical examination at a health care facility Advance directive discussed with patient Other specified counseling Essential hypertension Unspecified essential hypertension Hyperlipidemia, mixed Mixed hyperlipidemia Renal insufficiency Unspecified disorder of kidney and ureter Osteoporosis, senile Senile osteoporosis Parkinson's disease with dyskinesia and fluctuating manifestations (HCC) RANDY (generalized anxiety disorder) Generalized anxiety disorder Major depressive disorder, recurrent episode, moderate (HCC) Major depressive disorder, recurrent episode, moderate Age-related macular degeneration Macular degeneration (senile) of retina, unspecified [facility]* Diagnosis Acute cystitis without hematuria- Primary Acute cystitis Urine frequency Urinary frequency History of recent fall [facility] Diagnosis Stasis dermatitis of both legs- Primary Varicose veins of lower extremities with inflammation Claudication Peripheral vascular disease, unspecified Cold feet Other symptoms involving skin and integumentary tissues [facility]* Diagnosis Parkinson's disease with dyskinesia and fluctuating manifestations (HCC) [facility] Diagnosis Stasis dermatitis- Primary Varicose veins of lower extremities with inflammation [facility] Diagnosis Peripheral vascular disease- Primary Peripheral vascular disease, unspecified Cold feet Other symptoms involving skin and integumentary tissues [facility]* Diagnosis Essential hypertension- Primary Unspecified essential hypertension documented in this encounter [facility] note* Diagnosis Cold feet- Primary Other symptoms involving skin and integumentary tissues Peripheral vascular disease Peripheral vascular disease, unspecified documented in this encounter [facility] note* Diagnosis RANDY (generalized anxiety disorder)- Primary Generalized anxiety disorder Encounter for long-term (current) use of medications Encounter for long-term (current) use of other medications Parkinson's disease, unspecified whether dyskinesia present, unspecified whether manifestations fluctuate (HCC) Unspecified abnormalities of gait and mobility documented in this encounter [facility] for referral (narrative)* Diagnostic Procedure Only (Routine) - Closed Specialty Diagnoses / Procedures Referred By Contac t Referred To Contact XR IMAGING Diagnoses Osteoporosis, senile Procedures DXA-AXIAL SKELETON Deangelo Hawkins MD [address] [phone] Xr Imaging [id number] Referral ID Status Reason Start Date Expiration Date V isits Requested Visits Authorized [id number] Closed Auto-Generate d Referral 03/16/2024 04/15/2025 1 1 [facility] for visit Narrative* Diagnostic Procedure Only (Routine) - Closed Specialty Diagnoses / Procedures Referred By Contac t Referred To Contact XR IMAGING Diagnoses Osteoporosis, senile Procedures DXA-AXIAL SKELETON Deangelo Hawkins MD [address] [phone] [place] [address] Referral ID Status Reason Start Date Expiration Date V isits Requested Visits Authorized [id number] Closed Auto-Generate d Referral 03/16/2024 04/15/2025 1 1 [facility] Concerns Infection Onset Date Last Indicated Resolved Time COVID-19 Rule-Out 12/15/2022 12/15/2022 Advance Directives No Advanced Directives Records FoundDocuments on File Type Date Recorded Patient Machinery Rigger Expl anation Advance Directive(s) 05/05/2023 11:53 AM Documents on File Type Date Recorded Patient Machinery Rigger Expl anation Advance Directive(s) 05/05/2023 11:53 AM Reason for Referral Specialty Diagnoses / Procedures Referred By Pete rice Referred To Contact [facility] Diagnoses Parkinson's disease, unspecified whether dyskinesia present, unspecified whether manifestations fluctuate (HCC) Balance disorder Procedures CONSULT TO PHYSICAL THERAPY PHYSICAL THERAPY EVALUATION HIGH COMPLEX 45 MINS Shey Quiroz PA-C [address] [place] [address] [facility] [address] [place] [address] Referral ID Status Reason Start Date Expiration Date Visits Requested Visits Authorized [id number] Pending Review Auto-Generat ed Referral 07/14/2024 07/14/2025 1 1 Summary Purpose Family History No Family History Records FoundNo Family History Records Found Additional Source Comments Source Comments (unrecognize d section and content) In the event this informatio n is protected by the Federal Confidentiality of Alcohol and Drug Abuse Patient Records regulations: The Federal rules restrict any use of the information to criminally investigate or prosecute any alcohol or drug abuse patient.[facility] HospitalIn the event this information is protected by the Federal Confidentiality of Alcohol and Drug Abuse Patient Records regulations: The Federal rules restrict any use of the information to criminally investigate or prosecute any alcohol or drug abuse patient.[facility] HospitalIn the event this information is protected by the Federal Confidentiality of Alcohol and Drug Abuse Patient Records regulations: The Federal rules restrict any use of the information to criminally investigate or prosecute any alcohol or drug abuse patient.[facility] HospitalIn the event this information is protected by the Federal Confidentiality of Alcohol and Drug Abuse Patient Records regulations: The Federal rules restrict any use of the information to criminally investigate or prosecute any alcohol or drug abuse patient.[facility] HospitalIn the event this information is protected by the Federal Confidentiality of Alcohol and Drug Abuse Patient Records regulations: The Federal rules restrict any use of the information to criminally investigate or prosecute any alcohol or drug abuse patient.[facility] HospitalIn the event this information is protected by the Federal Confidentiality of Alcohol and Drug Abuse Patient Records regulations: The Federal rules restrict any use of the information to criminally investigate or prosecute any alcohol or drug abuse patient.[facility] HospitalIn the event this information is protected by the Federal Confidentiality of Alcohol and Drug Abuse Patient Records regulations: The Federal rules restrict any use of the information to criminally investigate or prosecute any alcohol or drug abuse patient.[facility] HospitalIn the event this information is protected by the Federal Confidentiality of Alcohol and Drug Abuse Patient Records regulations: The Federal rules restrict any use of the information to criminally investigate or prosecute any alcohol or drug abuse patient.[facility] HospitalIn the event this information is protected by the Federal Confidentiality of Alcohol and Drug Abuse Patient Records regulations: The Federal rules restrict any use of the information to criminally investigate or prosecute any alcohol or drug abuse patient.[facility] HospitalIn the event this information is protected by the Federal Confidentiality of Alcohol and Drug Abuse Patient Records regulations: The Federal rules restrict any use of the information to criminally investigate or prosecute any alcohol or drug abuse patient.[facility] HospitalIn the event this information is protected by the Federal Confidentiality of Alcohol and Drug Abuse Patient Records regulations: The Federal rules restrict any use of the information to criminally investigate or prosecute any alcohol or drug abuse patient.[facility] HospitalIn the event this information is protected by the Federal Confidentiality of Alcohol and Drug Abuse Patient Records regulations: The Federal rules restrict any use of the information to criminally investigate or prosecute any alcohol or drug abuse patient.[facility] HospitalIn the event this information is protected by the Federal Confidentiality of Alcohol and Drug Abuse Patient Records regulations: The Federal rules restrict any use of the information to criminally investigate or prosecute any alcohol or drug abuse patient.[facility] HospitalIn the event this information is protected by the Federal Confidentiality of Alcohol and Drug Abuse Patient Records regulations: The Federal rules restrict any use of the information to criminally investigate or prosecute any alcohol or drug abuse patient.[facility] HospitalIn the event this information is protected by the Federal Confidentiality of Alcohol and Drug Abuse Patient Records regulations: The Federal rules restrict any use of the information to criminally investigate or prosecute any alcohol or drug abuse patient.[facility] HospitalIn the event this information is protected by the Federal Confidentiality of Alcohol and Drug Abuse Patient Records regulations: The Federal rules restrict any use of the information to criminally investigate or prosecute any alcohol or drug abuse patient.[facility] HospitalIn the event this information is protected by the Federal Confidentiality of Alcohol and Drug Abuse Patient Records regulations: The Federal rules restrict any use of the information to criminally investigate or prosecute any alcohol or drug abuse patient.[facility] HospitalIn the event this information is protected by the Federal Confidentiality of Alcohol and Drug Abuse Patient Records regulations: The Federal rules restrict any use of the information to criminally investigate or prosecute any alcohol or drug abuse patient.[facility] HospitalIn the event this information is protected by the Federal Confidentiality of Alcohol and Drug Abuse Patient Records regulations: The Federal rules restrict any use of the information to criminally investigate or prosecute any alcohol or drug abuse patient.[facility] HospitalIn the event this information is protected by the Federal Confidentiality of Alcohol and Drug Abuse Patient Records regulations: The Federal rules restrict any use of the information to criminally investigate or prosecute any alcohol or drug abuse patient.[facility] HospitalIn the event this information is protected by the Federal Confidentiality of Alcohol and Drug Abuse Patient Records regulations: The Federal rules restrict any use of the information to criminally investigate or prosecute any alcohol or drug abuse patient.[facility] HospitalIn the event this information is protected by the Federal Confidentiality of Alcohol and Drug Abuse Patient Records regulations: The Federal rules restrict any use of the information to criminally investigate or prosecute any alcohol or drug abuse patient.[facility] the event this information is protected by the Federal Confidentiality of Alcohol and Drug Abuse Patient Records regulations: The Federal rules restrict any use of the information to criminally investigate or prosecute any alcohol or drug abuse patient.[facility] HospitalIn the event this information is protected by the Federal Confidentiality of Alcohol and Drug Abuse Patient Records regulations: The Federal rules restrict any use of the information to criminally investigate or prosecute any alcohol or drug abuse patient.[facility] HospitalIn the event this information is protected by the Federal Confidentiality of Alcohol and Drug Abuse Patient Records regulations: The Federal rules restrict any use of the information to criminally investigate or prosecute any alcohol or drug abuse patient.[facility] HospitalIn the event this information is protected by the Federal Confidentiality of Alcohol and Drug Abuse Patient Records regulations: The Federal rules restrict any use of the information to criminally investigate or prosecute any alcohol or drug abuse patient.[facility] HospitalIn the event this information is protected by the Federal Confidentiality of Alcohol and Drug Abuse Patient Records regulations: The Federal rules restrict any use of the information to criminally investigate or prosecute any alcohol or drug abuse patient.[facility] HospitalIn the event this information is protected by the Federal Confidentiality of Alcohol and Drug Abuse Patient Records regulations: The Federal rules restrict any use of the information to criminally investigate or prosecute any alcohol or drug abuse patient.[facility] HospitalIn the event this information is protected by the Federal Confidentiality of Alcohol and Drug Abuse Patient Records regulations: The Federal rules restrict any use of the information to criminally investigate or prosecute any alcohol or drug abuse patient.[facility] HospitalIn the event this information is protected by the Federal Confidentiality of Alcohol and Drug Abuse Patient Records regulations: The Federal rules restrict any use of the information to criminally investigate or prosecute any alcohol or drug abuse patient.[facility] HospitalIn the event this information is protected by the Federal Confidentiality of Alcohol and Drug Abuse Patient Records regulations: The Federal rules restrict any use of the information to criminally investigate or prosecute any alcohol or drug abuse patient.[facility] HospitalIn the event this information is protected by the Federal Confidentiality of Alcohol and Drug Abuse Patient Records regulations: The Federal rules restrict any use of the information to criminally investigate or prosecute any alcohol or drug abuse patient.[facility] HospitalIn the event this information is protected by the Federal Confidentiality of Alcohol and Drug Abuse Patient Records regulations: The Federal rules restrict any use of the information to criminally investigate or prosecute any alcohol or drug abuse patient.[facility] HospitalIn the event this information is protected by the Federal Confidentiality of Alcohol and Drug Abuse Patient Records regulations: The Federal rules restrict any use of the information to criminally investigate or prosecute any alcohol or drug abuse patient.[facility] HospitalIn the event this information is protected by the Federal Confidentiality of Alcohol and Drug Abuse Patient Records regulations: The Federal rules restrict any use of the information to criminally investigate or prosecute any alcohol or drug abuse patient.[facility] HospitalIn the event this information is protected by the Federal Confidentiality of Alcohol and Drug Abuse Patient Records regulations: The Federal rules restrict any use of the information to criminally investigate or prosecute any alcohol or drug abuse patient.[facility] HospitalIn the event this information is protected by the Federal Confidentiality of Alcohol and Drug Abuse Patient Records regulations: The Federal rules restrict any use of the information to criminally investigate or prosecute any alcohol or drug abuse patient.[facility] HospitalIn the event this information is protected by the Federal Confidentiality of Alcohol and Drug Abuse Patient Records regulations: The Federal rules restrict any use of the information to criminally investigate or prosecute any alcohol or drug abuse patient.[facility] HospitalIn the event this information is protected by the Federal Confidentiality of Alcohol and Drug Abuse Patient Records regulations: The Federal rules restrict any use of the information to criminally investigate or prosecute any alcohol or drug abuse patient.[facility] HospitalIn the event this information is protected by the Federal Confidentiality of Alcohol and Drug Abuse Patient Records regulations: The Federal rules restrict any use of the information to criminally investigate or prosecute any alcohol or drug abuse patient.[facility] HospitalIn the event this information is protected by the Federal Confidentiality of Alcohol and Drug Abuse Patient Records regulations: The Federal rules restrict any use of the information to criminally investigate or prosecute any alcohol or drug abuse patient.[facility] HospitalIn the event this information is protected by the Federal Confidentiality of Alcohol and Drug Abuse Patient Records regulations: The Federal rules restrict any use of the information to criminally investigate or prosecute any alcohol or drug abuse patient.[facility] HospitalIn the event this information is protected by the Federal Confidentiality of Alcohol and Drug Abuse Patient Records regulations: The Federal rules restrict any use of the information to criminally investigate or prosecute any alcohol or drug abuse patient.[facility] HospitalIn the event this information is protected by the Federal Confidentiality of Alcohol and Drug Abuse Patient Records regulations: The Federal rules restrict any use of the information to criminally investigate or prosecute any alcohol or drug abuse patient.[facility] HospitalIn the event this information is protected by the Federal Confidentiality of Alcohol and Drug Abuse Patient Records regulations: The Federal rules restrict any use of the information to criminally investigate or prosecute any alcohol or drug abuse patient.[facility] HospitalIn the event this information is protected by the Federal Confidentiality of Alcohol and Drug Abuse Patient Records regulations: The Federal rules restrict any use of the information to criminally investigate or prosecute any alcohol or drug abuse patient.[facility] HospitalIn the event this information is protected by the Federal Confidentiality of Alcohol and Drug Abuse Patient Records regulations: The Federal rules restrict any use of the information to criminally investigate or prosecute any alcohol or drug abuse patient.[facility] HospitalIn the event this information is protected by the Federal Confidentiality of Alcohol and Drug Abuse Patient Records regulations: The Federal rules restrict any use of the information to criminally investigate or prosecute any alcohol or drug abuse patient.[facility] HospitalIn the event this information is protected by the Federal Confidentiality of Alcohol and Drug Abuse Patient Records regulations: The Federal rules restrict any use of the information to criminally investigate or prosecute any alcohol or drug abuse patient.[facility] HospitalIn the event this information is protected by the Federal Confidentiality of Alcohol and Drug Abuse Patient Records regulations: The Federal rules restrict any use of the information to criminally investigate or prosecute any alcohol or drug abuse patient.[facility] HospitalIn the event this information is protected by the Federal Confidentiality of Alcohol and Drug Abuse Patient Records regulations: The Federal rules restrict any use of the information to criminally investigate or prosecute any alcohol or drug abuse patient.[facility] HospitalIn the event this information is protected by the Federal Confidentiality of Alcohol and Drug Abuse Patient Records regulations: The Federal rules restrict any use of the information to criminally investigate or prosecute any alcohol or drug abuse patient.[facility] HospitalIn the event this information is protected by the Federal Confidentiality of Alcohol and Drug Abuse Patient Records regulations: The Federal rules restrict any use of the information to criminally investigate or prosecute any alcohol or drug abuse patient.[facility] HospitalIn the event this information is protected by the Federal Confidentiality of Alcohol and Drug Abuse Patient Records regulations: The Federal rules restrict any use of the information to criminally investigate or prosecute any alcohol or drug abuse patient.[facility] HospitalIn the event this information is protected by the Federal Confidentiality of Alcohol and Drug Abuse Patient Records regulations: The Federal rules restrict any use of the information to criminally investigate or prosecute any alcohol or drug abuse patient.[facility] HospitalIn the event this information is protected by the Federal Confidentiality of Alcohol and Drug Abuse Patient Records regulations: The Federal rules restrict any use of the information to criminally investigate or prosecute any alcohol or drug abuse patient.[facility] HospitalIn the event this information is protected by the Federal Confidentiality of Alcohol and Drug Abuse Patient Records regulations: The Federal rules restrict any use of the information to criminally investigate or prosecute any alcohol or drug abuse patient.[facility] HospitalIn the event this information is protected by the Federal Confidentiality of Alcohol and Drug Abuse Patient Records regulations: The Federal rules restrict any use of the information to criminally investigate or prosecute any alcohol or drug abuse patient.[facility] HospitalIn the event this information is protected by the Federal Confidentiality of Alcohol and Drug Abuse Patient Records regulations: The Federal rules restrict any use of the information to criminally investigate or prosecute any alcohol or drug abuse patient.[facility] HospitalIn the event this information is protected by the Federal Confidentiality of Alcohol and Drug Abuse Patient Records regulations: The Federal rules restrict any use of the information to criminally investigate or prosecute any alcohol or drug abuse patient.[facility] Reason for Visit (unrecogniz ed section and content) Reason Comments Results Reason Comments Jaw Swelling R side jaw swelling, possible tooth infection x last night Reason Comments 6 Month Exam Reason Comments Cough Cough, sore throat x 1.5 weeks Reason Comments Sinus Problem Sinus pain and press ure, drainage x 4 days Reason Comments Urinary Problem Pt reported urinary frequency, odor x4 days. Reason Comments Outside Neurology Reason Comments Medicare Wellness Exam Reason Comments Urinary Frequency Frequency, odor and itching x 1 week Reason Comments Urinary Frequency Frequency, low back pain and strong odor with urine x 1 day Reason Comments bh consult Reason Comments F/U 6 months Reason Comments Follow Up Reason Comments Medicare Wellness Exam Reason Comments Consult Neurology Reason Comments Insurance Authorization Reason Comments Follow Up Parkinson's/anxiety Reason Comments Future Appointment 2 falls/decline ADLS Reason Comments Follow Up Recent Falls Reason Comments Follow Up anxiety Specialty Diagnoses / Procedures Referred By Contmeliton t Referred To Contact Psychiatry / ADULT PSYCHIATRY Diagnoses follow up Procedures EST [facility] ADULT Samuel Arias, [employer] [address] [place] [address] Samuel Arias, [employer] [address] [place] [address] Referral ID Status Reason Start Date Expiration Date V isits Requested Visits Authorized [id number] New Request 08/22/2024 11/20/2024 1 1 Reason Comments Sore Throat x 3 days Reason Comments Consult Outside Neurology Reason Comments New Patient Reason Comments Follow Up Depression/Anxiety Reason Comments Medication Question Reason Comments UTI Reason Onset Date Comments Allied Health Visit 03/22/2025 Medication A dherence Outreach Reason Onset Date Comments Refill Request 03/22/2025 Reason Onset Date Comments Results 03/22/2025 Reason Comments Follow Up Rash bilateral lower legs Reason Comments Parkinson's Disease Specialty Diagnoses / Procedures Referred By Contac t Referred To Contact Diagnoses Parkinson's disease with dyskinesia and fluctuating manifestations (HCC) Procedures PROVIDER ORDERED FOLLOW UP OFFICE/OUTPATIENT NEW HIGH MDM 60 MINUTES Monse Claros MD [address] [place] [id number] Phone: tel: fax: Referral ID Status Reason Start Date Expiration Date V isits Requested Visits Authorized [id number] Closed PCP Requested Referral 04/17/2025 01/15/2026 1 1 Reason Comments Rash BLE's redness, warmt h x 2 weeks Reason Onset Date Comments Results 05/08/2025 Reason Comments Follow Up Blood pressure Reason Comments Peer To Peer Consultation Reason Comments Follow Up Anxiety/Depression Specialty Diagnoses / Procedures Referred By Pete rice Referred To Contact Diagnoses Encounter for long-term (current) use of medications Procedures PROVIDER ORDERED FOLLOW UP OFFICE/OUTPATIENT NEW HIGH MDM 60 MINUTES Samuel Arias, [employer] [address] [place] [address] Phone: tel: fax: Referral ID Status Reason Start Date Expiration Date V isits Requested Visits Authorized [id number] Closed PCP Requested Referral 01/16/2025 01/16/2026 1 1 Reason Onset Date Comments Allied Health Visit 06/27/2025 Medication A dherence Outreach Reason Comments Medication Problem Care Teams (unrecognized sec tion and content) [employer] Out Worker Relationship Specialty Start Date End Date Deangelo Hawkins MD [address] [place], [place] [id number] PCP - General Family Practice 08/16/15 [employer] Out Worker Relationship Specialty Start Date End Date Deangelo Hawkins MD [address] [place], [place] [id number] [phone] PCP - General Family Practice 08/16/15 [employer] Out Worker Relationship Specialty Start Date End Date Deangelo Hawkins MD [address] [place], [place] [id number] [phone] PCP - General Family Practice 08/16/15 [employer] Out Worker Relationship Specialty Start Date End Date Deangelo Hawkins MD [address] [place], [place] [id number] PCP - General Family Medicine 08/16/15 [employer] Out Worker Relationship Specialty Start Date End Date Deangelo Hawkins MD [address] [facility] [place] [address] PCP - General Family Medicine 08/16/15 [employer] Out Worker Relationship Specialty Start Date End Date Deangelo Hawkins MD [address] [facility] [place] [address] PCP - General Family Medicine 08/16/15 [employer] Out Worker Relationship Specialty Start Date End Date Deangelo Hawkins MD [address] [facility] [place] [address] PCP - General Family Medicine 08/16/15 [employer] Out Worker Relationship Specialty Start Date End Date Deangelo Hawkins MD [facility] [place] [address] PCP - General Family Medicine 08/16/15 [employer] Out Worker Relationship Specialty Start Date End Date Deangelo Hawkins MD [address] [facility] [place] [address] PCP - General Family Medicine 08/16/15 [employer] Out Worker Relationship Specialty Start Date End Date Deangelo Hawkins MD [address] [facility] [place] [address] PCP - General Family Medicine 08/16/15 [employer] Out Worker Relationship Specialty Start Date End Date Deangelo Hawkins MD [facility] [place] [address] PCP - General Family Medicine 08/16/15 [employer] Out Worker Relationship Specialty Start Date End Date Deangelo Hawkins MD [facility] [place] [address] PCP - General Family Medicine 08/16/15 [employer]ric [employer] Out Worker Relationship Specialty Start Date End Date Deangelo Hawkins MD [address] [facility] [place] [address] PCP - General Family Medicine 08/16/15 [employer] Out Worker Relationship Specialty Start Date End Date Deangelo Hawkins MD [address] [place] [address] PCP - General Family Medicine 08/16/15 [employer] Out Worker Relationship Specialty Start Date End Date Deangelo Hawkins MD [address] [place] [address] PCP - General Family Medicine 08/16/15 [employer]ric [employer] Out Worker Relationship Specialty Start Date End Date Deangelo Hawkins MD [address] [place] [address] PCP - General Family Medicine 08/16/15 [employer]ric [employer] Out Worker Relationship Specialty Start Date End Date Deangelo Hawkins MD [address] [place] [address] PCP - General Family Medicine 08/16/15 [employer]ric [employer] Out Worker Relationship Specialty Start Date End Date Deangelo Hawkins MD [address] [place] [address] PCP - General Family Medicine 08/16/15 [employer] Out Worker Relationship Specialty Start Date End Date Deangelo Hawkins MD [address] [place] [address] PCP - General Family Medicine 08/16/15 [employer]ric [employer] Out Worker Relationship Specialty Start Date End Date Deangelo Hawkins MD [address] [place] [address] PCP - General Family Medicine 08/16/15 [employer]ric [employer] Out Worker Relationship Specialty Start Date End Date Deangelo Hawkins MD [address] [place] [address] PCP - General Family Medicine 08/16/15 [employer]ric [employer] Out Worker Relationship Specialty Start Date End Date Deangelo Hawkins MD [address] [place] [address] PCP - General Family Medicine 08/16/15 [employer]ric [employer] Out Worker Relationship Specialty Start Date End Date Deangelo Hawkins MD [address] [place] [address] PCP - General Family Medicine 08/16/15 [employer]ric [employer] Out Worker Relationship Specialty Start Date End Date Deangelo Hawkins MD [address] [place] [address] PCP - General Family Medicine 08/16/15 [employer]ric [employer] Out Worker Relationship Specialty Start Date End Date Deangelo Hawkins MD [address] [place] [address] PCP - General Family Medicine 08/16/15 [employer]ric Lay Out Worker Relationship Specialty Start Date End Date Deangelo Hawkins MD [address] [place] [address] PCP - General Family Medicine 08/16/15 [employer]ric Lay Out Worker Relationship Specialty Start Date End Date Deangelo Hawkins MD [address] [place] [address] PCP - General Family Medicine 08/16/15 Rodriguez Grijalva APRN.CNP [address] [place] [address] Surgical Instrument Maker Family Medicine 10/21/24 Shey Quiroz PA-C [address] [place] [address] Surgical Instrument Maker Family Medicine 10/21/24 Fabric Lay Out Worker Relationship Specialty Start Date End Date Deangelo Hawkins MD [address] [place] [address] PCP - General Family Medicine 08/16/15 Rodriguez Grijalva, ABIMAEL.STRIPPER COLOR [address] [place] [address] Surgical Instrument Maker Family Medicine 10/21/24 Shey Quiroz PA-C [address] [place] [address] Surgical Instrument Maker Family Medicine 10/21/24 Fabric Lay Out Worker Relationship Specialty Start Date End Date Deangelo Hawkins MD [address] [place] [address] PCP - General Family Medicine 08/16/15 Rodriguez Grijalva, ABIMAEL.STRIPPER COLOR [address] [place] [address] Surgical Instrument Maker Family Medicine 10/21/24 Shey Quiroz PA-C [address] [place] [address] Surgical Instrument Maker Family Medicine 10/21/24 Fabric Lay Out Worker Relationship Specialty Start Date End Date Deangelo Hawkins MD [address] [place] [address] PCP - General Family Medicine 08/16/15 Rodriguez Grijalva, ABIMAEL.STRIPPER COLOR [address] [place] [address] Surgical Instrument Maker Family Medicine 10/21/24 Shey Quiroz PA-C [address] [facility] [place] [address] Surgical Instrument Maker Family Medicine 10/21/24 Fabric Lay Out Worker Relationship Specialty Start Date End Date Deangelo Hawkins MD [address] [facility] [place] [address] PCP - General Family Medicine 08/16/15 Rodriguez Grijalva, ABIMAEL.STRIPPER COLOR [address] [facility] [place] [address] Surgical Instrument Maker Family Medicine 10/21/24 Shey Quiroz PA-C [address] [facility] [place] [address] [facility]/24 Fabric Lay Out Worker Relationship Specialty Start Date End Date Deangelo Hawkins MD [address] [facility] [place] [address] PCP - General Family Medicine 08/16/15 Rodriguez Grijalva, ABIMAEL.STRIPPER COLOR [address] [facility] [place] [address] Surgical Instrument Maker Family Medicine 10/21/24 Shey Quiroz PA-C [address] [facility] [place] [address] Surgical Instrument Maker Family Medicine 10/21/24 Fabric Lay Out Worker Relationship Specialty Start Date End Date Deangelo Hawkins MD [address] [facility] [place] [address] PCP - General Family Medicine 08/16/15 Rodriguez Grijalva, PLASTIC JIG AND FIXTURE BUILDER.STRIPPER COLOR [address] [place] [address] Surgical Instrument Maker Family Medicine 10/21/24 Shey Quiroz PA-C [address] [place] [address] Surgical Instrument Maker Family Medicine 10/21/24 Fabric Lay Out Worker Relationship Specialty Start Date End Date Deangelo Hawkins MD [address] [place] [address] PCP - General Family Medicine 08/16/15 Rodriguez Grijalva APRN.STRIPPER COLOR [address] [place] [address] Surgical Instrument Maker Family Medicine 10/21/24 Shey Quiroz PA-C [address] [place] [address] Surgical Instrument Maker Family Medicine 10/21/24 Fabric Lay Out Worker Relationship Specialty Start Date End Date Deangelo Hawkins MD [address] [place] [address] PCP - General Family Medicine 08/16/15 Rodriguez Grijalva APRN.STRIPPER COLOR [address] [place] [address] Surgical Instrument Maker Family Medicine 10/21/24 Shey Quiroz PA-C [address] [place] [address] Surgical Instrument Maker Family Medicine 10/21/24 Fabric Lay Out Worker Relationship Specialty Start Date End Date Deangelo Hawkins MD [address] [place] [address] PCP - General Family Medicine 08/16/15 Rodriguez Grijalva, PLASTIC JIG AND FIXTURE BUILDER.STRIPPER COLOR [address] [place] [address] Surgical Instrument Maker Family Medicine 04/16/25 Shey Quiroz PA-C [address] [place] [address] Surgical Instrument Maker Family Medicine 04/16/25 Fabric Lay Out Worker Relationship Specialty Start Date End Date Deangelo Hawkins MD [address] [place] [address] PCP - General Family Medicine 08/16/15 Rodriguez Grijalva, PLASTIC JIG AND FIXTURE BUILDER.STRIPPER COLOR [address] [place] [address] Surgical Instrument Maker Family Medicine 04/16/25 Shey Quiroz PA-C [address] [place] [address] Surgical Instrument Maker Family Medicine 04/16/25 Fabric Lay Out Worker Relationship Specialty Start Date End Date Deangelo Hawkins MD [address] [place] [address] PCP - General Family Medicine 08/16/15 Rodriguez Grijalva, PLASTIC JIG AND FIXTURE BUILDER.STRIPPER COLOR [address] [place] [address] Surgical Instrument Maker Family Medicine 04/16/25 Shey Quiroz PA-C [address] [place] [address] Surgical Instrument Maker Family Medicine 04/16/25 Fabric Lay Out Worker Relationship Specialty Start Date End Date Deangelo Hawkins MD [address] [place] [address] PCP - General Family Medicine 08/16/15 Rodriguez Grijalva APRN.STRIPPER COLOR [address] [place] [address] Surgical Instrument Maker Family Medicine 04/16/25 Shey Quiroz PA-C [address] [place] [address] Surgical Instrument Maker Family Medicine 04/16/25 Fabric Lay Out Worker Relationship Specialty Start Date End Date Deangelo Hawkins MD [address] [place] [address] PCP - General Family Medicine 08/16/15 Rodriguez Grijalva APRN.STRIPPER COLOR [address] [place] [address] Surgical Instrument Maker Family Medicine 04/16/25 Shey Quiroz PA-C [address] [place] [address] Surgical Instrument Maker Family Medicine 04/16/25 Fabric Lay Out Worker Relationship Specialty Start Date End Date Deangelo Hawkins MD [address] [place] [address] PCP - General Family Medicine 08/16/15 Rodriguez Grijalva APRN.STRIPPER COLOR [address] [place] [address] Surgical Instrument Maker Family Medicine 04/16/25 Shey Quiroz PA-C [address] [place] [address] [facility] 04/16/25 Fabric Lay Out Worker Relationship Specialty Start Date End Date Deangelo Hawkins MD [address] [place] [address] PCP - General Family Medicine 08/16/15 Rodriguez Grijalva APRN.CNP [address] [place] [address] [facility] 04/16/25 Sehy Quiroz PA-C [address] [place] [address] [facility] 04/16/25 INFORMATION SOURCE (unrecogn ized section and content) DATE CREATED AUTHOR 12/21/2024 [facility] DATE CREATED AUTHOR [facility] 07/07/2025 [facility] FOR RECORDS PERTAINING TO PATIENTS WHO ARE OR HAVE BEEN ENROLLED IN A CHEMICAL DEPENDENCY/SUBSTANCEABUSE PROGRAM, SOME INFORMATION MAY BE OMITTED. This clinical summary was aggregated from multiple sources. Caution should be exercised in using it in the provision of clinical care. This summary normalizes information from multiple sources, and as a consequence, information in this document may materially change the coding, format and clinical context of patient data. In addition, data may be omitted in some cases. CLINICAL DECISIONS SHOULD BE BASED ON THE PRIMARY CLINICAL RECORDS. [employer] provides no warranty or guarantee of the accuracy or completeness of information in this document.
[2025-07-07 13:58] VITALS: BP 157/77; PULSE 78; RESP 15; TEMP 36.3; O2SAT 98
== END 2025-07-07 14:00 | disposition home or self-care (01) ==
PROVIDERS: Emergency Provider Emergency Medicine; PCP Family Medicine; Visit Provider Emergency Medicine
DX: S16.1XXA Strain of muscle, fascia and tendon at neck level, initial encounter (principal); G20.A1 Parkinson's disease without dyskinesia, without mention of fluctuations; S00.03XA Contusion of scalp, initial encounter; W01.190A Fall on same level from slipping, tripping and stumbling with subsequent striking against furniture, initial encounter; Y92.009 Unspecified place in unspecified non-institutional (private) residence as the place of occurrence of the external cause; I10 Essential (primary) hypertension; R29.6 Repeated falls
CPT/HCPCS: 70450; 72125; 99282

== ENCOUNTER 2025-11-06 10:30 | Outpatient (RCR) | payer MEDICARE, SELFPAY ==
--- NOTE | 2025-09-04 13:32 | HP.PTEVAL ---
Patient's Visit Information Visit Information Visit Information: SHANE ZAMUDIO is a 75 year old F referred to Physical Therapy by Dr. Isa Selby MD with a diagnosis of PD. Date of Evaluation: 09/04/25 Physical Therapist: ELBA Cavazos Visit Plan Frequency: 2x /Week Duration: 2 Months Plan: Pt needs gait belt at all times. Her R leg will not advance at times and she struggles with turning her feet to like sit down in a chair etc Subjective Subjective: Pt has a walker she uses at home to get around the house and out in public but did not bring it today because she was holding onto her . Her legs feel week and she can not move for a little bit and then it comes out of it. She has fallen about 4 times in the last month. It happens any time. A lot of time it feels like she is falling BW but she falls FW most of the time. The Dr said more therapy because she can not give her anything for that. When she goes shopping she uses the rollator or the cart. She is not exercising everyday. She is taking the PD class on Wednesdays. She only goes up the steps at night and uses the railing. She goes 2 feet to a step. She reports freezing like 6 times a day. She was told not to turn to fast or she will fall over as well. Objective Objective: Gait: Pt has a hard time getting going with her R leg when she stands up, her R leg freezes and it takes her a short time to get her R leg to advance. When she walks she has decreased step length and her swing leg does not pass her stance leg with gait. She was having trouble walking and advancing her R leg and we put a rollator in front of her and she was able to walk smoothly and not as much freezing. She was able to walk 1 lap around dept in 2 min and 53 seconds with the rollator encouraging heel to toe steps. Turning 360 degrees to the R was 25 tiny steps and 27 tiny steps to the R. With verbal cues we were able to get down to 12 to the R and 14 to the L. LE MMT: R hip flex 11.1 and L 9 R knee ext 10.6 and L 12.2 R knee flex 8.6 and L 7.6 Bridge: 1/2 normal ROM R supine hip abd 8.8 and L 9 Sit to stand: Uses B arms to get up out of the chair but has retro LOB getting up from the chair Sitting opp arm and leg X 20 with smaller ROM but kept the opp arm and leg TUG without rollator: 24.91 and had freezing with both 180 degree turns Stairs: Up and down recip using B UE to pull self up the steps and then goes down recip but keeps hands behind her instead of putting arms in front which increases her retro balance. Pt feels safer walking with the rollator Observed Pt getting into the truck and she was able to step up onto the side board and get right in with the car handrails Balance/Special Test Scores Lower Extremity Functional Score: 27 Goals Goal 1:: I HEP to do every other day Goal Time Frame: 6-8 Weeks Goal 2:: Be able to stand up with 1 UE support on first attempt X 5 in a row Goal Time Frame: 6-8 Weeks Goal 3:: Be able to stand up and start walking without R LE freezing up on her each time she stands up Goal Time Frame: 6-8 Weeks Goal 4:: Be able to turn 360 degrees with least amount of steps and not get feet tangled up to get into chairs etch (at the time of the eval: Turning 360 degrees to the R was 25 tiny steps and 27 tiny steps to the R. With verbal cues we were able to get down to 12 to the R and 14 to the L). Goal Time Frame: 6-8 Weeks Goal 5:: Increase TUG without rollator: (at time of the eval: 24.91 seconds and had freezing with both 180 degree turns) Goal Time Frame: 6-8 Weeks Goal 6:: Stairs: up and down recip with 1 hand rail without pulling self up the steps. Goal Time Frame: 6-8 Weeks Rehabilitation Potential Rehabilitation Potential: Good Anticipated Interventions Patient/Client Instruction: Educate patient on: Condition and Plan of Care For the Purpose of:: To increase ROM, To improve muscle performance and motor function, To improve ability to perform ADL's, To increase tolerance to activity/condition/position, To improve performance and independence with ADL's, To decrease level of supervision to perform tasks, To improve ability of physical actions for home/community/work/leisure, To improve gait and locomotor functions, To improve health of tissue, To improve endurance, To improve balance and To improve safety with gait Therapeutic Exercise to Include: Strength training, Endurance training, Balance training, Flexibilty training, Gait and locomotor training, Neuromotor development, Relaxation training and Active ROM For the Purpose of:: To decrease pain, To increase ROM, To improve nutrient delivery to tissue, To improve muscle performance and motor function, To improve ability to perform ADL's, To increase tolerance to activity/condition/position, To improve performance and independence with ADL's, To improve ability of physical actions for home/community/work/leisure, To improve gait and locomotor functions, To increase flexibility/ROM, To improve endurance, To improve balance and To improve safety with gait Functional Training to Include: Gait training For the Purpose of:: To improve gait and locomotor functions and To improve safety with gait Text: Thank you for the opportunity to evaluate your patient. For Medicare and Medicare HMO plans, please review the plan of care and approve it. It will need to be FAXED BACK to us at [phone] for Medicare purposes. For Medicare only, by signing this I certify the plan of care. Please let me know if there are questions or concerns regarding this plan of care. Physician Signature: Date:
--- NOTE | 2025-10-09 11:08 | HP.PTREVAL_ITS ---
Re-Evaluation Intro: Dr. Isa Selby MD, It has been my pleasure to treat SHANE ZAMUDIO over the last 10 visits for PD. Please see the progress note below for an update on the physical therapy plan of care! Subjective Subjective: Pt reports that she does not feel much better. She feels that her legs are better when she leaves here. Her L leg is getting weak and then she can not move it. That is why it is safer to be on the rollator. Objective Objective/Function: TUG 19.67 with rollator Steps: pt up and down steps recip with 2 hand rails but pulls self up with both rails (only has 1 rail at home... might ask for another rail) Sit to stand with 1 UE support: Able to do X 5 times in a row but does have some retro balance with standing. Turning 360 degrees R and L both X 10 steps but does freeze more to the L Gait: has flexed trunk with gait using a rollator and needs VC to stand up straight. Plan Plan Plan: Work on slowing down gait but still big steps work on picking up objects from the floor (pt likes to fall FW with this) Work on up and down stairs recip for safety work on sit to stand without retro LOB Work on turning tasks to take bigger steps instead of smaller ones and not turn so fast Balance/Gait/Functional tests Balance/Special Test Scores Lower Extremity Functional Score: 30 Goals Goals Goal 1:: I HEP to do every other day Goal Time Frame: 6-8 Weeks Goal 2:: Be able to stand up with 1 UE support on first attempt X 5 in a row Goal Time Frame: 6-8 Weeks Goal Progress: Goal Met Goal 3:: Be able to stand up and start walking without R LE freezing up on her each time she stands up Goal Time Frame: 6-8 Weeks Goal Progress: Progressing Goal 4:: Be able to turn 360 degrees with least amount of steps and not get feet tangled up to get into chairs etch (at the time of the eval: Turning 360 degrees to the R was 25 tiny steps and 27 tiny steps to the R. With verbal cues we were able to get down to 12 to the R and 14 to the L). Goal Time Frame: 6-8 Weeks Goal Progress: Progressing Goal 5:: Increase TUG without rollator: (at time of the eval: 24.91 seconds and had freezing with both 180 degree turns) Goal Time Frame: 6-8 Weeks Goal Progress: Goal Met Goal 6:: Stairs: up and down recip with 1 hand rail without pulling self up the steps. Goal Time Frame: 6-8 Weeks Anticipated Interventions Anticipated Interventions Patient/Client Instruction: Educate patient on: Condition and Plan of Care For the Purpose of:: To increase ROM, To improve muscle performance and motor fu nction, To improve ability to perform ADL's, To increase tolerance to activity/condition/position, To improve performance and independence with ADL's, To decrease level of supervision to perform tasks, To improve ability of physical actions for home/community/work/leisure, To improve gait and locomotor functions, To improve health of tissue, To improve endurance, To improve balance and To improve safety with gait Therapeutic Exercise to Include: Strength training, Endurance training, Balance training, Flexibilty training, Gait and locomotor training, Neuromotor developm ent, Relaxation training and Active ROM For the Purpose of:: To decrease pain, To increase ROM, To improve nutrient delivery to tissue, To improve muscle performance and motor function, To improve ability to perform ADL's, To increase tolerance to activity/condition/position, To improve performance and independence with ADL's, To improve ability of physical actions for home/community/work/leisure, To improve gait and locomotor functions, To increase flexibility/ROM, To improve endurance, To improve balance and To improve safety with gait Functional Training to Include: Gait training For the Purpose of:: To improve gait and locomotor functions and To improve safety with gait Re-Evaluation Ending Re-evaluation ending: Please do not hesitate to contact me at [phone] by phone or if you have questions or concerns regarding this new plan of care! Sincerely, Gisel Patel, MPT
--- NOTE | 2025-11-06 11:17 | HP.PTDCSUM_ITS ---
Discharge Summary D/C summary: It has been my pleasure to treat SHANE ZAMUDIO referred by Dr. Isa Selby MD, with the diagnosis of PD for a total of 17 visit(s). Discharge Date: 11/06/25 Please see the following information for a summary of their discharge status. Subjective Subjective: Pt thinks that she is doing better. She is doing the PD class. She uses the rollator all the time. Pt still struggles with standing up out of a chair or getting in and out of the car. Overall Improvement % Improvement: 80 Objective Objective/Function: 12 steps each to turn each direction 360 degrees R and L Sit to stand: does well when she pushes off the chair rails. When she pulls on her walker she falls back into the chair she is standing up most of the time. Goals Goal 1:: I HEP to do every other day Goal Progress: Goal Met Goal 2:: Be able to stand up with 1 UE support on first attempt X 5 in a row Goal Progress: Goal Met Goal 3:: Be able to stand up and start walking without R LE freezing up on her each time she stands up Goal Progress: Progressing Goal 4:: Be able to turn 360 degrees with least amount of steps and not get feet tangled up to get into chairs etch (at the time of the eval: Turning 360 degrees to the R was 25 tiny steps and 27 tiny steps to the R. With verbal cues we were able to get down to 12 to the R and 14 to the L). Goal Progress: Progressing Goal 5:: Increase TUG without rollator: (at time of the eval: 24.91 seconds and had freezing with both 180 degree turns) Goal Progress: Goal Met Goal 6:: Stairs: up and down recip with 1 hand rail without pulling self up the steps. Plan Plan: DC PT to [facility] for now. D/C Information Discharge Comments: DC PT d/c sentence: If there are questions or concerns regarding this patient's physical therapy, please feel free to call me at [phone]. Thank you for the referral of this patient. Sincerely, Gisel Patel, MPT Balance/Gait/Functional tests Balance/Special Test Scores Lower Extremity Functional Score: 44 Improvement % Improvement: 80
== END 2025-11-06 14:31 | disposition home or self-care (01) ==
LOC: PT 10:30
PROVIDERS: PCP Family Medicine; Referring Provider Psychiatry & Neurology Neurology; Visit Provider Psychiatry & Neurology Neurology
DX: G20.B2 Parkinson's disease with dyskinesia, with fluctuations (principal)
CPT/HCPCS: 97110; 97162; 97530